=== PATIENT | female | born 1950 | race African-American/Black ===

== ENCOUNTER 2017-02-25 08:08 | Inpatient (IN) | payer BC, OTHER ==
[~2017-02-25] VITALS: Ht 167.6 cm; Wt 89.4 kg
[~2017-02-25 08:08] MED LIST: ALEN70TA5 PO; ALPR0.5T PO; CHOL500016 PO; COD1CAPS2 PO; CYAN10005 PO; CYCL10TA2 PO; EZET10TA18 PO; FLUO40CA9 PO; GLYB5TAB3 PO; LATA2.5D3 EACHEYE; LIDO20SO PO; LOSA50TA6 PO; METF-620 PO; METO-269 PO; NAPR220C4 PO; PANT40TA3 PO; SUMA100T3 PO; TRAM50TA PO; TRAZ50TA15 PO; VENL150C PO; VIT1CAPS7 PO
[2017-02-25] MEDS ORDERED: IV NORMAL SALINE 1000ML BAG 1,000 ML IV SCH (08:20)
[2017-02-25] MEDS ORDERED: 0.9 % SODIUM CHLORIDE 10 ML DISP.SYRIN. IV PRN (08:30)
--- NOTE | 2017-02-25 08:37 | PHYS DOC ---
Past Medical History Past Medical History: Asthma, COPD, Hypertension Smoking: Cigarettes, Quit Greater Than 1 Year Alcohol Use: None Drug Use: None Adult General Chief Complaint Chief Complaint: COUGH HPI HPI History is a pleasant 66-year-old female with history of hypertension and questionable history of asthma or COPD who is going through any pulmonary evaluation presents with bright red hot hemoptysis that began last night. Had a productive cough with bright red blood initially started as dark red blood and clots is gotten progressively worse. About a tablespoon of blood every few minutes. For the last 8-12 hours. She denies fevers, chills but she does have shortness of breath on exertion especially going up stairs and chest pain described as a pressure in the center of her chest that is intermittent with tingling and numbness to her left hand. Was a smoker quit about 20 years ago. He denies any night sweats or weight loss. She further denies any weight gain, peripheral swelling in her lower legs, recent travel outside the country, recent estrogen use, or other PE risk factors. Patient also does not exhibit any signs of congestive heart failure on her history of nocturnal dyspnea. Patient is actually under the care of a research animal attendant at this time and Dr. Nolen her primary care physician. She does complain of pain in the center of her chest described as a pressure lasting a few minutes without radiation to her neck back or shoulders. She denies any prior history of the same. She has noted increased tingling tingling not pain in her left upper extremity which has his symptoms. It is not worsened by position or exertion. sHe denies any direct trauma. Differential diagnosis for hemoptysis includes but not limited to infectious etiologies like bacterial pneumonia, bleeding dyscrasias, tuberculosis, congestive heart failure, epistaxis, or posterior oropharynx bleed, significant GI bleed, lung cancer, and pulmonary embolism. At this point I'll treat her discomfort with IV pain medications and fluids I will complete a chest x-ray, EKG, troponin, CBC, CMP, PT PTT and INR, we'll attempt to collect sputum cultures well if possible. And pulse her primary care doctor for admission. Review of Systems Review of Systems Constitutional: Denies fever or chills [] Eyes: Denies change in visual acuity, redness, or eye pain [] HENT: Denies nasal congestion or sore throat [] Respiratory: Does complain of a productive cough and shortness of breath on exertion. Cardiovascular: No additional information not addressed in HPI [] GI: Denies abdominal pain, nausea, vomiting, bloody stools or diarrhea [] : Denies dysuria or hematuria [] Musculoskeletal: Denies back pain or joint pain [] Integument: Denies rash or skin lesions [] Neurologic: Denies headache, focal weakness or sensory changes [] Endocrine: Denies polyuria or polydipsia [] Current Medications Current Medications Current Medications Medications (Trade) Dose Ordered Sig/Cristopher Start Time Stop Time Status Last Admin Dose Admin Sodium Chloride (Normal Saline Flush) 10 ml QSHIFT PRN 02/25/17 08:30 02/25/17 08:53 10 ML Allergies Allergies Allergies Coded Allergies Type Severity Reaction Last Updated Verified erythromycin base Allergy Intermediate 03/25/16 Yes Physical Exam Physical Exam Patient's vital signs reviewed by me on arrival. Borderline hypoxia sats at 93% on room air Constitutional: Well developed, well nourished, no acute distress, non-toxic appearance. [] HENT: Normocephalic, atraumatic, bilateral external ears normal, oropharynx moist, no oral exudates, nose normal. Clear epistaxis Eyes: PERRLA, EOMI, conjunctiva normal, no discharge. [] Neck: Normal range of motion, no tenderness, supple, no stridor. [] Cardiovascular:Heart rate regular rhythm, no murmur [] Lungs & Thorax: Bilateral breath sounds clear to auscultation no wheezes rhonchi rales or crackles Abdomen: Bowel sounds normal, soft, no tenderness, no masses, no pulsatile masses. [] Skin: Warm, dry, no erythema, no rash. [] Extremities: No tenderness, no cyanosis, no clubbing, ROM intact, no edema. [] Neurologic: Alert and oriented X 3, normal motor function, normal sensory function, no focal deficits noted. [] Psychologic: Affect normal, judgement normal, mood normal. [] Current Patient Data Vital Signs Vital Signs Date Time Temp Pulse Resp B/P (MAP) Pulse Ox O2 Delivery O2 Flow Rate FiO2 02/25/17 08:51 82 27 145/84 (104) 95 Room Air 02/25/17 08:15 98.3 98.3 Lab Values Laboratory Tests Test 02/25/17 08:45 7/21/17 09:20 White Blood Count 6.6 x10^3/uL (4.0-11.0) Red Blood Count 4.47 x10^6/uL (3.50-5.40) Hemoglobin 12.5 g/dL (12.0-15.5) Hematocrit 36.1 % (36.0-47.0) Mean Corpuscular Volume 81 fL (79-100) Mean Corpuscular Hemoglobin 28 pg (25-35) Mean Corpuscular Hemoglobin Concent 35 g/dL (31-37) Red Cell Distribution Width 13.3 % (11.5-14.5) Platelet Count 354 x10^3/uL (140-400) Neutrophils (%) (Auto) 75 % (31-73) H Lymphocytes (%) (Auto) 14 % (24-48) L Monocytes (%) (Auto) 6 % (0-9) Eosinophils (%) (Auto) 4 % (0-3) H Basophils (%) (Auto) 1 % (0-3) Neutrophils # (Auto) 5.0 x10^3uL (1.8-7.7) Lymphocytes # (Auto) 0.9 x10^3/uL (1.0-4.8) L Monocytes # (Auto) 0.4 x10^3/uL (0.0-1.1) Eosinophils # (Auto) 0.3 x10^3/uL (0.0-0.7) Basophils # (Auto) 0.1 x10^3/uL (0.0-0.2) Prothrombin Time 12.7 SEC (11.7-14.0) Prothrombin Time INR 1.0 (0.8-1.1) Sodium Level 143 mmol/L (136-145) Potassium Level 3.2 mmol/L (3.5-5.1) L Chloride Level 105 mmol/L (98-107) Carbon Dioxide Level 29 mmol/L (21-32) Anion Gap 9 (6-14) Blood Urea Nitrogen 10 mg/dL (7-20) Creatinine 0.8 mg/dL (0.6-1.0) Estimated GFR (Cockcroft-Gault) 87.4 Glucose Level 110 mg/dL (70-99) H Calcium Level 9.4 mg/dL (8.5-10.1) Magnesium Level 1.6 mg/dL (1.8-2.4) L Total Bilirubin 0.5 mg/dL (0.2-1.0) Direct Bilirubin 0.1 mg/dL (0.0-0.2) Aspartate Amino Transferase (AST) 17 U/L (15-37) Alanine Aminotransferase (ALT) 13 U/L (14-59) L Alkaline Phosphatase 97 U/L (46-116) Creatine Kinase 104 U/L (26-192) Creatine Kinase MB (Mass) 0.9 ng/mL (0.0-3.6) Creatine Kinase MB Relative Index 0.9 % (0-4) Troponin I Quantitative < 0.017 ng/mL (0.000-0.055) IJ-Eir-P-Type Natriuretic Peptide 78 pg/mL (0-124) Total Protein 7.6 g/dL (6.4-8.2) Albumin 3.2 g/dL (3.4-5.0) L Urine Collection Type Unknown Urine Color Yellow Urine Clarity Clear Urine pH 7.5 Urine Specific [place] <=1.005 Urine Protein Negative mg/dL (NEG-TRACE) Urine Glucose (UA) Negative mg/dL (NEG) Urine Ketones (Stick) Negative mg/dL (NEG) Urine Blood Negative (NEG) Urine Nitrite Negative (NEG) Urine Bilirubin Negative (NEG) Urine Urobilinogen Dipstick 0.2 mg/dL (0.2 mg/dL) Urine Leukocyte Esterase Negative (NEG) Urine RBC 0 /HPF (0-2) Urine WBC 0 /HPF (0-4) Urine Squamous Epithelial Cells Mod /LPF Urine Bacteria Few /HPF (0-FEW) Laboratory Tests 02/25/17 08:45 Laboratory Tests 02/25/17 08:45 EKG EKG [] EKG timed 8:46 AM 02/25/2017 chemistries normal sinus rhythm heart rate of 79 [place] interval of 156 QT 513 which is mildly elevated patient's QRS is 1:30 demonstrated a right bundle was proximal in V1 and V2 with no ST is T-wave elevations or changes there is also nonseptic T-wave inversion in lead 3. Radiology/Procedures Radiology/Procedures [] [facility] [address] [place] [address] IMAGING REPORT Signed PATIENT: MILAN YOO ACCOUNT: [id number] : 1950 LOCATION: ER AGE: 66 SEX: F EXAM STATUS: REG ER ORD. PHYSICIAN: HARRISON KUNZ MD REASON: coughing up blood PROCEDURE: CHEST PA & LATERAL INDICATION: coughing up blood COMPARISON: 02/17/2017 FINDINGS: 2 views of chest obtained. Repeat demonstration of coarsened lung markings throughout the bilateral lungs. There is hazy opacity seen at the left upper lung. Cardiac silhouette is not enlarged. Degenerative changes spine IMPRESSION: Coarsened lung markings throughout the bilateral lungs. Could be secondary to chronic lung disease such as emphysema. Hazy opacity left upper lung. Although its possible that this is related to the patient's chronic lung disease with an area of fibrosis, region of infiltrate or lesion within the areas also within the differential. Follow-up could be obtained to ensure that this resolves. DICTATED and SIGNED BY: DEEP JARA MD DATE: 02/25/17922 CC: HARRISON KUNZ MD; JANNA NOLEN MD ~ Course & Med Decision Making Course & Med Decision Making Pertinent Labs and Imaging studies reviewed. (See chart for details) and presented with hemoptysis and history of question of COPD versus asthma. With her smoking history and hemoptysis I with her my differential diagnosis with the family and cancer is very concerning. She had a CT chest completed last Tuesday and was hemoptysis is brand-new. It could be Goodpasture's syndrome, infection, congestive heart failure, she also complains of chest pain. She has a negative troponin at this time negative EKG by my concern is still with cancer. [] Lead Blender note: Her PCP family practice doctor Dr. CARMEN VALENTIN a Lead Blender called at of the service patient initially at 8:45 AM, paged again at 9:15 AM time is now [phone] paging PCP again Consult called back at 10:10 AM Discussed the case I presented and they agreed with admission. Time of acceptance 10:10 AM She initially presented with bright red hemoptysis which is concerning given her history of smoking and question history of asthma versus COPD that she may be an intermediate risk candidate for cancer. Chest x-ray timed 9:00 02/25/2017 shows interstitial infiltrates that are really unchanged. Prior chest x-rays there is no focal consolidation there is considerable tortuous aorta and mild cardiomegaly is no pleural effusion although there is some blunting of the costophrenic angle on the right. She did have a CT of the chest done on Tuesday of last week we will attempt to get those results and cording with her primary care doctor to set her up for bronchoscopy. Time is now 9:16 AM CBC does not demonstrate any significant anemia no elevated white count, no elevated platelet count no neutrophil predominance. Patient's CMP is otherwise normal with exception of mild hypokalemia and mild hyperglycemia. Although this is not specific for an infectious cause of her hemoptysis is now lower on the differential diagnosis. Other considerations still in play are good pastures syndrome, a pulmonary cancer, bleeding dyscrasias ITP TTP are also less likely at this time. Time is now 10:22 AM patient's been admitted to the hospital will see pulmonology service for bronchoscopy to look for cause of hemoptysis. Impression: hemoptysis unclear etiology, chest pain of unclear etiology hypertension. Disposition: Admission to the hospital for pulmonary duration bronchoscopy. Dragon Disclaimer Dragon Disclaimer This electronic medical record was generated, in whole or in part, using a voice recognition dictation system. Departure Departure Impression: Primary Impression: Hemoptysis Disposition: ADMITTED INPATIENT Admitting Physician: Janna Nolen Condition: GUARDED Referrals: JANNA NOLEN MD (PCP) HARRISON KUNZ MD Feb 25, 2017 08:37
[2017-02-25 08:54] LABS: BASO # 0.1 x10^3/uL (0.0-0.2); BASO % 1 % (0-3); EOS % 4 % (0-3); HEMATOCRIT 36.1 % (36.0-47.0); HEMOGLOBIN 12.5 g/dL (12.0-15.5); LYMPH # 0.9 x10^3/uL (1.0-4.8); LYMPH % 14 % (24-48); MEAN CORPUSCULAR HEMOGLOBIN 28 pg (25-35); MEAN CORPUSCULAR HGB CONC 35 g/dL (31-37); MEAN CORPUSCULAR VOLUME 81 fL (79-100); MONO % 6 % (0-9); NEUT % 75 % (31-73); PLATELET COUNT 354 x10^3/uL (140-400); RED BLOOD COUNT 4.47 x10^6/uL (3.50-5.40); RED CELL DISTRIBUTION WIDTH 13.3 % (11.5-14.5); WHITE BLOOD COUNT 6.6 x10^3/uL (4.0-11.0)
[2017-02-25 09:06] LABS: PROTHROMBIN TIME PATIENT 12.7 SEC (11.7-14.0)
[2017-02-25 09:07] LABS: CALCIUM 9.4 mg/dL (8.5-10.1); CREATININE 0.8 mg/dL (0.6-1.0); GFR 87.4; POTASSIUM 3.2 mmol/L (3.5-5.1)
[2017-02-25 09:13] LABS: ALBUMIN 3.2 g/dL (3.4-5.0); DIRECT BILIRUBIN 0.1 mg/dL (0.0-0.2); MAGNESIUM 1.6 mg/dL (1.8-2.4); TOTAL BILIRUBIN 0.5 mg/dL (0.2-1.0); TOTAL PROTEIN 7.6 g/dL (6.4-8.2)
[2017-02-25 09:21] LABS: CKMB MASS 0.9 ng/mL (0.0-3.6)
--- NOTE | 2017-02-25 09:29 | RAD ---
INDICATION: coughing up blood COMPARISON: 02/17/2017 FINDINGS: 2 views of chest obtained. Repeat demonstration of coarsened lung markings throughout the bilateral lungs. There is hazy opacity seen at the left upper lung. Cardiac silhouette is not enlarged. Degenerative changes spine IMPRESSION: Coarsened lung markings throughout the bilateral lungs. Could be secondary to chronic lung disease such as emphysema. Hazy opacity left upper lung. Although its possible that this is related to the patient's chronic lung disease with an area of fibrosis, region of infiltrate or lesion within the areas also within the differential. Follow-up could be obtained to ensure that this resolves.
[2017-02-25 09:38] LABS: BILIRUBIN,URINE NEGATIVE (NEG); GLUCOSE,URINE NEGATIVE (NEG); NITRITE,URINE NEGATIVE (NEG); PH,URINE 7.5; PROTEIN,URINE NEGATIVE (NEG-TRACE); UROBILINOGEN,URINE 0.2 mg/dL (0.2 mg/dL)
[2017-02-25 09:53] LABS: BACTERIA,URINE FEW /HPF (0-FEW); RBC,URINE 0 /HPF (0-2); SQUAMOUS EPITHELIAL CELL,UR MOD /LPF; WBC,URINE 0 /HPF (0-4)
--- NOTE | 2017-02-25 10:19 | EKG ---
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
[2017-02-25] MEDS ORDERED: fentaNYL PF VIAL 100 MCG/2 ML VIAL IV PRN (10:30)
[2017-02-25] MEDS ORDERED: ONDANSETRON PF 4 MG/2 ML VIAL. IV PRN (10:30)
--- NOTE | 2017-02-25 12:00 | ACF ---
Admit Criteria Forms Admit Criteria Forms Admit Criteria Forms GENERAL ADMISSION CRITERIA (Place 'X' for any and all applicable criteria): Admission is indicated for ANY ONE of the following: [ ]I. Hemodynamic instability as indicated by ANY ONE of the following(1)(2) (3)(4)(5): [ ]a) Vital sign abnormality not readily corrected by appropriate treatment within 12 to 24 hours indicated by ANY ONE of the following: [ ]i) Hypotension [ ]ii) Symptomatic Tachycardia unresponsive to treatment (eg , analgesia, fluids, sedation as indicated) [ ]iii) Orthostatic vital sign changes unresponsive to treatment (eg, fluids) [ ]b) Vital sign abnormality that is severe indicated by ANY ONE of the following: [ ]i) Inadequate perfusion indicated by ANY ONE of the following: [ ]1) Lactic acidosis (greater than 2 mmol/L) [ ]2) New abnormal capillary refill (greater than 3 seconds) [ ]3) Other metabolic acidosis (arterial pH less than 7.35) not otherwise explained [ ]4) Reduced urine output [ ]5) Altered mental status [ ]6) Myocardial Ischemia [ ]v) Mean arterial pressure[A] less than 60 mm Hg [ ]vi) Mean arterial pressure[A] less than 70 mm Hg after 30 minutes of appropriate treatment (eg, fluid resuscitation) [ ]vii) IV inotropic or vasopressor medication required to maintain adequate blood pressure or perfusion [ ]viii) Sustained heart rate greater than 120 beats per minute in adult or child 6 years or older[B]] [ ]II. Hypertension requiring inpatient treatment as indicated by ANY ONE of the following(6)(7)(8): [ ]a) SBP greater than 220 mm Hg or DBP greater than 120 mm Hg despite treatment [ ]b) SBP greater than 140 mm Hg or DBP greater than 100 mm Hg with evidence of acute end organ damage as indicated by ANY ONE of the following: [ ]i) Encephalopathy [ ]ii) Acute renal failure as indicated by new onset of ANY ONE of the following(9)(10)(11)(12)(13): [ ]1) A 3-fold rise in serum creatinine from baseline [ ]2) Serum creatinine greater than 4 mg/dL ( 354 micromoles/L) with acute rise greater than 0.5 mg/dL (44.2 micromoles/L) [ ]3) Reduction of more than 75% in estimated glomerular filtration rate from baseline [ ]4) Estimated glomerular filtration rate less than 35 mL/min/1.73m2 (0.59 mL/sec/1.73m2) in child up to 18 years of age [ ]5) Cessation of urine output indicated by ALL of the following: [ ]A. Adequate volume status [ ]B. Inadequate urine output as indicated by ANY ONE of the following: [ ]a. Urine output less than 0.3 mL/kg/hr for 24 hours [ ]b. Anuria (urine output less than 0.1 mL/kg/hr) for 12 hours [ ]iii) Aortic dissection [ ]iv) Myocardial ischemia [ ]v) Left ventricular heart failure [ ]vi) Retinal hemorrhage [ ]vii) Other significant finding [ ]c) Hypertension in child requiring inpatient treatment as indicated by ALL of the following(14)(15)(16): [ ]i) Outpatient treatment not effective, not available, or not appropriate [ ]ii) SBP or DBP greater than 95th percentile for age [ ]iii) Evidence of acute end organ damage as indicated by ANY ONE of the following: [ ]1) Altered mental status [ ]2) Acute renal failure as indicated by new onset of ANY ONE of the following(9)(10)(11)(12)(13): [ ]A. A 3-fold rise in serum creatinine from baseline [ ]B. Serum creatinine greater than 4 mg/dL (354 micromoles/L) with acute rise greater than 0.5 mg/dL (44.2 micromoles/L) [ ]C. Reduction of more than 75% in estimated glomerular filtration rate from baseline [ ]D. Estimated glomerular filtration rate less than 35 mL/min/1.73m2 (0.59 mL/sec/1.73m2)in child up to 18 years of age [ ]E. Cessation of urine output indicated by ALL of the following: [ ]a. Adequate volume status [ ]b. Inadequate urine output as indicated by ANY ONE of the following: [ ]1) Urine output less than 0.3 mL/kg/hr for 24 hours [ ]2) Anuria (urine output less than 0.1 mL/kg/hr) for 12 hours [ ]3) Severe headache [ ]4) Visual disturbance [ ]5) Retinal hemorrhage [ ]6) Other significant finding [ ]III. Acute cardiac or peripheral ischemia as indicated by ANY ONE of the following: [ ]a) Acute coronary syndrome(17)(18) [ ]b) Acute peripheral ischemia (eg, pulseless, cool, mottled, or cyanotic extremity)(19) [ ]IV. Cardiac arrhythmias or findings of immediate concern indicated by ANY ONE of the following(20)(21): [ ]a) Heart rhythms that are inherently dangerous or unstable indicated by ANY ONE of the following(22)(23)(24): [ ]i) Resuscitated ventricular fibrillation or cardiac arrest [ ]ii) Ventricular escape rhythm [ ]iii) Sustained ventricular tachycardia (30 seconds or more of ventricular rhythm at greater than 100 beats per minute) [ ]iv) Nonsustained ventricular tachycardia and ANY ONE of the following: [ ]1) Suspected cardiac ischemia as cause or consequence of ventricular tachycardia [ ]2) In setting of acute myocarditis [ ]b) Unstable cardiac conduction defects indicated by ANY ONE of the following(24)(25)(26): [ ]i) Type II second-degree atrioventricular block [ ]ii) Third-degree atrioventricular block [ ]iii) New-onset left bundle branch block with suspected myocardial ischemia [ ]c) Any heart rhythm and ANY ONE of the following(22)(23)(27)(28)( 29): [ ] i) Continuous long-term ECG monitoring needed (eg, initiation of drug requiring monitoring for more than 24 hours) [ ] ii) Patient has automatic implanted cardioverter defibrillator that is repeatedly firing, malfunctioning, or in need of immediate adjustment of settings beyond the scope of ambulatory or observation care. [ ]d) Heart rhythms of concern due to ANY ONE of the following: [ ]i) Hypotension [ ]ii) Respiratory distress [ ]iii) Association with other significant symptoms (eg, bradycardia with syncope or ongoing dizziness, supraventricular tachycardia with chest pain) (27)(28) (30) [ ] V. Severe heart failure as indicated by ANY ONE of the following ( 31)(32): [ ]a) Respiratory distress [ ]b) Hypotension [ ]c) Anasarca (refractory to outpatient therapy) [ ]d) Cardiac arrhythmias of immediate concern [ ]e) Myocardial ischemia [ ]. Respiratory abnormalities, including ANY ONE of the following(33)(34) (35)(36): [ ]a) Respiratory rate greater than 30 breaths per minute unresponsive to treatment [A] [ ]b) New saturation of arterial oxygen less than 90% [ ]c) New partial pressure of carbon dioxide greater than 44 mm Hg ( 5.9 kPa) [ ]d) Supplemental oxygen or respiratory treatments needed that are new or not performable at other levels of care [ ]e) New-onset cyanosis [ ]f) Inability to protect airway [ ]g) Chronic lung disease with severe deterioration (not responsive to emergency and observation care treatment as appropriate) as indicated by ANY ONE of the following(34)(36 ): [ ]i) SaO2 5% below baseline in patient with chronic hypoxemia [ ]ii) New requirement for supplemental oxygen to keep SaO2 at baseline or acceptable level [ ]iii) Required supplemental oxygen performable only in acute inpatient setting [ ]iv) Severe airflow or ventilation abnormalities [ ]v) Previously mobile patient unable to walk between rooms [ ]vi Inability to eat or sleep due to dyspnea [ ]vii) Rapid rate of exacerbation onset [ ]viii) Altered mental status ]VII. Severe airflow or ventilation abnormalities (not responsive to emergency and observation care treatment as appropriate) as indicated by ANY ONE of the following(33)(34)(35)(37): [ ]a) PCO2 greater than 42 mm Hg (5.6 kPa) and pH less than 7.35 (new ) [ ]b) Documented PCO2 increased more than 5 mm Hg (0.7 kPa) from disease baseline [ ]c) Airflow measurements [B] less than 60% of previous best or predicted (eg, peak expiratory flow rate less than 300 L/minute) despite intensive emergent treatment [C] [ ]d) Required respiratory treatments that are performable only in acute inpatient setting [ ]VIII. Impending or actual respiratory arrest ( Also use Respiratory Failure GRG for severe respiratory disease and long-term mechanical ventilation patients) [ ]IX. Neurologic abnormalities, including ANY ONE of the following: [ ]a) New findings that suggest ANY ONE of the following: [ ]i) UTILIZATION REVIEW NURSE infection(38) [ ]ii) Cerebral bleeding, ischemia, or vasospasm(39)(40) [ ]iii) Increased intracranial pressure, hydrocephalus, or cerebral edema(41)(42)(43) [ ]iv) Spinal cord injury(44) [ ]b) Uncontrolled seizures(45) [ ]c) New-onset coma (eg, [place] coma scale score less than 9) or unexplained abnormal mental status (eg, [place] coma scale score less than 14) [D](41)(46)(47) [ ]X. New-onset severe neurologic findings requiring inpatient care; examples include(42)(48)(49): [ ]a) Papilledema [ ]b) Cerebral edema [ ]c) Mass effect on CT scan [ ]XI. Suspected acute intra-abdominal process with peritoneal signs, abdominal mass, or similar findings (50)(51)(52) [ ]XII. Severe physiologic disorder remaining after emergency or observation level care (as appropriate) as indicated by ANY ONE of the following (53): [ ]a) Significant dehydration [ ]b) Diabetic ketoacidosis [ ]c) Hyperglycemic hyperosmolar state (eg, osmolality greater than 320 mOsm/kg (mmol/kg) [ ]d) Hypoglycemia [ ]e) Other (new) acid-base disorder with pH less than 7.35 or greater than 7.5(54) [ ]f) Thyroid storm (55) [ ]g) Myxedema coma (55) [ ]XIII. Abdominal abnormalities with ANY ONE of the following(56)(57): [ ]a) Absent bowel sounds with complete ileus [ ]b) Signs of intestinal obstruction or peritonitis [E] [ ]c) Nausea and vomiting that cannot be controlled with outpatient or observation care [ ]XIV. Acute renal failure as indicated by new onset of ANY ONE of the following(9)(10)(11)(12)(13): [ ]a) A 3-fold rise in serum creatinine from baseline [ ]b) Serum creatinine greater than 4 mg/dL (354 micromoles/L) with acute rise greater than 0.5 mg/dL (44.2 micromoles/L) [ ]c) Reduction of more than 75% in estimated glomerular filtration rate from baseline [ ]d) Estimated glomerular filtration rate less than 35 mL/min/ 1.73m2 (0.59 mL/sec/1.73m2) in child up to 18 years of age [ ]e) Cessation of urine output indicated by ALL of the following: [ ]i) Adequate volume status [ ]ii) Inadequate urine output as indicated by ANY ONE of the following: [ ]1) Urine output less than 0.3 mL/kg/hr for 24 hours [ ]2) Anuria (urine output less than 0.1 mL/kg/hr) for 12 hours [ ]XV. Significant uremic complications as indicated by ANY ONE of the following(58)(59)(60): [ ]a) Outpatient therapy is ineffective or not feasible for ANY ONE of the following: [ ]i) Severe heart failure [ ]ii) Severehypertension [ ]iii) Pleural effusion [ ]iv) Pericarditis or pericardial effusion [ ]b) Cardiac arrhythmias of immediate concern [ ]c) Intractable nausea or vomiting [ ]d) Recurrent seizures [ ]e) Encephalopathy [ ]f) Bleeding abnormalities (eg, platelet dysfunction) with active (eg, gastrointestinal) bleeding [ ]g) Dialysis indicated before long-term access or ambulatory arrangements can be made [ ]h) Significant metabolic or electrolyte abnormalities (eg, severe acidosis or hyperkalemia) [ ]XVI. High fever or other high-risk infection situation as indicated by ANY ONE of the following(61)(62)(63)(64): [ ]a) Outpatient and observation care antimicrobial treatment unavailable, not effective, or not appropriate [ ]b) Documented bacteremia [ ]c) Temperature greater than 40.5 degrees C (104.9 degrees F) ( oral) [ ]d) Temperature greater than 39.5 degrees C (103.1 degrees F) ( oral) or less than 36 degrees C (96.8 degrees F) (rectal) that does not respond to e treatment and observation care [ ] XVII. Temperature less than 95 degrees F (35 degrees C)(rectal)(65) [ ] XVIII. Severe nutritional abnormalities as indicated by ALL of the following (66)(67): [ ]a) Inability to tolerate or establish sufficient oral or other enteral nutrition in outpatient setting [ ]b) Parenteral nutrition regimen need that must be implemented on inpatient basis [ ] XIX. Severe electrolyte abnormalities indicated by ALL of the following(68) (69)(70): [ ]a) Electrolytes and associated findings are not as expected for patient baseline or acceptable treatment effects. [ ]b) Severe abnormalities indicated by ANY ONE of the following: [ ]i) Sodium less than 130 mEq/L (mmol/L) (new) [ ]ii)Sodium less than 135 mEq/L (mmol/L) with ANY ONE of the following: [ ]1) Uncorrectable (to near normal or chronic baseline) after trial of outpatient and emergency treatment [ ]2) Altered mental status [ ]3) Seizures [ ]4) Severe medical etiology requiring inpatient management (eg, heart failure, hypovolemia) [ ]iii) Sodium greater than 155 mEq/L (mmol/L) [ ]iv) Sodium greater than 150 mEq/L (mmol/L) with ANY ONE of the following: [ ]1) Uncorrectable (to near normal or chronic baseline) with outpatient and emergency treatment [ ]2) Altered mental status [ ]3) Seizures [ ]4) Severe medical etiology (eg, hypovolemia, diabetes insipidus) [ ]v) Potassium less than 2.5 mEq/L (mmol/L) despite outpatient and emergency treatment [ ]vi) Potassium less than 3 mEq/L (mmol/L) with ANY ONE of the following: [ ]1) Weakness [ ]2) Cardiac abnormality (eg, arrhythmia, conduction disturbance) [ ]3) Cardiac ischemia [ ]4) Ileus [ ]5) Ongoing medical cause requiring inpatient management (eg, acute renal wasting or SIADH) [ ]6) Other severe symptoms [ ]vii) Potassium greater than 6.5 mEq/L (mmol/L) [ ]viii) Potassium greater than 5 mEq/L (mmol/L) with ANY ONE of the following: [ ]1) Uncorrectable (to near normal or chronic baseline) with outpatient and emergency treatment [ ]2) Severe ECG findings [F] [ ]3) Acute worsening of renal failure (creatinine greater than 2.5 mg/dL (221 micromoles/L) or significant elevation for age and size) [ ]4) Severe weakness [ ]5) Severe medical etiology (eg, hemolysis, infection, drug overdose) [ ]ix) Calcium less than 7 mg/dL (1.75 mmol/L) despite outpatient and emergency treatment (72) [ ]x) Calcium less than 8 mg/dL (2 mmol/L) with significant symptoms or findings; examples include(72): [ ]1) Altered mental status [ ]2) Muscle spasms [ ]3) Seizures [ ]4) Breathing difficulty [ ]5) Cardiac abnormality (eg, arrhythmia or conduction disturbance) [ ]xi) Calcium greater than 14 mg/dL (3.5 mmol/L)(72) [ ]xii) Calcium greater than 12 mg/dL (3 mmol/L) with ANY ONE of the following(72): [ ]1) Uncorrectable (to near normal or chronic baseline) with outpatient and emergency treatment [ ]2) Significant dehydration or hypovolemia as indicated by ALL of the following(70)(73)(74): [ ]A. Not resolved with initial treatments [ ]B. Clinically significant dehydration as indicated by ANY ONE of the following: [ ]a. Vomiting refractory to outpatient treatment (ie, precluding oral rehydration) [ ]b. Inability to drink [ ]c. Hypernatremia or other electrolyte abnormality unable to be corrected with outpatient and emergency treatment [ ]d. Failure to remain hydrated with outpatient therapy [ ]e. Reduced urine output [ ]f. Hypotension [ ]g. Serious cause for dehydration requiring acute hospitalization (eg, bowel obstruction, increased intracranial pressure, infectious cause) [ ]h. Child with ANY ONE of the following(75): [ ]1) Severe abdominal tenderness [ ]2) Adequate care not available at home [ ]3) Severe dehydration ( greater than 9% loss of body weight) [ ]4) Significant symptoms or findings; examples include: [ ]A. Altered mental status [ ]B. Cardiac abnormality (eg, arrhythmia, conduction disturbance) [ ]C. Malignant etiology requiring inpatient treatment [ ]xiii) Phosphorus less than 1 mg/dL (0.32 mmol/L) [ ]xiv) Phosphorus less than 1.5 mg/dL (0.48 mmol/L) with ANY ONE of the following: [ ]1) Patient unresponsive to outpatient and emergency treatment [ ]2) Significant symptoms or findings; examples include: [ ]A. Weakness [ ]B. Altered mental status [ ]C. Breathing difficulty [ ]D. Seizures [ ]E. Rhabdomyolysis [ ]xv) Phosphorus greater than 10 mg/dL (3.2 mmol/L) [ ]xvi) Phosphorus greater than 4.5 mg/dL (1.45 mmol/L) (new) with ANY ONE of the following: [ ]1) Severe medical etiology (eg, crush injury, acute renal failure) [ ]2) Associated hypocalcemia with significant findings; examples include: [ ]A. Neurologic symptoms [ ]B. Altered mental status [ ]C. Muscle spasms [ ]D. Seizures [ ]E. Breathing difficulty [ ]F. Cardiac abnormality (eg, arrhythmia, conduction disturbance) [ ]xvii) Magnesium less than 1 mg/dL (0.41 mmol/L) [ ]xviii) Magnesium less than 1.5 mg/dL (0.62 mmol/L) with ANY ONE of the following: [ ]1) Patient unresponsive to outpatient and emergency treatment [ ]2) Associated hypocalcemia with significant findings; examples include: [ ]A. Altered mental status [ ]B. Muscle spasms [ ]C. Seizures [ ]D. Breathing difficulty [ ]E. Cardiac abnormality (eg, arrhythmia , conduction disturbance) [ ]3) Associated hypokalemia (potassium less than 3 mEq/L (mmol/L)) with risk of arrhythmia [ ]xix) Magnesium greater than 4 mEq/L (2 mmol/L) [ ]xx) Magnesium greater than 2.5 mEq/L (1.25 mmol/L) with significant symptoms or findings; examples include: [ ]1) Weakness [ ]2) Altered mental status [ ]3) Cardiac abnormality (eg, arrhythmia, conduction disturbance) [ ]4) Breathing difficulty [ ]5) Severe medical etiology (eg, renal failure, hypovolemia) [ ]xxi) Uric acid greater than 20 mg/dL (1190 micromoles/L)(76) [ ]xxii) Uric acid greater than 8 mg/dL (476 micromoles/L) with significant symptoms or findings of tumor lysis syndrome; examples include(76): [ ]1) Creatinine greater than 1.5 times upper limit of normal [ ]2) Cardiac abnormality (eg, arrhythmia, conduction disturbance) [ ]3) Seizure [ ]XX. Acute blood loss causing significant abnormality as indicated by ANY ONE of the following(77)(78): [ ]a) Hemoglobin less than 10 g/dL (100 g/L) (not baseline) [ ]b) Hematocrit less than 30% (0.30) (not baseline) [ ]c) Repeat hematocrit decreased more than 2% (0.02) [ ]d) Uncontrolled bleeding [ ]XXI. Severe anemia indicated by ANY ONE of the following(78)(79): [ ]a) Altered mental status [ ]b) Chest pain [ ]c) Exertional dyspnea [ ]d) Syncope [ ]e) Other findings suggesting inadequate perfusion [ ]f) Treatment with transfusion or volume replacement is ineffective at resolving ANY ONE of the following [G]: [ ]i) Tachycardia for age [ ]ii) Orthostatic vital sign changes as indicated by ANY ONE of the following(80): [ ]1) Fall in SBP of 20 mm Hg or more 1 to 3 minutes after patient sits or stands from recumbent position [ ]2) Fall in DBP of 10 mm Hg or more 1 to 3 minutes after patient sits or stands from recumbent position [ ]XXII. High-risk low platelet count as indicated by ANY ONE of the following( 81)(82): [ ]a) Severe or life-threatening bleeding (eg, intracranial, major gastrointestinal, or extensive mucosal bleeding), with any reduced platelet count [ ]b) Platelet count less than 20,000/mm3 (20 x109/L) with any active bleeding [ ]c) Platelet count less than 10,000/mm3 (10 x109/L) with minor purpura or petechiae [ ]d) Platelet count less than 5000/mm3 (5 x109/L) [ ]e) Low platelet count with hemolytic anemia [ ]XXIII. Disseminated intravascular coagulation(77)(83) [ ]XXIV. Severe adverse drug or systemic toxin reaction requiring inpatient treatment; examples include(84)(85): [ ]a) Serotonin syndrome(86) [ ]b) Neuroleptic malignant syndrome(86) [ ]c) Cholinergic syndrome with severe symptoms (eg, bronchorrhea, weakness, mental status changes, seizures) [ ]d) Sympathetic syndrome with severe symptoms (eg, seizures, mental status changes, cardiac dysrhythmias) [ ]e) Anticholinergic syndrome [ ]XXV. Severe pain requiring acute inpatient management as indicated by ALL of the following (87)(88)(89): [ ]a) Continuous or frequent (eg, every 2 to 4 hours) parenteral analgesics required [H] [ ]b) Rapid improvement expected from treatment or acute intervention (eg, surgery, anesthesia procedure) [ ]XXVI.Severe behavioral health issues judged unmanageable at a lower level of care (eg, residential) in a patient who is ANY ONE of the following(91) [ ]a) Acutely suicidal [ ]b) A danger to self (eg, self-mutilating or suicidal behavior) [ ]c) A danger to others (eg, assaultive or homicidal behavior) [ ]d) Incapacitated because of grave disability (eg, inability to provide for self at lower level of care) (92) [ X]XXVII. Inpatient monitoring needed; examples include(1)(3)(87)(93)(94)(95)( 96): [ ]a) Vital signs, neurologic signs, or vascular checks more frequently than every 4 hours [ X]b) Cardiac or respiratory monitoring beyond the scope (eg, over 24 hours) of observation care [ ]c) Pulmonary artery catheter monitoring [ ]d) Suspected compartment syndrome(97) (98) [ ]e) Cerebral bleeding, hydrocephalus, or vasospasm monitoring [ ]f) Increased intracranial pressure or cerebral edema monitoring [ ]g) monitoring [ ]XXVIII. Treatment requiring inpatient care; examples include: [ ]a) IV fluid to replace significant ongoing losses (greater than 3 L/m2 per day)(53) [ ]b) High concentration oxygen (greater than 40%)(33)(99)(100) [ ]c) Frequent respiratory therapy (more frequently than every 4 hours) to maintain airflow rates greater than 60% of baseline(33)(99)(100) [ ]d) Epidural analgesia(87) [ ]e) IV anticoagulation, vasoactive, or antiarrhythmic medication(19 )(23) [ ]f) Acute thrombolytics (generally require 24 hours of observation )(101)(102) [ ]XXIX. Emergency procedures needed; examples include: [ ]a) Emergency inpatient surgery [ ]b) Temporary pacemaker placement(103) [ ]c) Chest tube placement with active evacuation (eg, suction, drainage)(104) [ ]d) Emergent cardioversion(105) [ ]e) Emergent cardiac or vascular procedures (eg, cardiac catheterization, angioplasty) (17)(18) [ ]f) Emergent dialysis access placement and institution(10)(106) [ ]g) Emergent pericardiocentesis(107) [ ]h) Emergent plasmapheresis or leukapheresis(83) [ ]i) Emergent tracheostomy The original [employer] content created by [employer] has been revised. The portions of the content which have been revised are identified through the use of italic text or in bold, and [employer] has neither reviewed nor approved the modified material. All other unmodified content is copyright [employer]. Please see references footnoted in the original [employer] edition 2016 CARLITOS NICOLE Feb 25, 2017 12:00
[2017-02-25] MEDS: IV NORMAL SALINE 1000ML BAG 1,000 ML IV SCH ×2 (12:28→22:43)
[2017-02-25] MEDS ORDERED: DORZ10DR7 EACHEYE (12:47)
[2017-02-25] MEDS ORDERED: LOSA1TAB12 PO (12:47)
[2017-02-25] MEDS ORDERED: ASPI81TA50 PO (12:47)
[2017-02-25] MEDS ORDERED: IOHEXOL 300 MG/ML 75 ML VIAL IV ONE (14:15)
--- NOTE | 2017-02-25 14:17 | PDOC ---
Provider Note Provider Note [id number] hemoptysis resolved copd w ae abnl cxr acute bronchitis abx, ct, steroid VILMA MCLEOD MD Feb 25, 2017 14:17
[2017-02-25] MEDS ORDERED: CONTRAST GIVEN MC PRN (14:30)
[2017-02-25 15:00] VITALS: BP 162/88
--- NOTE | 2017-02-25 15:25 | RAD ---
Indication shortness of breath. Hemoptysis. Axial images through the chest were obtained. Images were reformatted in the coronal and sagittal planes. Approximately 75 cc of Omnipaque 300 was administered intravenously. MIP images were generated and reviewed. Imaging through the upper abdomen shows no acute finding. There is a probable benign calcification in the right lobe of the liver. In the left lobe of the liver there are low-density masses most compatible with cysts the largest measuring 4 cm. The thoracic aorta appears unremarkable. The study is negative for pulmonary embolus. There are underlying fibrotic changes in the lungs. There are parenchymal opacities in the left upper lobe compatible with those seen on plain film. The largest is pleural-based and positioned posteriorly measuring approximately 3 cm in greatest dimension. There are additionally parenchymal opacities in the right upper lobe. It is uncertain whether these are solid pulmonary nodules or secondary to inflammation. An additional nodule is seen superiorly in the right lower lobe measuring approximately 5 mm, image 87 series 3. There is marked left hilar adenopathy which engulfs and significantly narrows the distal left main bronchus. . Neoplastic adenopathy is felt most likely. Bronchoscopy is advised. The thoracic aorta appears unremarkable. IMPRESSION: Marked mediastinal adenopathy which engulfs the distal left main bronchus and narrows same. There are scattered parenchymal opacities in the left upper lobe. It is uncertain whether these are secondary to inflammation, neoplastic disease or are postobstructive in nature. Background changes of fibrosis are noted. Scattered pulmonary nodules and opacities additionally noted in the right lung Hepatic masses probably reflecting incidental cysts PQRS Compliance Statement: One or more of the following individualized dose reduction techniques were utilized for this examination: 1. Automated exposure control 2. Adjustment of the mA and/or kV according to patient size 3. Use of iterative reconstruction technique
--- NOTE | 2017-02-25 15:30 | CONS ---
DATE OF CONSULTATION: 02/25/2017 I was asked to see this 66-year-old lady for hemoptysis. HISTORY OF PRESENT ILLNESS: She has history of [id number] smoking, stopped smoking 20 years ago. She was recently diagnosed with COPD. She has been on albuterol and Flovent. She woke up this morning at 7:00 a.m., had some hemoptysis. The beginning it was dark colored, but became fresh red blood and it was stopped when she presented to the Emergency Room. She has had more cough, shortness of breath and wheezing. She has chest tightness. She denies runny nose or gastroesophageal reflux symptoms. PAST MEDICAL HISTORY: Hypertension and COPD. ALLERGIES: ERYTHROMYCIN. MEDICATIONS: Currently she is on IV fluid. SOCIAL HISTORY: History of [id number] smoking, stopped smoking 20 years ago. FAMILY HISTORY: There is no history of lung disease. REVIEW OF SYSTEMS: As mentioned as above, other systems otherwise negative. PHYSICAL EXAMINATION: GENERAL: A well-developed lady. VITAL SIGNS: O2 saturation is 99%, respiratory rate 23, heart rate 80, blood pressure 148/80, and temperature 98.3. HEENT: Normocephalic, atraumatic. Pupils are equal, round and reactive to light. Throat is clear. Nose is clear. NECK: There is no JVD, lymphadenopathy or thyromegaly. CARDIOVASCULAR: Regular rate and rhythm. PMI is nondisplaced. CHEST: Inspection is normal. LUNGS: There is bilateral end expiratory wheezing. Percussion is within normal limits. ABDOMEN: Soft. Bowel sounds are good. There is no mass. EXTREMITIES: There is no edema. LYMPHATICS: There is no lymphadenopathy. NEUROLOGIC: Alert and oriented. SKIN: Warm. LABORATORY DATA: I reviewed the following lab data: Chest x-ray shows COPD changes and left upper lobe haziness/infiltrate. WBC 6.6, hemoglobin 12.5, platelets 354. Sodium 143, potassium 3.2, chloride 105, CO2 of 29, glucose 110, BUN 10, creatinine 0.8. Total bilirubin 0.5, AST 17, ALT 13, alkaline phosphatase 97. Troponin less than 0.017. INR 1. IMPRESSION: 1. Hemoptysis, resolved? etiology could be secondary to acute bronchitis versus others. 2. Abnormal chest x-ray. 3. Chronic obstructive pulmonary disease with acute exacerbation. 4. Acute bronchitis. 5. Ex-smoker. 6. Hypertension. PLAN AND RECOMMENDATIONS: 1. We will monitor her very closely. At this point, she does not have hemoptysis, so she would not need bronchoscopy. 2. I do a CT of the chest PE protocol. 3. Start bronchodilator. 4. Start Solu-Medrol 40 mg IV every 12 hours. 5. Start Rocephin. 6. Monitor respiratory status very closely. 7. The findings and recommendations were discussed with the patient. She understood and agreed to proceed with the plan. Thank you very much for allowing me to participate in care of this very nice lady. I have discussed with RN. VILMA MCLEOD M.D. DR: May JOB#: [id number] / [id number] TAMAR
[2017-02-25] MEDS: IPRATRPIUM/ALBUTEROL 0.5/2.5MG 3 ML NEBU. NEB SCH ×2 (15:47→19:32)
--- NOTE | 2017-02-25 17:39 | PDOC1 ---
History and Physical Date of Admission Date of Admission 02/25/17 Identification/Chief Complaint Chief Complaint cough/hemoptysis Problems: Source Source: Chart review, Patient History of Present Illness History of Present Illness History is a pleasant 66-year-old female with history of hypertension and recent dx of COPD who is going through any pulmonary evaluation presents due to persistent cough and bilateral pulmonary course marketing suggestive of pulmonary fibrosis or infiltrate she initially presented in December was treated with antibiotic and steroids and was given LABA/LAMA inhaler was improvement in the cough for a short period of time her repeat chest x-ray later on in February did not show any improvement she continues to have some cough a CT scan of the chest was ordered to be done as outpatient as well as pulmonary consultation however she presented today to the emergency room with bright red hot hemoptysis that began last night. Had a productive cough with bright red blood initially started as dark red blood and clots is gotten progressively worse. About a tablespoon of blood every few minutes. For the last 8-12 hours. She denies fevers, chills but she does have shortness of breath on exertion especially going up stairs and chest pain described as a pressure in the center of her chest that is intermittent with tingling and numbness to her left hand. Was a smoker quit about 20 years ago. He denies any night sweats she lost about 7 pounds over the last 4-6 months. Denies peripheral swelling in her lower legs, recent travel outside the country, recent estrogen use, or other PE risk factors. Patient also does not exhibit any signs of congestive heart failure on her history of nocturnal dyspnea. . She does complain of pain in the center of her chest described as a pressure lasting a few minutes without radiation to her neck back or shoulders. She denies any prior history of the same. She has noted increased tingling tingling not pain in her left upper extremity which has his symptoms. It is not worsened by position or exertion. she denies any direct trauma. Past Medical History Cardiovascular: HTN, Hyperlipidemia Pulmonary: COPD GI: GERD Family History Family History: Hypertension Social History Smoke: Quit ALCOHOL: rare Drugs: None Current Problem List Problem List Problems Medical Problems: (1) Hemoptysis Status: Acute Current Medications Current Medications Current Medications Medications (Trade) Dose Ordered Sig/Cristopher Start Time Stop Time Status Last Admin Dose Admin Albuterol/ Ipratropium (Duoneb) 3 ml RTQID 02/25/17 16:00 02/25/17 15:47 3 ML Ceftriaxone Sodium 50 ml @ 100 mls/hr 1X ONCE 02/25/17 15:00 02/25/17 15:29 DC 02/25/17 15:17 100 MLS/HR Cyanocobalamin (Vitamin B-12) 1,000 mcg DAILY 02/26/17 09:00 Dorzolamide/ Timolol (Cosopt) 1 drop BID 02/25/17 21:00 Fentanyl Citrate (Fentanyl 2ml Vial) 50 mcg PRN Q1HR PRN 02/25/17 10:30 02/26/17 10:29 Hydrochlorothiazide (Hydrodiuril) 25 mg DAILY 02/26/17 09:00 Info (Do NOT chart on this entry -- for MONITORING) 1 each PRN DAILY PRN 02/25/17 14:30 02/27/17 14:29 Iohexol (Omnipaque 300 Mg/ml) 75 ml 1X ONCE 02/25/17 14:15 02/25/17 14:18 DC 02/25/17 14:52 75 ML Latanoprost (Xalatan) 1 drop QHS 02/25/17 21:00 Losartan Potassium (Cozaar) 100 mg DAILY 02/26/17 09:00 Methylprednisolone Sodium Succinate (SOLU-Medrol 40MG VIAL) 40 mg Q12HR 02/25/17 21:00 Metoprolol Succinate (Toprol Xl) 50 mg BID 02/25/17 21:00 Ondansetron HCl (Zofran) 4 mg PRN Q8HRS PRN 02/25/17 10:30 02/26/17 10:29 Sodium Chloride 1,000 ml @ 120 mls/hr Q8H20M 02/25/17 10:18 02/26/17 10:17 02/25/17 12:28 120 MLS/HR Sodium Chloride (Normal Saline Flush) 10 ml QSHIFT PRN 02/25/17 08:30 02/25/17 08:53 10 ML Vitamin D (Vitamin D3) 5,000 unit DAILY 02/26/17 09:00 Allergies Allergies Allergies Coded Allergies Type Severity Reaction Last Updated Verified erythromycin base Allergy Intermediate 03/25/16 Yes ROS Review of System CONSTITUTIONAL: No fever or chills EYES: No recent changes SKIN: No rash or itching CARDIOVASCULAR: see HPI RESPIRATORY: see HPI GASTROINTESTINAL: No nausea, vomiting or abdominal pain NEUROLOGICAL: No headaches or weakness ENDOCRINE: No cold or heat intolerance GENITOURINARY: No urgency or frequency of urination MUSCULOSKELETAL: No back pain or joint pain LYMPHATICS: No enlarged lymph nodes PSYCHIATRIC: No anxiety or depression Physical Exam Physical Exam GEN.: No apparent distress. Alert and oriented. HEENT: Head is normocephalic, atraumatic NECK: Supple. LUNGS: Clear to auscultation. HEART: RRR, S1, S2 present. Peripheral pulses intact ABDOMEN: Soft, nontender. Positive bowel sounds. EXTREMITIES: Without any cyanosis. NEUROLOGIC: Normal speech, normal tone PSYCHIATRIC: Normal affect, normal mood. SKIN: No ulcerations Vitals Vitals Vital Signs Date Time Temp Pulse Resp B/P (MAP) Pulse Ox O2 Delivery O2 Flow Rate FiO2 02/25/17 15:53 92 Room Air 02/25/17 15:00 97.9 81 18 162/88 (112) 97.9 Labs Labs Laboratory Tests Test 02/25/17 08:45 02/25/17 09:20 White Blood Count 6.6 x10^3/uL (4.0-11.0) Red Blood Count 4.47 x10^6/uL (3.50-5.40) Hemoglobin 12.5 g/dL (12.0-15.5) Hematocrit 36.1 % (36.0-47.0) Mean Corpuscular Volume 81 fL (79-100) Mean Corpuscular Hemoglobin 28 pg (25-35) Mean Corpuscular Hemoglobin Concent 35 g/dL (31-37) Red Cell Distribution Width 13.3 % (11.5-14.5) Platelet Count 354 x10^3/uL (140-400) Neutrophils (%) (Auto) 75 % (31-73) Lymphocytes (%) (Auto) 14 % (24-48) Monocytes (%) (Auto) 6 % (0-9) Eosinophils (%) (Auto) 4 % (0-3) Basophils (%) (Auto) 1 % (0-3) Neutrophils # (Auto) 5.0 x10^3uL (1.8-7.7) Lymphocytes # (Auto) 0.9 x10^3/uL (1.0-4.8) Monocytes # (Auto) 0.4 x10^3/uL (0.0-1.1) Eosinophils # (Auto) 0.3 x10^3/uL (0.0-0.7) Basophils # (Auto) 0.1 x10^3/uL (0.0-0.2) Prothrombin Time 12.7 SEC (11.7-14.0) Prothromb Time International Ratio 1.0 (0.8-1.1) Sodium Level 143 mmol/L (136-145) Potassium Level 3.2 mmol/L (3.5-5.1) Chloride Level 105 mmol/L (98-107) Carbon Dioxide Level 29 mmol/L (21-32) Anion Gap 9 (6-14) Blood Urea Nitrogen 10 mg/dL (7-20) Creatinine 0.8 mg/dL (0.6-1.0) Estimated GFR (Cockcroft-Gault) 87.4 Glucose Level 110 mg/dL (70-99) Calcium Level 9.4 mg/dL (8.5-10.1) Magnesium Level 1.6 mg/dL (1.8-2.4) Total Bilirubin 0.5 mg/dL (0.2-1.0) Direct Bilirubin 0.1 mg/dL (0.0-0.2) Aspartate Amino Transf (AST/SGOT) 17 U/L (15-37) Alanine Aminotransferase (ALT/SGPT) 13 U/L (14-59) Alkaline Phosphatase 97 U/L (46-116) Creatine Kinase 104 U/L (26-192) Creatine Kinase MB (Mass) 0.9 ng/mL (0.0-3.6) Creatine Kinase MB Relative Index 0.9 % (0-4) Troponin I Quantitative < 0.017 ng/mL (0.000-0.055) AO-Xux-G-Type Natriuretic Peptide 78 pg/mL (0-124) Total Protein 7.6 g/dL (6.4-8.2) Albumin 3.2 g/dL (3.4-5.0) Urine Collection Type Unknown Urine Color Yellow Urine Clarity Clear Urine pH 7.5 Urine Specific [place] <=1.005 Urine Protein Negative mg/dL (NEG-TRACE) Urine Glucose (UA) Negative mg/dL (NEG) Urine Ketones (Stick) Negative mg/dL (NEG) Urine Blood Negative (NEG) Urine Nitrite Negative (NEG) Urine Bilirubin Negative (NEG) Urine Urobilinogen Dipstick 0.2 mg/dL (0.2 mg/dL) Urine Leukocyte Esterase Negative (NEG) Urine RBC 0 /HPF (0-2) Urine WBC 0 /HPF (0-4) Urine Squamous Epithelial Cells Mod /LPF Urine Bacteria Few /HPF (0-FEW) Laboratory Tests Test 02/25/17 08:45 02/25/17 09:20 White Blood Count 6.6 x10^3/uL (4.0-11.0) Red Blood Count 4.47 x10^6/uL (3.50-5.40) Hemoglobin 12.5 g/dL (12.0-15.5) Hematocrit 36.1 % (36.0-47.0) Mean Corpuscular Volume 81 fL (79-100) Mean Corpuscular Hemoglobin 28 pg (25-35) Mean Corpuscular Hemoglobin Concent 35 g/dL (31-37) Red Cell Distribution Width 13.3 % (11.5-14.5) Platelet Count 354 x10^3/uL (140-400) Neutrophils (%) (Auto) 75 % (31-73) Lymphocytes (%) (Auto) 14 % (24-48) Monocytes (%) (Auto) 6 % (0-9) Eosinophils (%) (Auto) 4 % (0-3) Basophils (%) (Auto) 1 % (0-3) Neutrophils # (Auto) 5.0 x10^3uL (1.8-7.7) Lymphocytes # (Auto) 0.9 x10^3/uL (1.0-4.8) Monocytes # (Auto) 0.4 x10^3/uL (0.0-1.1) Eosinophils # (Auto) 0.3 x10^3/uL (0.0-0.7) Basophils # (Auto) 0.1 x10^3/uL (0.0-0.2) Prothrombin Time 12.7 SEC (11.7-14.0) Prothromb Time International Ratio 1.0 (0.8-1.1) Sodium Level 143 mmol/L (136-145) Potassium Level 3.2 mmol/L (3.5-5.1) Chloride Level 105 mmol/L (98-107) Carbon Dioxide Level 29 mmol/L (21-32) Anion Gap 9 (6-14) Blood Urea Nitrogen 10 mg/dL (7-20) Creatinine 0.8 mg/dL (0.6-1.0) Estimated GFR (Cockcroft-Gault) 87.4 Glucose Level 110 mg/dL (70-99) Calcium Level 9.4 mg/dL (8.5-10.1) Magnesium Level 1.6 mg/dL (1.8-2.4) Total Bilirubin 0.5 mg/dL (0.2-1.0) Direct Bilirubin 0.1 mg/dL (0.0-0.2) Aspartate Amino Transf (AST/SGOT) 17 U/L (15-37) Alanine Aminotransferase (ALT/SGPT) 13 U/L (14-59) Alkaline Phosphatase 97 U/L (46-116) Creatine Kinase 104 U/L (26-192) Creatine Kinase MB (Mass) 0.9 ng/mL (0.0-3.6) Creatine Kinase MB Relative Index 0.9 % (0-4) Troponin I Quantitative < 0.017 ng/mL (0.000-0.055) UB-Tbu-Y-Type Natriuretic Peptide 78 pg/mL (0-124) Total Protein 7.6 g/dL (6.4-8.2) Albumin 3.2 g/dL (3.4-5.0) Urine Collection Type Unknown Urine Color Yellow Urine Clarity Clear Urine pH 7.5 Urine Specific [place] <=1.005 Urine Protein Negative mg/dL (NEG-TRACE) Urine Glucose (UA) Negative mg/dL (NEG) Urine Ketones (Stick) Negative mg/dL (NEG) Urine Blood Negative (NEG) Urine Nitrite Negative (NEG) Urine Bilirubin Negative (NEG) Urine Urobilinogen Dipstick 0.2 mg/dL (0.2 mg/dL) Urine Leukocyte Esterase Negative (NEG) Urine RBC 0 /HPF (0-2) Urine WBC 0 /HPF (0-4) Urine Squamous Epithelial Cells Mod /LPF Urine Bacteria Few /HPF (0-FEW) VTE Prophylaxis Ordered VTE Prophylaxis Devices: Yes VTE Pharmacological Prophylaxi: Contraindicated Assessment/Plan Assessment/Plan 1- persistent cough and no hemoptysis, with abnormal CT of the chest she will need a bronchoscopy pulmonary has been consulted and she was started on antibiotics 2-COPD 3-HTN 4-HLD 5-weight loss of 7 pounds over the last 6 months JANNA NOLEN MD Feb 25, 2017 17:39
[2017-02-25 19:00] VITALS: BP 149/88
[2017-02-25] MEDS: methylPREDNISolone SOD SUCC PF 40 MG/ML VIAL. IV SCH (22:16)
[2017-02-25] MEDS: DORZOLAMIDE/TIMOLOL 2%/0.5% OPHTH SOLUTION 10ML BOTTLE. OU SCH (22:17)
[2017-02-25] MEDS: METOPROLOL SUCC 24HR ER 50 MG TAB.ER.24H. PO SCH (22:17)
[2017-02-25] MEDS: LATANOPROST 0.005% OPHTH SOLUTION 2.5ML BOTTLE. OU SCH (22:17)
[2017-02-25 23:00] VITALS: BP 175/100
[2017-02-26] VITALS (7 sets, daily range): BP systolic 138–203; BP diastolic 87–105
[2017-02-26] MEDS: IV NORMAL SALINE 1000ML BAG 1,000 ML IV SCH (06:04)
[2017-02-26] MEDS: IPRATRPIUM/ALBUTEROL 0.5/2.5MG 3 ML NEBU. NEB SCH ×4 (07:34→20:18)
[2017-02-26] MEDS: hydroCHLOROthiazide 25 MG TABLET PO SCH (09:04)
[2017-02-26] MEDS: CHOLECALCIFEROL (VITAMIN D3) 5,000 UNIT CAPSULE PO SCH (09:04)
[2017-02-26] MEDS: LOSARTAN POTASSIUM 50 MG TABLET. PO SCH (09:04)
[2017-02-26] MEDS: methylPREDNISolone SOD SUCC PF 40 MG/ML VIAL. IV SCH ×2 (09:05→21:35)
[2017-02-26] MEDS: CYANOCOBALAMIN (VITAMIN B-12) 1,000 MCG TABLET. PO SCH (09:05)
[2017-02-26] MEDS: METOPROLOL SUCC 24HR ER 50 MG TAB.ER.24H. PO SCH ×2 (09:05→21:36)
[2017-02-26] MEDS: DORZOLAMIDE/TIMOLOL 2%/0.5% OPHTH SOLUTION 10ML BOTTLE. OU SCH ×2 (09:05→21:36)
--- NOTE | 2017-02-26 10:43 | PDOC ---
Provider Note Provider Note afeb, vss, labs ok- no more blood- ct shows no pe but invasive L mediastinal nodes compressing Lmainstem bronchus, likely CA- will cont rocephin, steroids- likely needs bronch for dx eval, as i discussed w/ her and her SO- cont same meds for now SUSY JARA MD Feb 26, 2017 10:43
--- NOTE | 2017-02-26 11:36 | PDOC ---
PULMONARY PROGRESS NOTES Subjective still has cough, no hemoptysis, sob is better, no pain Vitals Vital Signs Date Time Temp Pulse Resp B/P (MAP) Pulse Ox O2 Delivery O2 Flow Rate FiO2 02/26/17 10:58 174/97 (122) 02/26/17 10:57 98.2 80 20 95 Room Air 98.2 ROS: No Nausea General: Alert HEENT: Other (nc at perrl, nose throat clear) Lungs: Clear Cardiovascular: S1, S2 Abdomen: Soft, Non-tender Neuro Exam: Alert Extremities: No Edema Skin: Warm Labs Laboratory Tests Test 02/25/17 08:45 02/25/17 09:20 White Blood Count 6.6 x10^3/uL (4.0-11.0) Red Blood Count 4.47 x10^6/uL (3.50-5.40) Hemoglobin 12.5 g/dL (12.0-15.5) Hematocrit 36.1 % (36.0-47.0) Mean Corpuscular Volume 81 fL (79-100) Mean Corpuscular Hemoglobin 28 pg (25-35) Mean Corpuscular Hemoglobin Concent 35 g/dL (31-37) Red Cell Distribution Width 13.3 % (11.5-14.5) Platelet Count 354 x10^3/uL (140-400) Neutrophils (%) (Auto) 75 % (31-73) Lymphocytes (%) (Auto) 14 % (24-48) Monocytes (%) (Auto) 6 % (0-9) Eosinophils (%) (Auto) 4 % (0-3) Basophils (%) (Auto) 1 % (0-3) Neutrophils # (Auto) 5.0 x10^3uL (1.8-7.7) Lymphocytes # (Auto) 0.9 x10^3/uL (1.0-4.8) Monocytes # (Auto) 0.4 x10^3/uL (0.0-1.1) Eosinophils # (Auto) 0.3 x10^3/uL (0.0-0.7) Basophils # (Auto) 0.1 x10^3/uL (0.0-0.2) Prothrombin Time 12.7 SEC (11.7-14.0) Prothromb Time International Ratio 1.0 (0.8-1.1) Sodium Level 143 mmol/L (136-145) Potassium Level 3.2 mmol/L (3.5-5.1) Chloride Level 105 mmol/L (98-107) Carbon Dioxide Level 29 mmol/L (21-32) Anion Gap 9 (6-14) Blood Urea Nitrogen 10 mg/dL (7-20) Creatinine 0.8 mg/dL (0.6-1.0) Estimated GFR (Cockcroft-Gault) 87.4 Glucose Level 110 mg/dL (70-99) Calcium Level 9.4 mg/dL (8.5-10.1) Magnesium Level 1.6 mg/dL (1.8-2.4) Total Bilirubin 0.5 mg/dL (0.2-1.0) Direct Bilirubin 0.1 mg/dL (0.0-0.2) Aspartate Amino Transf (AST/SGOT) 17 U/L (15-37) Alanine Aminotransferase (ALT/SGPT) 13 U/L (14-59) Alkaline Phosphatase 97 U/L (46-116) Creatine Kinase 104 U/L (26-192) Creatine Kinase MB (Mass) 0.9 ng/mL (0.0-3.6) Creatine Kinase MB Relative Index 0.9 % (0-4) Troponin I Quantitative < 0.017 ng/mL (0.000-0.055) KF-Dwl-K-Type Natriuretic Peptide 78 pg/mL (0-124) Total Protein 7.6 g/dL (6.4-8.2) Albumin 3.2 g/dL (3.4-5.0) Urine Collection Type Unknown Urine Color Yellow Urine Clarity Clear Urine pH 7.5 Urine Specific [place] <=1.005 Urine Protein Negative mg/dL (NEG-TRACE) Urine Glucose (UA) Negative mg/dL (NEG) Urine Ketones (Stick) Negative mg/dL (NEG) Urine Blood Negative (NEG) Urine Nitrite Negative (NEG) Urine Bilirubin Negative (NEG) Urine Urobilinogen Dipstick 0.2 mg/dL (0.2 mg/dL) Urine Leukocyte Esterase Negative (NEG) Urine RBC 0 /HPF (0-2) Urine WBC 0 /HPF (0-4) Urine Squamous Epithelial Cells Mod /LPF Urine Bacteria Few /HPF (0-FEW) Medications Active Scripts Medications Dose Route/Sig Max Daily Dose Days Date Category Dorzolamide-Timolol Eye Drops (Dorzolamide Hcl/Timolol Maleat) 10 Ml Drops 1 Drop EACHEYE BID 02/25/17 Reported Hyzaar 100-25 Tablet (Losartan/Hydrochlorothiazide) 1 Each Tablet 1 Tab PO DAILY 02/25/17 Reported Latanoprost 2.5 Ml Drops 1 Drop EACHEYE QHS 04/08/16 Reported Toprol Xl (Metoprolol Succinate) 50 Mg Tab.er.24h 50 Mg PO BID 03/25/16 Reported Vitamin B-12 (Cyanocobalamin (Vitamin B-12)) 1,000 Mcg Tablet 1 Tab PO DAILY 03/25/16 Reported Vitamin D3 (Cholecalciferol (Vitamin D3)) 5,000 Unit Tablet 1 Tab PO DAILY 03/25/[address] reviewed, Marked mediastinal adenopathy which engulfs the distal left main bronchus and narrows same. There are scattered parenchymal opacities in the left upper lobe. It is uncertain whether these are secondary to inflammation, neoplastic disease or are postobstructive in nature. Background changes of fibrosis are noted. Scattered pulmonary nodules and opacities additionally noted in the right lung Hepatic masses probably reflecting incidental cysts Impression . IMPRESSION: 1. Hemoptysis, resolved? etiology could be secondary to acute bronchitis versus others. 2. Abnormal chest x-ray and ct of chest, sig med lap, infilt/consolidation/mass , pulm nodule. 3. Chronic obstructive pulmonary disease with acute exacerbation. 4. Acute bronchitis. 5. Ex-smoker. 6. Hypertension. Plan . PLAN AND RECOMMENDATIONS: 1. bronch on Tuesday, the procedure, risk and benefits, lack of guarantee discussed, the pt understood agreed w plan, 2. add ics 3. bronchodilator. 4. cont Solu-Medrol 40 mg IV every 12 hours. 5. Rocephin. 6. Monitor respiratory status very closely. 7. The findings and recommendations were discussed with the patient. She understood and agreed to proceed with the plan. VILMA MCLEOD MD Feb 26, 2017 11:36
[2017-02-26] MEDS ORDERED: BENZONATATE 100 MG CAPSULE. PO PRN (12:00)
[2017-02-26] MEDS ORDERED: BENZOCAINE/MENTHOL LOZENGE. PO PRN (12:00)
[2017-02-26] MEDS: LATANOPROST 0.005% OPHTH SOLUTION 2.5ML BOTTLE. OU SCH (21:36)
[2017-02-27] VITALS (7 sets, daily range): BP systolic 154–183; BP diastolic 85–100
[2017-02-27] MEDS: METOPROLOL SUCC 24HR ER 50 MG TAB.ER.24H. PO SCH ×2 (08:32→20:42)
[2017-02-27] MEDS: hydroCHLOROthiazide 25 MG TABLET PO SCH (08:32)
[2017-02-27] MEDS: CHOLECALCIFEROL (VITAMIN D3) 5,000 UNIT CAPSULE PO SCH (08:32)
[2017-02-27] MEDS: LOSARTAN POTASSIUM 50 MG TABLET. PO SCH (08:32)
[2017-02-27] MEDS: CYANOCOBALAMIN (VITAMIN B-12) 1,000 MCG TABLET. PO SCH (08:32)
[2017-02-27] MEDS: methylPREDNISolone SOD SUCC PF 40 MG/ML VIAL. IV SCH ×2 (08:33→20:39)
[2017-02-27] MEDS: DORZOLAMIDE/TIMOLOL 2%/0.5% OPHTH SOLUTION 10ML BOTTLE. OU SCH ×2 (08:33→20:39)
[2017-02-27] MEDS: IPRATRPIUM/ALBUTEROL 0.5/2.5MG 3 ML NEBU. NEB SCH ×4 (09:00→20:10)
--- NOTE | 2017-02-27 12:20 | PDOC ---
PULMONARY PROGRESS NOTES Subjective still has cough, better, no hemoptysis, sob is better, no pain Vitals Vital Signs Date Time Temp Pulse Resp B/P (MAP) Pulse Ox O2 Delivery O2 Flow Rate FiO2 02/27/17 11:00 97.8 71 18 178/96 (123) 93 Room Air 97.8 ROS: No Nausea General: Alert, Oriented X4 HEENT: Other (nc at perrl, nose throat clear) Lungs: Clear, Other (deminished bs on l) Cardiovascular: S1, S2 Abdomen: Soft, Non-tender Neuro Exam: Alert Extremities: No Edema Skin: Warm Medications Active Scripts Medications Dose Route/Sig Max Daily Dose Days Date Category Dorzolamide-Timolol Eye Drops (Dorzolamide Hcl/Timolol Maleat) 10 Ml Drops 1 Drop EACHEYE BID 02/25/17 Reported Hyzaar 100-25 Tablet (Losartan/Hydrochlorothiazide) 1 Each Tablet 1 Tab PO DAILY 02/25/17 Reported Latanoprost 2.5 Ml Drops 1 Drop EACHEYE QHS 04/08/16 Reported Toprol Xl (Metoprolol Succinate) 50 Mg Tab.er.24h 50 Mg PO BID 03/25/16 Reported Vitamin B-12 (Cyanocobalamin (Vitamin B-12)) 1,000 Mcg Tablet 1 Tab PO DAILY 03/25/16 Reported Vitamin D3 (Cholecalciferol (Vitamin D3)) 5,000 Unit Tablet 1 Tab PO DAILY 03/25/[address] reviewed, Marked mediastinal adenopathy which engulfs the distal left main bronchus and narrows same. There are scattered parenchymal opacities in the left upper lobe. It is uncertain whether these are secondary to inflammation, neoplastic disease or are postobstructive in nature. Background changes of fibrosis are noted. Scattered pulmonary nodules and opacities additionally noted in the right lung Hepatic masses probably reflecting incidental cysts Impression . IMPRESSION: 1. Hemoptysis, resolved,? etiology could be secondary to acute bronchitis versus others. 2. Abnormal chest x-ray and ct of chest, sig med lap, infilt/consolidation/mass , pulm nodule. 3. Chronic obstructive pulmonary disease with acute exacerbation. 4. Acute bronchitis. 5. Ex-smoker. 6. Hypertension. Plan . PLAN AND RECOMMENDATIONS: 1. bronch on Tuesday, the procedure, risk and benefits, lack of guarantee discussed, the pt understood agreed w plan, will discuss w dr samayoa 2. ics 3. bronchodilator. 4. cont Solu-Medrol 40 mg IV every 12 hours. 5. Rocephin. 6. Monitor respiratory status very closely. 7. The findings and recommendations were discussed with the patient. She understood and agreed to proceed with the plan. VILMA MCLEOD MD Feb 27, 2017 12:20
--- NOTE | 2017-02-27 14:16 | PDOC ---
Provider Note Provider Note vss, no new sxs- ct /bronh discussed- cont same meds SUSY JARA MD Feb 27, 2017 14:16
[2017-02-27] MEDS: LATANOPROST 0.005% OPHTH SOLUTION 2.5ML BOTTLE. OU SCH (20:39)
[2017-02-28] VITALS (13 sets, daily range): BP systolic 136–194; BP diastolic 63–116
[2017-02-28] MEDS: IPRATRPIUM/ALBUTEROL 0.5/2.5MG 3 ML NEBU. NEB SCH ×4 (07:30→19:41)
[2017-02-28] MEDS ORDERED: IV RINGERS,LACTATED 1000ML 1,000 ML IV SCH (07:41)
[2017-02-28] MEDS ORDERED: fentaNYL PF VIAL 100 MCG/2 ML VIAL IV PRN ×2 (07:45)
[2017-02-28] MEDS ORDERED: MORPHINE SULFATE 2 MG/ML DISP.SYRIN. IV PRN (07:45)
[2017-02-28] MEDS ORDERED: PROCHLORPERAZINE 10 MG/2 ML VIAL. IV PRN (07:45)
[2017-02-28] MEDS ORDERED: HYDROmorphone 2 MG/ML VIAL IV PRN (07:45)
[2017-02-28] MEDS ORDERED: ONDANSETRON PF 4 MG/2 ML VIAL. IV PRN (07:45)
[2017-02-28] MEDS ORDERED: LIDOCAINE 1% 1 ML SYRINGE. ID PRN (07:45)
--- NOTE | 2017-02-28 08:15 | PDOC ---
Provider Note Provider Note vss, no new sxs , labs same- discussed ct report re possibilities, broch today- ok for po meds- ? home after depending on findings SUSY JARA MD Feb 28, 2017 08:15
[2017-02-28] MEDS: CYANOCOBALAMIN (VITAMIN B-12) 1,000 MCG TABLET. PO SCH (09:00)
[2017-02-28] MEDS: CHOLECALCIFEROL (VITAMIN D3) 5,000 UNIT CAPSULE PO SCH (09:00)
[2017-02-28] MEDS: DORZOLAMIDE/TIMOLOL 2%/0.5% OPHTH SOLUTION 10ML BOTTLE. OU SCH ×2 (09:31→21:10)
[2017-02-28] MEDS: METOPROLOL SUCC 24HR ER 50 MG TAB.ER.24H. PO SCH ×2 (09:42→21:12)
[2017-02-28] MEDS: LOSARTAN POTASSIUM 50 MG TABLET. PO SCH (09:43)
[2017-02-28] MEDS ORDERED: MEPERIDINE PF 25 MG/ML VIAL. ONE (14:45)
[2017-02-28] MEDS ORDERED: PROPOFOL 40 ML IV ONE (14:46)
[2017-02-28] MEDS ORDERED: LIDOCAINE 2% PF Vial for OR 5 ML VIAL. ONE (14:46)
--- NOTE | 2017-02-28 16:37 | PDOC ---
PULMONARY PROGRESS NOTES Subjective no hemoptysis, less soa Vitals Vital Signs Date Time Temp Pulse Resp B/P (MAP) Pulse Ox O2 Delivery O2 Flow Rate FiO2 02/28/17 15:47 86 20 153/84 94 Nasal Cannula 2 02/28/17 13:53 98.4 98.4 ROS: No Nausea, No Chest Pain, No Abdominal Pain, No Increase Cough General: Alert HEENT: Other (nc at perrl, nose throat clear) Lungs: Clear Cardiovascular: S1, S2 Abdomen: Soft, Non-tender Neuro Exam: Alert Extremities: No Edema Skin: Warm Medications Active Scripts Medications Dose Route/Sig Max Daily Dose Days Date Category Dorzolamide-Timolol Eye Drops (Dorzolamide Hcl/Timolol Maleat) 10 Ml Drops 1 Drop EACHEYE BID 02/25/17 Reported Hyzaar 100-25 Tablet (Losartan/Hydrochlorothiazide) 1 Each Tablet 1 Tab PO DAILY 02/25/17 Reported Latanoprost 2.5 Ml Drops 1 Drop EACHEYE QHS 04/08/16 Reported Toprol Xl (Metoprolol Succinate) 50 Mg Tab.er.24h 50 Mg PO BID 03/25/16 Reported Vitamin B-12 (Cyanocobalamin (Vitamin B-12)) 1,000 Mcg Tablet 1 Tab PO DAILY 03/25/16 Reported Vitamin D3 (Cholecalciferol (Vitamin D3)) 5,000 Unit Tablet 1 Tab PO DAILY 03/25/[address] reviewed, Marked mediastinal adenopathy which engulfs the distal left main bronchus and narrows same. There are scattered parenchymal opacities in the left upper lobe. It is uncertain whether these are secondary to inflammation, neoplastic disease or are postobstructive in nature. Background changes of fibrosis are noted. Scattered pulmonary nodules and opacities additionally noted in the right lung Hepatic masses probably reflecting incidental cysts Impression . 1. Hemoptysis, suspect sec to malignancy 2. Abnormal chest x-ray and ct of chest, sig med lap, infilt/consolidation/mass , pulm nodule. 3. Chronic obstructive pulmonary disease with acute exacerbation. 4. Acute bronchitis. 5. Ex-smoker. 6. Hypertension. Plan . 1. Reviewed the CT chest will proceed with a Bronch Reviewed the R/B/A pt accepted 2. ICS 3. bronchodilator. 4. cont Solu-Medrol 40 mg IV every 12 hours. 5. Rocephin. 6. Monitor respiratory status very closely. SHYANNE SETH MD Feb 28, 2017 16:37
--- NOTE | 2017-02-28 16:43 | PDOC4 ---
PROCEDURE Procedure BRONCH NO BIOPSY PERFORMED ENDOBRACHIAL LESION LEFT MAINSTEM NO BIOPSY PERFORMED IT APPEAR TOO VASCULAR D/W IR WILL PROCEED WITH FNA [id number] SHYANNE SETH MD Feb 28, 2017 16:43
[2017-02-28] MEDS: hydroCHLOROthiazide 25 MG TABLET PO SCH (17:45)
[2017-02-28] MEDS: amLODIPine BESYLATE 5 MG TABLET PO SCH (17:46)
--- NOTE | 2017-02-28 19:39 | OP ---
DATE OF SURGERY: 02/28/2017 PROCEDURE: Bronchoscopy, lavage of left side. INDICATIONS: The patient presented with hemoptysis, abnormal CT of the chest revealing possible endobronchial lesion within the left main stem bronchus. Risks, benefits, and alternatives reviewed with patient and she consented. DESCRIPTION OF PROCEDURE: A timeout was performed prior to sedation. Vital signs and O2 saturation were maintained within normal limits throughout the procedure. The bronchoscope was passed through the right naris. The vocal cords were identified moving bilaterally without any dysfunction. The vocal cords were anesthetized with a total of 5 mL of 4% lidocaine. Bronchoscope was passed through the vocal cords into the proximal trachea, which was normal. The distal trachea was likewise normal. The right segments and subsegments were visualized. There was no endobronchial lesion. Upon inspecting the left side, there was an endobronchial lesion within the left main stem bronchus. It did appear to be pedunculated and moved with inspiration and exhalation. Initially my thoughts were that this was a mucus plug mixed in with blood. I tried to aspirate it back. It did not move much. Lavage of that area was performed. The endobronchial lesion. appeared to have multiple blood vessels superficially; as a consequence, I elected not to perform a biopsy thinking that this may bleed and then subsequent surgical intervention would be eminent. FINDINGS: 1. Normal vocal cords. 2. Endobronchial lesion within the left upper lobe main stem bronchus as described above. 3. Normal right segments and subsegments. PLAN: We will await lavage results, case discussed with Interventional Radiology. We will proceed with fine needle aspiration. SHYANNE SETH MD DR: SID/raul JOB#: [id number] / [id number]
[2017-02-28] MEDS: LATANOPROST 0.005% OPHTH SOLUTION 2.5ML BOTTLE. OU SCH (21:10)
[2017-03-01 03:07] VITALS: BP 139/87
[2017-03-01 07:40] VITALS: BP 130/78
[2017-03-01] MEDS: IPRATRPIUM/ALBUTEROL 0.5/2.5MG 3 ML NEBU. NEB SCH ×4 (08:48→18:12)
--- NOTE | 2017-03-01 09:23 | PDOC ---
SUBJECTIVE Subjective Patient was seen before her arm scheduled procedure at IR OBJECTIVE Objective Stable Vital Signs Vital Signs Date Time Temp Pulse Resp B/P (MAP) Pulse Ox O2 Delivery O2 Flow Rate FiO2 03/01/17 08:56 94 Nasal Cannula 2.0 03/01/17 07:40 98.1 78 20 130/78 (95) 93 Nasal Cannula 2.0 98.1 03/01/17 03:07 98.2 73 20 139/87 (104) 96 Nasal Cannula 98.2 02/28/17 23:00 98.1 84 20 159/90 (113) 91 Nasal Cannula 98.1 02/28/17 21:12 82 158/86 02/28/17 20:00 Room Air 02/28/17 19:42 92 Room Air 02/28/17 19:00 98.5 85 20 151/90 (110) 90 Room Air 98.5 02/28/17 18:15 98.1 79 19 186/107 (133) 87 Room Air 98.1 02/28/17 17:46 80 187/101 02/28/17 17:45 98.1 80 19 178/116 (136) 91 Room Air 98.1 02/28/17 17:15 98.1 79 19 187/106 (133) 89 Room Air 98.1 02/28/17 17:00 98.1 76 19 184/105 (131) 89 Room Air 98.1 02/28/17 16:45 98.1 74 19 187/101 (129) 90 Room Air 98.1 02/28/17 16:30 98.1 77 20 182/98 (126) 91 Room Air 98.1 02/28/17 15:47 86 20 153/84 94 Nasal Cannula 2 02/28/17 15:30 86 18 94 Simple Mask 4 02/28/17 15:13 95 18 161/109 93 Simple Mask 10 02/28/17 14:20 94 Room Air 02/28/17 13:58 Room Air 02/28/17 13:53 98.4 75 18 94 98.4 02/28/17 11:49 Room Air 02/28/17 11:00 96.8 76 20 168/98 (121) 94 Room Air 96.8 02/28/17 09:43 69 180/95 02/28/17 09:42 69 180/95 02/28/17 09:39 180/95 (123) 02/28/17 09:33 194/103 (133) I & O Intake and Output 03/01/17 07:00 Intake Total 1030 ml Balance 1030 ml Intake Oral 780 ml IV Total 250 ml # Voids 4 PHYSICAL EXAM Physical Exam Not much change in physical exam ASSESSMENT/PLAN Assessment/Plan 1. Hemoptysis, suspect sec to malignancy 2. Abnormal chest x-ray and ct of chest, post obstructive pneumonia 3. Chronic obstructive pulmonary disease with acute exacerbation. 4. Acute bronchitis. 5. Ex-smoker. 6. Hypertension. Discussed with Dr. Mariscal , IR not able to obtain biopsy we'll await lavage and treated for post obstructive pneumonia, plan for discharge tomorrow, may need transesophageal biopsy, can be arranged as outpatient Problems: JANNA NOLEN MD Mar 01, 2017 09:23
[2017-03-01] MEDS: METOPROLOL SUCC 24HR ER 50 MG TAB.ER.24H. PO SCH ×2 (09:35→21:21)
[2017-03-01] MEDS: amLODIPine BESYLATE 5 MG TABLET PO SCH (09:35)
[2017-03-01] MEDS: LOSARTAN POTASSIUM 50 MG TABLET. PO SCH (09:36)
[2017-03-01 10:30] VITALS: BP 136/89
[2017-03-01] MEDS: CYANOCOBALAMIN (VITAMIN B-12) 1,000 MCG TABLET. PO SCH (10:49)
[2017-03-01] MEDS: predniSONE 20 MG TABLET PO SCH (10:49)
[2017-03-01] MEDS: CHOLECALCIFEROL (VITAMIN D3) 5,000 UNIT CAPSULE PO SCH (10:49)
[2017-03-01] MEDS: hydroCHLOROthiazide 25 MG TABLET PO SCH (10:49)
[2017-03-01] MEDS: DORZOLAMIDE/TIMOLOL 2%/0.5% OPHTH SOLUTION 10ML BOTTLE. OU SCH ×2 (10:50→21:20)
[2017-03-01 14:38] VITALS: BP 121/79
--- NOTE | 2017-03-01 15:47 | RAD ---
Limited CT of the chest during attempted lung biopsy 03/01/2017 Indication: The patient is a 66-year-old female with a left hilar mass tube presents to the interventional radiology department for possible percutaneous biopsy. She also has a known left hilar mass. The patient was placed in the prone position to CT of the chest performed for biopsy planning. Unfortunately the entire right lung has become atelectatic likely resulting from post obstructive atelectasis. It appears to be trace right pleural effusion. Previously seen target lesion in the left lung is no longer visualized. Mild patchy opacities in the right upper lobe are noted similar to prior study. Transthoracic right lung biopsy is contraindicated secondary to total collapse on the contralateral side. Impression: Complete atelectasis of the left lung, likely postobstructive in nature. Findings discussed with the ordering internet marketing director, shortly following exam
--- NOTE | 2017-03-01 17:12 | PDOC ---
PULMONARY PROGRESS NOTES Subjective no hemoptysis, Vitals Vital Signs Date Time Temp Pulse Resp B/P (MAP) Pulse Ox O2 Delivery O2 Flow Rate FiO2 03/01/17 15:38 98 Nasal Cannula 2.0 03/01/17 14:38 97.0 73 20 121/79 (93) 97.0 ROS: No Nausea, No Chest Pain, No Abdominal Pain, No Increase Cough General: Alert HEENT: Other (nc at perrl, nose throat clear) Lungs: Clear Cardiovascular: S1, S2 Abdomen: Soft, Non-tender Neuro Exam: Alert Extremities: No Edema Skin: Warm Medications Active Scripts Medications Dose Route/Sig Max Daily Dose Days Date Category Dorzolamide-Timolol Eye Drops (Dorzolamide Hcl/Timolol Maleat) 10 Ml Drops 1 Drop EACHEYE BID 02/25/17 Reported Hyzaar 100-25 Tablet (Losartan/Hydrochlorothiazide) 1 Each Tablet 1 Tab PO DAILY 02/25/17 Reported Latanoprost 2.5 Ml Drops 1 Drop EACHEYE QHS 04/08/16 Reported Toprol Xl (Metoprolol Succinate) 50 Mg Tab.er.24h 50 Mg PO BID 03/25/16 Reported Vitamin B-12 (Cyanocobalamin (Vitamin B-12)) 1,000 Mcg Tablet 1 Tab PO DAILY 03/25/16 Reported Vitamin D3 (Cholecalciferol (Vitamin D3)) 5,000 Unit Tablet 1 Tab PO DAILY 03/25/[address] reviewed, Marked mediastinal adenopathy which engulfs the distal left main bronchus and narrows same. There are scattered parenchymal opacities in the left upper lobe. It is uncertain whether these are secondary to inflammation, neoplastic disease or are postobstructive in nature. Background changes of fibrosis are noted. Scattered pulmonary nodules and opacities additionally noted in the right lung Hepatic masses probably reflecting incidental cysts Impression . 1. Hemoptysis, suspect sec to malignancy 2. Abnormal chest x-ray and ct of chest, post obstructive pneumonia 3. Chronic obstructive pulmonary disease with acute exacerbation. 4. Acute bronchitis. 5. Ex-smoker. 6. Hypertension. Plan . d/w IR unable to biopsy anything, I recommend treat for post ob pneumonia d/c home outpt EUS 1. follow up on BAL 2. ICS 3. bronchodilator. 4. po steroids.in am 5. Augmentin 6. Monitor respiratory status very closely. SHYANNE SETH MD 25, 2017 17:12
[2017-03-01] MEDS: AMOXICILLIN/K CLAV 875/125MG TABLET. PO SCH (17:37)
[2017-03-01 19:00] VITALS: BP 124/82
[2017-03-01] MEDS: LATANOPROST 0.005% OPHTH SOLUTION 2.5ML BOTTLE. OU SCH (21:20)
[2017-03-01 23:00] VITALS: BP 121/82
[2017-03-02 03:03] VITALS: BP 143/90
[2017-03-02 07:00] VITALS: BP 132/87
[2017-03-02] MEDS: IPRATRPIUM/ALBUTEROL 0.5/2.5MG 3 ML NEBU. NEB SCH ×4 (07:32→16:35)
[2017-03-02] MEDS: METOPROLOL SUCC 24HR ER 50 MG TAB.ER.24H. PO SCH (09:25)
[2017-03-02] MEDS: LOSARTAN POTASSIUM 50 MG TABLET. PO SCH (09:25)
[2017-03-02] MEDS: hydroCHLOROthiazide 25 MG TABLET PO SCH (09:25)
[2017-03-02] MEDS: predniSONE 20 MG TABLET PO SCH (09:25)
[2017-03-02] MEDS: CHOLECALCIFEROL (VITAMIN D3) 5,000 UNIT CAPSULE PO SCH (09:25)
[2017-03-02] MEDS: CYANOCOBALAMIN (VITAMIN B-12) 1,000 MCG TABLET. PO SCH (09:26)
[2017-03-02] MEDS: amLODIPine BESYLATE 5 MG TABLET PO SCH (09:26)
[2017-03-02] MEDS: AMOXICILLIN/K CLAV 875/125MG TABLET. PO SCH (09:26)
[2017-03-02] MEDS: DORZOLAMIDE/TIMOLOL 2%/0.5% OPHTH SOLUTION 10ML BOTTLE. OU SCH (09:27)
--- NOTE | 2017-03-02 09:31 | PDOC ---
SUBJECTIVE Subjective she feels ok, less cough OBJECTIVE Vital Signs Vital Signs Date Time Temp Pulse Resp B/P (MAP) Pulse Ox O2 Delivery O2 Flow Rate FiO2 03/02/17 09:26 73 132/87 03/02/17 09:25 73 132/87 03/02/17 09:25 73 132/87 03/02/17 08:48 93 Room Air 03/02/17 07:00 97.5 73 20 132/87 (102) 94 Nasal Cannula 97.5 03/02/17 03:03 97.9 70 20 143/90 (107) 97 Nasal Cannula 97.9 03/01/17 23:00 98.7 76 20 121/82 (95) 91 Nasal Cannula 98.7 03/01/17 21:21 86 124/82 03/01/17 20:00 Nasal Cannula 2.0 03/01/17 19:00 97.1 86 20 124/82 (96) 94 Room Air 97.1 03/01/17 18:13 Nasal Cannula 2.0 03/01/17 15:38 98 Nasal Cannula 2.0 03/01/17 14:38 97.0 73 20 121/79 (93) 92 Nasal Cannula 2.0 97.0 03/01/17 11:53 91 Nasal Cannula 2.0 03/01/17 10:30 98.2 70 20 136/89 (105) 93 Nasal Cannula 2.0 98.2 03/01/17 09:36 78 130/78 03/01/17 09:35 78 130/78 03/01/17 09:35 78 130/78 I & O Intake and Output 03/02/17 07:00 Intake Total 570 ml Output Total 0 ml Balance 570 ml Intake Oral 570 ml Output Urine Total 0 ml # Voids 3 PHYSICAL EXAM Physical Exam lungs decrease BS on Left heart RRR abd soft ext no edema ASSESSMENT/PLAN Assessment/Plan 1. Hemoptysis, suspect sec to malignancy 2. Abnormal chest x-ray and ct of chest, post obstructive pneumonia 3- atelectasis left lung recheck CXR today 3. Chronic obstructive pulmonary disease with acute exacerbation. 4. Acute bronchitis. 5. Ex-smoker. 6. Hypertension. 7- lump mid line lower thoracic spine area likely lipoma will check US not able to do trans thoracic biopsy due to atelectasis, started steroid oral and inhaled, stop B Lyndsay may need trans esophageal US guided Bx , Dr samayoa will arrange endoscopic US, may discharge home today Problems: JANNA NOLEN MD Mar 02, 2017 09:31
--- NOTE | 2017-03-02 09:32 | PDOC3 ---
Discharge Summary* Date of Admission: Feb 25, 2017 Date of Discharge: Mar 02, 2017 Admitting Diagnosis Problems Medical Problems: (1) Hemoptysis Status: Acute Problems: Final Diagnosis 1. Hemoptysis, suspect sec to malignancy 2. Abnormal chest x-ray and ct of chest, post obstructive pneumonia 3- atelectasis left lung 3. Chronic obstructive pulmonary disease with acute exacerbation. 4. Acute bronchitis. 5. Ex-smoker. 6. Hypertension. 7- lump mid line lower thoracic spine area likely lipoma will check US Problems Medical Problems: (1) Hemoptysis Status: Acute CONSULTS pulmonary, IR Procedures CXR, CT chest, broncoscopy, CT chest neck and soft tissue Brief Hospital Course Ms. Segura is a 66 old [sex] who presented with [ ] Disposition/Orders: D/C to Home CONDITION AT DISCHARGE: Stable Diet: Cardiac Scheduled Budesonide (Budesonide), 1 VIAL NEB BID Cholecalciferol (Vitamin D3) (Vitamin D3), 1 TAB PO DAILY, (Reported) Cyanocobalamin (Vitamin B-12) (Vitamin B-12), 1 TAB PO DAILY, (Reported) Dorzolamide Hcl/Timolol Maleat (Dorzolamide-Timolol Eye Drops), 1 DROP EACHEYE BID, (Reported) Ipratropium/Albuterol Sulfate (Duoneb 0.5-3(2.5) Mg/3 Ml), 3 ML NEB RTQID Latanoprost (Latanoprost), 1 DROP EACHEYE QHS, (Reported) Losartan/Hydrochlorothiazide (Hyzaar 100-25 Tablet), 1 TAB PO DAILY, (Reported) Metoprolol Succinate (Toprol Xl), 50 MG PO BID, (Reported) Prednisone (Prednisone), 40 MG PO DAILY Scheduled PRN Benzonatate (Benzonatate), 100 MG PO PRN TID PRN for cough Discontinued Medications Alendronate Sodium (Alendronate Sodium), 1 TAB PO WEEKLY, (Reported) Aspirin (Aspir-Low), 1 TAB PO QODAY, (Reported) Cod Liver Oil (Cod Liver Oil), 1 EACH PO, (Reported) Ezetimibe (Zetia), 1 TAB PO DAILY, (Reported) Losartan Potassium (Losartan Potassium), 50 MG PO DAILY, (Reported) Naproxen Sodium (Aleve), 220 MG PO BID, (Reported) Vit C/Thomson & Celery Ex/Grp E (Tart Thomson Capsule), 1 EACH PO, (Reported) FOLLOW UP APPOINTMENT: [address] samayoa [address] Nolen Time Spent Total time spent with patient [] minutes for coordination of care, counseling, and education. JANNA NOLEN MD Mar 02, 2017 09:32
[2017-03-02] MEDS ORDERED: IPRA3AMP NEB (09:37)
[2017-03-02] MEDS ORDERED: BENZ100C15 PO (09:37)
[2017-03-02] MEDS ORDERED: PRED20TA PO (09:37)
[2017-03-02] MEDS ORDERED: AMOX1TAB11 PO (09:37)
[2017-03-02] MEDS ORDERED: AMLO5TAB2 PO (09:37)
[2017-03-02] MEDS ORDERED: BUDE0.25 NEB (09:42)
[2017-03-02] MEDS ORDERED: BUDESONIDE 0.5 MG/2 ML NEBU. NEB SCH (10:30)
[2017-03-02 11:00] VITALS: BP 123/81
--- NOTE | 2017-03-02 11:00 | RAD ---
Chest, 2 views, 03/02/2017: History: Left lung atelectasis Comparison is made to a study from 02/25/2017. There is nearly complete opacification of left hemithorax with [id number] shift of the heart and mediastinum. The findings are compatible with left lung atelectasis. There are only a few remaining air bronchograms in the left infrahilar region. Similar findings were present on yesterday's CT images. Mild patchy opacities in the right chest are unchanged since 02/25/2017. There is no evidence of right-sided pleural fluid or pneumothorax. Moderate degenerative change is evident in the spine. IMPRESSION: 1. Ongoing left lung atelectasis on a postobstructive basis in this patient with a known left hilar mass. 2. Unchanged mild patchy right chest opacities compatible with infiltrate and/or scarring.
--- NOTE | 2017-03-02 12:10 | PDOC ---
PULMONARY PROGRESS NOTES Subjective no hemoptysis, Vitals Vital Signs Date Time Temp Pulse Resp B/P (MAP) Pulse Ox O2 Delivery O2 Flow Rate FiO2 03/02/17 09:26 73 132/87 03/02/17 08:48 93 Room Air 03/02/17 08:00 2.0 03/02/17 07:00 97.5 20 97.5 ROS: No Nausea, No Chest Pain, No Abdominal Pain, No Increase Cough General: Alert HEENT: Other (nc at perrl, nose throat clear) Lungs: Clear Cardiovascular: S1, S2 Abdomen: Soft, Non-tender Neuro Exam: Alert Extremities: No Edema Skin: Warm Medications Active Scripts Medications Dose Route/Sig Max Daily Dose Days Date Category Dorzolamide-Timolol Eye Drops (Dorzolamide Hcl/Timolol Maleat) 10 Ml Drops 1 Drop EACHEYE BID 02/25/17 Reported Hyzaar 100-25 Tablet (Losartan/Hydrochlorothiazide) 1 Each Tablet 1 Tab PO DAILY 02/25/17 Reported Latanoprost 2.5 Ml Drops 1 Drop EACHEYE QHS 04/08/16 Reported Toprol Xl (Metoprolol Succinate) 50 Mg Tab.er.24h 50 Mg PO BID 03/25/16 Reported Vitamin B-12 (Cyanocobalamin (Vitamin B-12)) 1,000 Mcg Tablet 1 Tab PO DAILY 03/25/16 Reported Vitamin D3 (Cholecalciferol (Vitamin D3)) 5,000 Unit Tablet 1 Tab PO DAILY 03/25/[address] reviewed, Marked mediastinal adenopathy which engulfs the distal left main bronchus and narrows same. There are scattered parenchymal opacities in the left upper lobe. It is uncertain whether these are secondary to inflammation, neoplastic disease or are postobstructive in nature. Background changes of fibrosis are noted. Scattered pulmonary nodules and opacities additionally noted in the right lung Hepatic masses probably reflecting incidental cysts Impression . 1. Hemoptysis, suspect sec to malignancy 2. Abnormal chest x-ray and ct of chest, post obstructive pneumonia 3. Chronic obstructive pulmonary disease with acute exacerbation. 4. Acute bronchitis. 5. Ex-smoker. 6. Hypertension. Plan . WILL SET UP OUT EUS BIOPSY D/C HOME ON ANTIBX AND STEROID d/w IR unable to biopsy anything, I recommend treat for post ob pneumonia SHYANNE SETH MD Mar 02, 2017 12:10
--- NOTE | 2017-03-02 14:19 | PATHOLOGY ---
CYTOPATHOLOGY REPORT CLINICAL HISTORY: Hemoptysis. SPECIMEN(S) RECEIVED: A.Bronchoalveolar lavage, LLL FINAL DIAGNOSIS: Left lower lobe bronchoalveolar lavage, ThinPrep: - No malignant cells identified. - Focally reactive bronchial epithelial cells, squamous epithelial cells, and pulmonary macrophages identified within a focally mucoid background and scattered inflammatory cells. (JPM:mgr; 03/02/2017) PATHOLOGIST: Jose Mckee M.D. REPORT ELECTRONICALLY SIGNED BY: Jose Mckee M.D. DATE/TIME: 03/02/2017 14:18 GROSS PATHOLOGY: A. Bronchoalveolar lavage, LLL: The specimen is submitted unfixed, labeled "Milan Segura". Received by the Cytology Department is five mL of pink cloudy fluid. One ThinPrep slide was prepared. (clt 03.01.2017) TIRE CURER(S): CINDA Roberson(ASCP) INITIAL CPT CODE(S): A; 48834 Professional services performed by [facility] [place] [address] Technical services performed by [facility] at [address] [place] [address], [address], [place] [address]. PATIENT: MILAN SEGURA /AGE: 1 1950 (Age: 66) SEX: F PATIENT #: [id number] ALT CASE #: SPECIMEN COLLECTION DATE: 02/25/2017 SPECIMEN RECEIVED DATE: 03/01/[address] [facility] [address] [place] [address], [address] [place] [address] PHONE: [phone] DIRECTOR: Shun Rondon M.D. * * * END OF REPORT * * *
[2017-03-02 15:00] VITALS: BP 143/84
--- NOTE | 2017-03-02 15:01 | RAD ---
Lower back ultrasound, 03/02/2017: History: Lump The area of clinical concern in the mid to lower back at the midline was carefully scanned. There is a 1.5 x 1.5 x 1.1 cm hypoechoic nodule in the soft tissues at this level. It lies in the deep subcutaneous region adjacent to the paraspinous musculature. It is most likely a solid nodule. A complex fluid is less likely. In view of the patient's known left hilar mass, the possibility of a subcutaneous metastasis should be considered. If PET/CT scanning is anticipated in staging of this patient with a probable chest malignancy, that should help elucidate this lower back finding.
== END 2017-03-02 17:21 | disposition home or self-care (01) | DRG 166 ==
LOC: ER 08:08 → 5 NORTH 10:22
PROVIDERS: ADMIT Internal Medicine; ATTEND Internal Medicine
PROC: 0B9J8ZX Drainage of Left Lower Lung Lobe, Via Natural or Artificial Opening Endoscopic, Diagnostic (ICD-10-PCS; principal; 2017-02-25)
PROC: 0B978ZX Drainage of Left Main Bronchus, Via Natural or Artificial Opening Endoscopic, Diagnostic (ICD-10-PCS; 2017-02-28)
PROC: 0BBK3ZX Excision of Right Lung, Percutaneous Approach, Diagnostic (ICD-10-PCS; 2017-03-01)
DX: D17.4 Benign lipomatous neoplasm of intrathoracic organs (principal); J18.9 Pneumonia, unspecified organism; R04.2 Hemoptysis; J44.0 Chronic obstructive pulmonary disease with (acute) lower respiratory infection; J44.1 Chronic obstructive pulmonary disease with (acute) exacerbation; J98.11 Atelectasis; E78.5 Hyperlipidemia, unspecified; I10 Essential (primary) hypertension; J20.9 Acute bronchitis, unspecified; K21.9 Gastro-esophageal reflux disease without esophagitis; Z82.49 Family history of ischemic heart disease and other diseases of the circulatory system; Z87.891 Personal history of nicotine dependence; Z88.1 Allergy status to other antibiotic agents; Z71.89 Other specified counseling
CPT/HCPCS: 31622; 36415; 71020; 71250; 71275; 76881; 80048; 80076; 81001; 82553; 83735; 83880; 84484; 85027; 85610; 87070; 87102; 87116; 87205; 93005; 94250; 94640; 94760; 96360; J0690; J0696; J2001; J2175; J2704; J2920; J7030; J7120; J7512; J7620; Q9967; 99285-25

== ENCOUNTER 2017-03-26 10:15 | Inpatient (IN) | payer BC ==
[~2017-03-26] VITALS: Ht 168.9 cm; Wt 89.4 kg
[~2017-03-26 10:15] MED LIST changes: +AMLO5TAB2 PO; +AMOX1TAB11 PO; +ASPI81TA50 PO; +BENZ100C15 PO; +BUDE0.25 NEB; +DORZ10DR7 EACHEYE; +IPRA3AMP NEB; +LOSA1TAB12 PO; +PRED20TA PO
--- NOTE | 2017-03-26 10:24 | PHYS DOC ---
Past Medical History Past Medical History: Asthma, COPD, Hypertension Past Surgical History: No Surgical History Alcohol Use: None Drug Use: None Adult General Chief Complaint Chief Complaint: left hip pain HPI HPI Patient is a 66 year old -Malaysian Malaysian female who presents with left hip pain. According the patient she's been having this for the last several days and was seen by her doctor on Tuesday and had bilateral injections in her lumbar spine. She states yesterday she had an EUS performed at [facility] and it took her about 30 minutes to get down the steps from her house. She states walking makes it hurt worse or even any movement makes the left hip hurt. She denies any nausea vomiting fevers or chills. She denies any trauma to the area. She points to her left inguinal area and states that's what the pain is. It radiates down the front of her left leg. She denies any calf pain or swelling. She's been taking [place] without any relief. Review of Systems Review of Systems Constitutional: Denies fever or chills [] Eyes: Denies change in visual acuity, redness, or eye pain [] HENT: Denies nasal congestion or sore throat [] Respiratory: Denies cough or shortness of breath [] Cardiovascular: No additional information not addressed in HPI [] GI: Denies abdominal pain, nausea, vomiting, bloody stools or diarrhea [] : Denies dysuria or hematuria [] Musculoskeletal: Denies back pain, positive for left hip pain Integument: Denies rash or skin lesions [] Neurologic: Denies headache, focal weakness or sensory changes [] Endocrine: Denies polyuria or polydipsia [] Current Medications Current Medications Current Medications Medications (Trade) Dose Ordered Sig/[facility] Start Time Stop Time Status Last Admin Dose Admin Morphine Sulfate 2 mg PRN Q2HR PRN 03/26/17 13:15 03/27/17 13:14 Ondansetron HCl (Zofran) 4 mg PRN Q8HRS PRN 03/26/17 13:15 03/27/17 13:14 Allergies Allergies Allergies Coded Allergies Type Severity Reaction Last Updated Verified erythromycin base Allergy Intermediate 02/28/17 Yes Physical Exam Physical Exam Constitutional: Well developed, well nourished, no acute distress, non-toxic appearance. [] HENT: Normocephalic, atraumatic, bilateral external ears normal, oropharynx moist, no oral exudates, nose normal. [] Eyes: PERRLA, EOMI, conjunctiva normal, no discharge. [] Neck: Normal range of motion, no tenderness, supple, no stridor. [] Cardiovascular:Heart rate regular rhythm, no murmur [] Lungs & Thorax: Bilateral breath sounds clear to auscultation [] Abdomen: Bowel sounds normal, soft, no tenderness, no masses, no pulsatile masses. [] Skin: Warm, dry, no erythema, no rash. [] Back: No tenderness, no CVA tenderness. [] Extremities: Tender palpation of the left hip with any movement, dorsal pedis pulse 2+ in the left lower extremities no cyanosis, no clubbing, ROM intact, no edema. [] Neurologic: Alert and oriented X 3, normal motor function, normal sensory function, no focal deficits noted. [] Psychologic: Affect normal, judgement normal, mood normal. [] Current Patient Data Vital Signs Vital Signs Date Time Temp Pulse Resp B/P (MAP) Pulse Ox O2 Delivery O2 Flow Rate FiO2 03/26/17 12:30 97 16 151/78 (102) 90 03/26/17 11:54 Room Air 03/26/17 10:15 98.5 98.5 Lab Values Laboratory Tests Test 03/26/17 11:40 White Blood Count 9.3 x10^3/uL (4.0-11.0) Red Blood Count 4.35 x10^6/uL (3.50-5.40) Hemoglobin 11.7 g/dL (12.0-15.5) L Hematocrit 35.6 % (36.0-47.0) L Mean Corpuscular Volume 82 fL (79-100) Mean Corpuscular Hemoglobin 27 pg (25-35) Mean Corpuscular Hemoglobin Concent 33 g/dL (31-37) Red Cell Distribution Width 14.2 % (11.5-14.5) Platelet Count 271 x10^3/uL (140-400) Neutrophils (%) (Auto) 84 % (31-73) H Lymphocytes (%) (Auto) 8 % (24-48) L Monocytes (%) (Auto) 6 % (0-9) Eosinophils (%) (Auto) 2 % (0-3) Basophils (%) (Auto) 1 % (0-3) Neutrophils # (Auto) 7.8 x10^3uL (1.8-7.7) H Lymphocytes # (Auto) 0.7 x10^3/uL (1.0-4.8) L Monocytes # (Auto) 0.6 x10^3/uL (0.0-1.1) Eosinophils # (Auto) 0.1 x10^3/uL (0.0-0.7) Basophils # (Auto) 0.1 x10^3/uL (0.0-0.2) Erythrocyte Sedimentation Rate 37 (0-25) H Sodium Level 142 mmol/L (136-145) Potassium Level 3.3 mmol/L (3.5-5.1) L Chloride Level 104 mmol/L (98-107) Carbon Dioxide Level 27 mmol/L (21-32) Anion Gap 11 (6-14) Blood Urea Nitrogen 14 mg/dL (7-20) Creatinine 0.7 mg/dL (0.6-1.0) Estimated GFR (Cockcroft-Gault) 101.9 BUN/Creatinine Ratio 20 (6-20) Glucose Level 89 mg/dL (70-99) Calcium Level 9.0 mg/dL (8.5-10.1) Total Bilirubin 0.5 mg/dL (0.2-1.0) Aspartate Amino Transferase (AST) 16 U/L (15-37) Alanine Aminotransferase (ALT) 18 U/L (14-59) Alkaline Phosphatase 79 U/L (46-116) C-Reactive Protein, Quantitative 8.0 mg/L (0-3.3) H Total Protein 6.7 g/dL (6.4-8.2) Albumin 3.0 g/dL (3.4-5.0) L Albumin/Globulin Ratio 0.8 (1.0-1.7) L Laboratory Tests 03/26/17 11:40 Laboratory Tests 03/26/17 11:40 EKG EKG [] Radiology/Procedures Radiology/Procedures [facility] [address] [place], [place] [id number] IMAGING REPORT Signed PATIENT: MILAN YOO ACCOUNT: [id number] : 1950 LOCATION: ER AGE: 66 SEX: F EXAM STATUS: REG ER ORD. PHYSICIAN: SASKIA MELGOZA MD REASON: pain PROCEDURE: HIP LEFT 2V WITH PELVIS Indication: Chronic left hip pain which is worsening, no known injury. Pain radiates down entire left side. Decreased range of motion. Technique: 2 views of the left hip and an AP view of the pelvis are submitted for review. No comparison is available. Findings: There is no fracture or dislocation. There is no joint space narrowing. There may be minimal acetabular spurring. Bony pelvis appears intact. Calcified phlebolith are noted. Degenerative changes in the spine are noted. Impression: Negative for hip fracture. Minimal acetabular spurring on the left. DICTATED and SIGNED BY: TOBIAS HAN MD DATE: 03/26/171211 CC: SASKIA MELGOZA MD; JANNA NOLEN MD ~ Impressions: Left hip pain Course & Med Decision Making Course & Med Decision Making Pertinent Labs and Imaging studies reviewed. (See chart for details) Patient is having significant pain in her left hip without any other abnormalities noted. X-rays of the hip didn't show any acute abnormality's. She is requiring IV morphine for pain control. We will admit to Dr. Nolen who once MRI of the lumbar and hip performed. I have written interim orders and placed the MRI orders. Patient's being admitted in stable condition this time. Dragon Disclaimer Dragon Disclaimer This electronic medical record was generated, in whole or in part, using a voice recognition dictation system. Departure Departure Impression: Primary Impression: Hip pain Disposition: ADMITTED INPATIENT Admitting Physician: Janna Nolen Condition: STABLE Referrals: JANNA NOLEN MD (PCP) Problem Qualifiers Primary Impression: Hip pain Laterality: left Qualified Codes: M25.552 - Pain in left hip SASKIA MELGOZA MD Mar 26, 2017 10:24
[2017-03-26] MEDS ORDERED: ONDANSETRON PF 4 MG/2 ML VIAL. IV ONE (11:15)
[2017-03-26] MEDS ORDERED: MORPHINE SULFATE 2 MG/ML DISP.SYRIN. IV ONE (11:15)
[2017-03-26 11:49] LABS: BASO # 0.1 x10^3/uL (0.0-0.2); BASO % 1 % (0-3); EOS % 2 % (0-3); HEMATOCRIT 35.6 % (36.0-47.0); HEMOGLOBIN 11.7 g/dL (12.0-15.5); LYMPH # 0.7 x10^3/uL (1.0-4.8); LYMPH % 8 % (24-48); MEAN CORPUSCULAR HEMOGLOBIN 27 pg (25-35); MEAN CORPUSCULAR HGB CONC 33 g/dL (31-37); MEAN CORPUSCULAR VOLUME 82 fL (79-100); MONO % 6 % (0-9); NEUT % 84 % (31-73); PLATELET COUNT 271 x10^3/uL (140-400); RED BLOOD COUNT 4.35 x10^6/uL (3.50-5.40); RED CELL DISTRIBUTION WIDTH 14.2 % (11.5-14.5); WHITE BLOOD COUNT 9.3 x10^3/uL (4.0-11.0)
[2017-03-26 12:03] LABS: CREATININE 0.7 mg/dL (0.6-1.0); GFR 101.9; POTASSIUM 3.3 mmol/L (3.5-5.1)
[2017-03-26 12:08] LABS: ALBUMIN/GLOBULIN RATIO 0.8 (1.0-1.7); TOTAL BILIRUBIN 0.5 mg/dL (0.2-1.0); TOTAL PROTEIN 6.7 g/dL (6.4-8.2)
--- NOTE | 2017-03-26 12:17 | RAD ---
Indication: Chronic left hip pain which is worsening, no known injury. Pain radiates down entire left side. Decreased range of motion. Technique: 2 views of the left hip and an AP view of the pelvis are submitted for review. No comparison is available. Findings: There is no fracture or dislocation. There is no joint space narrowing. There may be minimal acetabular spurring. Bony pelvis appears intact. Calcified phlebolith are noted. Degenerative changes in the spine are noted. Impression: Negative for hip fracture. Minimal acetabular spurring on the left.
[2017-03-26] MEDS ORDERED: ONDANSETRON PF 4 MG/2 ML VIAL. IV PRN (13:15)
[2017-03-26] MEDS: MORPHINE SULFATE 4 MG/ML DISP.SYRIN. IV PRN ×3 (13:18→21:23)
[2017-03-26 13:51] LABS: BILIRUBIN,URINE NEGATIVE (NEG); GLUCOSE,URINE NEGATIVE (NEG); NITRITE,URINE NEGATIVE (NEG); PROTEIN,URINE NEGATIVE (NEG-TRACE); UROBILINOGEN,URINE 0.2 mg/dL (0.2 mg/dL)
[2017-03-26 14:29] LABS: BACTERIA,URINE FEW /HPF (0-FEW); RBC,URINE OCC /HPF (0-2); SQUAMOUS EPITHELIAL CELL,UR MOD /LPF; WBC,URINE 0 /HPF (0-4)
[2017-03-26] MEDS ORDERED: BENZONATATE 100 MG CAPSULE. PO PRN (15:15)
[2017-03-26] MEDS ORDERED: POTASSIUM CHLORIDE 20 MEQ TABLET.ER. PO ONE (15:30)
[2017-03-26] MEDS: IPRATRPIUM/ALBUTEROL 0.5/2.5MG 3 ML NEBU. NEB SCH ×2 (16:00→19:26)
--- NOTE | 2017-03-26 17:52 | RAD ---
MRI study of the lumbar spine without contrast MRI study of the left hip without contrast HISTORY: Left hip pain for one week. Possible radiculopathy. LUMBAR SPINE MRI STUDY TECHNIQUE: Noncontrast MRI images of the lumbar spine were performed in the sagittal and axial planes. FINDINGS: No acute compression fracture or bone marrow edema or marrow infiltrative process or discitis is seen. No anterolisthesis is evident. Hemangiomas of L2 and L3 and L4 and L5 are seen. The conus medullaris ends at the L1 level and appears normal morphologically and is not compressed. No focal disc protrusion or spinal canal stenosis or neural foraminal narrowing is seen from T12-L1 through L5-S1. IMPRESSION: Unremarkable lumbar spine MRI study. LEFT HIP MRI STUDY. TECHNIQUE: Noncontrast MRI sequences of the left hip were performed in all 3 planes. FINDINGS: No fracture or marrow infiltrative process or avascular necrosis of the proximal left femur is seen. There is a marrow infiltrative lesion of the medial aspect of the left acetabulum. No fracture line is seen here. There is edema or increased signal of the adjacent muscle. No discrete fracture line is seen. Therefore, this could represent an osseous metastatic lesion given the cortical thinning. There is no edema of the left pubic bone or left inferior pubic ramus or the upper aspect of the sacrum on either side. There is a hemangioma of the posterior left iliac bone adjacent to the left SI joint as seen on the lumbar spine MRI study. Similar finding is seen more superiorly and posteriorly within the right iliac bone. There is mild degenerative spurring of the left femoral head. Small left hip joint effusion is seen. The conjoined hamstring tendon is intact and no ischial tuberosity bursitis is seen. The iliopsoas tendon is intact and no iliopsoas bursitis is seen. Gluteus nicki tendinosis is seen. No fluid distention of the greater trochanteric bursa is seen. IMPRESSION: Infiltrative lesion of the medial aspect of the left acetabulum extending into the lateral aspect of the left superior pubic ramus without definite fracture line. This is consistent with an osseous metastatic lesion. Electronically signed by: Ander Washington MD (03/26/2017 5:49 PM) [facility]
[2017-03-26 19:00] VITALS: BP 148/92
[2017-03-26] MEDS: BUDESONIDE 0.5 MG/2 ML NEBU. NEB SCH (19:27)
[2017-03-26] MEDS: LATANOPROST 0.005% OPHTH SOLUTION 2.5ML BOTTLE. OU SCH (21:22)
[2017-03-26] MEDS: DORZOLAMIDE/TIMOLOL 2%/0.5% OPHTH SOLUTION 10ML BOTTLE. OU SCH (21:22)
[2017-03-26 23:00] VITALS: BP 139/83
[2017-03-27] MEDS: MORPHINE SULFATE 4 MG/ML DISP.SYRIN. IV PRN ×4 (02:43→19:50)
[2017-03-27 03:00] VITALS: BP 138/86
[2017-03-27 07:15] VITALS: BP 148/80
[2017-03-27] MEDS: IPRATRPIUM/ALBUTEROL 0.5/2.5MG 3 ML NEBU. NEB SCH ×4 (08:00→19:11)
[2017-03-27] MEDS: BUDESONIDE 0.5 MG/2 ML NEBU. NEB SCH ×2 (08:00→19:11)
[2017-03-27] MEDS: DORZOLAMIDE/TIMOLOL 2%/0.5% OPHTH SOLUTION 10ML BOTTLE. OU SCH ×2 (09:00→19:48)
[2017-03-27] MEDS: CHOLECALCIFEROL (VITAMIN D3) 5,000 UNIT CAPSULE PO SCH (09:22)
[2017-03-27] MEDS: CYANOCOBALAMIN (VITAMIN B-12) 1,000 MCG TABLET. PO SCH (09:22)
[2017-03-27] MEDS: amLODIPine BESYLATE 5 MG TABLET PO SCH (09:23)
[2017-03-27] MEDS: hydroCHLOROthiazide 25 MG TABLET PO SCH (09:23)
[2017-03-27] MEDS: LOSARTAN POTASSIUM 50 MG TABLET. PO SCH (09:23)
[2017-03-27 10:40] VITALS: BP 137/86
--- NOTE | 2017-03-27 13:13 | PDOC1 ---
History and Physical Date of Admission Date of Admission 03/26/17 Identification/Chief Complaint Chief Complaint hip pain Problems: Source Source: Chart review, Patient History of Present Illness History of Present Illness Patient is a 66 year old -[place] female who presents with left hip pain. she's been having this for the last several days her x ray out pt showed DJD she was given toradol injection in office helped only one day. She states yesterday she had an EUS performed at [facility] for Bx of lung lesion not accesable by bronchoscopy or CT , it took her about 30 minutes to get down the steps from her house. She states walking makes it hurt worse or even any movement makes the left hip hurt even coughing. She denies any nausea vomiting fevers or chills. She denies any trauma to the area. She points to her left inguinal area and states that's what the pain is. It radiates down the front of her left leg. She denies any calf pain or swelling. She's been taking [place] without any relief. Past Medical History Cardiovascular: HTN, Hyperlipidemia Pulmonary: COPD, Other (lung mass not able to Bx by bronch or CT guided just had endoscopic US guided bx at [facility] results pending) GI: GERD Family History Family History: Hypertension Social History Smoke: Quit ALCOHOL: rare Drugs: None Current Medications Current Medications Current Medications Medications (Trade) Dose Ordered Sig/[place] Start Time Stop Time Status Last Admin Dose Admin Albuterol/ Ipratropium (Duoneb) 3 ml RTQID 03/26/17 16:00 03/27/17 12:25 3 ML Amlodipine Besylate (Norvasc) 5 mg DAILY 03/27/17 09:00 03/27/17 09:23 5 MG Benzonatate (Tessalon Perle) 100 mg PRN TID PRN 03/26/17 15:15 Budesonide (Pulmicort) 0.25 mg RTBID 03/26/17 20:00 03/27/17 08:00 0.25 MG Cyanocobalamin (Vitamin B-12) 1,000 mcg DAILY 03/27/17 09:00 03/27/17 09:22 1,000 MCG Dorzolamide/ Timolol (Cosopt) 1 drop BID 03/26/17 21:00 03/27/17 09:00 1 DROP Hydrochlorothiazide (Hydrodiuril) 25 mg DAILY 03/27/17 09:00 03/27/17 09:23 25 MG Latanoprost (Xalatan) 1 drop QHS 03/26/17 21:00 03/26/17 21:22 1 DROP Losartan Potassium (Cozaar) 100 mg DAILY 03/27/17 09:00 03/27/17 09:23 100 MG Morphine Sulfate 2 mg PRN Q2HR PRN 03/26/17 13:15 03/27/17 13:14 03/27/17 11:34 2 MG Ondansetron HCl (Zofran) 4 mg PRN Q8HRS PRN 03/26/17 13:15 03/27/17 13:14 Potassium Chloride (Klor-Con) 40 meq 1X ONCE 03/26/17 15:30 03/26/17 15:31 DC 03/26/17 15:59 40 MEQ Vitamin D (Vitamin D3) 5,000 unit DAILY 03/27/17 09:00 03/27/17 09:22 5,000 UNIT Allergies Allergies Allergies Coded Allergies Type Severity Reaction Last Updated Verified erythromycin base Allergy Intermediate 02/28/17 Yes ROS Review of System CONSTITUTIONAL: No fever or chills EYES: No recent changes SKIN: No rash or itching CARDIOVASCULAR: No chest pain, syncope, palpitations, or edema RESPIRATORY: still has cough but no hemoptysis now GASTROINTESTINAL: No nausea, vomiting or abdominal pain NEUROLOGICAL: No headaches or weakness ENDOCRINE: No cold or heat intolerance GENITOURINARY: No urgency or frequency of urination MUSCULOSKELETAL: see HPI LYMPHATICS: No enlarged lymph nodes PSYCHIATRIC: No anxiety or depression Physical Exam Physical Exam GEN.: No apparent distress. Alert and oriented. HEENT: Head is normocephalic, atraumatic NECK: Supple. LUNGS: decrease BS right lung HEART: RRR, . Peripheral pulses intact ABDOMEN: Soft, nontender. Positive bowel sounds. EXTREMITIES: Without any cyanosis. NEUROLOGIC: Normal speech, normal tone PSYCHIATRIC: Normal affect, normal mood. SKIN: No ulceration Left groin area and hip pain increase with palpation and marilynn bearing Vitals Vitals Vital Signs Date Time Temp Pulse Resp B/P (MAP) Pulse Ox O2 Delivery O2 Flow Rate FiO2 03/27/17 12:25 Nasal Cannula 2.0 03/27/17 11:34 96 03/27/17 10:40 97.9 77 20 137/86 (103) 97.9 Labs Labs Laboratory Tests Test 03/26/17 11:40 03/26/17 13:38 White Blood Count 9.3 x10^3/uL (4.0-11.0) Red Blood Count 4.35 x10^6/uL (3.50-5.40) Hemoglobin 11.7 g/dL (12.0-15.5) Hematocrit 35.6 % (36.0-47.0) Mean Corpuscular Volume 82 fL (79-100) Mean Corpuscular Hemoglobin 27 pg (25-35) Mean Corpuscular Hemoglobin Concent 33 g/dL (31-37) Red Cell Distribution Width 14.2 % (11.5-14.5) Platelet Count 271 x10^3/uL (140-400) Neutrophils (%) (Auto) 84 % (31-73) Lymphocytes (%) (Auto) 8 % (24-48) Monocytes (%) (Auto) 6 % (0-9) Eosinophils (%) (Auto) 2 % (0-3) Basophils (%) (Auto) 1 % (0-3) Neutrophils # (Auto) 7.8 x10^3uL (1.8-7.7) Lymphocytes # (Auto) 0.7 x10^3/uL (1.0-4.8) Monocytes # (Auto) 0.6 x10^3/uL (0.0-1.1) Eosinophils # (Auto) 0.1 x10^3/uL (0.0-0.7) Basophils # (Auto) 0.1 x10^3/uL (0.0-0.2) Erythrocyte Sedimentation Rate 37 (0-25) Sodium Level 142 mmol/L (136-145) Potassium Level 3.3 mmol/L (3.5-5.1) Chloride Level 104 mmol/L (98-107) Carbon Dioxide Level 27 mmol/L (21-32) Anion Gap 11 (6-14) Blood Urea Nitrogen 14 mg/dL (7-20) Creatinine 0.7 mg/dL (0.6-1.0) Estimated GFR (Cockcroft-Gault) 101.9 BUN/Creatinine Ratio 20 (6-20) Glucose Level 89 mg/dL (70-99) Calcium Level 9.0 mg/dL (8.5-10.1) Total Bilirubin 0.5 mg/dL (0.2-1.0) Aspartate Amino Transf (AST/SGOT) 16 U/L (15-37) Alanine Aminotransferase (ALT/SGPT) 18 U/L (14-59) Alkaline Phosphatase 79 U/L (46-116) C-Reactive Protein, Quantitative 8.0 mg/L (0-3.3) Total Protein 6.7 g/dL (6.4-8.2) Albumin 3.0 g/dL (3.4-5.0) Albumin/Globulin Ratio 0.8 (1.0-1.7) Urine Collection Type Unknown Urine Color Yellow Urine Clarity Clear Urine pH 6.0 Urine Specific [place] 1.010 Urine Protein Negative mg/dL (NEG-TRACE) Urine Glucose (UA) Negative mg/dL (NEG) Urine Ketones (Stick) Trace mg/dL (NEG) Urine Blood Negative (NEG) Urine Nitrite Negative (NEG) Urine Bilirubin Negative (NEG) Urine Urobilinogen Dipstick 0.2 mg/dL (0.2 mg/dL) Urine Leukocyte Esterase Negative (NEG) Urine RBC Occ /HPF (0-2) Urine WBC 0 /HPF (0-4) Urine Squamous Epithelial Cells Mod /LPF Urine Bacteria Few /HPF (0-FEW) Urine Mucus Slight /LPF Laboratory Tests Test 03/26/17 13:38 Urine Collection Type Unknown Urine Color Yellow Urine Clarity Clear Urine pH 6.0 Urine Specific [place] 1.010 Urine Protein Negative mg/dL (NEG-TRACE) Urine Glucose (UA) Negative mg/dL (NEG) Urine Ketones (Stick) Trace mg/dL (NEG) Urine Blood Negative (NEG) Urine Nitrite Negative (NEG) Urine Bilirubin Negative (NEG) Urine Urobilinogen Dipstick 0.2 mg/dL (0.2 mg/dL) Urine Leukocyte Esterase Negative (NEG) Urine RBC Occ /HPF (0-2) Urine WBC 0 /HPF (0-4) Urine Squamous Epithelial Cells Mod /LPF Urine Bacteria Few /HPF (0-FEW) Urine Mucus Slight /LPF VTE Prophylaxis Ordered VTE Prophylaxis Devices: Yes (recent hemoptysis) VTE Pharmacological Prophylaxi: Contraindicated Assessment/Plan Assessment/Plan 1- abnormal MRI of hip with possible metastatic lesion 2-Lung mass recent EUS guided bx , results pending 3-cough and recent hemoptysis 4.HTN 5.COPD 6. JANNA PLUNKETT MD Mar 27, 2017 13:13
[2017-03-27 14:52] VITALS: BP 155/85
[2017-03-27] MEDS ORDERED: oxyCODONE ER 10 MG TAB.ER.12H PO ONE (15:30)
[2017-03-27 19:00] VITALS: BP 146/86
[2017-03-27] MEDS: LATANOPROST 0.005% OPHTH SOLUTION 2.5ML BOTTLE. OU SCH (19:48)
[2017-03-27] MEDS: oxyCODONE ER 10 MG TAB.ER.12H PO SCH (19:50)
[2017-03-27] MEDS ORDERED: BRIN8DRO OU (19:56)
[2017-03-27 23:00] VITALS: BP 129/79
[2017-03-28] MEDS: MORPHINE SULFATE 4 MG/ML DISP.SYRIN. IV PRN ×4 (02:24→18:34)
[2017-03-28 03:00] VITALS: BP 134/82
[2017-03-28 04:42] LABS: HEMATOCRIT 35.6 % (36.0-47.0); HEMOGLOBIN 11.7 g/dL (12.0-15.5); RED BLOOD COUNT 4.29 x10^6/uL (3.50-5.40); WHITE BLOOD COUNT 8.7 x10^3/uL (4.0-11.0)
[2017-03-28 05:49] LABS: CALCIUM 9.1 mg/dL (8.5-10.1); CREATININE 0.7 mg/dL (0.6-1.0); GFR 101.9; POTASSIUM 3.8 mmol/L (3.5-5.1)
[2017-03-28 07:00] VITALS: BP 156/87
[2017-03-28] MEDS: IPRATRPIUM/ALBUTEROL 0.5/2.5MG 3 ML NEBU. NEB SCH ×4 (07:20→19:29)
[2017-03-28] MEDS: BUDESONIDE 0.5 MG/2 ML NEBU. NEB SCH ×2 (07:21→19:29)
[2017-03-28] MEDS: DORZOLAMIDE/TIMOLOL 2%/0.5% OPHTH SOLUTION 10ML BOTTLE. OU SCH ×2 (08:40→21:00)
[2017-03-28] MEDS: CYANOCOBALAMIN (VITAMIN B-12) 1,000 MCG TABLET. PO SCH (08:44)
[2017-03-28] MEDS: oxyCODONE ER 10 MG TAB.ER.12H PO SCH ×2 (08:44→21:17)
[2017-03-28] MEDS: hydroCHLOROthiazide 25 MG TABLET PO SCH (08:45)
[2017-03-28] MEDS: LOSARTAN POTASSIUM 50 MG TABLET. PO SCH (08:45)
[2017-03-28] MEDS: CHOLECALCIFEROL (VITAMIN D3) 5,000 UNIT CAPSULE PO SCH (08:45)
[2017-03-28] MEDS: amLODIPine BESYLATE 5 MG TABLET PO SCH (08:45)
--- NOTE | 2017-03-28 10:13 | PDOC2 ---
CONSULT Date of Consult Date of Consult DATE: 03/28/17 TIME: 10:02 Reason for Consult Reason for Consult: back mass Referring Physician Referring Physician: Dr Grewal Identification/Chief Complaint Chief Complaint hip pain Problems: Source Source: Chart review, Patient History of Present Illness Reason for Visit: Admitted for worsening hip pain, difficult to bear weight on leg. It was been worse for about a week, however it has been ongoing for a long time. She underwent a EUS Tuesday (she recently was admitted with pneumonia and bronch was unsuccessful at obtaining a biopsy) and it showed a Hilar mass, biopsy pending. She has had a mass to mid back for a month or more, not painful, does not have any drainage MRI of hip was done on admission, showing a possible metastatic lesion US of back reviewed from February, concerns for firm lesion that could be metastatic Past Medical History Cardiovascular: HTN, Hyperlipidemia Pulmonary: COPD, Other (lung mass not able to Bx by bronch or CT guided just had [facility]) GI: GERD Past Surgical History Past Surgical History: No pertinent history Family History Family History: Hypertension Social History Quit ALCOHOL: rare Drugs: None Current Medications Current Medications Current Medications Morphine Sulfate 2 mg 1X ONCE IV Last administered on 03/26/17 11:54; Start 03/26/17 at 11:15; Stop 03/26/17 at 11:16; Status DC Ondansetron HCl (Zofran) 4 mg 1X ONCE IV Last administered on 03/26/17 11:51 ; Start 03/26/17 at 11:15; Stop 03/26/17 at 11:16; Status DC Ondansetron HCl (Zofran) 4 mg PRN Q8HRS PRN IV NAUSEA/VOMITING; Start 03/26/17 at 13:15; Stop 03/27/17 at 13:14; Status DC Morphine Sulfate 2 mg PRN Q2HR PRN IV PAIN Last administered on 03/27/17 11:34 ; Start 03/26/17 at 13:15; Stop 03/27/17 at 13:14; Status DC Amlodipine Besylate (Norvasc) 5 mg DAILY PO Last administered on 03/28/17 08: 45; Start 03/27/17 at 09:00 Benzonatate (Tessalon Perle) 100 mg PRN TID PRN PO cough; Start 03/26/17 at 15: 15 Cyanocobalamin (Vitamin B-12) 1,000 mcg DAILY PO Last administered on 08:44; Start 03/27/17 at 09:00 Dorzolamide/ Timolol (Cosopt) 1 drop BID OU Last administered on 03/27/17 19: 48; Start 03/26/17 at 21:00 Albuterol/ Ipratropium (Duoneb) 3 ml RTQID NEB Last administered on 03/28/17 07:20; Start 03/26/17 at 16:00 Latanoprost (Xalatan) 1 drop QHS OU Last administered on 03/27/17 19:48; Start 03/26/17 at 21:00 Budesonide (Pulmicort) 0.25 mg RTBID NEB Last administered on 03/28/17 07:21; Start 03/26/17 at 20:00 Vitamin D (Vitamin D3) 5,000 unit DAILY PO Last administered on 03/28/17 08:45 ; Start 03/27/17 at 09:00 Losartan Potassium (Cozaar) 100 mg DAILY PO Last administered on 03/28/17 08: 45; Start 03/27/17 at 09:00 Potassium Chloride (Klor-Con) 40 meq 1X ONCE PO Last administered on 15:59; Start 03/26/17 at 15:30; Stop 03/26/17 at 15:31; Status DC Hydrochlorothiazide (Hydrodiuril) 25 mg DAILY PO Last administered on 08:45; Start 03/27/17 at 09:00 Morphine Sulfate 2 mg PRN Q2HR PRN IV PAIN Last administered on 03/28/17 08:44 ; Start 03/27/17 at 13:45 Oxycodone HCl (OxyCONTIN) 10 mg Q12HR PO Last administered on 03/28/17 08:44; Start 03/27/17 at 21:00 Oxycodone HCl (OxyCONTIN) 10 mg 1X ONCE PO Last administered on 03/27/17 15: 27; Start 03/27/17 at 15:30; Stop 03/27/17 at 15:31; Status DC Active Scripts Active Budesonide 0.25 Mg/2 Ml Ampul.neb 1 Vial NEB BID 30 Days Prednisone 20 Mg Tablet 40 Mg PO DAILY 12 Days take 40 mg 2 tab x 3 d then 30 mg 11/2 tab x 3d then 1 tab x 3d then 1/2 tab x 3 d Duoneb 0.5-3(2.5) Mg/3 Ml (Albuterol/Ipratropium) 3 Ml Ampul.neb 3 Ml NEB RTQID 30 Days Benzonatate 100 Mg Capsule 100 Mg PO PRN TID PRN 10 Days Amox Tr-K Clv 875-125 Mg Tab (Amoxicillin/Potassium Clav) 1 Each Tablet 1 Tab PO BID 10 Days Amlodipine Besylate 5 Mg Tablet 5 Mg PO DAILY 30 Days Reported Simbrinza 1%-0.2% Eye Drops (Brinzolamide/Brimonid Tart) 8 Ml Drops.susp 1 Drop OU BID Hyzaar 100-25 Tablet (Losartan/Hydrochlorothiazide) 1 Each Tablet 1 Tab PO DAILY Latanoprost 2.5 Ml Drops 1 Drop EACHEYE QHS Vitamin B-12 (Cyanocobalamin (Vitamin B-12)) 1,000 Mcg Tablet 1 Tab PO DAILY Vitamin D3 (Cholecalciferol (Vitamin D3)) 5,000 Unit Tablet 1 Tab PO DAILY Allergies Allergies: Coded Allergies: erythromycin base (Verified Allergy, Intermediate, 02/28/17) ROS General: YES: Fatigue, No: Chills, Other (fevers) PSYCHOLOGICAL ROS: No: Anxiety, Depression Eyes: No Blurry vision, No Double vision HEENT: No: Heacaches, Sore Throat Hematological and Lymphatic: No: Bleeding Problems, Blood Clots Respiratory: No: Cough, SOB with excertion Cardiovascular: No Chest Pain, No Palpitations Gastrointestinal: No Nausea, No Vomiting Genitourinary: No Dysuria, No Hematuria Musculoskeletal: Yes Joint Pain, Yes Muscle Pain, Yes Muscular Weakness Neurological: Yes Impaired Coord/balance, Yes Numbness/Tingling Skin: No Pruritus, No Rash Physical Exam General: Alert, Oriented X3, Cooperative, No acute distress HEENT: PERRLA, Mucous membr. moist/pink Lungs: Clear to auscultation, Normal air movement Heart: Regular rate, Normal S1, Normal S2, No murmurs Abdomen: Soft, No tenderness Extremities: No clubbing, No cyanosis Skin: No rashes, No breakdown, Other (back mass--firm, not tender, mid back) Neuro: Normal gait, Normal speech Psych/Mental Status: Mental status NL, Mood NL Vitals VITALS Vital Signs Date Time Temp Pulse Resp B/P (MAP) Pulse Ox O2 Delivery O2 Flow Rate FiO2 03/28/17 09:20 96 Nasal Cannula 2.0 03/28/17 08:45 82 156/87 03/28/17 07:00 98.9 18 98.9 Labs Labs Laboratory Tests Test 03/26/17 11:40 03/26/17 13:38 03/27/17 14:15 03/28/17 03:30 White Blood Count 9.3 x10^3/uL (4.0-11.0) 8.7 x10^3/uL (4.0-11.0) Red Blood Count 4.35 x10^6/uL (3.50-5.40) 4.29 x10^6/uL (3.50-5.40) Hemoglobin 11.7 g/dL (12.0-15.5) 11.7 g/dL (12.0-15.5) Hematocrit 35.6 % (36.0-47.0) 35.6 % (36.0-47.0) Mean Corpuscular Volume 82 fL (79-100) 83 fL (79-100) Mean Corpuscular Hemoglobin 27 pg (25-35) 27 pg (25-35) Mean Corpuscular Hemoglobin Concent 33 g/dL (31-37) 33 g/dL (31-37) Red Cell Distribution Width 14.2 % (11.5-14.5) 14.0 % (11.5-14.5) Platelet Count 271 x10^3/uL (140-400) 255 x10^3/uL (140-400) Neutrophils (%) (Auto) 84 % (31-73) Lymphocytes (%) (Auto) 8 % (24-48) Monocytes (%) (Auto) 6 % (0-9) Eosinophils (%) (Auto) 2 % (0-3) Basophils (%) (Auto) 1 % (0-3) Neutrophils # (Auto) 7.8 x10^3uL (1.8-7.7) Lymphocytes # (Auto) 0.7 x10^3/uL (1.0-4.8) Monocytes # (Auto) 0.6 x10^3/uL (0.0-1.1) Eosinophils # (Auto) 0.1 x10^3/uL (0.0-0.7) Basophils # (Auto) 0.1 x10^3/uL (0.0-0.2) Erythrocyte Sedimentation Rate 37 (0-25) Sodium Level 142 mmol/L (136-145) 139 mmol/L (136-145) Potassium Level 3.3 mmol/L (3.5-5.1) 3.8 mmol/L (3.5-5.1) Chloride Level 104 mmol/L (98-107) 101 mmol/L (98-107) Carbon Dioxide Level 27 mmol/L (21-32) 30 mmol/L (21-32) Anion Gap 11 (6-14) 8 (6-14) Blood Urea Nitrogen 14 mg/dL (7-20) 15 mg/dL (7-20) Creatinine 0.7 mg/dL (0.6-1.0) 0.7 mg/dL (0.6-1.0) Estimated GFR (Cockcroft-Gault) 101.9 101.9 BUN/Creatinine Ratio 20 (6-20) Glucose Level 89 mg/dL (70-99) 96 mg/dL (70-99) Calcium Level 9.0 mg/dL (8.5-10.1) 9.1 mg/dL (8.5-10.1) Total Bilirubin 0.5 mg/dL (0.2-1.0) Aspartate Amino Transf (AST/SGOT) 16 U/L (15-37) Alanine Aminotransferase (ALT/SGPT) 18 U/L (14-59) Alkaline Phosphatase 79 U/L (46-116) 72 U/L (46-116) C-Reactive Protein, Quantitative 8.0 mg/L (0-3.3) Total Protein 6.7 g/dL (6.4-8.2) Albumin 3.0 g/dL (3.4-5.0) Albumin/Globulin Ratio 0.8 (1.0-1.7) Urine Collection Type Unknown Urine Color Yellow Urine Clarity Clear Urine pH 6.0 Urine Specific Gary 1.010 Urine Protein Negative mg/dL (NEG-TRACE) Urine Glucose (UA) Negative mg/dL (NEG) Urine Ketones (Stick) Trace mg/dL (NEG) Urine Blood Negative (NEG) Urine Nitrite Negative (NEG) Urine Bilirubin Negative (NEG) Urine Urobilinogen Dipstick 0.2 mg/dL (0.2 mg/dL) Urine Leukocyte Esterase Negative (NEG) Urine RBC Occ /HPF (0-2) Urine WBC 0 /HPF (0-4) Urine Squamous Epithelial Cells Mod /LPF Urine Bacteria Few /HPF (0-FEW) Urine Mucus Slight /LPF Laboratory Tests Test 03/27/17 14:15 03/28/17 03:30 Alkaline Phosphatase 72 U/L (46-116) White Blood Count 8.7 x10^3/uL (4.0-11.0) Red Blood Count 4.29 x10^6/uL (3.50-5.40) Hemoglobin 11.7 g/dL (12.0-15.5) Hematocrit 35.6 % (36.0-47.0) Mean Corpuscular Volume 83 fL (79-100) Mean Corpuscular Hemoglobin 27 pg (25-35) Mean Corpuscular Hemoglobin Concent 33 g/dL (31-37) Red Cell Distribution Width 14.0 % (11.5-14.5) Platelet Count 255 x10^3/uL (140-400) Sodium Level 139 mmol/L (136-145) Potassium Level 3.8 mmol/L (3.5-5.1) Chloride Level 101 mmol/L (98-107) Carbon Dioxide Level 30 mmol/L (21-32) Anion Gap 8 (6-14) Blood Urea Nitrogen 15 mg/dL (7-20) Creatinine 0.7 mg/dL (0.6-1.0) Estimated GFR (Cockcroft-Gault) 101.9 Glucose Level 96 mg/dL (70-99) Calcium Level 9.1 mg/dL (8.5-10.1) Images Images reviewed Assessment/Plan Assessment/Plan hip pain, concern for metastatic lesion on MRI lung mass, underwent EUS, biopsy back mass--concern for metastatic lesion HTN, COPD will review with ALEX Carranza APRN Mar 28, 2017 10:13
[2017-03-28 11:00] VITALS: BP 185/94
--- NOTE | 2017-03-28 11:22 | PDOC ---
Provider Note Provider Note dictated ELSIHA OAKLEY MD Mar 28, 2017 11:22
--- NOTE | 2017-03-28 11:49 | CONS ---
DATE OF CONSULTATION: 03/28/2017 PULMONARY CONSULTATION ATTENDING PHYSICIAN: Dr. Shun Grewal. REASON FOR CONSULTATION: Lung cancer. HISTORY OF PRESENT ILLNESS: The patient is a 66-year-old -[place] female who has been followed by my partner and was seen for an abnormal CT chest on 02/25/2017. At that time, the patient had a mass in the mediastinum with significant narrowing of the left lower lobe bronchus. The patient underwent bronchoscopy, but it was nondiagnostic, but mucus plug was removed. Her chest x-ray on a followup on 03/02/2017 did show expansion of the lung. She underwent EUS performed at [facility] and a pulmonary diagnosis as reported to me by Dr. Mcgrath was nonsmall cell cancer. The patient has not been initiated on any treatment yet. She was brought into the hospital after she presented with left hip pain. Her imaging studies including MRI of the lumbar spine and lower extremity were done and it showed infiltrative lesion of the medial aspect of the left acetabulum and extending into the left superior pubic ramus, consistent with osseous metastasis. She also has a bump in her lower thoracic/upper lumbar spine, but there was no evidence of any lumbar area involvement. I have been asked to see for further evaluation. PAST MEDICAL HISTORY: Significant for: 1. Recently diagnosed lung cancer, preliminary diagnosis consistent with nonsmall cell. 2. Minimal history of tobacco use. 3. Hypertension. 4. Hyperlipidemia. 5. GERD. PAST SURGICAL HISTORY: EUS recently and a bronchoscopy last week of February. FAMILY HISTORY: Hypertension. SOCIAL HISTORY: Quit tobacco. No heavy history of tobacco use. ALLERGIES: ERYTHROMYCIN. MEDICATIONS: All reviewed as listed in the MRAD. REVIEW OF SYSTEMS: Twelve-point systems obtained, pertinent positives discussed in history of present illness, otherwise noncontributory. All systems that were negative were reviewed as well. PHYSICAL EXAMINATION: VITAL SIGNS: Reviewed, afebrile, pulse ox 96% on 2 liters. NECK: Supple. LUNGS: Diminished breath sounds. CARDIOVASCULAR: Regular rate and rhythm. ABDOMEN: Soft, nontender. EXTREMITIES: No pitting edema. On her back at the upper lumbar area, there is a swelling in the midline. LABORATORY DATA: Reviewed. White cell count 8.7, hemoglobin 11.7, platelets 255. BUN 15 and creatinine 0.7. IMPRESSION: 1. Recently diagnosed stage IV nonsmall cell lung cancer by preliminary biopsy from endoscopic ultrasound. She presented with mediastinal adenopathy causing airway compression. 2. Recent complete whiteout of the left lung secondary to mucus plug. Status post bronchoscopy with resolution of the mucous plugs and improved aeration on the left lung. 3. 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 4. Minimal history of tobacco use. RECOMMENDATIONS: 1. Follow final pathology from EUS. Preliminary diagnosis consistent with nonsmall cell cancer. i spoke with Dr Mcgrath at [facility]. 2. Consult Medical and Radiation Oncology. 3. Pain control. 4. Follow genetic mutations on the biopsy specimen. 5. Bronchodilators. 6. We will follow along with you. ELISHA OAKLEY MD DR: NIRMAL/raul JOB#: [id number] / [id number] TAMAR
--- NOTE | 2017-03-28 14:44 | RAD ---
Radionuclide bone scan, 03/28/2017: History: Left hip pain, lung mass Whole-body imaging was performed following IV injection of 25 mCi of technetium 99m MDP. Comparison is made to an exam from 02/17/2009. The following findings are delineated: 1. There is mildly increased activity in the region of the left superior pubic ramus. It cannot be clearly from adjacent bladder activity. This corresponds in location to the lesion seen on the recent MR hip exam. Review of the hip radiographs of 03/26/2017 does demonstrate a vague lucency with cortical thinning at the junction of the left superior pubic ramus and the acetabulum. A bony metastasis is likely. 2. Areas of increased activity at both shoulders, knees and mid foot levels are likely arthritic in nature. Similar findings were present on the previous study. 3. Activity of the radionuclide about the skeleton major joints is otherwise unremarkable. Normal activity is present in the kidneys and bladder. IMPRESSION: Abnormal radionuclide uptake at the level of the patient's known left superior pubic ramus lesion, again most likely a metastatic basis.
[2017-03-28 15:00] VITALS: BP 148/90
--- NOTE | 2017-03-28 17:02 | CONS ---
DATE OF CONSULTATION: 03/28/2017 REQUESTING PHYSICIAN: Dr. Janna Grewal REASON FOR CONSULTATION: Mediastinal mass and left hip metastatic lesion. HISTORY OF PRESENT ILLNESS: The patient is a 66-year-old female who presented to [facility] on 02/25/2017 with hemoptysis of 1 day duration. She underwent a CT scan on 02/25/2017 that revealed marked mediastinal lymphadenopathy, which engulfed the distal left main bronchus and narrows it. There are scattered parenchymal opacities in the left upper lobe. Scattered pulmonary nodules and opacities are also noted in the right lung. Hepatic masses are thought to be cysts. She was evaluated by Dr. Tonie Mariscal. She underwent a bronchoscopy in 02/2017, which was nondiagnostic and a mucous plug was removed. She then underwent endoscopic ultrasound at [facility] by Dr. Mcgrath on 03/25/2017. This revealed a 51 x 71 mm mass in the mediastinum. Fine needle aspiration was performed and the results are still pending. Two enlarged lymph nodes were visualized in the aortopulmonary region. The patient had worsening left hip pain and hence she presented to [facility] on 03/26/2017 and she was admitted for pain management. She underwent MRI of the lumbar spine on 03/26/2017, which revealed infiltrative lesion of the medial aspect of the left acetabulum extending into the lateral aspect of the left superior pubic ramus consistent with osseous metastatic lesion. Bone scan on 03/27/2017 revealed abnormal uptake at the left superior pubic ramus suggestive of a metastatic lesion. PAST MEDICAL HISTORY: Hypertension, hyperlipidemia, chronic obstructive pulmonary disease, gastroesophageal reflux disease. FAMILY HISTORY: Mother had breast cancer. Sister had lung cancer. SOCIAL HISTORY: She quit smoking in 2006. She has smoked 1 pack of cigarettes per day prior to that. She has smoked for about 10 years at least. REVIEW OF SYSTEMS: A 14-point review of systems was performed. Pertinent positives are mentioned in the history of present illness. Rest of the system review is negative. PHYSICAL EXAMINATION: GENERAL APPEARANCE: The patient is a 66-year-old female who is in no acute cardiorespiratory distress. VITAL SIGNS: Blood pressure 185/94, temperature 98.5. HEAD: Atraumatic, normocephalic. EYES: No icterus. NECK: Supple. CHEST: Bilaterally symmetrical. No crepitations or rhonchi heard. HEART: S1, S2 normal. ABDOMEN: Soft, nontender. No hepatosplenomegaly. CENTRAL NERVOUS SYSTEM: No focal neurological deficits. LYMPHATICS: No lymphadenopathy. SKIN: No rashes. PSYCHOLOGIC: Mood and affect are appropriate. MUSCULOSKELETAL: No joint effusions. LABORATORY DATA: WBC 8.7, hemoglobin 11.7, platelet count 255. Creatinine 0.7, calcium 9.1, total bilirubin 0.5, AST 16, ALT 18, alkaline phosphatase 79, total protein 6.7, albumin 3.0. IMPRESSION AND PLAN: 1. Left hilar and mediastinal mass with evidence of metastatic disease to the left superior pubic ramus, clinically suggestive of a primary lung cancer with metastatic disease to the left pubic ramus. She underwent an endoscopic ultrasound-guided biopsy of the mediastinal mass on 03/25/2017. This was done at [facility]. Results of the biopsy are still pending. Since this was a fine-needle aspiration there would not be enough tissue available for biomarker evaluation. I will follow up on the fine-needle aspiration results and plan for further chemotherapy. 2. 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 I will consult Radiation Oncology for palliative radiation. 3. Subcutaneous nodules on back and upper arms concerning for mets. HALINA HERNANDEZ MD DR: SANDY/nts JOB#: [id number] / [id number] JANNA Su MD, JAY MD MTDD
[2017-03-28 19:43] VITALS: BP 133/82
--- NOTE | 2017-03-28 19:51 | PDOC ---
SUBJECTIVE Subjective doing well. pain controlled OBJECTIVE Vital Signs Vital Signs Date Time Temp Pulse Resp B/P (MAP) Pulse Ox O2 Delivery O2 Flow Rate FiO2 03/28/17 19:43 98.2 103 18 133/82 (99) 94 Nasal Cannula 2.0 98.2 03/28/17 19:32 Nasal Cannula 2.0 03/28/17 19:29 87 Room Air 03/28/17 19:10 Room Air 03/28/17 18:34 Nasal Cannula 2.0 03/28/17 16:02 94 Room Air 03/28/17 15:19 2.0 03/28/17 15:00 98.5 93 18 148/90 (109) 88 Room Air 98.5 03/28/17 14:46 93 Nasal Cannula 03/28/17 12:45 93 Nasal Cannula 2.0 03/28/17 11:39 Nasal Cannula 2.0 03/28/17 11:00 98.5 99 18 185/94 (124) 93 Room Air 98.5 03/28/17 09:20 96 03/28/17 08:45 82 156/87 03/28/17 08:45 82 156/87 03/28/17 08:44 96 Nasal Cannula 2.0 03/28/17 08:44 96 Nasal Cannula 2.0 03/28/17 07:40 Nasal Cannula 2.0 03/28/17 07:22 Nasal Cannula 2.0 03/28/17 07:00 98.9 82 18 156/87 (110) 96 Nasal Cannula 2.0 98.9 03/28/17 03:00 98.1 83 18 134/82 (99) 93 Room Air 98.1 03/28/17 02:54 20 03/28/17 02:24 20 98 Nasal Cannula 2.0 03/27/17 23:50 20 03/27/17 23:00 97.9 74 18 129/79 (96) 98 Room Air 97.9 03/27/17 20:00 Nasal Cannula 2.0 03/27/17 19:50 20 96 Nasal Cannula 2.0 03/27/17 19:50 20 96 Nasal Cannula 2.0 I & O Intake and Output 03/28/17 07:00 Intake Total 3210 ml Balance 3210 ml Intake Oral 3210 ml # Voids 7 PHYSICAL EXAM Physical Exam lungs clear heart RRR and soft ext no edema ASSESSMENT/PLAN Assessment/Plan 1- abnormal MRI of hip with possible metastatic lesion 2-Lung mass recent EUS guided bx , results pending 3-cough and recent hemoptysis 4.HTN 5.COPD 6. HLD appreciate consultants help , pt happy with her care , possible radiation hip noted Problems: COMMENT Lab Laboratory Tests Test 03/28/17 03:30 White Blood Count 8.7 x10^3/uL (4.0-11.0) Red Blood Count 4.29 x10^6/uL (3.50-5.40) Hemoglobin 11.7 g/dL (12.0-15.5) Hematocrit 35.6 % (36.0-47.0) Mean Corpuscular Volume 83 fL (79-100) Mean Corpuscular Hemoglobin 27 pg (25-35) Mean Corpuscular Hemoglobin Concent 33 g/dL (31-37) Red Cell Distribution Width 14.0 % (11.5-14.5) Platelet Count 255 x10^3/uL (140-400) Sodium Level 139 mmol/L (136-145) Potassium Level 3.8 mmol/L (3.5-5.1) Chloride Level 101 mmol/L (98-107) Carbon Dioxide Level 30 mmol/L (21-32) Anion Gap 8 (6-14) Blood Urea Nitrogen 15 mg/dL (7-20) Creatinine 0.7 mg/dL (0.6-1.0) Estimated GFR (Cockcroft-Gault) 101.9 Glucose Level 96 mg/dL (70-99) Calcium Level 9.1 mg/dL (8.5-10.1) JANNA NOLEN MD Mar 28, 2017 19:51
[2017-03-28] MEDS ORDERED: ENOXAPARIN 40 MG/0.4 ML SYRINGE. SQ SCH (20:00)
[2017-03-28] MEDS: LATANOPROST 0.005% OPHTH SOLUTION 2.5ML BOTTLE. OU SCH (21:20)
[2017-03-28 23:24] VITALS: BP 140/89
[2017-03-29] MEDS: oxyCODONE/APAP 5/325 1 TAB TABLET PO PRN ×2 (02:59→14:00)
[2017-03-29 03:53] VITALS: BP 150/77
--- NOTE | 2017-03-29 06:54 | CONS ---
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 She has significant symptomatic metastatic disease involving her left medial acetabulum resulting in disabling hip pain. She underwent EUS and biopsy with confirmation of diagnosis at [facility] on 03/25/2017. We were asked to see her regarding the role of palliative radiation therapy in her care. ICD 10 C34.92, C77.1, C79.51 and C79.89 HISTORY OF PRESENT ILLNESS: The patient is a 66-year-old woman who in February 2017, developed increasing shortness of breath, left hip pain and had transient gross hemoptysis occurring over a 2-hour period that then cleared. Her initial chest x-ray on 02/17/2017 revealed bilateral interstitial opacities compatible with chronic interstitial pneumonitis and/or fibrosis. On my review, it also had borderline left hilar adenopathy with no other findings. She underwent CT angiography here on 02/25/2017. This revealed mediastinal adenopathy extending medially into the distal paratracheal and left main stem bronchus region narrowing the distal left main stem bronchus to the point of complete obstruction. There were nodular changes in the base of the right lung of uncertain significance, liver and adrenal glands revealed simple cyst in the medial or central liver with no adrenal nodularity. She underwent an attempted CT-guided biopsy, at which time she had total opacification of the left hemithorax was seen and this biopsy was omitted. She underwent bronchoscopy which was nondiagnostic, but mucus plug was removed and her repeat chest x-ray on 03/08/2010 revealed reinflation of the left lung. Following this, she was seen at [facility] with Dr. Mcgrath who performed endoscopic ultrasonography. This revealed an irregular mass in the left hilum measuring 51 x 71 mm. Fine needle aspirate for cytology was performed. Two enlarged lymph nodes were in the AP region. Endoscopic appearance was highly suspicious for adenocarcinoma. Formal cytology report from [facility] is not yet available. Following this, she had increasing left hip pain to a level of 10 on a 10 scale with pain, worse with weightbearing limiting ambulation. On admission here, MRI scan of the lumbar spine and left lower extremity revealed a medial left acetabular mass extending in the left pubic bone compatible with metastatic disease. Bone scan from today on 03/28/2017 revealed subtle increased uptake in the left pubic ramus adjacent to the bladder as well as arthritic uptake in the knees and feet. No other sites of suspicious metastatic disease was seen. She is now bedfast and comfortable. Pain is now 1 on a 10 scale of pain. She has noted a tender mass in the lower back region, which hurts with pressure contact. During this time, her shortness of breath has improved. Her hemoptysis has not recurred and she has no chest pain. Her weight and appetite have been stable. She has had some decrease in her energy level. She has had occasional left hand numbness without other neurologic symptoms with no headache, nausea, or vomiting. PAST MEDICAL HISTORY: Remarkable for hypertension, hysterectomy for endometriosis, resection of ovarian cyst, 3 pregnancies. ALLERGIES: ERYTHROMYCIN. MEDICATIONS: See hospital list. FAMILY HISTORY: Mother had breast cancer, at 43 from this. Sister had lung cancer, was a smoker and at 69 from this. Aunt had breast cancer in her 80s. Three cousins have had breast cancer in their 30s, 70s, and 80s. SOCIAL HISTORY: , lives with her friend, Ned Conte, . Her 2 daughters are with her now, Vi Segura, and Hortensia Baker, . She smoked one half to 1 pack a day from age 20 to age 46, quit 20 years ago. She drinks alcohol minimally. 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 She enjoys caring for her 8-year-old grandson. PHYSICAL EXAMINATION: GENERAL: Revealed a pleasant, articulate woman appearing younger than her chronologic age. HEENT: Unremarkable. She had good dentition. LYMPH NODES: She had no cervical or supraclavicular adenopathy. LUNGS: Left field had decreased breath sounds, no wheezes or rhonchi. Right field was clear, normal breath sounds. HEART: Regular without murmur and gallop. ABDOMEN: Unremarkable. She had no hepatomegaly, mass or tenderness. BACK: Inferior midline thoracic region revealed a 3 cm midline hard mass, which was mildly tender to palpation. Overlying skin was normal in appearance. EXTREMITIES: Palpation on the inguinal regions revealed no adenopathy and no palpable tenderness in the left acetabular groin region. Lower extremity strength was intact; however, proximal motion of the left hip was diminished due to pain on movement. She had no clubbing, cyanosis or edema of her extremities. NEUROLOGIC: She had no focal deficits. LABORATORY STUDIES: CBC from 03/28/2017, hemoglobin 11.7; white count 8700; platelet count 255,000. Chemistry panel revealed normal electrolytes, normal creatinine of 0.7, normal calcium of 9.1. ASSESSMENT AND PLAN: In summary, my impression is that of stage IV (T3N2M1) bronchogenic carcinoma of the left lung with metastatic disease in the left medial acetabulum causing significant hip pain, and a subcutaneous mass in the inferior thoracic soft tissue region, also causing pain with contact pressure. She has had transient hemoptysis and obstructive lung changes, now improved following bronchoscopy with reinflation of a previously collapse left lung. At this time, I think palliative radiation therapy limited to left hip is rational. We may consider also biopsy of the subcutaneous mass of the thoracic region to confirm that this is metastatic, A soft tissue biopsy would also allow for the determination of her receptor status to allow for the consideration of targeted systemic treatment. After biopsy, palliative radiation to the soft tissue mass will be considered to aid in symptomatic management. As her pulmonary symptoms have improved, I feel she could be treated with systemic chemotherapy alone and monitor her for response adding palliative chest radiation therapy for symptomatic progression. I will review this recommendation with Dr. Powers as well. I had a thorough discussion with the patient, her daughters, and her interactive designer, Ned Conte. I also outlined the need for consideration of advanced directives, DPOA, and overall life planning as our treatments will be palliative in nature and not curative. Thank you for allowing us to participate in her evaluation. NICOLE MOSQUERA MD DR: ROMERO/raul JOB#: [id number] / [id number] Guille Mcgovern Sabato MTDD
[2017-03-29 07:00] VITALS: BP 139/86
[2017-03-29 07:03] LABS: HEMATOCRIT 34.4 % (36.0-47.0); HEMOGLOBIN 11.3 g/dL (12.0-15.5); RED BLOOD COUNT 4.16 x10^6/uL (3.50-5.40); RED CELL DISTRIBUTION WIDTH 13.8 % (11.5-14.5); WHITE BLOOD COUNT 8.6 x10^3/uL (4.0-11.0)
[2017-03-29 07:31] LABS: CALCIUM 9.4 mg/dL (8.5-10.1); CREATININE 0.7 mg/dL (0.6-1.0); GFR 101.9; POTASSIUM 3.4 mmol/L (3.5-5.1)
[2017-03-29] MEDS: IPRATRPIUM/ALBUTEROL 0.5/2.5MG 3 ML NEBU. NEB SCH ×4 (07:38→19:41)
[2017-03-29] MEDS: BUDESONIDE 0.5 MG/2 ML NEBU. NEB SCH ×2 (07:38→19:41)
[2017-03-29] MEDS: DORZOLAMIDE/TIMOLOL 2%/0.5% OPHTH SOLUTION 10ML BOTTLE. OU SCH ×2 (09:00→21:00)
[2017-03-29] MEDS: CHOLECALCIFEROL (VITAMIN D3) 5,000 UNIT CAPSULE PO SCH (09:29)
[2017-03-29] MEDS: CYANOCOBALAMIN (VITAMIN B-12) 1,000 MCG TABLET. PO SCH (09:29)
[2017-03-29] MEDS: amLODIPine BESYLATE 5 MG TABLET PO SCH (09:30)
[2017-03-29] MEDS: hydroCHLOROthiazide 25 MG TABLET PO SCH (09:30)
[2017-03-29] MEDS: LOSARTAN POTASSIUM 50 MG TABLET. PO SCH (09:30)
[2017-03-29] MEDS: oxyCODONE ER 10 MG TAB.ER.12H PO SCH ×2 (09:34→21:17)
--- NOTE | 2017-03-29 10:04 | PDOC ---
SUBJECTIVE Subjective discussed findings and plan so far , answered many questions, pain better control OBJECTIVE Vital Signs Vital Signs Date Time Temp Pulse Resp B/P (MAP) Pulse Ox O2 Delivery O2 Flow Rate FiO2 03/29/17 09:34 95 Nasal Cannula 2.0 03/29/17 09:30 83 139/86 03/29/17 09:30 83 139/86 03/29/17 07:39 95 Nasal Cannula 2.0 03/29/17 07:18 Nasal Cannula 2.0 03/29/17 07:00 97.9 83 18 139/86 (103) 95 Nasal Cannula 2.0 97.9 03/29/17 03:59 20 Nasal Cannula 2.0 03/29/17 03:53 98.1 100 18 150/77 (101) 92 Nasal Cannula 98.1 03/29/17 02:59 20 Nasal Cannula 2.0 03/29/17 01:17 20 Nasal Cannula 2.0 03/28/17 23:24 98.1 97 18 140/89 (106) 93 Nasal Cannula 2.0 98.1 03/28/17 21:17 20 Nasal Cannula 2.0 03/28/17 20:10 Nasal Cannula 2.0 03/28/17 19:43 98.2 103 18 133/82 (99) 94 Nasal Cannula 2.0 98.2 03/28/17 19:32 Nasal Cannula 2.0 03/28/17 19:29 87 Room Air 03/28/17 19:10 Room Air 03/28/17 18:34 Nasal Cannula 2.0 03/28/17 16:02 94 Room Air 03/28/17 15:19 2.0 03/28/17 15:00 98.5 93 18 148/90 (109) 88 Room Air 98.5 03/28/17 14:46 93 Nasal Cannula 03/28/17 12:45 93 Nasal Cannula 2.0 03/28/17 11:39 Nasal Cannula 2.0 03/28/17 11:00 98.5 99 18 185/94 (124) 93 Room Air 98.5 I & O Intake and Output 03/29/17 07:00 Intake Total 240 ml Output Total 400 ml Balance -160 ml Intake Oral 240 ml Output Urine Total 400 ml # Voids 2 # Bowel Movements 1 PHYSICAL EXAM Physical Exam lungs with good air movement, fairly clear heart RRR abd soft ASSESSMENT/PLAN Assessment/Plan 1- abnormal MRI of hip with possible metastatic lesion 2-Lung mass recent EUS guided bx , results pending ( none small cell lung CA) 3-cough and recent hemoptysis 4.HTN 5.COPD 6. HLD appreciate oncology and radiation oncology help Problems: COMMENT Lab Laboratory Tests Test 03/29/17 05:44 White Blood Count 8.6 x10^3/uL (4.0-11.0) Red Blood Count 4.16 x10^6/uL (3.50-5.40) Hemoglobin 11.3 g/dL (12.0-15.5) Hematocrit 34.4 % (36.0-47.0) Mean Corpuscular Volume 83 fL (79-100) Mean Corpuscular Hemoglobin 27 pg (25-35) Mean Corpuscular Hemoglobin Concent 33 g/dL (31-37) Red Cell Distribution Width 13.8 % (11.5-14.5) Platelet Count 255 x10^3/uL (140-400) Sodium Level 140 mmol/L (136-145) Potassium Level 3.4 mmol/L (3.5-5.1) Chloride Level 100 mmol/L (98-107) Carbon Dioxide Level 31 mmol/L (21-32) Anion Gap 9 (6-14) Blood Urea Nitrogen 13 mg/dL (7-20) Creatinine 0.7 mg/dL (0.6-1.0) Estimated GFR (Cockcroft-Gault) 101.9 Glucose Level 90 mg/dL (70-99) Calcium Level 9.4 mg/dL (8.5-10.1) JANNA NOLEN MD Mar 29, 2017 10:04
[2017-03-29 11:00] VITALS: BP 143/81
--- NOTE | 2017-03-29 11:43 | PDOC ---
ALEX RIZO FINISHER OPERATOR 03/29/17 1143: SURGICAL PROGRESS NOTE Subjective plans for radiation to hip today, hip pain D/w Dr Grewal--would like excision of mass done, for larger tissue sample D/w Dr Paige--would like at least core biopsy if possible Not being done by perc needle per nursing Vital Signs Vital Signs Date Time Temp Pulse Resp B/P (MAP) Pulse Ox O2 Delivery O2 Flow Rate FiO2 03/29/17 11:14 97 Nasal Cannula 2.0 03/29/17 11:00 98.9 84 18 143/81 (101) 98.9 I&O Intake and Output 03/29/17 07:00 Intake Total 240 ml Output Total 400 ml Balance -160 ml Intake Oral 240 ml Output Urine Total 400 ml # Voids 2 # Bowel Movements 1 General: Alert, Oriented X3, Cooperative, No acute distress Abdomen: Soft Labs Laboratory Tests Test 03/27/17 14:15 03/28/17 03:30 03/29/17 05:44 Alkaline Phosphatase 72 U/L (46-116) White Blood Count 8.7 x10^3/uL (4.0-11.0) 8.6 x10^3/uL (4.0-11.0) Red Blood Count 4.29 x10^6/uL (3.50-5.40) 4.16 x10^6/uL (3.50-5.40) Hemoglobin 11.7 g/dL (12.0-15.5) 11.3 g/dL (12.0-15.5) Hematocrit 35.6 % (36.0-47.0) 34.4 % (36.0-47.0) Mean Corpuscular Volume 83 fL (79-100) 83 fL (79-100) Mean Corpuscular Hemoglobin 27 pg (25-35) 27 pg (25-35) Mean Corpuscular Hemoglobin Concent 33 g/dL (31-37) 33 g/dL (31-37) Red Cell Distribution Width 14.0 % (11.5-14.5) 13.8 % (11.5-14.5) Platelet Count 255 x10^3/uL (140-400) 255 x10^3/uL (140-400) Sodium Level 139 mmol/L (136-145) 140 mmol/L (136-145) Potassium Level 3.8 mmol/L (3.5-5.1) 3.4 mmol/L (3.5-5.1) Chloride Level 101 mmol/L (98-107) 100 mmol/L (98-107) Carbon Dioxide Level 30 mmol/L (21-32) 31 mmol/L (21-32) Anion Gap 8 (6-14) 9 (6-14) Blood Urea Nitrogen 15 mg/dL (7-20) 13 mg/dL (7-20) Creatinine 0.7 mg/dL (0.6-1.0) 0.7 mg/dL (0.6-1.0) Estimated GFR (Cockcroft-Gault) 101.9 101.9 Glucose Level 96 mg/dL (70-99) 90 mg/dL (70-99) Calcium Level 9.1 mg/dL (8.5-10.1) 9.4 mg/dL (8.5-10.1) Laboratory Tests Test 03/29/17 05:44 White Blood Count 8.6 x10^3/uL (4.0-11.0) Red Blood Count 4.16 x10^6/uL (3.50-5.40) Hemoglobin 11.3 g/dL (12.0-15.5) Hematocrit 34.4 % (36.0-47.0) Mean Corpuscular Volume 83 fL (79-100) Mean Corpuscular Hemoglobin 27 pg (25-35) Mean Corpuscular Hemoglobin Concent 33 g/dL (31-37) Red Cell Distribution Width 13.8 % (11.5-14.5) Platelet Count 255 x10^3/uL (140-400) Sodium Level 140 mmol/L (136-145) Potassium Level 3.4 mmol/L (3.5-5.1) Chloride Level 100 mmol/L (98-107) Carbon Dioxide Level 31 mmol/L (21-32) Anion Gap 9 (6-14) Blood Urea Nitrogen 13 mg/dL (7-20) Creatinine 0.7 mg/dL (0.6-1.0) Estimated GFR (Cockcroft-Gault) 101.9 Glucose Level 90 mg/dL (70-99) Calcium Level 9.4 mg/dL (8.5-10.1) Problem List lung cancer with metastatic disease appears not starting chemo yet, needing more tissue diagnostic information radiation to hip d/w Dr Tobar, she will plan surgery tomorrow Problems: MARIAMA TOBAR MD 03/29/17 1300: SURGICAL PROGRESS NOTE Assessment/Plan addendum i saw and examined her. i d/w dr. paige and dr. lino. i plan to excise her back mass tomorrow at 9 am. risks of bleeding and infection d/w her. she desires to proceed. Problems: ALEX RIZO APRN Mar 29, 2017 11:43 MARIAMA TOBAR MD Mar 29, 2017 13:00
--- NOTE | 2017-03-29 11:48 | PDOC ---
Provider Note Provider Note 66 yo woman with clinical st IV(T3 N2 M1) bronchogenic carcinoma. EUS and bx of mediastinal region at [facility] 03/26 with result still pending. Simulated today for symptomatic met disease in medial left acetabulum and pubic bone. Now scheduled for bx of subcutaneous mass in low back to ascertain receptor status tomorrow. We will begin palliative radiation today over 5 day course of therapy. Discussed with patient. NICOLE MOSQUERA MD Mar 29, 2017 11:48
--- NOTE | 2017-03-29 12:08 | PDOC ---
PULMONARY PROGRESS NOTES Subjective no soa Vitals Vital Signs Date Time Temp Pulse Resp B/P (MAP) Pulse Ox O2 Delivery O2 Flow Rate FiO2 03/29/17 11:14 97 Nasal Cannula 2.0 03/29/17 11:00 98.9 84 18 143/81 (101) 98.9 General: Alert, No acute distress HEENT: Other Lungs: Clear Cardiovascular: S1, S2 Abdomen: Soft, Non-tender Neuro Exam: Alert Extremities: No Edema Skin: Warm Labs Laboratory Tests Test 03/27/17 14:15 03/28/17 03:30 03/29/17 05:44 Alkaline Phosphatase 72 U/L (46-116) White Blood Count 8.7 x10^3/uL (4.0-11.0) 8.6 x10^3/uL (4.0-11.0) Red Blood Count 4.29 x10^6/uL (3.50-5.40) 4.16 x10^6/uL (3.50-5.40) Hemoglobin 11.7 g/dL (12.0-15.5) 11.3 g/dL (12.0-15.5) Hematocrit 35.6 % (36.0-47.0) 34.4 % (36.0-47.0) Mean Corpuscular Volume 83 fL (79-100) 83 fL (79-100) Mean Corpuscular Hemoglobin 27 pg (25-35) 27 pg (25-35) Mean Corpuscular Hemoglobin Concent 33 g/dL (31-37) 33 g/dL (31-37) Red Cell Distribution Width 14.0 % (11.5-14.5) 13.8 % (11.5-14.5) Platelet Count 255 x10^3/uL (140-400) 255 x10^3/uL (140-400) Sodium Level 139 mmol/L (136-145) 140 mmol/L (136-145) Potassium Level 3.8 mmol/L (3.5-5.1) 3.4 mmol/L (3.5-5.1) Chloride Level 101 mmol/L (98-107) 100 mmol/L (98-107) Carbon Dioxide Level 30 mmol/L (21-32) 31 mmol/L (21-32) Anion Gap 8 (6-14) 9 (6-14) Blood Urea Nitrogen 15 mg/dL (7-20) 13 mg/dL (7-20) Creatinine 0.7 mg/dL (0.6-1.0) 0.7 mg/dL (0.6-1.0) Estimated GFR (Cockcroft-Gault) 101.9 101.9 Glucose Level 96 mg/dL (70-99) 90 mg/dL (70-99) Calcium Level 9.1 mg/dL (8.5-10.1) 9.4 mg/dL (8.5-10.1) Laboratory Tests Test 03/29/17 05:44 White Blood Count 8.6 x10^3/uL (4.0-11.0) Red Blood Count 4.16 x10^6/uL (3.50-5.40) Hemoglobin 11.3 g/dL (12.0-15.5) Hematocrit 34.4 % (36.0-47.0) Mean Corpuscular Volume 83 fL (79-100) Mean Corpuscular Hemoglobin 27 pg (25-35) Mean Corpuscular Hemoglobin Concent 33 g/dL (31-37) Red Cell Distribution Width 13.8 % (11.5-14.5) Platelet Count 255 x10^3/uL (140-400) Sodium Level 140 mmol/L (136-145) Potassium Level 3.4 mmol/L (3.5-5.1) Chloride Level 100 mmol/L (98-107) Carbon Dioxide Level 31 mmol/L (21-32) Anion Gap 9 (6-14) Blood Urea Nitrogen 13 mg/dL (7-20) Creatinine 0.7 mg/dL (0.6-1.0) Estimated GFR (Cockcroft-Gault) 101.9 Glucose Level 90 mg/dL (70-99) Calcium Level 9.4 mg/dL (8.5-10.1) Medications Active Scripts Medications Dose Route/Sig Max Daily Dose Days Date Category Dose Instructions Simbrinza 1%-0.2% Eye Drops (Brinzolamide/Brimonid Tart) 8 Ml Drops.susp 1 Drop OU BID 03/27/17 Reported Budesonide 0.25 Mg/2 Ml Ampul.neb 1 Vial NEB BID 30 03/02/17 Rx Prednisone 20 Mg Tablet 40 Mg PO DAILY 12 03/02/17 Rx take 40 mg 2 tab x 3 d then 30 mg 11/2 tab x 3d then 1 tab x 3d then 1/2 tab x 3 d Duoneb 0.5-3(2.5) Mg/3 Ml (Albuterol/Ipratropium) 3 Ml Ampul.neb 3 Ml NEB RTQID 30 03/02/17 Rx Benzonatate 100 Mg Capsule 100 Mg PO PRN TID PRN 10 03/02/17 Rx Amox Tr-K Clv 875-125 Mg Tab (Amoxicillin/Potassium Clav) 1 Each Tablet 1 Tab PO BID 10 03/02/17 Rx Amlodipine Besylate 5 Mg Tablet 5 Mg PO DAILY 30 03/02/17 Rx Hyzaar 100-25 Tablet (Losartan/Hydrochlorothiazide) 1 Each Tablet 1 Tab PO DAILY 02/25/17 Reported Latanoprost 2.5 Ml Drops 1 Drop EACHEYE QHS 04/08/16 Reported Vitamin B-12 (Cyanocobalamin (Vitamin B-12)) 1,000 Mcg Tablet 1 Tab PO DAILY 03/25/16 Reported Vitamin D3 (Cholecalciferol (Vitamin D3)) 5,000 Unit Tablet 1 Tab PO DAILY 03/25/16 Reported Impression . 1. Recently diagnosed stage IV nonsmall cell lung cancer by preliminary biopsy from EUS. She presented with sig. mediastinal adenopathy/ mass causing near complete occlusion of LLL 2. Recent complete whiteout of the left lung secondary to mucus plug. Status post bronchoscopy with resolution of the mucous plugs and improved aeration on the left lung. 3. 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 4. Minimal history of tobacco use. Plan . 1. Follow final pathology from EUS. Preliminary diagnosis consistent with non-small cell cancer. d/w Dr Abbasi 2. Appreciate Medical and Radiation Oncology consults. Chemo this afternoon. Radiation to left hip 3. Pain control. 4. Follow genetic mutations on the biopsy specimen. 5. Bronchodilators. 6. We will follow along with you. ELISHA OAKLEY MD Mar 29, 2017 12:08
[2017-03-29 15:00] VITALS: BP 133/83
--- NOTE | 2017-03-29 15:40 | PDOC ---
PROGRESS NOTES Subjective Subjective c/c - f/u of lung ca Objective Objective Vital Signs Date Time Temp Pulse Resp B/P (MAP) Pulse Ox O2 Delivery O2 Flow Rate FiO2 03/29/17 15:24 96 Nasal Cannula 2.0 03/29/17 11:00 98.9 84 18 143/81 (101) 98.9 Intake and Output 03/29/17 06:59 Intake Total 240 ml Output Total 400 ml Balance -160 ml Intake Oral 240 ml Output Urine Total 400 ml # Voids 2 # Bowel Movements 1 Physical Exam Heart: Normal S1, Normal S2 General: Alert, Oriented X3 Lungs: Clear to auscultation Assessment Assessment IMPRESSION AND PLAN: 1. Left hilar and mediastinal mass with evidence of metastatic disease to the left superior pubic ramus, clinically suggestive of a primary lung cancer with metastatic disease to the left pubic ramus. She underwent an endoscopic ultrasound-guided biopsy of the mediastinal mass on 03/25/2017. This was done at [facility]. Results of the biopsy are still pending. Since this was a fine-needle aspiration there would not be enough tissue available for biomarker evaluation. I will follow up on the fine-needle aspiration results and plan for further chemotherapy. 2. 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 Appreciate consult by Radiation Oncology and agree for palliative radiation. 3. Subcutaneous lesions on b/l upper arms and mid back. Plan excisional bx . Comment Review of Relevant I have reviewed the following items jared (where applicable) has been applied. Labs Laboratory Tests Test 03/28/17 03:30 03/29/17 05:44 White Blood Count 8.7 x10^3/uL (4.0-11.0) 8.6 x10^3/uL (4.0-11.0) Red Blood Count 4.29 x10^6/uL (3.50-5.40) 4.16 x10^6/uL (3.50-5.40) Hemoglobin 11.7 g/dL (12.0-15.5) 11.3 g/dL (12.0-15.5) Hematocrit 35.6 % (36.0-47.0) 34.4 % (36.0-47.0) Mean Corpuscular Volume 83 fL (79-100) 83 fL (79-100) Mean Corpuscular Hemoglobin 27 pg (25-35) 27 pg (25-35) Mean Corpuscular Hemoglobin Concent 33 g/dL (31-37) 33 g/dL (31-37) Red Cell Distribution Width 14.0 % (11.5-14.5) 13.8 % (11.5-14.5) Platelet Count 255 x10^3/uL (140-400) 255 x10^3/uL (140-400) Sodium Level 139 mmol/L (136-145) 140 mmol/L (136-145) Potassium Level 3.8 mmol/L (3.5-5.1) 3.4 mmol/L (3.5-5.1) Chloride Level 101 mmol/L (98-107) 100 mmol/L (98-107) Carbon Dioxide Level 30 mmol/L (21-32) 31 mmol/L (21-32) Anion Gap 8 (6-14) 9 (6-14) Blood Urea Nitrogen 15 mg/dL (7-20) 13 mg/dL (7-20) Creatinine 0.7 mg/dL (0.6-1.0) 0.7 mg/dL (0.6-1.0) Estimated GFR (Cockcroft-Gault) 101.9 101.9 Glucose Level 96 mg/dL (70-99) 90 mg/dL (70-99) Calcium Level 9.1 mg/dL (8.5-10.1) 9.4 mg/dL (8.5-10.1) Laboratory Tests Test 03/29/17 05:44 White Blood Count 8.6 x10^3/uL (4.0-11.0) Red Blood Count 4.16 x10^6/uL (3.50-5.40) Hemoglobin 11.3 g/dL (12.0-15.5) Hematocrit 34.4 % (36.0-47.0) Mean Corpuscular Volume 83 fL (79-100) Mean Corpuscular Hemoglobin 27 pg (25-35) Mean Corpuscular Hemoglobin Concent 33 g/dL (31-37) Red Cell Distribution Width 13.8 % (11.5-14.5) Platelet Count 255 x10^3/uL (140-400) Sodium Level 140 mmol/L (136-145) Potassium Level 3.4 mmol/L (3.5-5.1) Chloride Level 100 mmol/L (98-107) Carbon Dioxide Level 31 mmol/L (21-32) Anion Gap 9 (6-14) Blood Urea Nitrogen 13 mg/dL (7-20) Creatinine 0.7 mg/dL (0.6-1.0) Estimated GFR (Cockcroft-Gault) 101.9 Glucose Level 90 mg/dL (70-99) Calcium Level 9.4 mg/dL (8.5-10.1) Medications Current Medications Morphine Sulfate 2 mg 1X ONCE IV Last administered on 03/26/17 11:54; Start 03/26/17 at 11:15; Stop 03/26/17 at 11:16; Status DC Ondansetron HCl (Zofran) 4 mg 1X ONCE IV Last administered on 03/26/17 11:51 ; Start 03/26/17 at 11:15; Stop 03/26/17 at 11:16; Status DC Ondansetron HCl (Zofran) 4 mg PRN Q8HRS PRN IV NAUSEA/VOMITING; Start 03/26/17 at 13:15; Stop 03/27/17 at 13:14; Status DC Morphine Sulfate 2 mg PRN Q2HR PRN IV PAIN Last administered on 03/27/17 11:34 ; Start 03/26/17 at 13:15; Stop 03/27/17 at 13:14; Status DC Amlodipine Besylate (Norvasc) 5 mg DAILY PO Last administered on 03/29/17 09: 30; Start 03/27/17 at 09:00 Benzonatate (Tessalon Perle) 100 mg PRN TID PRN PO cough; Start 03/26/17 at 15: 15 Cyanocobalamin (Vitamin B-12) 1,000 mcg DAILY PO Last administered on 09:29; Start 03/27/17 at 09:00 Dorzolamide/ Timolol (Cosopt) 1 drop BID OU Last administered on 03/28/17 21: 00; Start 03/26/17 at 21:00 Albuterol/ Ipratropium (Duoneb) 3 ml RTQID NEB Last administered on 03/29/17 15:24; Start 03/26/17 at 16:00 Latanoprost (Xalatan) 1 drop QHS OU Last administered on 03/28/17 21:20; Start 03/26/17 at 21:00 Budesonide (Pulmicort) 0.25 mg RTBID NEB Last administered on 03/29/17 07:38; Start 03/26/17 at 20:00 Vitamin D (Vitamin D3) 5,000 unit DAILY PO Last administered on 03/29/17 09:29 ; Start 03/27/17 at 09:00 Losartan Potassium (Cozaar) 100 mg DAILY PO Last administered on 03/29/17 09: 30; Start 03/27/17 at 09:00 Potassium Chloride (Klor-Con) 40 meq 1X ONCE PO Last administered on 15:59; Start 03/26/17 at 15:30; Stop 03/26/17 at 15:31; Status DC Hydrochlorothiazide (Hydrodiuril) 25 mg DAILY PO Last administered on 09:30; Start 03/27/17 at 09:00 Morphine Sulfate 2 mg PRN Q2HR PRN IV PAIN Last administered on 03/28/17 18:34 ; Start 03/27/17 at 13:45 Oxycodone HCl (OxyCONTIN) 10 mg Q12HR PO Last administered on 03/28/17 08:44; Start 03/27/17 at 21:00; Stop 03/28/17 at 19:45; Status DC Oxycodone HCl (OxyCONTIN) 10 mg 1X ONCE PO Last administered on 03/27/17 15: 27; Start 03/27/17 at 15:30; Stop 03/27/17 at 15:31; Status DC Oxycodone HCl (OxyCONTIN) 20 mg Q12HR PO Last administered on 03/29/17 09:34; Start 03/28/17 at 21:00 Oxycodone/ Acetaminophen (Percocet 5/325) 1 tab PRN Q4HRS PRN PO PAIN Last administered on 03/29/17 14:00; Start 03/28/17 at 19:30 Enoxaparin Sodium (Lovenox 40mg Syringe) 40 mg Q24H SQ Last administered on 21:19; Start 03/28/17 at 20:00; Stop 03/29/17 at 12:24; Status DC Cefazolin Sodium/ Dextrose 50 ml @ 100 mls/hr 1X PREOP PRN IV health and wellness sales consultant; Start 03/30/17 at 06:00; Stop 03/30/17 at 18:00 Ondansetron HCl (Zofran) 4 mg PRN Q6HRS PRN IV NAUSEA/VOMITING; Start 03/30/17 at 07:00; Stop 03/31/17 at 06:59 Fentanyl Citrate (Fentanyl 2ml Vial) 25 mcg PRN Q5MIN PRN IV MILD PAIN; Start 03/30/17 at 07:00; Stop 03/31/17 at 06:59 Fentanyl Citrate (Fentanyl 2ml Vial) 50 mcg PRN Q5MIN PRN IV MODERATE PAIN; Start 03/30/17 at 07:00; Stop 03/31/17 at 06:59 Morphine Sulfate 1 mg PRN Q10MIN PRN IV SEVERE PAIN; Start 03/30/17 at 07:00; Stop 03/31/17 at 06:59 Ringer's Solution 1,000 ml @ 30 mls/hr Q24H IV ; Start 03/30/17 at 07:00; Stop 03/30/17 at 18:59 Lidocaine HCl 2 ml PRN 1X PRN ID PRIOR TO IV START; Start 03/30/17 at 07:00; Stop 03/31/17 at 06:59 Hydromorphone HCl (Dilaudid) 0.5 mg PRN Q10MIN PRN IV SEV PAIN, Second choice; Start 03/30/17 at 07:00; Stop 03/31/17 at 06:59 Prochlorperazine Edisylate (Compazine) 5 mg PACU PRN PRN IV NAUSEA, MRX1; Start 03/30/17 at 07:00; Stop 03/31/17 at 06:59 Active Scripts Active Budesonide 0.25 Mg/2 Ml Ampul.neb 1 Vial NEB BID 30 Days Prednisone 20 Mg Tablet 40 Mg PO DAILY 12 Days take 40 mg 2 tab x 3 d then 30 mg 11/2 tab x 3d then 1 tab x 3d then 1/2 tab x 3 d Duoneb 0.5-3(2.5) Mg/3 Ml (Albuterol/Ipratropium) 3 Ml Ampul.neb 3 Ml NEB RTQID 30 Days Benzonatate 100 Mg Capsule 100 Mg PO PRN TID PRN 10 Days Amox Tr-K Clv 875-125 Mg Tab (Amoxicillin/Potassium Clav) 1 Each Tablet 1 Tab PO BID 10 Days Amlodipine Besylate 5 Mg Tablet 5 Mg PO DAILY 30 Days Reported Simbrinza 1%-0.2% Eye Drops (Brinzolamide/Brimonid Tart) 8 Ml Drops.susp 1 Drop OU BID Hyzaar 100-25 Tablet (Losartan/Hydrochlorothiazide) 1 Each Tablet 1 Tab PO DAILY Latanoprost 2.5 Ml Drops 1 Drop EACHEYE QHS Vitamin B-12 (Cyanocobalamin (Vitamin B-12)) 1,000 Mcg Tablet 1 Tab PO DAILY Vitamin D3 (Cholecalciferol (Vitamin D3)) 5,000 Unit Tablet 1 Tab PO DAILY Vitals/I & O Vital Sign - Last 24 Hours 03/28/17 03/28/17 03/28/17 03/28/17 16:02 18:34 19:10 19:29 Pulse Ox 94 87 O2 Delivery Room Air Nasal Cannula Room Air Room Air O2 Flow Rate 2.0 03/28/17 03/28/17 03/28/17 03/28/17 19:32 19:43 20:10 21:17 Temp 98.2 98.2 Pulse 103 Resp 18 20 B/P (MAP) 133/82 (99) Pulse Ox 94 O2 Delivery Nasal Cannula Nasal Cannula Nasal Cannula Nasal Cannula O2 Flow Rate 2.0 2.0 2.0 2.0 03/28/17 03/29/17 03/29/17 03/29/17 23:24 01:17 02:59 03:53 Temp 98.1 98.1 98.1 98.1 Pulse 97 100 Resp 18 20 20 18 B/P (MAP) 140/89 (106) 150/77 (101) Pulse Ox 93 92 O2 Delivery Nasal Cannula Nasal Cannula Nasal Cannula O2 Flow Rate 2.0 2.0 2.0 03/29/17 03/29/17 03/29/17 03/29/17 03:59 07:00 07:18 07:39 Temp 97.9 97.9 Pulse 83 Resp 20 18 B/P (MAP) 139/86 (103) Pulse Ox 95 95 O2 Delivery Nasal Cannula Nasal Cannula Nasal Cannula O2 Flow Rate 2.0 2.0 2.0 03/29/17 03/29/17 03/29/17 03/29/17 09:30 09:30 09:34 11:00 Temp 98.9 98.9 Pulse 83 83 84 Resp 18 B/P (MAP) 139/86 139/86 143/81 (101) Pulse Ox 95 92 O2 Delivery Nasal Cannula Room Air O2 Flow Rate 2.0 03/29/17 03/29/17 03/29/17 03/29/17 11:14 13:43 14:00 15:12 Pulse Ox 97 97 97 O2 Delivery Nasal Cannula Nasal Cannula Nasal Cannula Nasal Cannula O2 Flow Rate 2.0 2.0 2.0 03/29/17 15:24 Pulse Ox 96 O2 Delivery Nasal Cannula O2 Flow Rate 2.0 Intake and Output 03/28/17 03/28/17 03/29/17 14:59 22:59 06:59 Intake Total 240 ml Output Total 400 ml Balance -160 ml HALINA HERNANEDZ MD Mar 29, 2017 15:40
--- NOTE | 2017-03-29 15:59 | ACF ---
Admit Criteria Forms Admit Criteria Forms Admit Criteria Forms PAIN MANAGEMENT GRG Clinical Indications for Admission to Inpatient Care (Place 'X' for any and all applicable criteria): Hospital admission is needed for appropriate care of the patient because of 1 or more of the following are present (1)(2)(3)(4)(5): [ ]I. Severe pain requiring acute inpatient management as indicated by 1 or more of the following (2)(5)(10): [ ]a) Continuous or frequent (eg, every 2 to 4 hours) parenteral analgesics required [A] [X ]b) Necessity (ie, alternative approaches not effective) for analgesic regimen that can only be performed or initiated in inpatient setting [X ]II. Pain causing debilitation to the point of inability to function or be supported at any other level of care [ ]III. Severe side effects from pain medications as indicated by ANY ONE of the following (12)(13)(14)(15): [ ]a) Uncontrollable seizures [ ]b) Cardiac arrhythmias of immediate concern [ ]c) Dehydration that is severe or persistent [ ]d) Vomiting that is severe or persistent [ ]e) Altered mental status that is severe or persistent [ ]f) Obstipation with inadequate GI function to maintain nutrition The original [employer] content created by [employer] has been revised. The portions of the content which have been revised are identified through the use of italic text or in bold, and [employer] has neither reviewed nor approved the modified material. All other unmodified content is copyright [employer]. Please see references footnoted in the original [employer] edition 2016 CARLITOS NICOLE Mar 29, 2017 15:59
[2017-03-29 19:00] VITALS: BP 144/90
[2017-03-29] MEDS: LATANOPROST 0.005% OPHTH SOLUTION 2.5ML BOTTLE. OU SCH (21:17)
[2017-03-29 23:00] VITALS: BP 152/78
[2017-03-30] VITALS (12 sets, daily range): BP systolic 128–159; BP diastolic 77–92
[2017-03-30] MEDS ORDERED: ONDANSETRON PF 4 MG/2 ML VIAL. IV PRN (07:00)
[2017-03-30] MEDS ORDERED: LIDOCAINE 1% 1 ML SYRINGE. ID PRN (07:00)
[2017-03-30] MEDS ORDERED: fentaNYL PF VIAL 100 MCG/2 ML VIAL IV PRN ×2 (07:00)
[2017-03-30] MEDS ORDERED: PROCHLORPERAZINE 10 MG/2 ML VIAL. IV PRN (07:00)
[2017-03-30] MEDS ORDERED: MORPHINE SULFATE 4 MG/ML DISP.SYRIN. IV PRN (07:00)
[2017-03-30] MEDS ORDERED: HYDROmorphone 2 MG/ML VIAL IV PRN (07:00)
[2017-03-30] MEDS ORDERED: IV RINGERS,LACTATED 1000ML 1,000 ML IV SCH (07:00)
[2017-03-30] MEDS: IPRATRPIUM/ALBUTEROL 0.5/2.5MG 3 ML NEBU. NEB SCH ×4 (07:14→19:45)
[2017-03-30] MEDS: BUDESONIDE 0.5 MG/2 ML NEBU. NEB SCH ×2 (07:14→19:46)
[2017-03-30] MEDS ORDERED: BUPIVAC MPF-EPI 0.5%-1:200000 30 ML VIAL. ONE (07:31)
[2017-03-30] MEDS ORDERED: ONDANSETRON PF 4 MG/2 ML VIAL. ONE (08:43)
[2017-03-30] MEDS ORDERED: LIDOCAINE 2% PF Vial for OR 5 ML VIAL. ONE (08:43)
[2017-03-30] MEDS ORDERED: fentaNYL PF VIAL 100 MCG/2 ML VIAL ONE (08:43)
[2017-03-30] MEDS ORDERED: DEXAMETHASONE SOD PHOS 20 MG/5 ML VIAL. ONE (08:43)
[2017-03-30] MEDS ORDERED: ROCURONIUM 100 MG/10 ML VIAL. ONE (08:43)
[2017-03-30] MEDS ORDERED: PROPOFOL 20 ML IV ONE (08:43)
--- NOTE | 2017-03-30 08:54 | PDOC ---
Provider Note Provider Note i saw her and marked her site. discussed with her and family member that goal of surgery is to alleviate pain from the mass and if this is malignant, it will provide additional tissue for testing needed by oncology. MARIAMA TOBAR MD Mar 30, 2017 08:54
[2017-03-30] MEDS: DORZOLAMIDE/TIMOLOL 2%/0.5% OPHTH SOLUTION 10ML BOTTLE. OU SCH ×2 (09:00→21:00)
[2017-03-30] MEDS ORDERED: PHENYLEPHRINE in 0.9% NACL PF 1 MG/10 ML DISP.SYRIN. IV ONE (09:10)
[2017-03-30] MEDS ORDERED: NEOSTIGMINE 10 MG/10 ML VIAL. ONE (09:23)
[2017-03-30] MEDS ORDERED: GLYCOPYRROLATE 1 MG/5 ML VIAL. ONE (09:24)
--- NOTE | 2017-03-30 09:27 | PDOC ---
SUBJECTIVE Subjective pt out of room to surgery already this AM, completed first radiation to hip yesterday OBJECTIVE Vital Signs Vital Signs Date Time Temp Pulse Resp B/P (MAP) Pulse Ox O2 Delivery O2 Flow Rate FiO2 03/30/17 08:30 97.6 95 15 156/79 97 Nasal Cannula 2.0 97.6 03/30/17 07:15 95 Room Air 03/30/17 07:00 98.4 96 18 128/77 (94) 95 Nasal Cannula 2.0 98.4 03/30/17 03:00 97.9 102 18 142/92 (109) 94 Room Air 97.9 03/30/17 01:17 20 Nasal Cannula 2.0 03/29/17 23:00 98.1 86 18 152/78 (102) 95 Room Air 98.1 03/29/17 21:17 20 Room Air 03/29/17 19:50 Nasal Cannula 2.0 03/29/17 19:41 92 Room Air 03/29/17 19:00 98.1 100 18 144/90 (108) 90 Room Air 98.1 03/29/17 15:24 96 Nasal Cannula 2.0 03/29/17 15:12 97 Nasal Cannula 2.0 03/29/17 15:00 98.7 91 18 133/83 (100) 91 Room Air 98.7 03/29/17 14:00 Nasal Cannula 2.0 03/29/17 13:43 97 03/29/17 11:14 97 Nasal Cannula 2.0 03/29/17 11:00 98.9 84 18 143/81 (101) 92 Room Air 98.9 03/29/17 09:34 95 Nasal Cannula 2.0 03/29/17 09:30 83 139/86 03/29/17 09:30 83 139/86 I & O Intake and Output 03/30/17 07:00 Intake Total 240 ml Output Total 400 ml Balance -160 ml Intake Oral 240 ml Output Urine Total 400 ml # Voids 7 PHYSICAL EXAM Physical Exam no change ASSESSMENT/PLAN Assessment/Plan 1- abnormal MRI of hip with metastatic lesion , radiation started yesterday 2-Lung mass recent EUS guided bx ( none small cell lung CA) 3-cough and recent hemoptysis 4.HTN 5.COPD 6. HLD 7- mid back soft tissue mass for open excision today . continue plans Problems: JANNA NOLEN MD Mar 30, 2017 09:27
--- NOTE | 2017-03-30 10:25 | PDOC ---
BRIEF OPERATIVE NOTE Pre-Op Diagnosis back mass Post-Op Diagnosis back mass, suspect malignant Procedure Performed excision of malignant 3 cm back subq lesion Surgeon omega tobar Anesthesia Type: General Blood Loss 5 IV Fluid 350 Specimens Obtained 3 cm solid back mass Findings 0 Complications 0 MARIAMA TOBAR MD Mar 30, 2017 10:25
[2017-03-30] MEDS: oxyCODONE ER 10 MG TAB.ER.12H PO SCH ×2 (10:33→22:48)
[2017-03-30] MEDS: CYANOCOBALAMIN (VITAMIN B-12) 1,000 MCG TABLET. PO SCH (12:39)
[2017-03-30] MEDS: hydroCHLOROthiazide 25 MG TABLET PO SCH (12:39)
[2017-03-30] MEDS: CHOLECALCIFEROL (VITAMIN D3) 5,000 UNIT CAPSULE PO SCH (12:40)
[2017-03-30] MEDS: amLODIPine BESYLATE 5 MG TABLET PO SCH (12:40)
[2017-03-30] MEDS: LOSARTAN POTASSIUM 50 MG TABLET. PO SCH (12:45)
--- NOTE | 2017-03-30 12:57 | PDOC ---
PULMONARY PROGRESS NOTES Subjective no soa, cough, no pain, had xrt Vitals Vital Signs Date Time Temp Pulse Resp B/P (MAP) Pulse Ox O2 Delivery O2 Flow Rate FiO2 03/30/17 12:45 93 145/80 03/30/17 12:00 98.9 16 95 Nasal Cannula 2.0 98.9 ROS: No Nausea, No Chest Pain General: Alert, No acute distress HEENT: Other (nc at perrl) Lungs: Other (deminished) Cardiovascular: S1, S2 Abdomen: Soft, Non-tender Neuro Exam: Alert Extremities: No Edema Skin: Warm Labs Laboratory Tests Test 03/29/17 05:44 White Blood Count 8.6 x10^3/uL (4.0-11.0) Red Blood Count 4.16 x10^6/uL (3.50-5.40) Hemoglobin 11.3 g/dL (12.0-15.5) Hematocrit 34.4 % (36.0-47.0) Mean Corpuscular Volume 83 fL (79-100) Mean Corpuscular Hemoglobin 27 pg (25-35) Mean Corpuscular Hemoglobin Concent 33 g/dL (31-37) Red Cell Distribution Width 13.8 % (11.5-14.5) Platelet Count 255 x10^3/uL (140-400) Sodium Level 140 mmol/L (136-145) Potassium Level 3.4 mmol/L (3.5-5.1) Chloride Level 100 mmol/L (98-107) Carbon Dioxide Level 31 mmol/L (21-32) Anion Gap 9 (6-14) Blood Urea Nitrogen 13 mg/dL (7-20) Creatinine 0.7 mg/dL (0.6-1.0) Estimated GFR (Cockcroft-Gault) 101.9 Glucose Level 90 mg/dL (70-99) Calcium Level 9.4 mg/dL (8.5-10.1) Medications Active Scripts Medications Dose Route/Sig Max Daily Dose Days Date Category Dose Instructions Simbrinza 1%-0.2% Eye Drops (Brinzolamide/Brimonid Tart) 8 Ml Drops.susp 1 Drop OU BID 03/27/17 Reported Budesonide 0.25 Mg/2 Ml Ampul.neb 1 Vial NEB BID 30 03/02/17 Rx Prednisone 20 Mg Tablet 40 Mg PO DAILY 12 03/02/17 Rx take 40 mg 2 tab x 3 d then 30 mg 11/2 tab x 3d then 1 tab x 3d then 1/2 tab x 3 d Duoneb 0.5-3(2.5) Mg/3 Ml (Albuterol/Ipratropium) 3 Ml Ampul.neb 3 Ml NEB RTQID 30 03/02/17 Rx Benzonatate 100 Mg Capsule 100 Mg PO PRN TID PRN 10 03/02/17 Rx Amox Tr-K Clv 875-125 Mg Tab (Amoxicillin/Potassium Clav) 1 Each Tablet 1 Tab PO BID 10 03/02/17 Rx Amlodipine Besylate 5 Mg Tablet 5 Mg PO DAILY 30 03/02/17 Rx Hyzaar 100-25 Tablet (Losartan/Hydrochlorothiazide) 1 Each Tablet 1 Tab PO DAILY 02/25/17 Reported Latanoprost 2.5 Ml Drops 1 Drop EACHEYE QHS 04/08/16 Reported Vitamin B-12 (Cyanocobalamin (Vitamin B-12)) 1,000 Mcg Tablet 1 Tab PO DAILY 03/25/16 Reported Vitamin D3 (Cholecalciferol (Vitamin D3)) 5,000 Unit Tablet 1 Tab PO DAILY 03/25/16 Reported Impression . 1. Recently diagnosed stage IV nonsmall cell lung cancer by preliminary biopsy from EUS. She presented with sig. mediastinal adenopathy/ mass causing near complete occlusion of LLL 2. Recent complete whiteout of the left lung secondary to mucus plug. Status post bronchoscopy with resolution of the mucous plugs and improved aeration on the left lung. 3. 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 4. Minimal history of tobacco use. Plan . 1. Follow final pathology from EUS. Preliminary diagnosis consistent with non-small cell cancer. 2. Appreciate Medical and Radiation Oncology consults. Radiation to left hip 3. Pain control. 4. Follow genetic mutations on the biopsy specimen. 5. Bronchodilators. 6. We will follow along with you. discussed w pt and her so VILMA MCLEOD MD Mar 30, 2017 12:57
--- NOTE | 2017-03-30 13:17 | PDOC ---
PROGRESS NOTES Subjective Subjective c/c - f/u of Stage 4 Squamous cell carcinoma of lung Objective Objective Vital Signs Date Time Temp Pulse Resp B/P (MAP) Pulse Ox O2 Delivery O2 Flow Rate FiO2 03/30/17 12:45 93 145/80 03/30/17 12:00 98.9 16 95 Nasal Cannula 2.0 98.9 Intake and Output 03/30/17 07:00 Intake Total 240 ml Output Total 400 ml Balance -160 ml Intake Oral 240 ml Output Urine Total 400 ml # Voids 7 Physical Exam Heart: Normal S1, Normal S2 General: Alert, Oriented X3 Lungs: Clear to auscultation Neuro: Normal speech Psych/Mental Status: Mental status NL Assessment Assessment Assessment IMPRESSION AND PLAN: 1. 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 This was done at [facility]. 2. 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 Appreciate consult by Radiation Oncology and agree for palliative radiation. 3. Subcutaneous lesions on b/l upper arms and mid back. s/p excision 03/30/17. Comment Review of Relevant I have reviewed the following items jared (where applicable) has been applied. Labs Laboratory Tests Test 03/29/17 05:44 White Blood Count 8.6 x10^3/uL (4.0-11.0) Red Blood Count 4.16 x10^6/uL (3.50-5.40) Hemoglobin 11.3 g/dL (12.0-15.5) Hematocrit 34.4 % (36.0-47.0) Mean Corpuscular Volume 83 fL (79-100) Mean Corpuscular Hemoglobin 27 pg (25-35) Mean Corpuscular Hemoglobin Concent 33 g/dL (31-37) Red Cell Distribution Width 13.8 % (11.5-14.5) Platelet Count 255 x10^3/uL (140-400) Sodium Level 140 mmol/L (136-145) Potassium Level 3.4 mmol/L (3.5-5.1) Chloride Level 100 mmol/L (98-107) Carbon Dioxide Level 31 mmol/L (21-32) Anion Gap 9 (6-14) Blood Urea Nitrogen 13 mg/dL (7-20) Creatinine 0.7 mg/dL (0.6-1.0) Estimated GFR (Cockcroft-Gault) 101.9 Glucose Level 90 mg/dL (70-99) Calcium Level 9.4 mg/dL (8.5-10.1) Medications Current Medications Morphine Sulfate 2 mg 1X ONCE IV Last administered on 03/26/17 11:54; Start 03/26/17 at 11:15; Stop 03/26/17 at 11:16; Status DC Ondansetron HCl (Zofran) 4 mg 1X ONCE IV Last administered on 03/26/17 11:51 ; Start 03/26/17 at 11:15; Stop 03/26/17 at 11:16; Status DC Ondansetron HCl (Zofran) 4 mg PRN Q8HRS PRN IV NAUSEA/VOMITING; Start 03/26/17 at 13:15; Stop 03/27/17 at 13:14; Status DC Morphine Sulfate 2 mg PRN Q2HR PRN IV PAIN Last administered on 03/27/17 11:34 ; Start 03/26/17 at 13:15; Stop 03/27/17 at 13:14; Status DC Amlodipine Besylate (Norvasc) 5 mg DAILY PO Last administered on 03/30/17 12: 40; Start 03/27/17 at 09:00 Benzonatate (Tessalon Perle) 100 mg PRN TID PRN PO cough; Start 03/26/17 at 15: 15 Cyanocobalamin (Vitamin B-12) 1,000 mcg DAILY PO Last administered on 12:39; Start 03/27/17 at 09:00 Dorzolamide/ Timolol (Cosopt) 1 drop BID OU Last administered on 03/29/17 21: 00; Start 03/26/17 at 21:00 Albuterol/ Ipratropium (Duoneb) 3 ml RTQID NEB Last administered on 03/30/17 10:28; Start 03/26/17 at 16:00 Latanoprost (Xalatan) 1 drop QHS OU Last administered on 03/29/17 21:17; Start 03/26/17 at 21:00 Budesonide (Pulmicort) 0.25 mg RTBID NEB Last administered on 03/30/17 07:14; Start 03/26/17 at 20:00 Vitamin D (Vitamin D3) 5,000 unit DAILY PO Last administered on 03/30/17 12:40 ; Start 03/27/17 at 09:00 Losartan Potassium (Cozaar) 100 mg DAILY PO Last administered on 03/30/17 12: 45; Start 03/27/17 at 09:00 Potassium Chloride (Klor-Con) 40 meq 1X ONCE PO Last administered on 15:59; Start 03/26/17 at 15:30; Stop 03/26/17 at 15:31; Status DC Hydrochlorothiazide (Hydrodiuril) 25 mg DAILY PO Last administered on 12:39; Start 03/27/17 at 09:00 Morphine Sulfate 2 mg PRN Q2HR PRN IV PAIN Last administered on 03/28/17 18:34 ; Start 03/27/17 at 13:45 Oxycodone HCl (OxyCONTIN) 10 mg Q12HR PO Last administered on 03/28/17 08:44; Start 03/27/17 at 21:00; Stop 03/28/17 at 19:45; Status DC Oxycodone HCl (OxyCONTIN) 10 mg 1X ONCE PO Last administered on 03/27/17 15: 27; Start 03/27/17 at 15:30; Stop 03/27/17 at 15:31; Status DC Oxycodone HCl (OxyCONTIN) 20 mg Q12HR PO Last administered on 03/30/17 10:33; Start 03/28/17 at 21:00 Oxycodone/ Acetaminophen (Percocet 5/325) 1 tab PRN Q4HRS PRN PO PAIN Last administered on 03/29/17 14:00; Start 03/28/17 at 19:30 Enoxaparin Sodium (Lovenox 40mg Syringe) 40 mg Q24H SQ Last administered on 21:19; Start 03/28/17 at 20:00; Stop 03/29/17 at 12:24; Status DC Cefazolin Sodium/ Dextrose 50 ml @ 100 mls/hr 1X 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 Last administered on 03/30/17 09:10; Start 03/30/17 at 06:00; Stop 03/30/17 at 18:00 Ondansetron HCl (Zofran) 4 mg PRN Q6HRS PRN IV NAUSEA/VOMITING; Start 03/30/17 at 07:00; Stop 03/31/17 at 06:59 Fentanyl Citrate (Fentanyl 2ml Vial) 25 mcg PRN Q5MIN PRN IV MILD PAIN; Start 03/30/17 at 07:00; Stop 03/31/17 at 06:59 Fentanyl Citrate (Fentanyl 2ml Vial) 50 mcg PRN Q5MIN PRN IV MODERATE PAIN; Start 03/30/17 at 07:00; Stop 03/31/17 at 06:59 Morphine Sulfate 1 mg PRN Q10MIN PRN IV SEVERE PAIN; Start 03/30/17 at 07:00; Stop 03/31/17 at 06:59 Ringer's Solution 1,000 ml @ 30 mls/hr Q24H IV Last administered on 03/30/17 08:00; Start 03/30/17 at 07:00; Stop 03/30/17 at 18:59 Lidocaine HCl 2 ml PRN 1X PRN ID PRIOR TO IV START; Start 03/30/17 at 07:00; Stop 03/31/17 at 06:59 Hydromorphone HCl (Dilaudid) 0.5 mg PRN Q10MIN PRN IV SEV PAIN, Second choice; Start 03/30/17 at 07:00; Stop 03/31/17 at 06:59 Prochlorperazine Edisylate (Compazine) 5 mg PACU PRN PRN IV NAUSEA, MRX1; Start 03/30/17 at 07:00; Stop 03/31/17 at 06:59 Bupivacaine HCl/ Epinephrine Bitart (Sensorcain-Mpf Epi 0.5%-1:940498) 30 ml STK -MED ONCE .ROUTE Last administered on 03/30/17 09:33; Start 03/30/17 at 07:31 ; Stop 03/30/17 at 07:32; Status DC Fentanyl Citrate (Fentanyl 2ml Vial) 100 mcg STK-MED ONCE .ROUTE ; Start at 08:43; Stop 03/30/17 at 08:44; Status DC Rocuronium [place] (Zemuron) 100 mg STK-MED ONCE .ROUTE ; Start 03/30/17 at 08: 43; Stop 03/30/17 at 08:44; Status DC Lidocaine HCl (Lidocaine Pf 2% Vial) 5 ml STK-MED ONCE .ROUTE ; Start 03/30/17 at 08:43; Stop 03/30/17 at 08:44; Status DC Ondansetron HCl (Zofran) 4 mg STK-MED ONCE .ROUTE ; Start 03/30/17 at 08:43; Stop 03/30/17 at 08:44; Status DC Dexamethasone Sodium Phosphate (Decadron) 20 mg STK-MED ONCE .ROUTE ; Start at 08:43; Stop 03/30/17 at 08:44; Status DC Propofol 20 ml @ As Directed STK-MED ONCE IV ; Start 03/30/17 at 08:43; Stop at 08:44; Status DC Phenylephrine HCl 1 mg STK-MED ONCE IV ; Start 03/30/17 at 09:10; Stop 03/30/17 at 09:11; Status DC Neostigmine Methylsulfate (Bloxiverz) 10 mg STK-MED ONCE .ROUTE ; Start at 09:23; Stop 03/30/17 at 09:24; Status DC Glycopyrrolate (Robinul) 1 mg STK-MED ONCE .ROUTE ; Start 03/30/17 at 09:24; Stop 03/30/17 at 09:25; Status DC Enoxaparin Sodium (Lovenox 40mg Syringe) 40 mg Q24H SQ ; Start 03/30/17 at 21:00 Active Scripts Active Budesonide 0.25 Mg/2 Ml Ampul.neb 1 Vial NEB BID 30 Days Prednisone 20 Mg Tablet 40 Mg PO DAILY 12 Days take 40 mg 2 tab x 3 d then 30 mg 11/2 tab x 3d then 1 tab x 3d then 1/2 tab x 3 d Duoneb 0.5-3(2.5) Mg/3 Ml (Albuterol/Ipratropium) 3 Ml Ampul.neb 3 Ml NEB RTQID 30 Days Benzonatate 100 Mg Capsule 100 Mg PO PRN TID PRN 10 Days Amox Tr-K Clv 875-125 Mg Tab (Amoxicillin/Potassium Clav) 1 Each Tablet 1 Tab PO BID 10 Days Amlodipine Besylate 5 Mg Tablet 5 Mg PO DAILY 30 Days Reported Simbrinza 1%-0.2% Eye Drops (Brinzolamide/Brimonid Tart) 8 Ml Drops.susp 1 Drop OU BID Hyzaar 100-25 Tablet (Losartan/Hydrochlorothiazide) 1 Each Tablet 1 Tab PO DAILY Latanoprost 2.5 Ml Drops 1 Drop EACHEYE QHS Vitamin B-12 (Cyanocobalamin (Vitamin B-12)) 1,000 Mcg Tablet 1 Tab PO DAILY Vitamin D3 (Cholecalciferol (Vitamin D3)) 5,000 Unit Tablet 1 Tab PO DAILY Vitals/I & O Vital Sign - Last 24 Hours 03/29/17 03/29/17 03/29/17 03/29/17 13:43 14:00 15:00 15:12 Temp 98.7 98.7 Pulse 91 Resp 18 B/P (MAP) 133/83 (100) Pulse Ox 97 91 97 O2 Delivery Nasal Cannula Room Air Nasal Cannula O2 Flow Rate 2.0 2.0 03/29/17 03/29/17 03/29/17 03/29/17 15:24 19:00 19:41 19:50 Temp 98.1 98.1 Pulse 100 Resp 18 B/P (MAP) 144/90 (108) Pulse Ox 96 90 92 O2 Delivery Nasal Cannula Room Air Room Air Nasal Cannula O2 Flow Rate 2.0 2.0 03/29/17 03/29/17 03/30/17 03/30/17 21:17 23:00 01:17 03:00 Temp 98.1 97.9 98.1 97.9 Pulse 86 102 Resp 20 18 20 18 B/P (MAP) 152/78 (102) 142/92 (109) Pulse Ox 95 94 O2 Delivery Room Air Room Air Nasal Cannula Room Air O2 Flow Rate 2.0 03/30/17 03/30/17 03/30/17 03/30/17 07:00 07:15 08:30 09:48 Temp 98.4 97.6 97.9 98.4 97.6 97.9 Pulse 96 95 91 Resp 18 15 20 B/P (MAP) 128/77 (94) 156/79 165/103 Pulse Ox 95 95 97 97 O2 Delivery Nasal Cannula Room Air Nasal Cannula Simple Mask O2 Flow Rate 2.0 2.0 10 8/2303/30/17 03/30/17 03/30/17 10:00 10:03 10:18 10:28 Pulse 96 89 Resp 20 20 B/P (MAP) 151/98 148/120 Pulse Ox 99 99 98 O2 Delivery Mask Simple Mask Simple Mask Nasal Cannula O2 Flow Rate 10 10 10 12.0 03/30/17 03/30/17 03/30/17 03/30/17 10:33 10:33 10:48 10:54 Temp 97.0 97.0 Pulse 95 86 Resp 20 20 22 B/P (MAP) 150/86 Pulse Ox 98 96 96 O2 Delivery Nasal Cannula Nasal Cannula Nasal Cannula Nasal Cannula O2 Flow Rate 2.0 2 2 2 03/30/17 03/30/17 03/30/17 03/30/17 11:03 12:00 12:40 12:45 Temp 97.0 98.9 97.0 98.9 Pulse 106 83 93 93 Resp 20 16 B/P (MAP) 148/90 149/86 (107) 145/80 145/80 Pulse Ox 91 95 O2 Delivery Nasal Cannula O2 Flow Rate 2 2.0 Intake and Output 03/29/17 03/29/17 03/30/17 15:00 23:00 07:00 Intake Total 240 ml Output Total 400 ml Balance -400 ml 240 ml HALINA HERNANDEZ MD Mar 30, 2017 13:17
--- NOTE | 2017-03-30 14:11 | PDOC ---
Provider Note Provider Note [address] IV bronchogenic carcinoma. Day 2 of 5 treatments to left acetabular pubic bone met. Tolerating palliative Rt with no toxicity. No respiratory symptoms. EBUS at [facility] was by report positive for NSCLC. Cytology report pending. She has just undergone resection of midline low thoracic level subcutaneous mass. It was solid and appeared malignant. Pathology pending. Pain well controlled but electively not bearing weight or standing yet out of fear of having increased pain. Impression: Metastatic bronchogenic carcinoma. Awaqit path from subcutaneous mass excised today. Will continue treatment as planned. Encouraged weight bearing and to begin ambulation if tolerated. NICOLE MOSQUERA MD Mar 30, 2017 14:11
[2017-03-30] MEDS: oxyCODONE/APAP 5/325 1 TAB TABLET PO PRN (15:45)
[2017-03-30] MEDS: ENOXAPARIN 40 MG/0.4 ML SYRINGE. SQ SCH (21:00)
[2017-03-30] MEDS: LATANOPROST 0.005% OPHTH SOLUTION 2.5ML BOTTLE. OU SCH (21:25)
--- NOTE | 2017-03-30 22:00 | OP ---
DATE OF SURGERY: 03/30/2017 PREOPERATIVE DIAGNOSIS: Back mass, suspect malignancy. POSTOPERATIVE DIAGNOSIS: Back mass, suspect malignancy. PROCEDURE: Excision of 3 cm back mass that suspected to be malignant. SURGEON: Mariama Tobar MD ANESTHESIA: General. ESTIMATED BLOOD LOSS: 350 mL. INDICATIONS: The patient is a 66-year-old female who presents with metastatic lesion to her hip, and enlarging back mass that is solid and thought to be malignant. PROCEDURE IN DETAIL: After informed consent was obtained, the patient was taken to the operating room and placed in supine position. After adequate induction of general anesthesia, she was placed on her right side with her left side actually was then prepped and draped in usual sterile fashion. Skin was injected with local anesthetic. Skin incisions were made and then the mass dissected out circumferentially with cautery, it was sent to pathology for examination. Prior to doing so, I did cut it open partially on the backtable, but solid and not cystic. The wound was irrigated. It was closed in layers. The deep layer was closed with 3-0 Vicryl in running fashion. Skin closed with 4-0 Monocryl in subcuticular fashion. Sterile dressings were placed. She tolerated the procedure well. There were no apparent complications. She was then transferred in stable condition to the recovery room. MARIAMA TOBAR MD DR: SAMANTHA/raul JOB#: [id number] / [id number] JANNA Su MD, VINAY MD ROBINOW, JAY MD MTDD
[2017-03-31 03:00] VITALS: BP 147/87
[2017-03-31] MEDS: IPRATRPIUM/ALBUTEROL 0.5/2.5MG 3 ML NEBU. NEB SCH ×4 (07:12→19:34)
[2017-03-31] MEDS: BUDESONIDE 0.5 MG/2 ML NEBU. NEB SCH ×2 (07:12→19:34)
[2017-03-31 07:16] VITALS: BP 142/82
[2017-03-31] MEDS: hydroCHLOROthiazide 25 MG TABLET PO SCH (08:38)
[2017-03-31] MEDS: CYANOCOBALAMIN (VITAMIN B-12) 1,000 MCG TABLET. PO SCH (08:39)
[2017-03-31] MEDS: CHOLECALCIFEROL (VITAMIN D3) 5,000 UNIT CAPSULE PO SCH (08:39)
[2017-03-31] MEDS: LOSARTAN POTASSIUM 50 MG TABLET. PO SCH (08:39)
[2017-03-31] MEDS: amLODIPine BESYLATE 5 MG TABLET PO SCH (08:39)
[2017-03-31] MEDS: oxyCODONE ER 10 MG TAB.ER.12H PO SCH ×2 (08:40→20:43)
[2017-03-31] MEDS: DORZOLAMIDE/TIMOLOL 2%/0.5% OPHTH SOLUTION 10ML BOTTLE. OU SCH ×2 (08:41→20:44)
--- NOTE | 2017-03-31 08:54 | PDOC ---
PROGRESS NOTES Subjective Subjective c/c - f/u of Stage 4 Squamous cell carcinoma of lung ROS - left hip pain better Objective Objective Vital Signs Date Time Temp Pulse Resp B/P (MAP) Pulse Ox O2 Delivery O2 Flow Rate FiO2 03/31/17 08:40 16 Room Air 03/31/17 08:39 142/82 03/31/17 08:39 97 03/31/17 07:16 97.9 92 2.0 97.9 Intake and Output 03/31/17 07:00 Intake Total 770 ml Balance 770 ml Intake Oral 220 ml IV Total 550 ml # Voids 6 Physical Exam Heart: Normal S1, Normal S2 General: Alert, Oriented X3 Lungs: Clear to auscultation Neuro: Normal speech Psych/Mental Status: Mental status NL Assessment Assessment IMPRESSION AND PLAN: 1. 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 This was done at [facility]. f/u with me in 1-2 weeks for chemotherapy, 2. 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 Appreciate consult by Radiation Oncology and agree for palliative radiation started 03/29/17. 3. Subcutaneous lesions on b/l upper arms and mid back. s/p excision 03/30/17. Comment Review of Relevant I have reviewed the following items jared (where applicable) has been applied. Medications Current Medications Morphine Sulfate 2 mg 1X ONCE IV Last administered on 03/26/17 11:54; Start 03/26/17 at 11:15; Stop 03/26/17 at 11:16; Status DC Ondansetron HCl (Zofran) 4 mg 1X ONCE IV Last administered on 03/26/17 11:51 ; Start 03/26/17 at 11:15; Stop 03/26/17 at 11:16; Status DC Ondansetron HCl (Zofran) 4 mg PRN Q8HRS PRN IV NAUSEA/VOMITING; Start 03/26/17 at 13:15; Stop 03/27/17 at 13:14; Status DC Morphine Sulfate 2 mg PRN Q2HR PRN IV PAIN Last administered on 03/27/17 11:34 ; Start 03/26/17 at 13:15; Stop 03/27/17 at 13:14; Status DC Amlodipine Besylate (Norvasc) 5 mg DAILY PO Last administered on 03/31/17 08: 39; Start 03/27/17 at 09:00 Benzonatate (Tessalon Perle) 100 mg PRN TID PRN PO cough; Start 03/26/17 at 15: 15 Cyanocobalamin (Vitamin B-12) 1,000 mcg DAILY PO Last administered on 08:39; Start 03/27/17 at 09:00 Dorzolamide/ Timolol (Cosopt) 1 drop BID OU Last administered on 03/31/17 08: 41; Start 03/26/17 at 21:00 Albuterol/ Ipratropium (Duoneb) 3 ml RTQID NEB Last administered on 03/31/17 07:12; Start 03/26/17 at 16:00 Latanoprost (Xalatan) 1 drop QHS OU Last administered on 03/30/17 21:25; Start 03/26/17 at 21:00 Budesonide (Pulmicort) 0.25 mg RTBID NEB Last administered on 03/31/17 07:12; Start 03/26/17 at 20:00 Vitamin D (Vitamin D3) 5,000 unit DAILY PO Last administered on 03/31/17 08:39 ; Start 03/27/17 at 09:00 Losartan Potassium (Cozaar) 100 mg DAILY PO Last administered on 03/31/17 08: 39; Start 03/27/17 at 09:00 Potassium Chloride (Klor-Con) 40 meq 1X ONCE PO Last administered on 15:59; Start 03/26/17 at 15:30; Stop 03/26/17 at 15:31; Status DC Hydrochlorothiazide (Hydrodiuril) 25 mg DAILY PO Last administered on 08:38; Start 03/27/17 at 09:00 Morphine Sulfate 2 mg PRN Q2HR PRN IV PAIN Last administered on 03/28/17 18:34 ; Start 03/27/17 at 13:45 Oxycodone HCl (OxyCONTIN) 10 mg Q12HR PO Last administered on 03/28/17 08:44; Start 03/27/17 at 21:00; Stop 03/28/17 at 19:45; Status DC Oxycodone HCl (OxyCONTIN) 10 mg 1X ONCE PO Last administered on 03/27/17 15: 27; Start 03/27/17 at 15:30; Stop 03/27/17 at 15:31; Status DC Oxycodone HCl (OxyCONTIN) 20 mg Q12HR PO Last administered on 03/31/17 08:40; Start 03/28/17 at 21:00 Oxycodone/ Acetaminophen (Percocet 5/325) 1 tab PRN Q4HRS PRN PO PAIN Last administered on 03/30/17 15:45; Start 03/28/17 at 19:30 Enoxaparin Sodium (Lovenox 40mg Syringe) 40 mg Q24H SQ Last administered on 21:19; Start 03/28/17 at 20:00; Stop 03/29/17 at 12:24; Status DC Cefazolin Sodium/ Dextrose 50 ml @ 100 mls/hr 1X PREOP PRN IV eap consultant Last administered on 03/30/17 09:10; Start 03/30/17 at 06:00; Stop 03/30/17 at 18:00 ; Status DC Ondansetron HCl (Zofran) 4 mg PRN Q6HRS PRN IV NAUSEA/VOMITING Last administered on 03/30/17 21:25; Start 03/30/17 at 07:00; Stop 03/31/17 at 06:59 ; Status DC Fentanyl Citrate (Fentanyl 2ml Vial) 25 mcg PRN Q5MIN PRN IV MILD PAIN; Start 03/30/17 at 07:00; Stop 03/31/17 at 06:59; Status DC Fentanyl Citrate (Fentanyl 2ml Vial) 50 mcg PRN Q5MIN PRN IV MODERATE PAIN; Start 03/30/17 at 07:00; Stop 03/31/17 at 06:59; Status DC Morphine Sulfate 1 mg PRN Q10MIN PRN IV SEVERE PAIN; Start 03/30/17 at 07:00; Stop 03/31/17 at 06:59; Status DC Ringer's Solution 1,000 ml @ 30 mls/hr Q24H IV Last administered on 03/30/17 08:00; Start 03/30/17 at 07:00; Stop 03/30/17 at 18:59; Status DC Lidocaine HCl 2 ml PRN 1X PRN ID PRIOR TO IV START; Start 03/30/17 at 07:00; Stop 03/31/17 at 06:59; Status DC Hydromorphone HCl (Dilaudid) 0.5 mg PRN Q10MIN PRN IV SEV PAIN, Second choice; Start 03/30/17 at 07:00; Stop 03/31/17 at 06:59; Status DC Prochlorperazine Edisylate (Compazine) 5 mg PACU PRN PRN IV NAUSEA, MRX1; Start 03/30/17 at 07:00; Stop 03/31/17 at 06:59; Status DC Bupivacaine HCl/ Epinephrine Bitart (Sensorcain-Mpf Epi 0.5%-1:[id number]) 30 ml STK -MED ONCE .ROUTE Last administered on 03/30/17t 09:33; Start 03/30/17 at 07:31 ; Stop 03/30/17 at 07:32; Status DC Fentanyl Citrate (Fentanyl 2ml Vial) 100 mcg STK-MED ONCE .ROUTE ; Start at 08:43; Stop 03/30/17 at 08:44; Status DC Rocuronium [place] (Zemuron) 100 mg STK-MED ONCE .ROUTE ; Start 03/30/17 at 08: 43; Stop 03/30/17 at 08:44; Status DC Lidocaine HCl (Lidocaine Pf 2% Vial) 5 ml STK-MED ONCE .ROUTE ; Start 03/30/17 at 08:43; Stop 03/30/17 at 08:44; Status DC Ondansetron HCl (Zofran) 4 mg STK-MED ONCE .ROUTE ; Start 03/30/17 at 08:43; Stop 03/30/17 at 08:44; Status DC Dexamethasone Sodium Phosphate (Decadron) 20 mg STK-MED ONCE .ROUTE ; Start at 08:43; Stop 03/30/17 at 08:44; Status DC Propofol 20 ml @ As Directed STK-MED ONCE IV ; Start 03/30/17 at 08:43; Stop at 08:44; Status DC Phenylephrine HCl 1 mg STK-MED ONCE IV ; Start 03/30/17 at 09:10; Stop 03/30/17 at 09:11; Status DC Neostigmine Methylsulfate (Bloxiverz) 10 mg STK-MED ONCE .ROUTE ; Start at 09:23; Stop 03/30/17 at 09:24; Status DC Glycopyrrolate (Robinul) 1 mg STK-MED ONCE .ROUTE ; Start 03/30/17 at 09:24; Stop 03/30/17 at 09:25; Status DC Enoxaparin Sodium (Lovenox 40mg Syringe) 40 mg Q24H SQ ; Start 03/30/17 at 21:00 Active Scripts Active Budesonide 0.25 Mg/2 Ml Ampul.neb 1 Vial NEB BID 30 Days Prednisone 20 Mg Tablet 40 Mg PO DAILY 12 Days take 40 mg 2 tab x 3 d then 30 mg 11/2 tab x 3d then 1 tab x 3d then 1/2 tab x 3 d Duoneb 0.5-3(2.5) Mg/3 Ml (Albuterol/Ipratropium) 3 Ml Ampul.neb 3 Ml NEB RTQID 30 Days Benzonatate 100 Mg Capsule 100 Mg PO PRN TID PRN 10 Days Amox Tr-K Clv 875-125 Mg Tab (Amoxicillin/Potassium Clav) 1 Each Tablet 1 Tab PO BID 10 Days Amlodipine Besylate 5 Mg Tablet 5 Mg PO DAILY 30 Days Reported Simbrinza 1%-0.2% Eye Drops (Brinzolamide/Brimonid Tart) 8 Ml Drops.susp 1 Drop OU BID Hyzaar 100-25 Tablet (Losartan/Hydrochlorothiazide) 1 Each Tablet 1 Tab PO DAILY Latanoprost 2.5 Ml Drops 1 Drop EACHEYE QHS Vitamin B-12 (Cyanocobalamin (Vitamin B-12)) 1,000 Mcg Tablet 1 Tab PO DAILY Vitamin D3 (Cholecalciferol (Vitamin D3)) 5,000 Unit Tablet 1 Tab PO DAILY Vitals/I & O Vital Sign - Last 24 Hours 03/30/17 03/30/17 03/30/17 03/30/17 09:48 10:00 10:03 10:18 Temp 97.9 97.9 Pulse 91 96 89 Resp 20 20 20 B/P (MAP) 165/103 151/98 148/120 Pulse Ox 97 99 99 O2 Delivery Simple Mask Mask Simple Mask Simple Mask O2 Flow Rate 10 10 10 10 03/30/17 03/30/17 03/30/17 03/30/17 10:28 10:33 10:33 10:48 Temp 97.0 97.0 Pulse 95 86 Resp 20 20 22 B/P (MAP) 150/86 Pulse Ox 98 98 96 96 O2 Delivery Simple Mask Nasal Cannula Nasal Cannula Nasal Cannula O2 Flow Rate 12.0 2.0 2 2 03/30/17 03/30/17 03/30/17 03/30/17 10:54 11:03 12:00 12:00 Temp 97.0 98.9 97.0 98.9 Pulse 106 83 Resp 20 16 B/P (MAP) 148/90 149/86 (107) Pulse Ox 91 95 O2 Delivery Nasal Cannula Nasal Cannula Nasal Cannula O2 Flow Rate 2 2 2.0 2.0 03/30/17 03/30/17 03/30/17 03/30/17 12:09 12:25 12:39 12:40 Pulse 94 88 93 Resp 16 16 B/P (MAP) 153/89 (110) 152/89 (110) 145/80 (101) 145/80 Pulse Ox 95 93 O2 Delivery Nasal Cannula Nasal Cannula O2 Flow Rate 2.0 2.0 03/30/17 03/30/17 03/30/17 03/30/17 12:45 12:55 13:25 13:55 Pulse 93 98 113 98 Resp 16 16 16 B/P (MAP) 145/80 143/88 (106) 159/82 (107) 145/83 (103) Pulse Ox 92 92 O2 Delivery Nasal Cannula Nasal Cannula Nasal Cannula O2 Flow Rate 2.0 2.0 2.0 03/30/17 03/30/17 03/30/17 03/30/17 14:24 15:26 19:00 19:46 Temp 97.5 97.5 Pulse 104 109 Resp 16 16 B/P (MAP) 141/87 (105) 157/87 (110) Pulse Ox 94 96 90 96 O2 Delivery Nasal Cannula Nasal Cannula Nasal Cannula Nasal Cannula O2 Flow Rate 2.0 1.5 2.0 1.5 03/30/17 03/30/17 03/30/17 03/30/17 19:47 20:00 22:48 23:00 Temp 97.9 97.9 Pulse 103 Resp 20 18 B/P (MAP) 136/82 (100) Pulse Ox 96 90 O2 Delivery Nasal Cannula Nasal Cannula Nasal Cannula O2 Flow Rate 1.5 2.0 2.0 03/31/17 03/31/17 03/31/17 03/31/17 02:48 03:00 07:12 07:16 Temp 98.1 97.9 98.1 97.9 Pulse 94 97 Resp 20 18 18 B/P (MAP) 147/87 (107) 142/82 (102) Pulse Ox 93 96 92 O2 Delivery Nasal Cannula Nasal Cannula Nasal Cannula O2 Flow Rate 2.0 1.5 2.0 03/31/17 03/31/17 03/31/17 08:39 08:39 08:40 Pulse 97 Resp 16 B/P (MAP) 148/82 142/82 O2 Delivery Room Air Intake and Output 03/30/17 03/30/17 03/31/17 15:00 23:00 07:00 Intake Total 770 ml Balance 770 ml HALINA HERNANDEZ MD Mar 31, 2017 08:54
--- NOTE | 2017-03-31 09:37 | PDOC ---
OBJECTIVE Vital Signs Vital Signs Date Time Temp Pulse Resp B/P (MAP) Pulse Ox O2 Delivery O2 Flow Rate FiO2 03/31/17 08:40 16 Room Air 03/31/17 08:39 142/82 03/31/17 08:39 97 148/82 03/31/17 07:16 97.9 97 18 142/82 (102) 92 Nasal Cannula 2.0 97.9 03/31/17 07:12 96 Nasal Cannula 1.5 03/31/17 03:00 98.1 94 18 147/87 (107) 93 Nasal Cannula 2.0 98.1 03/31/17 02:48 20 03/30/17 23:00 97.9 103 18 136/82 (100) 90 Nasal Cannula 2.0 97.9 03/30/17 22:48 20 03/30/17 20:00 Nasal Cannula 2.0 03/30/17 19:47 96 Nasal Cannula 1.5 03/30/17 19:46 96 Nasal Cannula 1.5 03/30/17 19:00 97.5 109 16 157/87 (110) 90 Nasal Cannula 2.0 97.5 03/30/17 15:26 96 Nasal Cannula 1.5 03/30/17 14:24 104 16 141/87 (105) 94 Nasal Cannula 2.0 03/30/17 13:55 98 16 145/83 (103) 92 Nasal Cannula 2.0 03/30/17 13:25 113 16 159/82 (107) Nasal Cannula 2.0 03/30/17 12:55 98 16 143/88 (106) 92 Nasal Cannula 2.0 03/30/17 12:45 93 145/80 03/30/17 12:40 93 145/80 03/30/17 12:39 88 16 145/80 (101) 93 Nasal Cannula 2.0 03/30/17 12:25 94 16 152/89 (110) 95 Nasal Cannula 2.0 03/30/17 12:09 153/89 (110) 03/30/17 12:00 Nasal Cannula 2.0 03/30/17 12:00 98.9 83 16 149/86 (107) 95 Nasal Cannula 2.0 98.9 03/30/17 11:03 97.0 106 20 148/90 91 2 97.0 03/30/17 10:54 Nasal Cannula 2 03/30/17 10:48 97.0 86 22 150/86 96 Nasal Cannula 2 97.0 03/30/17 10:33 95 20 96 Nasal Cannula 2 03/30/17 10:33 20 98 Nasal Cannula 2.0 03/30/17 10:28 98 Simple Mask 12.0 03/30/17 10:18 89 20 148/120 99 Simple Mask 10 03/30/17 10:03 96 20 151/98 99 Simple Mask 10 03/30/17 10:00 Mask 10 03/30/17 09:48 97.9 91 20 165/103 97 Simple Mask 10 97.9 I & O Intake and Output 03/31/17 07:00 Intake Total 770 ml Balance 770 ml Intake Oral 220 ml IV Total 550 ml # Voids 6 ASSESSMENT/PLAN Assessment/Plan 1- Stage 4 squamous cell CA of lung 2-mets to left hip and pubic rami 3-cough and recent hemoptysis 4.HTN 5.COPD 6. HLD 7- mid back soft tissue mass excision yesterday able to walk only few steps , continue XRT and PT, pain control Problems: JANNA NOLEN MD Mar 31, 2017 09:37
--- NOTE | 2017-03-31 10:49 | PDOC ---
Provider Note Provider Note doing well inc cdi a/p await path. MARIAMA TOBAR MD Mar 31, 2017 10:49
[2017-03-31 11:11] VITALS: BP 128/78
--- NOTE | 2017-03-31 12:21 | PDOC ---
PULMONARY PROGRESS NOTES Subjective no soa, has cough, left hip pain is better, had xrt Vitals Vital Signs Date Time Temp Pulse Resp B/P (MAP) Pulse Ox O2 Delivery O2 Flow Rate FiO2 03/31/17 11:24 Nasal Cannula 1.5 03/31/17 11:11 97.9 92 18 128/78 (95) 96 97.9 ROS: No Nausea, No Chest Pain General: Alert, No acute distress HEENT: Other (nc at perrl) Lungs: Other (deminished) Cardiovascular: S1, S2 Abdomen: Soft, Non-tender Neuro Exam: Alert Extremities: No Edema Skin: Warm Medications Active Scripts Medications Dose Route/Sig Max Daily Dose Days Date Category Dose Instructions Simbrinza 1%-0.2% Eye Drops (Brinzolamide/Brimonid Tart) 8 Ml Drops.susp 1 Drop OU BID 03/27/17 Reported Budesonide 0.25 Mg/2 Ml Ampul.neb 1 Vial NEB BID 30 03/02/17 Rx Prednisone 20 Mg Tablet 40 Mg PO DAILY 12 03/02/17 Rx take 40 mg 2 tab x 3 d then 30 mg 11/2 tab x 3d then 1 tab x 3d then 1/2 tab x 3 d Duoneb 0.5-3(2.5) Mg/3 Ml (Albuterol/Ipratropium) 3 Ml Ampul.neb 3 Ml NEB RTQID 30 03/02/17 Rx Benzonatate 100 Mg Capsule 100 Mg PO PRN TID PRN 10 03/02/17 Rx Amox Tr-K Clv 875-125 Mg Tab (Amoxicillin/Potassium Clav) 1 Each Tablet 1 Tab PO BID 10 03/02/17 Rx Amlodipine Besylate 5 Mg Tablet 5 Mg PO DAILY 30 03/02/17 Rx Hyzaar 100-25 Tablet (Losartan/Hydrochlorothiazide) 1 Each Tablet 1 Tab PO DAILY 02/25/17 Reported Latanoprost 2.5 Ml Drops 1 Drop EACHEYE QHS 04/08/16 Reported Vitamin B-12 (Cyanocobalamin (Vitamin B-12)) 1,000 Mcg Tablet 1 Tab PO DAILY 03/25/16 Reported Vitamin D3 (Cholecalciferol (Vitamin D3)) 5,000 Unit Tablet 1 Tab PO DAILY 03/25/16 Reported Impression . 1. Recently diagnosed stage IV nonsmall cell lung cancer by preliminary biopsy from EUS. She presented with sig. mediastinal adenopathy/ mass causing near complete occlusion of LLL 2. Recent complete whiteout of the left lung secondary to mucus plug. Status post bronchoscopy with resolution of the mucous plugs and improved aeration on the left lung. 3. 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 4. Minimal history of tobacco use. 5. allergic rhinitis Plan . 1. Follow final pathology from EUS. Preliminary diagnosis consistent with non-small cell cancer. 2. Appreciate Medical and Radiation Oncology consults. Radiation to left hip, xrt to lung soon. 3. Pain control. 4. Follow genetic mutations on the biopsy specimen. 5. Bronchodilators. 6. add george discussed w pt and her so VILMA MCLEOD MD Mar 31, 2017 12:20
[2017-03-31 15:26] VITALS: BP 125/69
[2017-03-31] MEDS ORDERED: POLYETHYLENE GLYCOL 3350 17 GM PACKET. PO ONE (17:15)
[2017-03-31] MEDS ORDERED: BISACODYL 10 MG SUPP.RECT. PR ONE (17:15)
[2017-03-31] MEDS ORDERED: ONDANSETRON PF 4 MG/2 ML VIAL. IV PRN (18:00)
[2017-03-31 19:00] VITALS: BP 127/72
[2017-03-31] MEDS: DOCUSATE SODIUM 100 MG CAPSULE. PO SCH (20:42)
[2017-03-31] MEDS: LATANOPROST 0.005% OPHTH SOLUTION 2.5ML BOTTLE. OU SCH (20:43)
[2017-03-31] MEDS: ENOXAPARIN 40 MG/0.4 ML SYRINGE. SQ SCH (20:45)
[2017-03-31] MEDS ORDERED: MONTELUKAST SODIUM 10 MG TABLET. PO SCH (21:00)
[2017-03-31 23:30] VITALS: BP 124/70
[2017-04-01 03:00] VITALS: BP 132/73
[2017-04-01] MEDS: oxyCODONE/APAP 5/325 1 TAB TABLET PO PRN (05:57)
[2017-04-01 07:00] VITALS: BP 135/77
[2017-04-01] MEDS: IPRATRPIUM/ALBUTEROL 0.5/2.5MG 3 ML NEBU. NEB SCH ×3 (07:36→15:46)
[2017-04-01] MEDS: BUDESONIDE 0.5 MG/2 ML NEBU. NEB SCH (07:36)
[2017-04-01] MEDS: DOCUSATE SODIUM 100 MG CAPSULE. PO SCH (08:23)
[2017-04-01] MEDS: CHOLECALCIFEROL (VITAMIN D3) 5,000 UNIT CAPSULE PO SCH (08:23)
[2017-04-01] MEDS: oxyCODONE ER 10 MG TAB.ER.12H PO SCH (08:23)
[2017-04-01] MEDS: hydroCHLOROthiazide 25 MG TABLET PO SCH (08:24)
[2017-04-01] MEDS: CYANOCOBALAMIN (VITAMIN B-12) 1,000 MCG TABLET. PO SCH (08:24)
[2017-04-01] MEDS: LOSARTAN POTASSIUM 50 MG TABLET. PO SCH (08:24)
[2017-04-01] MEDS: amLODIPine BESYLATE 5 MG TABLET PO SCH (08:26)
[2017-04-01] MEDS: DORZOLAMIDE/TIMOLOL 2%/0.5% OPHTH SOLUTION 10ML BOTTLE. OU SCH (08:27)
--- NOTE | 2017-04-01 08:36 | PDOC ---
PROGRESS NOTES Subjective Subjective c/c - f/u of Stage 4 Squamous cell carcinoma of lung ROS - has left hip pain Objective Objective Vital Signs Date Time Temp Pulse Resp B/P (MAP) Pulse Ox O2 Delivery O2 Flow Rate FiO2 04/01/17 08:26 92 132/73 04/01/17 07:36 96 Nasal Cannula 1.5 04/01/17 07:00 97.5 18 97.5 Intake and Output 04/01/17 07:00 Intake Total 1160 ml Balance 1160 ml Intake Oral 1160 ml # Voids 9 Physical Exam Heart: Normal S1, Normal S2 General: Alert, Oriented X3 Lungs: Clear to auscultation Assessment Assessment IMPRESSION AND PLAN: 1. 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 This was done at [facility]. f/u with me in 1-2 weeks for chemotherapy, 2. 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 Appreciate consult by Radiation Oncology and agree for palliative radiation started 03/29/17. Day # 4 radiation today. 3. Subcutaneous lesions on b/l upper arms and mid back. s/p excision 03/30/17. Await pathology and biomarker eval. Comment Review of Relevant I have reviewed the following items jared (where applicable) has been applied. Medications Current Medications Morphine Sulfate 2 mg 1X ONCE IV Last administered on 03/26/17 11:54; Start 03/26/17 at 11:15; Stop 03/26/17 at 11:16; Status DC Ondansetron HCl (Zofran) 4 mg 1X ONCE IV Last administered on 03/26/17 11:51 ; Start 03/26/17 at 11:15; Stop 03/26/17 at 11:16; Status DC Ondansetron HCl (Zofran) 4 mg PRN Q8HRS PRN IV NAUSEA/VOMITING; Start 03/26/17 at 13:15; Stop 03/27/17 at 13:14; Status DC Morphine Sulfate 2 mg PRN Q2HR PRN IV PAIN Last administered on 03/27/17 11:34 ; Start 03/26/17 at 13:15; Stop 03/27/17 at 13:14; Status DC Amlodipine Besylate (Norvasc) 5 mg DAILY PO Last administered on 04/01/17 08: 26; Start 03/27/17 at 09:00 Benzonatate (Tessalon Perle) 100 mg PRN TID PRN PO cough; Start 03/26/17 at 15: 15 Cyanocobalamin (Vitamin B-12) 1,000 mcg DAILY PO Last administered on 08:24; Start 03/27/17 at 09:00 Dorzolamide/ Timolol (Cosopt) 1 drop BID OU Last administered on 04/01/17 08: 27; Start 03/26/17 at 21:00 Albuterol/ Ipratropium (Duoneb) 3 ml RTQID NEB Last administered on 04/01/17 07:36; Start 03/26/17 at 16:00 Latanoprost (Xalatan) 1 drop QHS OU Last administered on 03/31/17 20:43; Start 03/26/17 at 21:00 Budesonide (Pulmicort) 0.25 mg RTBID NEB Last administered on 04/01/17 07:36; Start 03/26/17 at 20:00 Vitamin D (Vitamin D3) 5,000 unit DAILY PO Last administered on 04/01/17 08:23 ; Start 03/27/17 at 09:00 Losartan Potassium (Cozaar) 100 mg DAILY PO Last administered on 04/01/17 08: 24; Start 03/27/17 at 09:00 Potassium Chloride (Klor-Con) 40 meq 1X ONCE PO Last administered on 15:59; Start 03/26/17 at 15:30; Stop 03/26/17 at 15:31; Status DC Hydrochlorothiazide (Hydrodiuril) 25 mg DAILY PO Last administered on 08:24; Start 03/27/17 at 09:00 Morphine Sulfate 2 mg PRN Q2HR PRN IV PAIN Last administered on 03/28/17 18:34 ; Start 03/27/17 at 13:45 Oxycodone HCl (OxyCONTIN) 10 mg Q12HR PO Last administered on 03/28/17 08:44; Start 03/27/17 at 21:00; Stop 03/28/17 at 19:45; Status DC Oxycodone HCl (OxyCONTIN) 10 mg 1X ONCE PO Last administered on 03/27/17 15: 27; Start 03/27/17 at 15:30; Stop 03/27/17 at 15:31; Status DC Oxycodone HCl (OxyCONTIN) 20 mg Q12HR PO Last administered on 04/01/17 08:23; Start 03/28/17 at 21:00 Oxycodone/ Acetaminophen (Percocet 5/325) 1 tab PRN Q4HRS PRN PO PAIN Last administered on 04/01/17 05:57; Start 03/28/17 at 19:30 Enoxaparin Sodium (Lovenox 40mg Syringe) 40 mg Q24H SQ Last administered on 21:19; Start 03/28/17 at 20:00; Stop 03/29/17 at 12:24; Status DC Cefazolin Sodium/ Dextrose 50 ml @ 100 mls/hr 1X PREOP PRN IV sergeant of corrections Last administered on 03/30/17 09:10; Start 03/30/17 at 06:00; Stop 03/30/17 at 18:00 ; Status DC Ondansetron HCl (Zofran) 4 mg PRN Q6HRS PRN IV NAUSEA/VOMITING Last administered on 03/30/17 21:25; Start 03/30/17 at 07:00; Stop 03/31/17 at 06:59 ; Status DC Fentanyl Citrate (Fentanyl 2ml Vial) 25 mcg PRN Q5MIN PRN IV MILD PAIN; Start 03/30/17 at 07:00; Stop 03/31/17 at 06:59; Status DC Fentanyl Citrate (Fentanyl 2ml Vial) 50 mcg PRN Q5MIN PRN IV MODERATE PAIN; Start 03/30/17 at 07:00; Stop 03/31/17 at 06:59; Status DC Morphine Sulfate 1 mg PRN Q10MIN PRN IV SEVERE PAIN; Start 03/30/17 at 07:00; Stop 03/31/17 at 06:59; Status DC Ringer's Solution 1,000 ml @ 30 mls/hr Q24H IV Last administered on 03/30/17 08:00; Start 03/30/17 at 07:00; Stop 03/30/17 at 18:59; Status DC Lidocaine HCl 2 ml PRN 1X PRN ID PRIOR TO IV START; Start 03/30/17 at 07:00; Stop 03/31/17 at 06:59; Status DC Hydromorphone HCl (Dilaudid) 0.5 mg PRN Q10MIN PRN IV SEV PAIN, Second choice; Start 03/30/17 at 07:00; Stop 03/31/17 at 06:59; Status DC Prochlorperazine Edisylate (Compazine) 5 mg PACU PRN PRN IV NAUSEA, MRX1; Start 03/30/17 at 07:00; Stop 03/31/17 at 06:59; Status DC Bupivacaine HCl/ Epinephrine Bitart (Sensorcain-Mpf Epi 0.5%-1:111979) 30 ml STK -MED ONCE .ROUTE Last administered on 03/30/17t 09:33; Start 03/30/17 at 07:31 ; Stop 03/30/17 at 07:32; Status DC Fentanyl Citrate (Fentanyl 2ml Vial) 100 mcg STK-MED ONCE .ROUTE ; Start at 08:43; Stop 03/30/17 at 08:44; Status DC Rocuronium [place] (Zemuron) 100 mg STK-MED ONCE .ROUTE ; Start 03/30/17 at 08: 43; Stop 03/30/17 at 08:44; Status DC Lidocaine HCl (Lidocaine Pf 2% Vial) 5 ml STK-MED ONCE .ROUTE ; Start 03/30/17 at 08:43; Stop 03/30/17 at 08:44; Status DC Ondansetron HCl (Zofran) 4 mg STK-MED ONCE .ROUTE ; Start 03/30/17 at 08:43; Stop 03/30/17 at 08:44; Status DC Dexamethasone Sodium Phosphate (Decadron) 20 mg STK-MED ONCE .ROUTE ; Start at 08:43; Stop 03/30/17 at 08:44; Status DC Propofol 20 ml @ As Directed STK-MED ONCE IV ; Start 03/30/17 at 08:43; Stop at 08:44; Status DC Phenylephrine HCl 1 mg STK-MED ONCE IV ; Start 03/30/17 at 09:10; Stop 03/30/17 at 09:11; Status DC Neostigmine Methylsulfate (Bloxiverz) 10 mg STK-MED ONCE .ROUTE ; Start at 09:23; Stop 03/30/17 at 09:24; Status DC Glycopyrrolate (Robinul) 1 mg STK-MED ONCE .ROUTE ; Start 03/30/17 at 09:24; Stop 03/30/17 at 09:25; Status DC Enoxaparin Sodium (Lovenox 40mg Syringe) 40 mg Q24H SQ Last administered on 20:45; Start 03/30/17 at 21:00 Montelukast Sodium (Singulair) 10 mg QHS PO Last administered on 03/31/17 20: 42; Start 03/31/17 at 21:00 Docusate Sodium (Colace) 100 mg BID PO Last administered on 04/01/17 08:23; Start 03/31/17 at 21:00 Polyethylene Glycol (miraLAX PACKET) 17 gm 1X ONCE PO Last administered on 17:13; Start 03/31/17 at 17:15; Stop 03/31/17 at 17:16; Status DC Bisacodyl (Dulcolax Supp) 10 mg 1X ONCE NM ; Start 03/31/17 at 17:15; Stop at 17:16; Status DC Ondansetron HCl (Zofran) 4 mg PRN Q6HRS PRN IV NAUSEA/VOMITING Last administered on 03/31/17 18:08; Start 03/31/17 at 18:00 Active Scripts Active Budesonide 0.25 Mg/2 Ml Ampul.neb 1 Vial NEB BID 30 Days Prednisone 20 Mg Tablet 40 Mg PO DAILY 12 Days take 40 mg 2 tab x 3 d then 30 mg 11/2 tab x 3d then 1 tab x 3d then 1/2 tab x 3 d Duoneb 0.5-3(2.5) Mg/3 Ml (Albuterol/Ipratropium) 3 Ml Ampul.neb 3 Ml NEB RTQID 30 Days Benzonatate 100 Mg Capsule 100 Mg PO PRN TID PRN 10 Days Amox Tr-K Clv 875-125 Mg Tab (Amoxicillin/Potassium Clav) 1 Each Tablet 1 Tab PO BID 10 Days Amlodipine Besylate 5 Mg Tablet 5 Mg PO DAILY 30 Days Reported Simbrinza 1%-0.2% Eye Drops (Brinzolamide/Brimonid Tart) 8 Ml Drops.susp 1 Drop OU BID Hyzaar 100-25 Tablet (Losartan/Hydrochlorothiazide) 1 Each Tablet 1 Tab PO DAILY Latanoprost 2.5 Ml Drops 1 Drop EACHEYE QHS Vitamin B-12 (Cyanocobalamin (Vitamin B-12)) 1,000 Mcg Tablet 1 Tab PO DAILY Vitamin D3 (Cholecalciferol (Vitamin D3)) 5,000 Unit Tablet 1 Tab PO DAILY Vitals/I & O Vital Sign - Last 24 Hours 03/31/17 03/31/17 03/31/17 03/31/17 08:39 08:39 08:40 11:11 Temp 97.9 97.9 Pulse 97 92 Resp 16 18 B/P (MAP) 148/82 142/82 128/78 (95) Pulse Ox 96 O2 Delivery Room Air Nasal Cannula O2 Flow Rate 2.0 03/31/17 03/31/17 03/31/17 03/31/17 11:24 15:26 16:17 19:00 Temp 97.9 98.9 97.9 98.9 Pulse 93 109 Resp 18 18 B/P (MAP) 125/69 (87) 127/72 (90) Pulse Ox 90 O2 Delivery Nasal Cannula Nasal Cannula Nasal Cannula Nasal Cannula O2 Flow Rate 1.5 2.0 1.5 2.0 03/31/17 03/31/17 03/31/17 03/31/17 19:35 19:36 20:00 20:43 Resp 20 Pulse Ox 90 O2 Delivery Nasal Cannula Nasal Cannula Nasal Cannula Nasal Cannula O2 Flow Rate 1.5 1.5 2.0 1.5 03/31/17 04/01/17 04/01/17 04/01/17 23:30 00:45 03:00 05:57 Temp 98.6 98.1 98.6 98.1 Pulse 94 92 Resp 18 20 18 20 B/P (MAP) 124/70 (88) 132/73 (92) Pulse Ox 96 96 94 94 O2 Delivery Nasal Cannula Nasal Cannula Nasal Cannula Nasal Cannula O2 Flow Rate 2.0 2.0 3.0 2.0 04/01/17 04/01/17 04/01/17 04/01/17 07:00 07:36 08:24 08:26 Temp 97.5 97.5 Pulse 93 92 92 Resp 18 B/P (MAP) 135/77 (96) 132/73 132/73 Pulse Ox 95 96 O2 Delivery Room Air Nasal Cannula O2 Flow Rate 1.5 Intake and Output 03/31/17 03/31/17 04/01/17 15:00 23:00 07:00 Intake Total 860 ml 300 ml Balance 860 ml 300 ml HALINA HERNANDEZ MD Apr 01, 2017 08:36
--- NOTE | 2017-04-01 09:26 | PDOC ---
PULMONARY PROGRESS NOTES Subjective no soa, has occ cough, has left hip pain, on xrt, not mobile yet Vitals Vital Signs Date Time Temp Pulse Resp B/P (MAP) Pulse Ox O2 Delivery O2 Flow Rate FiO2 04/01/17 08:26 92 132/73 04/01/17 07:36 96 Nasal Cannula 1.5 04/01/17 07:00 97.5 18 97.5 ROS: No Nausea, No Chest Pain General: Alert, No acute distress HEENT: Other (nc at perr) Lungs: Other (deminished) Cardiovascular: S1, S2 Abdomen: Soft, Non-tender Neuro Exam: Alert Extremities: No Edema Skin: Warm Medications Active Scripts Medications Dose Route/Sig Max Daily Dose Days Date Category Dose Instructions Simbrinza 1%-0.2% Eye Drops (Brinzolamide/Brimonid Tart) 8 Ml Drops.susp 1 Drop OU BID 03/27/17 Reported Budesonide 0.25 Mg/2 Ml Ampul.neb 1 Vial NEB BID 30 03/02/17 Rx Prednisone 20 Mg Tablet 40 Mg PO DAILY 12 03/02/17 Rx take 40 mg 2 tab x 3 d then 30 mg 11/2 tab x 3d then 1 tab x 3d then 1/2 tab x 3 d Duoneb 0.5-3(2.5) Mg/3 Ml (Albuterol/Ipratropium) 3 Ml Ampul.neb 3 Ml NEB RTQID 30 03/02/17 Rx Benzonatate 100 Mg Capsule 100 Mg PO PRN TID PRN 10 03/02/17 Rx Amox Tr-K Clv 875-125 Mg Tab (Amoxicillin/Potassium Clav) 1 Each Tablet 1 Tab PO BID 10 03/02/17 Rx Amlodipine Besylate 5 Mg Tablet 5 Mg PO DAILY 30 03/02/17 Rx Hyzaar 100-25 Tablet (Losartan/Hydrochlorothiazide) 1 Each Tablet 1 Tab PO DAILY 02/25/17 Reported Latanoprost 2.5 Ml Drops 1 Drop EACHEYE QHS 04/08/16 Reported Vitamin B-12 (Cyanocobalamin (Vitamin B-12)) 1,000 Mcg Tablet 1 Tab PO DAILY 03/25/16 Reported Vitamin D3 (Cholecalciferol (Vitamin D3)) 5,000 Unit Tablet 1 Tab PO DAILY 03/25/16 Reported Impression . 1. Recently diagnosed stage IV nonsmall cell lung cancer (scc) by biopsy from EUS. She presented with sig. mediastinal adenopathy/ mass causing near complete occlusion of LLL 2. Recent complete whiteout of the left lung secondary to mucus plug. Status post bronchoscopy with resolution of the mucous plugs and improved aeration on the left lung. 3. 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 4. Minimal history of tobacco use. 5. allergic rhinitis Plan . 1. Final path consistent with non-small cell cancer. 2. Appreciate Medical and Radiation Oncology consults. Radiation to left hip, xrt to lung soon. 3. Pain control. 4. Follow genetic mutations on the biopsy specimen. 5. Bronchodilators. 6. jodie escudero w pt and her so VILMA MCLEOD MD Apr 01, 2017 09:26
--- NOTE | 2017-04-01 10:17 | PDOC ---
SUBJECTIVE Subjective pt at radiation, pain reported slightly better every day OBJECTIVE Vital Signs Vital Signs Date Time Temp Pulse Resp B/P (MAP) Pulse Ox O2 Delivery O2 Flow Rate FiO2 04/01/17 08:26 92 132/73 04/01/17 08:24 92 132/73 04/01/17 07:36 96 Nasal Cannula 1.5 04/01/17 07:00 97.5 93 18 135/77 (96) 95 Room Air 97.5 04/01/17 05:57 20 94 Nasal Cannula 2.0 04/01/17 03:00 98.1 92 18 132/73 (92) 94 Nasal Cannula 3.0 98.1 04/01/17 00:45 20 96 Nasal Cannula 2.0 03/31/17 23:30 98.6 94 18 124/70 (88) 96 Nasal Cannula 2.0 98.6 03/31/17 20:43 20 90 Nasal Cannula 1.5 03/31/17 20:00 Nasal Cannula 2.0 03/31/17 19:36 Nasal Cannula 1.5 03/31/17 19:35 Nasal Cannula 1.5 03/31/17 19:00 98.9 109 18 127/72 (90) Nasal Cannula 2.0 98.9 03/31/17 16:17 Nasal Cannula 1.5 03/31/17 15:26 97.9 93 18 125/69 (87) 90 Nasal Cannula 2.0 97.9 03/31/17 11:24 Nasal Cannula 1.5 03/31/17 11:11 97.9 92 18 128/78 (95) 96 Nasal Cannula 2.0 97.9 I & O Intake and Output 04/01/17 07:00 Intake Total 1160 ml Balance 1160 ml Intake Oral 1160 ml # Voids 9 PHYSICAL EXAM Physical Exam no change ASSESSMENT/PLAN Assessment/Plan 1- Stage 4 squamous cell CA of lung 2-mets to left hip and pubic rami 3-cough and recent hemoptysis 4.HTN 5.COPD 6. HLD 7- mid back soft tissue mass excision yesterday discussed with Dr. Powers , plan home if pain better , will ask PT recommendation , continue XRT out pt followed by chemo Problems: JANNA NOLEN MD Apr 01, 2017 10:16
--- NOTE | 2017-04-01 10:17 | PDOC3 ---
Discharge Summary* Date of Admission: Mar 29, 2017 Date of Discharge: Apr 01, 2017 Final Diagnosis 1- Stage 4 squamous cell CA of lung 2-mets to left hip and pubic rami 3-cough and recent hemoptysis 4.HTN 5.COPD 6. HLD CONSULTS radiation oncology, oncology, surgery, pulmonary Procedures MRI hip, Lumbar spine MRI, pelvis x ray , Nuclear medicine bone scan, open excision back lesion Brief Hospital Course Ms. Segura is a 66 old [sex] who presented with [ ] Disposition/Orders: D/C to Home CONDITION AT DISCHARGE: Stable Diet: Cardiac Scheduled Amlodipine Besylate (Amlodipine Besylate), 5 MG PO DAILY Brinzolamide/Brimonid Tart (Simbrinza 1%-0.2% Eye Drops), 1 DROP OU BID, ( Reported) Budesonide (Budesonide), 1 VIAL NEB BID Cholecalciferol (Vitamin D3) (Vitamin D3), 1 TAB PO DAILY, (Reported) Cyanocobalamin (Vitamin B-12) (Vitamin B-12), 1 TAB PO DAILY, (Reported) Docusate Sodium (Colace), 100 MG PO BID Ipratropium/Albuterol Sulfate (Duoneb 0.5-3(2.5) Mg/3 Ml), 3 ML NEB RTQID Latanoprost (Latanoprost), 1 DROP EACHEYE QHS, (Reported) Losartan/Hydrochlorothiazide (Hyzaar 100-25 Tablet), 1 TAB PO DAILY, (Reported) Montelukast Sodium (Montelukast Sodium Tablet), 10 MG PO QHS Oxycodone Hcl (Oxycontin), 20 MG PO Q12HR Scheduled PRN Benzonatate (Benzonatate), 100 MG PO PRN TID PRN for cough Oxycodone Hcl/Acetaminophen (Oxycodone-Acetaminophen 5-325), 1 TAB PO PRN Q4HRS PRN for PAIN Discontinued Medications Amoxicillin/Potassium Clav (Amox Tr-K Clv 875-125 Mg Tab), 1 TAB PO BID Prednisone (Prednisone), 40 MG PO DAILY FOLLOW UP APPOINTMENT: continue radiation, f/u Dr. Nolen 1 week Time Spent Total time spent with patient [] minutes for coordination of care, counseling, and education. JANNA NOLEN MD Apr 01, 2017 10:17
[2017-04-01] MEDS ORDERED: DOCU-109 PO (10:20)
[2017-04-01] MEDS ORDERED: MONT10TA9 PO (10:20)
[2017-04-01] MEDS ORDERED: OXYC10TA45 PO (10:20)
[2017-04-01] MEDS ORDERED: OXYC1TAB7 PO (10:20)
[2017-04-01 11:00] VITALS: BP 138/76
--- NOTE | 2017-04-01 11:38 | PATHOLOGY ---
PATHOLOGY REPORT * * * * * * * * FINAL DIAGNOSIS: Fibroadipose tissue, back mass excision: - METASTATIC SQUAMOUS CELL CARCINOMA, MODERATELY TO POORLY DIFFERENTIATED. COMMENT: Sectiones of the back mass excision show extensive replacement of fibroadipose tissue by a metastatic squamous cell carcinoma. There are areas of tumor which show presence of dyskeratotic cells and evidence of keratinization. Other areas appear less well differentiated and are mitotically active. The morphologic findings are supportive of the diagnosis of a metastatic moderately to poorly differentiated squamous cell carcinoma. The mass largely appears excised. There is a small microscopic focus of tumor present at the inked margin. The case is also examined by Dr. Landon Ayala, who concurs with the diagnosis. (JPM:mgr; 03/31/2017) REPORT ELECTRONICALLY SIGNED BY: Jose Mckee M.D. DATE/TIME: 04/01/2017 11:37 * * * * * * * * GROSS PATHOLOGY: The specimen is received in formalin, designated "Viridiana Segura back mass" and consists of a previously incised round, firm, rubbery segment of roberson david soft tissue measuring 2.7 x 2.7 x 2.5 cm. The specimen is reapproximated and inked with black ink and serially sectioned to reveal a roberson white, gritty to necrotic cut surface. Pig Casting Machine Operator sections are submitted in cassettes A1 and A2. (JPM; 03/30/17) INITIAL CPT CODE(S): 64433 Professional services [place] [address] Technical services performed by [facility] at [address] [place] [address], [facility] [address], [place] [address]. SPECIMEN(S) RECEIVED: A.Back Mass CLINICAL HISTORY: Mass-back PATIENT: VIRIDIANA SEGURA /AGE: 1 1950 (Age: 66) PATIENT #: [id number] ALT CASE #: SPECIMEN COLLECTION DATE: 03/30/2017 SPECIMEN RECEIVED DATE: 03/30/2017 [facility] - [address] [place] [address] - PHONE: [phone] * * * END OF REPORT * * *
--- NOTE | 2017-04-01 12:05 | PDOC ---
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 04/01/17 1205: SURGICAL PROGRESS NOTE Subjective tolerating diet minimal back pain hip pain improved today Vital Signs Vital Signs Date Time Temp Pulse Resp B/P (MAP) Pulse Ox O2 Delivery O2 Flow Rate FiO2 04/01/17 11:18 Nasal Cannula 2.0 04/01/17 11:00 97.2 87 17 138/76 (96) 95 97.2 I&O Intake and Output 04/01/17 07:00 Intake Total 1160 ml Balance 1160 ml Intake Oral 1160 ml # Voids 9 General: Alert, Oriented X3, Cooperative, No acute distress Skin: Other (back incision c/d/i, no erythema) Problem List s/p excision back mass path: METASTATIC SQUAMOUS CELL CARCINOMA, MODERATELY TO POORLY DIFFERENTIATED. possible dc planned today Problems: TARUN WILCOX MD 04/01/17 1539: SURGICAL PROGRESS NOTE Assessment/Plan Agree with Marlyn's assessment and plan. Problems: ALEX RIZO APRN Apr 01, 2017 12:05 TARUN WILCOX MD Apr 01, 2017 15:39
--- NOTE | 2017-04-04 21:38 | PN ---
DATE: REFERRING DOCTOR: Shun Grewal M.D. 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 Lung collapse improved following bronchoscopy and removal of mucus plug. She had significant symptomatic metastatic disease involving her left medial acetabulum and pubic bone resulting in disabling hip pain resulting in hospitalization here for management. She underwent ebus and biopsy confirming diagnosis at [facility] on 03/25/2017. During her hospitalization, we recommended palliative radiation therapy to her symptomatic osseous metastasis. The following is a summary of her treatment here. ICD 10: C34.92, C77.1, C79.51, C79.89. DATES OF TREATMENT: 03/29/2017 through 04/04/2017. REGION TREATED: Left pubic bone and acetabulum, femoral head and neck. TREATMENT TECHNIQUE: AP and PA treatment dickey were used with CT-based treatment planning. DOSE PER DAY: 4 Gy. NUMBER OF FRACTIONS: 5. TOTAL DOSE: 20 Gy. Treatment was very well tolerated. She had no toxicity while on treatment, she received her first four treatments as an inpatient during which time her pain significantly improved. She was discharged on 04/01/2017 and completed her last day of treatment as an outpatient on 04/04/2017. During her hospitalization, she did undergo excisional resection of a subcutaneous mass in her midline inferior thoracic region on 03/30/2017. This also revealed metastatic squamous cell carcinoma excision was performed in an effort to get biomarker receptor studies to allow for targeted therapy. During her hospitalization, she had no respiratory symptoms. She had no significant cough, chest pain, shortness of breath or hemoptysis. IMPRESSION: In summary, my impression is that of stage IV squamous cell carcinoma of the left lung with symptomatic osseous metastatic disease at diagnosis. She has significant improvement in her pain from treatment and was able to ambulate and complete her treatment as an outpatient. She had a subcutaneous mass excised to assist in obtaining biomarker data to allow for targeted systemic treatment. She is now scheduled to see us in followup in 1 month. She will also contact Dr. Powers's office to establish a followup appointment as well. Thank you again for allowing us to participate in her care. NICOLE MOSQUERA MD DR: ROMERO/raul JOB#: [id number] / [id number] ELISHA Gleason MD, KIMBERLY MD RAJA, VINAY MD SISILLO, SABATO MD
== END 2017-04-01 16:25 | disposition home or self-care (01) | DRG 463 ==
LOC: ER 10:15 → 4 NORTH 12:50 → OBSVTOIN 03-29 14:44
PROVIDERS: ADMIT Internal Medicine; ATTEND Internal Medicine
PROC: 0HBJXZZ Excision of Left Upper Leg Skin, External Approach (ICD-10-PCS; principal; 2017-03-30 09:00)
DX: C79.51 Secondary malignant neoplasm of bone (principal); J18.9 Pneumonia, unspecified organism; C34.92 Malignant neoplasm of unspecified part of left bronchus or lung; J44.0 Chronic obstructive pulmonary disease with (acute) lower respiratory infection; J98.19 Other pulmonary collapse; I10 Essential (primary) hypertension; E78.5 Hyperlipidemia, unspecified; J30.9 Allergic rhinitis, unspecified; K21.9 Gastro-esophageal reflux disease without esophagitis; J44.9 Chronic obstructive pulmonary disease, unspecified; M19.90 Unspecified osteoarthritis, unspecified site; Z74.01 Bed confinement status; Z80.1 Family history of malignant neoplasm of trachea, bronchus and lung; Z80.3 Family history of malignant neoplasm of breast; Z82.49 Family history of ischemic heart disease and other diseases of the circulatory system; Z87.891 Personal history of nicotine dependence; Z88.1 Allergy status to other antibiotic agents
CPT/HCPCS: 36415; 72148; 73502; 73721; 77290; 77307; 77334; 77412; 78306; 80048; 80053; 81001; 84075; 85025; 85027; 85651; 86140; 88305; 94250; 94640; 94760; 96374; A9503; G0378; G0379; J0690; J1100; J1650; J2270; J2370; J2405; J2704; J2710; J3010; J3490; J7120; J7620; J7626; J2001

== ENCOUNTER → 2017-04-06 | Outpatient (CLI) | payer BC ==
[2017-04-01 08:26] VITALS: BP 132/73
[~2017-04-06] MED LIST changes: +BRIN8DRO OU; +DOCU-109 PO; +METO25TA9 PO; +MONT10TA9 PO; +OXYC10TA45 PO; +OXYC1TAB7 PO
--- NOTE | 2017-04-06 15:23 | RAD ---
Exam performed: Left lower extremity venous Doppler. Clinical Indication: Left leg swelling and pain Date of Service:04/06/17 Comparison : None available Discussion: Multiple longitudinal and transverse high resolution real-time images of the venous system of left lower extremity were obtained with color and Doppler sampling and spectral analysis. The common femoral, superficial femoral, popliteal and proximal calf veins are all patent and demonstrate normal flow and compressibility. Normal respiratory phasicity and augmentation is present. Impression: Normal color duplex ultrasound of the venous system of left lower extremity.
== END | disposition home or self-care (01) ==
LOC: US 14:42
PROVIDERS: ATTEND Internal Medicine
DX: I82.402 Acute embolism and thrombosis of unspecified deep veins of left lower extremity (principal)
CPT/HCPCS: 93971

== ENCOUNTER 2017-04-10 11:50 | Inpatient (IN) | payer BC ==
[~2017-04-10] VITALS: Ht 170.2 cm; Wt 88.5 kg
[~2017-04-10 11:50] MED LIST changes: -METO25TA9 PO
--- NOTE | 2017-04-10 12:14 | PHYS DOC ---
Past Medical History Past Medical History: Asthma, COPD, Hypertension, Other Additional Past Medical Histor: sciatica Past Surgical History: Hysterectomy Alcohol Use: Rarely Drug Use: None Adult General Chief Complaint Chief Complaint: HEMATEMESIS/VOMITING BLOOD HPI HPI Patient is a 66 year old -[place] female who presents with hemoptysis. She states that earlier today about an hour ago she had some coughing and coughed up bright red blood. She denies any shortness of breath is different than normal. She denies any chest pain. She states she is getting radiation she' s had 5 treatments to her left hip and is scheduled with this week to start chemotherapy for newly diagnosed lung cancer. She denies any blood thinners. She states she feels fairly well other than coughing up blood. Review of Systems Review of Systems Constitutional: Denies fever or chills [] Eyes: Denies change in visual acuity, redness, or eye pain [] HENT: Denies nasal congestion or sore throat [] Respiratory: Denies cough or shortness of breath [] Cardiovascular: No additional information not addressed in HPI [] GI: Denies abdominal pain, nausea, vomiting, bloody stools or diarrhea [] : Denies dysuria or hematuria [] Musculoskeletal: Denies back pain or joint pain [] Integument: Denies rash or skin lesions [] Neurologic: Denies headache, focal weakness or sensory changes [] Endocrine: Denies polyuria or polydipsia [] Allergies Allergies Allergies Coded Allergies Type Severity Reaction Last Updated Verified erythromycin base Allergy Intermediate 04/10/17 Yes Physical Exam Physical Exam Constitutional: Well developed, well nourished, no acute distress, non-toxic appearance. [] HENT: Normocephalic, atraumatic, bilateral external ears normal, oropharynx moist, no oral exudates, nose normal. [] Eyes: PERRLA, EOMI, conjunctiva normal, no discharge. [] Neck: Normal range of motion, no tenderness, supple, no stridor. [] Cardiovascular:Heart rate regular rhythm, no murmur [] Lungs & Thorax: Bilateral breath sounds clear to auscultation [] Abdomen: Bowel sounds normal, soft, no tenderness, no masses, no pulsatile masses. [] Skin: Warm, dry, no erythema, no rash. [] Back: No tenderness, no CVA tenderness. [] Extremities: No tenderness, no cyanosis, no clubbing, ROM intact, no edema. [] Neurologic: Alert and oriented X 3, normal motor function, normal sensory function, no focal deficits noted. [] Psychologic: Affect normal, judgement normal, mood normal. [] Current Patient Data Vital Signs Vital Signs Date Time Temp Pulse Resp B/P (MAP) Pulse Ox O2 Delivery O2 Flow Rate FiO2 04/10/17 12:49 90 19 140/94 (109) 94 Room Air 04/10/17 12:20 97.9 97.9 Lab Values Laboratory Tests Test 04/10/17 12:30 White Blood Count 9.1 x10^3/uL (4.0-11.0) Red Blood Count 4.28 x10^6/uL (3.50-5.40) Hemoglobin 11.5 g/dL (12.0-15.5) L Hematocrit 34.9 % (36.0-47.0) L Mean Corpuscular Volume 82 fL (79-100) Mean Corpuscular Hemoglobin 27 pg (25-35) Mean Corpuscular Hemoglobin Concent 33 g/dL (31-37) Red Cell Distribution Width 13.9 % (11.5-14.5) Platelet Count 421 x10^3/uL (140-400) H Neutrophils (%) (Auto) 82 % (31-73) H Lymphocytes (%) (Auto) 8 % (24-48) L Monocytes (%) (Auto) 7 % (0-9) Eosinophils (%) (Auto) 1 % (0-3) Basophils (%) (Auto) 1 % (0-3) Neutrophils # (Auto) 7.5 x10^3uL (1.8-7.7) Lymphocytes # (Auto) 0.7 x10^3/uL (1.0-4.8) L Monocytes # (Auto) 0.7 x10^3/uL (0.0-1.1) Eosinophils # (Auto) 0.1 x10^3/uL (0.0-0.7) Basophils # (Auto) 0.1 x10^3/uL (0.0-0.2) Prothrombin Time 13.3 SEC (11.7-14.0) Prothrombin Time INR 1.1 (0.8-1.1) Sodium Level 139 mmol/L (136-145) Potassium Level 3.0 mmol/L (3.5-5.1) L Chloride Level 101 mmol/L (98-107) Carbon Dioxide Level 29 mmol/L (21-32) Anion Gap 9 (6-14) Blood Urea Nitrogen 6 mg/dL (7-20) L Creatinine 0.8 mg/dL (0.6-1.0) Estimated GFR (Cockcroft-Gault) 87.4 Glucose Level 102 mg/dL (70-99) H Calcium Level 9.2 mg/dL (8.5-10.1) Magnesium Level 1.5 mg/dL (1.8-2.4) L Total Bilirubin 0.3 mg/dL (0.2-1.0) Direct Bilirubin 0.1 mg/dL (0.0-0.2) Aspartate Amino Transferase (AST) 18 U/L (15-37) Alanine Aminotransferase (ALT) 22 U/L (14-59) Alkaline Phosphatase 84 U/L (46-116) Creatine Kinase 81 U/L (26-192) Creatine Kinase MB (Mass) 0.8 ng/mL (0.0-3.6) Creatine Kinase MB Relative Index 1.0 % (0-4) Troponin I Quantitative 0.032 ng/mL (0.000-0.055) UG-Svw-G-Type Natriuretic Peptide 310 pg/mL (0-124) H Total Protein 7.8 g/dL (6.4-8.2) Albumin 3.1 g/dL (3.4-5.0) L Laboratory Tests 04/10/17 12:30 Laboratory Tests 04/10/17 12:30 EKG EKG EKG shows sinus rhythm rate 93 bpm with right axis deviation and a right bundle branch morphology, no ST elevations appreciated, QTC 473 ms, as interpreted by me. Radiology/Procedures Radiology/Procedures [facility] [address] [place], [place] [id number] IMAGING REPORT Signed PATIENT: MILAN YOO ACCOUNT: [id number] : 1950 LOCATION: ER AGE: 66 SEX: F EXAM STATUS: REG ER ORD. PHYSICIAN: SASKIA MELGOZA MD REASON: hemoptysis PROCEDURE: CHEST AP ONLY Examination: Single frontal view chest History: Cough, lung cancer Comparison: 03/17/2017 Findings/impression: Enlarged appearing left suprahilar region likely due to known medial left lung mass. Opacity identified in the left lower lobe of the lung likely pneumonia or postobstructive atelectasis secondary to the mass medially. DICTATED and SIGNED BY: RAEGAN GARY MD DATE: 04/10/17 133 CC: SASKIA MELGOZA MD; JANNA NOLEN MD ~ [facility] [address] [place] [address] IMAGING REPORT Signed PATIENT: MILAN YOO ACCOUNT: [id number] : 1950 LOCATION: [address] [place] [address] AGE: 66 SEX: F EXAM STATUS: ADM IN ORD. PHYSICIAN: SASKIA MELGOZA MD REASON: hemptysis PROCEDURE: CT CHEST WO CONTRAST Examination: CT chest without contrast History: History of hemoptysis. Comparison: 02/25/2017 Technique: Axial CT images of the chest were performed without contrast. Coronal and sagittal reformats are performed PQRS Compliance Statement: One or more of the following individualized dose reduction techniques were utilized for this examination: 1. Automated exposure control 2. Adjustment of the mA and/or kV according to patient size 3. Use of iterative reconstruction technique Findings: The visualized thyroid gland grossly appears unremarkable. There is a large masslike density identified in the left suprahilar region of the lung or left endobronchial mass with blunting and obstruction of the left main bronchus distally with diffuse narrowing of the left upper lobe, left lower lobe distal bronchial branches. The masslike density abuts the mediastinum. There are patchy airspace opacities identified distally in the left upper lobe, left lower lobe of the lung could be postobstructive atelectasis or pneumonia. There is a small nodule identified in the right lower lobe of the lung which is increased in size now measuring 9.5 mm compared to prior exam where it measured 5.5 mm. There is small irregular focus of airspace opacity identified in the right apical lung measuring 1.1 cm slightly increased compared to prior exam. Minimal right lung base atelectasis. In the left lower lobe of the lung abutting the pleura laterally there is a 2.1 x 1.7 cm density could be focal atelectasis or mass. There is volume loss identified in the left lung. There is mild deviation of the mediastinum to the left. Coronary artery calcifications identified. Mild cardiomegaly. There is a cystic structure identified in the left lobe of the liver measuring 5.4 cm similar to prior exam likely a cyst. A 2.5 cm smaller cystic structure identified in the right dome of the liver similar to prior exam likely cyst. Small calcific density identified in the right lobe of the liver similar to prior exam. Examination is limited without IV contrast. Moderate degenerative changes thoracic spine. The visualized adrenal glands grossly appears unremarkable. Moderate degenerative changes thoracic spine. Small 7 mm fat density identified in the left kidney could be an angiomyolipoma. Mild distended gallbladder. Impression: 1. Large ill-defined masslike density identified in the left suprahilar lung abutting the mediastinum causing blunting and obstruction of the left main bronchus distally with diffuse narrowing of the left upper lobe, left lower lobe distal bronchial branches. Alternatively there could be an endobronchial mass in the left main bronchus distally causing postobstructive atelectasis. Volume loss identified in the left lung. There are multiple right airspace opacities identified in the left upper lobe, left lower lobe lung could be postobstructive atelectasis or pneumonia. The masslike density and patchy airspace opacities in the left lung have increased compared to prior exam. 2. Mild increase in size of the right upper lobe and right lower lobe nodules question metastasis. PET CT scan may be useful for further evaluation. DICTATED and SIGNED BY: RAEGAN GARY MD DATE: 04/10/17 0271 CC: SASKIA MELGOZA MD; JANNA NOLEN MD ~ Impressions: Hemoptysis Lung cancer Hypokalemia Hypomagnesemia Course & Med Decision Making Course & Med Decision Making Pertinent Labs and Imaging studies reviewed. (See chart for details) Patient presented with hemoptysis. She's not had any more why she was in the ER. She does have a history of lung cancer and has received radiation to her hip but not terrible lung as of yet. Chest x-ray is concerning for postobstructive process and a CT of her chest confirms this. Patient is being admitted to Dr. Nolen who wanted radiation oncology consult would and addition to pulmonary and 40 mg every 8 hours of Solu-Medrol. This has been ordered. Interim orders have been written and she is in stable condition be admitted to the floor. I did replace her potassium and magnesium. Dragon Disclaimer Dragon Disclaimer This electronic medical record was generated, in whole or in part, using a voice recognition dictation system. Departure Departure Impression: Primary Impression: Hemoptysis Disposition: ADMITTED INPATIENT Admitting Physician: Janna Nolen Condition: STABLE Referrals: JANNA NOLEN MD (PCP) SASKIA MELGOZA MD Apr 10, 2017 12:14
[2017-04-10 12:46] LABS: BASO # 0.1 x10^3/uL (0.0-0.2); BASO % 1 % (0-3); EOS % 1 % (0-3); HEMATOCRIT 34.9 % (36.0-47.0); HEMOGLOBIN 11.5 g/dL (12.0-15.5); LYMPH # 0.7 x10^3/uL (1.0-4.8); LYMPH % 8 % (24-48); MEAN CORPUSCULAR HEMOGLOBIN 27 pg (25-35); MEAN CORPUSCULAR HGB CONC 33 g/dL (31-37); MEAN CORPUSCULAR VOLUME 82 fL (79-100); MONO % 7 % (0-9); NEUT % 82 % (31-73); PLATELET COUNT 421 x10^3/uL (140-400); RED BLOOD COUNT 4.28 x10^6/uL (3.50-5.40); RED CELL DISTRIBUTION WIDTH 13.9 % (11.5-14.5); WHITE BLOOD COUNT 9.1 x10^3/uL (4.0-11.0)
[2017-04-10 12:58] LABS: INR 1.1 (0.8-1.1); PROTHROMBIN TIME PATIENT 13.3 SEC (11.7-14.0)
[2017-04-10 13:00] LABS: ALBUMIN 3.1 g/dL (3.4-5.0); CALCIUM 9.2 mg/dL (8.5-10.1); CREATININE 0.8 mg/dL (0.6-1.0); DIRECT BILIRUBIN 0.1 mg/dL (0.0-0.2); GFR 87.4; MAGNESIUM 1.5 mg/dL (1.8-2.4); TOTAL BILIRUBIN 0.3 mg/dL (0.2-1.0); TOTAL PROTEIN 7.8 g/dL (6.4-8.2)
[2017-04-10 13:07] LABS: CKMB MASS 0.8 ng/mL (0.0-3.6)
--- NOTE | 2017-04-10 13:41 | RAD ---
Examination: Single frontal view chest History: Cough, lung cancer Comparison: 03/17/2017 Findings/impression: Enlarged appearing left suprahilar region likely due to known medial left lung mass. Opacity identified in the left lower lobe of the lung likely pneumonia or postobstructive atelectasis secondary to the mass medially.
[2017-04-10] MEDS: methylPREDNISolone SOD SUCC PF 40 MG/ML VIAL. IV SCH ×2 (13:57→22:01)
--- NOTE | 2017-04-10 14:55 | RAD ---
Examination: CT chest without contrast History: History of hemoptysis. Comparison: 02/25/2017 Technique: Axial CT images of the chest were performed without contrast. Coronal and sagittal reformats are performed PQRS Compliance Statement: One or more of the following individualized dose reduction techniques were utilized for this examination: 1. Automated exposure control 2. Adjustment of the mA and/or kV according to patient size 3. Use of iterative reconstruction technique Findings: The visualized thyroid gland grossly appears unremarkable. There is a large masslike density identified in the left suprahilar region of the lung or left endobronchial mass with blunting and obstruction of the left main bronchus distally with diffuse narrowing of the left upper lobe, left lower lobe distal bronchial branches. The masslike density abuts the mediastinum. There are patchy airspace opacities identified distally in the left upper lobe, left lower lobe of the lung could be postobstructive atelectasis or pneumonia. There is a small nodule identified in the right lower lobe of the lung which is increased in size now measuring 9.5 mm compared to prior exam where it measured 5.5 mm. There is small irregular focus of airspace opacity identified in the right apical lung measuring 1.1 cm slightly increased compared to prior exam. Minimal right lung base atelectasis. In the left lower lobe of the lung abutting the pleura laterally there is a 2.1 x 1.7 cm density could be focal atelectasis or mass. There is volume loss identified in the left lung. There is mild deviation of the mediastinum to the left. Coronary artery calcifications identified. Mild cardiomegaly. There is a cystic structure identified in the left lobe of the liver measuring 5.4 cm similar to prior exam likely a cyst. A 2.5 cm smaller cystic structure identified in the right dome of the liver similar to prior exam likely cyst. Small calcific density identified in the right lobe of the liver similar to prior exam. Examination is limited without IV contrast. Moderate degenerative changes thoracic spine. The visualized adrenal glands grossly appears unremarkable. Moderate degenerative changes thoracic spine. Small 7 mm fat density identified in the left kidney could be an angiomyolipoma. Mild distended gallbladder. Impression: 1. Large ill-defined masslike density identified in the left suprahilar lung abutting the mediastinum causing blunting and obstruction of the left main bronchus distally with diffuse narrowing of the left upper lobe, left lower lobe distal bronchial branches. Alternatively there could be an endobronchial mass in the left main bronchus distally causing postobstructive atelectasis. Volume loss identified in the left lung. There are multiple right airspace opacities identified in the left upper lobe, left lower lobe lung could be postobstructive atelectasis or pneumonia. The masslike density and patchy airspace opacities in the left lung have increased compared to prior exam. 2. Mild increase in size of the right upper lobe and right lower lobe nodules question metastasis. PET CT scan may be useful for further evaluation.
--- NOTE | 2017-04-10 15:05 | EKG ---
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
[2017-04-10] MEDS ORDERED: POTASSIUM CHLORIDE 20 MEQ TABLET.ER. PO ONE (15:15)
[2017-04-10] MEDS ORDERED: MAGNESIUM SULFATE 2GM 50 ML IV ONE (15:15)
[2017-04-10] MEDS ORDERED: ONDANSETRON PF 4 MG/2 ML VIAL. IV PRN (15:15)
[2017-04-10 16:00] VITALS: BP 117/91
--- NOTE | 2017-04-10 16:22 | PDOC ---
PULMONARY PROGRESS NOTES Vitals Vital Signs Date Time Temp Pulse Resp B/P (MAP) Pulse Ox O2 Delivery O2 Flow Rate FiO2 04/10/17 14:45 88 20 150/85 (106) 95 Room Air 04/10/17 12:20 97.9 97.9 General: Alert, No acute distress HEENT: Other Lungs: Other Cardiovascular: S1, S2 Abdomen: Soft, Non-tender Extremities: No Edema Labs Laboratory Tests Test 04/10/17 12:30 04/10/17 15:25 White Blood Count 9.1 x10^3/uL (4.0-11.0) Red Blood Count 4.28 x10^6/uL (3.50-5.40) Hemoglobin 11.5 g/dL (12.0-15.5) Hematocrit 34.9 % (36.0-47.0) Mean Corpuscular Volume 82 fL (79-100) Mean Corpuscular Hemoglobin 27 pg (25-35) Mean Corpuscular Hemoglobin Concent 33 g/dL (31-37) Red Cell Distribution Width 13.9 % (11.5-14.5) Platelet Count 421 x10^3/uL (140-400) Neutrophils (%) (Auto) 82 % (31-73) Lymphocytes (%) (Auto) 8 % (24-48) Monocytes (%) (Auto) 7 % (0-9) Eosinophils (%) (Auto) 1 % (0-3) Basophils (%) (Auto) 1 % (0-3) Neutrophils # (Auto) 7.5 x10^3uL (1.8-7.7) Lymphocytes # (Auto) 0.7 x10^3/uL (1.0-4.8) Monocytes # (Auto) 0.7 x10^3/uL (0.0-1.1) Eosinophils # (Auto) 0.1 x10^3/uL (0.0-0.7) Basophils # (Auto) 0.1 x10^3/uL (0.0-0.2) Prothrombin Time 13.3 SEC (11.7-14.0) Prothromb Time International Ratio 1.1 (0.8-1.1) Sodium Level 139 mmol/L (136-145) Potassium Level 3.0 mmol/L (3.5-5.1) Chloride Level 101 mmol/L (98-107) Carbon Dioxide Level 29 mmol/L (21-32) Anion Gap 9 (6-14) Blood Urea Nitrogen 6 mg/dL (7-20) Creatinine 0.8 mg/dL (0.6-1.0) Estimated GFR (Cockcroft-Gault) 87.4 Glucose Level 102 mg/dL (70-99) Calcium Level 9.2 mg/dL (8.5-10.1) Magnesium Level 1.5 mg/dL (1.8-2.4) Total Bilirubin 0.3 mg/dL (0.2-1.0) Direct Bilirubin 0.1 mg/dL (0.0-0.2) Aspartate Amino Transf (AST/SGOT) 18 U/L (15-37) Alanine Aminotransferase (ALT/SGPT) 22 U/L (14-59) Alkaline Phosphatase 84 U/L (46-116) Creatine Kinase 81 U/L (26-192) Creatine Kinase MB (Mass) 0.8 ng/mL (0.0-3.6) Creatine Kinase MB Relative Index 1.0 % (0-4) Troponin I Quantitative 0.032 ng/mL (0.000-0.055) 0.038 ng/mL (0.000-0.055) FV-Dbp-K-Type Natriuretic Peptide 310 pg/mL (0-124) Total Protein 7.8 g/dL (6.4-8.2) Albumin 3.1 g/dL (3.4-5.0) Laboratory Tests Test 04/10/17 12:30 04/10/17 15:25 White Blood Count 9.1 x10^3/uL (4.0-11.0) Red Blood Count 4.28 x10^6/uL (3.50-5.40) Hemoglobin 11.5 g/dL (12.0-15.5) Hematocrit 34.9 % (36.0-47.0) Mean Corpuscular Volume 82 fL (79-100) Mean Corpuscular Hemoglobin 27 pg (25-35) Mean Corpuscular Hemoglobin Concent 33 g/dL (31-37) Red Cell Distribution Width 13.9 % (11.5-14.5) Platelet Count 421 x10^3/uL (140-400) Neutrophils (%) (Auto) 82 % (31-73) Lymphocytes (%) (Auto) 8 % (24-48) Monocytes (%) (Auto) 7 % (0-9) Eosinophils (%) (Auto) 1 % (0-3) Basophils (%) (Auto) 1 % (0-3) Neutrophils # (Auto) 7.5 x10^3uL (1.8-7.7) Lymphocytes # (Auto) 0.7 x10^3/uL (1.0-4.8) Monocytes # (Auto) 0.7 x10^3/uL (0.0-1.1) Eosinophils # (Auto) 0.1 x10^3/uL (0.0-0.7) Basophils # (Auto) 0.1 x10^3/uL (0.0-0.2) Prothrombin Time 13.3 SEC (11.7-14.0) Prothromb Time International Ratio 1.1 (0.8-1.1) Sodium Level 139 mmol/L (136-145) Potassium Level 3.0 mmol/L (3.5-5.1) Chloride Level 101 mmol/L (98-107) Carbon Dioxide Level 29 mmol/L (21-32) Anion Gap 9 (6-14) Blood Urea Nitrogen 6 mg/dL (7-20) Creatinine 0.8 mg/dL (0.6-1.0) Estimated GFR (Cockcroft-Gault) 87.4 Glucose Level 102 mg/dL (70-99) Calcium Level 9.2 mg/dL (8.5-10.1) Magnesium Level 1.5 mg/dL (1.8-2.4) Total Bilirubin 0.3 mg/dL (0.2-1.0) Direct Bilirubin 0.1 mg/dL (0.0-0.2) Aspartate Amino Transf (AST/SGOT) 18 U/L (15-37) Alanine Aminotransferase (ALT/SGPT) 22 U/L (14-59) Alkaline Phosphatase 84 U/L (46-116) Creatine Kinase 81 U/L (26-192) Creatine Kinase MB (Mass) 0.8 ng/mL (0.0-3.6) Creatine Kinase MB Relative Index 1.0 % (0-4) Troponin I Quantitative 0.032 ng/mL (0.000-0.055) 0.038 ng/mL (0.000-0.055) GD-Kup-L-Type Natriuretic Peptide 310 pg/mL (0-124) Total Protein 7.8 g/dL (6.4-8.2) Albumin 3.1 g/dL (3.4-5.0) Medications Active Scripts Medications Dose Route/Sig Max Daily Dose Days Date Category Oxycontin (Oxycodone HCl) 10 Mg Tab.er.12h 20 Mg PO Q12HR 30 04/01/17 Rx Oxycodone-Acetaminophen 5-325 (Oxycodone Hcl/Acetaminophen) 1 Each Tablet 1 Tab PO PRN Q4HRS PRN 30 04/01/17 Rx Montelukast Sodium Tablet (Montelukast Sodium) 10 Mg Tablet 10 Mg PO QHS 30 04/01/17 Rx Colace (Docusate Sodium) 100 Mg Capsule 100 Mg PO BID 30 04/01/17 Rx Simbrinza 1%-0.2% Eye Drops (Brinzolamide/Brimonid Tart) 8 Ml Drops.susp 1 Drop OU BID 03/27/17 Reported Budesonide 0.25 Mg/2 Ml Ampul.neb 1 Vial NEB BID 30 03/02/17 Rx Duoneb 0.5-3(2.5) Mg/3 Ml (Albuterol/Ipratropium) 3 Ml Ampul.neb 3 Ml NEB RTQID 30 03/02/17 Rx Benzonatate 100 Mg Capsule 100 Mg PO PRN TID PRN 10 03/02/17 Rx Amlodipine Besylate 5 Mg Tablet 5 Mg PO DAILY 30 03/02/17 Rx Hyzaar 100-25 Tablet (Losartan/Hydrochlorothiazide) 1 Each Tablet 1 Tab PO DAILY 02/25/17 Reported Latanoprost 2.5 Ml Drops 1 Drop EACHEYE QHS 04/08/16 Reported Vitamin B-12 (Cyanocobalamin (Vitamin B-12)) 1,000 Mcg Tablet 1 Tab PO DAILY 03/25/16 Reported Vitamin D3 (Cholecalciferol (Vitamin D3)) 5,000 Unit Tablet 1 Tab PO DAILY 03/25/16 Reported Impression . FULL CONSULT DICTATED HEMOPTYSIS SEC TO STAGE 4 LUNG CA PROGRESSION OR DISEASE WILL CONSULT XRT ? WOULD XRT TO LEFT MAINSTEM BE HELPFUL IN CONTROLLING HEMOPTYSIS SHYANNE SETH MD Apr 10, 2017 16:22
[2017-04-10] MEDS: PROMETH/CODEINE 6.25/10MG 5 ML SYRUP. PO SCH ×2 (17:38→22:00)
[2017-04-10] MEDS ORDERED: BENZONATATE 100 MG CAPSULE. PO PRN (19:30)
[2017-04-10] MEDS ORDERED: oxyCODONE/APAP 5/325 1 TAB TABLET PO PRN (19:30)
[2017-04-10] MEDS: oxyCODONE ER 10 MG TAB.ER.12H PO SCH (19:52)
[2017-04-10 19:59] VITALS: BP 150/85
[2017-04-10] MEDS: BUDESONIDE 0.5 MG/2 ML NEBU. NEB SCH (20:26)
[2017-04-10] MEDS: IPRATRPIUM/ALBUTEROL 0.5/2.5MG 3 ML NEBU. NEB SCH (20:26)
[2017-04-10] MEDS: MONTELUKAST SODIUM 10 MG TABLET. PO SCH ×2 (22:00→22:04)
[2017-04-10] MEDS: DOCUSATE SODIUM 100 MG CAPSULE. PO SCH (22:00)
[2017-04-10] MEDS: LATANOPROST 0.005% OPHTH SOLUTION 2.5ML BOTTLE. OU SCH (22:00)
[2017-04-10] MEDS: amLODIPine BESYLATE 5 MG TABLET PO SCH (22:02)
[2017-04-10] MEDS: NON FORMULARY ITEM (Brinzolamide/Brimonid Tart (Simbrinza 1%-0.2% Eye Drops) 1 DROP) OU SCH (22:02)
[2017-04-10 23:38] VITALS: BP 148/92
--- NOTE | 2017-04-11 02:09 | CONS ---
DATE OF CONSULTATION: 04/10/2017 ATTENDING PHYSICIAN: Shun Grewal M.D. REASON FOR CONSULTATION: The patient seen in pulmonary consultation at the request of Dr. Grewal for hemoptysis. HISTORY OF PRESENT ILLNESS: The patient is a 66-year-old that was recently diagnosed with lung cancer status post esophageal ultrasound guided biopsy. The patient actually underwent a bronchoscopy back on 02/28/2017 revealing an endobronchial lesion within the left upper lobe, left upper lobe main stem bronchus. Cytology at that time was negative. She presented with hemoptysis, abnormal CT revealing hemoptysis, abnormal CT of the chest. The patient presents today with increasing hemoptysis. She apparently was at [employer] started to cough and did bring up approximately half a cup of blood within a short period of time. She underwent a CT of the chest in the Emergency Room. I reviewed that the CT appears to have worsened since her last CT on 02/25/2017. The patient denies fever, chills or night sweats. PAST MEDICAL HISTORY: Otherwise remarkable for hypertension, COPD as indicated above, recent diagnosis of lung cancer. She actually has been undergoing radiation treatment to the left hip and was scheduled to see Dr. Powers this week and start chemotherapy. PAST SURGICAL HISTORY: As above. ALLERGIES: ERYTHROMYCIN. MEDICATIONS: List was reviewed. SOCIAL HISTORY: She smoked for 20 years, stopped 20 years ago. FAMILY HISTORY: No family history of lung cancer. REVIEW OF SYSTEMS: As indicated above, otherwise, a 10-point system was reviewed and negative. PHYSICAL EXAMINATION: VITAL SIGNS: The patient was on room air saturation 94%. HEENT: Eyes, the sclerae were nonicteric. NECK: Jugular venous distention was not elevated. No lymphadenopathy. CHEST: Full expansion. LUNGS: Adequate airway flow with diminished breath sounds on the left. CARDIOVASCULAR: Regular rate and rhythm with S1, S2, no S3. ABDOMEN: Soft, nontender, nondistended. EXTREMITIES: No clubbing, cyanosis or edema. NEUROLOGIC: The patient was awake, alert, following commands. A detailed neuro exam was not performed. LABORATORY DATA: White count was normal. Hemoglobin and hematocrit were noted. Electrolytes were noted. Potassium is low. Albumin was low. INR was 1.1. CT as indicated above. IMPRESSION: 1. Mild to moderate hemoptysis secondary to her known bronchogenic carcinoma. 2. Stage IV bronchogenic carcinoma, recent stroke with a recent CT revealing evidence of progression of her disease. 3. Tobacco dependence in remission. 4. Chronic obstructive pulmonary disease. 5. Hypertension. PLAN: 1. We will monitor for further hemoptysis, initiate Robitussin with codeine. 2. If the patient continues to have periods of moderate to massive hemoptysis she will require interventional radiologist to perform a pulmonary angiogram with embolization. 3. We will consult Radiation oncologist, question with radiation treatment to the left upper lobe bronchus help. 4. Otherwise continue current support. I do appreciate the privilege in sharing in the patient's care. SHYANNE SETH MD DR: SID/raul JOB#: [id number] / [id number]
[2017-04-11 03:42] VITALS: BP 153/86
[2017-04-11] MEDS: methylPREDNISolone SOD SUCC PF 40 MG/ML VIAL. IV SCH ×3 (06:13→21:42)
[2017-04-11 06:31] LABS: BASO % 0 % (0-3); EOS % 0 % (0-3); HEMATOCRIT 31.8 % (36.0-47.0); HEMOGLOBIN 11.1 g/dL (12.0-15.5); LYMPH # 0.5 x10^3/uL (1.0-4.8); LYMPH % 6 % (24-48); MEAN CORPUSCULAR HEMOGLOBIN 28 pg (25-35); MEAN CORPUSCULAR HGB CONC 35 g/dL (31-37); MEAN CORPUSCULAR VOLUME 80 fL (79-100); MONO % 3 % (0-9); NEUT % 91 % (31-73); PLATELET COUNT 410 x10^3/uL (140-400); RED BLOOD COUNT 3.97 x10^6/uL (3.50-5.40); RED CELL DISTRIBUTION WIDTH 14.5 % (11.5-14.5); WHITE BLOOD COUNT 7.3 x10^3/uL (4.0-11.0)
[2017-04-11 07:00] VITALS: BP 158/83
[2017-04-11 07:13] LABS: CALCIUM 9.1 mg/dL (8.5-10.1); CREATININE 0.6 mg/dL (0.6-1.0); GFR 121.8
[2017-04-11 07:53] LABS: PLT ESTIMATE ADEQUATE (ADEQUATE)
[2017-04-11] MEDS: BUDESONIDE 0.5 MG/2 ML NEBU. NEB SCH ×2 (08:16→19:36)
[2017-04-11] MEDS: IPRATRPIUM/ALBUTEROL 0.5/2.5MG 3 ML NEBU. NEB SCH ×4 (08:17→19:36)
[2017-04-11] MEDS: NON FORMULARY ITEM (Brinzolamide/Brimonid Tart (Simbrinza 1%-0.2% Eye Drops) 1 DROP) OU SCH (09:00)
[2017-04-11] MEDS: hydroCHLOROthiazide 25 MG TABLET PO SCH (09:28)
[2017-04-11] MEDS: CYANOCOBALAMIN (VITAMIN B-12) 1,000 MCG TABLET. PO SCH (09:29)
[2017-04-11] MEDS: DOCUSATE SODIUM 100 MG CAPSULE. PO SCH ×2 (09:29→21:41)
[2017-04-11] MEDS: LOSARTAN POTASSIUM 50 MG TABLET. PO SCH (09:29)
[2017-04-11] MEDS: CHOLECALCIFEROL (VITAMIN D3) 5,000 UNIT CAPSULE PO SCH (09:29)
[2017-04-11] MEDS: amLODIPine BESYLATE 5 MG TABLET PO SCH (09:29)
[2017-04-11] MEDS: oxyCODONE ER 10 MG TAB.ER.12H PO SCH ×2 (09:30→21:41)
[2017-04-11] MEDS: PROMETH/CODEINE 6.25/10MG 5 ML SYRUP. PO SCH ×4 (09:31→21:42)
--- NOTE | 2017-04-11 10:03 | PDOC ---
Provider Note Provider Note [id number] SUSY JARA MD Apr 11, 2017 10:03
--- NOTE | 2017-04-11 10:36 | HP ---
ADMIT DATE: 04/11/2017 CHIEF COMPLAINT: Hemoptysis. 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 Grewal as well as Dr. العلي, the radiation oncologist. She had some mild hemoptysis at home and came in, was seen by Dr. Mariscal and CT scan showed some progression of her disease in her lung. He started IV Solu-Medrol and we are observing to see if she continues to clinically improve. There has been no further hemoptysis so far. PAST MEDICAL HISTORY: Well documented in the old records. MEDICATIONS: Multiple medications listed per the chart. ALLERGIES: ERYTHROMYCIN. SOCIAL HISTORY: Single, not employed. Nonsmoker, nondrinker. FAMILY HISTORY: Unremarkable. REVIEW OF SYSTEMS: No other complaints. OBJECTIVE: ENT: All within normal limits. NECK: No bruits, nodes or masses. LUNGS: Decreased breath sounds on the whole left chest. No tachypnea or wheezing. CARDIOVASCULAR: Regular rate. Heart beat about 90-100. No murmurs heard. ABDOMEN: Soft, benign, and nontender. EXTREMITIES: Good pedal and radial pulses. No joint or skin lesions. NEUROLOGIC: Physiologic, alert, appropriate, responsive. ASSESSMENT: Hemoptysis in the face of progressive stage IV lung cancer with metastatic bone disease. Appears to be stable and not recurring so far. PLAN: Continue IV Solu-Medrol and supportive care for now. Dr. Grewal will see tomorrow as well as her consultants. SUSY JARA MD DR: DARIUS/raul JOB#: [id number] / [id number]
[2017-04-11] MEDS: FAMOTIDINE 20 MG TABLET. PO SCH ×2 (10:47→21:41)
[2017-04-11 11:00] VITALS: BP 158/82
[2017-04-11 15:00] VITALS: BP 143/84
--- NOTE | 2017-04-11 17:58 | PDOC ---
PULMONARY PROGRESS NOTES Subjective PT WITH NO INCREASE CHARISSA OR HEMOPTYSIS Vitals Vital Signs Date Time Temp Pulse Resp B/P (MAP) Pulse Ox O2 Delivery O2 Flow Rate FiO2 04/11/17 15:00 98.0 112 20 143/84 (103) 95 Nasal Cannula 2.0 98.0 General: Alert HEENT: Other Lungs: Clear Cardiovascular: S1, S2 Abdomen: Soft, Non-tender Neuro Exam: Alert Extremities: No Edema Skin: Warm Labs Laboratory Tests Test 04/10/17 12:30 04/10/17 15:25 04/10/17 18:15 04/11/17 05:46 White Blood Count 9.1 x10^3/uL (4.0-11.0) 7.3 x10^3/uL (4.0-11.0) Red Blood Count 4.28 x10^6/uL (3.50-5.40) 3.97 x10^6/uL (3.50-5.40) Hemoglobin 11.5 g/dL (12.0-15.5) 11.1 g/dL (12.0-15.5) Hematocrit 34.9 % (36.0-47.0) 31.8 % (36.0-47.0) Mean Corpuscular Volume 82 fL (79-100) 80 fL (79-100) Mean Corpuscular Hemoglobin 27 pg (25-35) 28 pg (25-35) Mean Corpuscular Hemoglobin Concent 33 g/dL (31-37) 35 g/dL (31-37) Red Cell Distribution Width 13.9 % (11.5-14.5) 14.5 % (11.5-14.5) Platelet Count 421 x10^3/uL (140-400) 410 x10^3/uL (140-400) Neutrophils (%) (Auto) 82 % (31-73) 91 % (31-73) Lymphocytes (%) (Auto) 8 % (24-48) 6 % (24-48) Monocytes (%) (Auto) 7 % (0-9) 3 % (0-9) Eosinophils (%) (Auto) 1 % (0-3) 0 % (0-3) Basophils (%) (Auto) 1 % (0-3) 0 % (0-3) Neutrophils # (Auto) 7.5 x10^3uL (1.8-7.7) 6.6 x10^3uL (1.8-7.7) Lymphocytes # (Auto) 0.7 x10^3/uL (1.0-4.8) 0.5 x10^3/uL (1.0-4.8) Monocytes # (Auto) 0.7 x10^3/uL (0.0-1.1) 0.2 x10^3/uL (0.0-1.1) Eosinophils # (Auto) 0.1 x10^3/uL (0.0-0.7) 0.0 x10^3/uL (0.0-0.7) Basophils # (Auto) 0.1 x10^3/uL (0.0-0.2) 0.0 x10^3/uL (0.0-0.2) Prothrombin Time 13.3 SEC (11.7-14.0) Prothromb Time International Ratio 1.1 (0.8-1.1) Sodium Level 139 mmol/L (136-145) 141 mmol/L (136-145) Potassium Level 3.0 mmol/L (3.5-5.1) 4.0 mmol/L (3.5-5.1) Chloride Level 101 mmol/L (98-107) 104 mmol/L (98-107) Carbon Dioxide Level 29 mmol/L (21-32) 28 mmol/L (21-32) Anion Gap 9 (6-14) 9 (6-14) Blood Urea Nitrogen 6 mg/dL (7-20) 6 mg/dL (7-20) Creatinine 0.8 mg/dL (0.6-1.0) 0.6 mg/dL (0.6-1.0) Estimated GFR (Cockcroft-Gault) 87.4 121.8 Glucose Level 102 mg/dL (70-99) 130 mg/dL (70-99) Calcium Level 9.2 mg/dL (8.5-10.1) 9.1 mg/dL (8.5-10.1) Magnesium Level 1.5 mg/dL (1.8-2.4) Total Bilirubin 0.3 mg/dL (0.2-1.0) Direct Bilirubin 0.1 mg/dL (0.0-0.2) Aspartate Amino Transf (AST/SGOT) 18 U/L (15-37) Alanine Aminotransferase (ALT/SGPT) 22 U/L (14-59) Alkaline Phosphatase 84 U/L (46-116) Creatine Kinase 81 U/L (26-192) Creatine Kinase MB (Mass) 0.8 ng/mL (0.0-3.6) Creatine Kinase MB Relative Index 1.0 % (0-4) Troponin I Quantitative 0.032 ng/mL (0.000-0.055) 0.038 ng/mL (0.000-0.055) 0.029 ng/mL (0.000-0.055) SK-Yth-I-Type Natriuretic Peptide 310 pg/mL (0-124) Total Protein 7.8 g/dL (6.4-8.2) Albumin 3.1 g/dL (3.4-5.0) Segmented Neutrophils % 90 % (35-66) Lymphocytes % 8 % (24-48) Monocytes % 2 % (0-10) Platelet Estimate Adequate (ADEQUATE) Laboratory Tests Test 04/10/17 18:15 04/11/17 05:46 Troponin I Quantitative 0.029 ng/mL (0.000-0.055) White Blood Count 7.3 x10^3/uL (4.0-11.0) Red Blood Count 3.97 x10^6/uL (3.50-5.40) Hemoglobin 11.1 g/dL (12.0-15.5) Hematocrit 31.8 % (36.0-47.0) Mean Corpuscular Volume 80 fL (79-100) Mean Corpuscular Hemoglobin 28 pg (25-35) Mean Corpuscular Hemoglobin Concent 35 g/dL (31-37) Red Cell Distribution Width 14.5 % (11.5-14.5) Platelet Count 410 x10^3/uL (140-400) Neutrophils (%) (Auto) 91 % (31-73) Lymphocytes (%) (Auto) 6 % (24-48) Monocytes (%) (Auto) 3 % (0-9) Eosinophils (%) (Auto) 0 % (0-3) Basophils (%) (Auto) 0 % (0-3) Neutrophils # (Auto) 6.6 x10^3uL (1.8-7.7) Lymphocytes # (Auto) 0.5 x10^3/uL (1.0-4.8) Monocytes # (Auto) 0.2 x10^3/uL (0.0-1.1) Eosinophils # (Auto) 0.0 x10^3/uL (0.0-0.7) Basophils # (Auto) 0.0 x10^3/uL (0.0-0.2) Segmented Neutrophils % 90 % (35-66) Lymphocytes % 8 % (24-48) Monocytes % 2 % (0-10) Platelet Estimate Adequate (ADEQUATE) Sodium Level 141 mmol/L (136-145) Potassium Level 4.0 mmol/L (3.5-5.1) Chloride Level 104 mmol/L (98-107) Carbon Dioxide Level 28 mmol/L (21-32) Anion Gap 9 (6-14) Blood Urea Nitrogen 6 mg/dL (7-20) Creatinine 0.6 mg/dL (0.6-1.0) Estimated GFR (Cockcroft-Gault) 121.8 Glucose Level 130 mg/dL (70-99) Calcium Level 9.1 mg/dL (8.5-10.1) Medications Active Scripts Medications Dose Route/Sig Max Daily Dose Days Date Category Oxycontin (Oxycodone HCl) 10 Mg Tab.er.12h 20 Mg PO Q12HR 30 04/01/17 Rx Oxycodone-Acetaminophen 5-325 (Oxycodone Hcl/Acetaminophen) 1 Each Tablet 1 Tab PO PRN Q4HRS PRN 30 04/01/17 Rx Montelukast Sodium Tablet (Montelukast Sodium) 10 Mg Tablet 10 Mg PO QHS 30 04/01/17 Rx Colace (Docusate Sodium) 100 Mg Capsule 100 Mg PO BID 30 04/01/17 Rx Simbrinza 1%-0.2% Eye Drops (Brinzolamide/Brimonid Tart) 8 Ml Drops.susp 1 Drop OU BID 03/27/17 Reported Budesonide 0.25 Mg/2 Ml Ampul.neb 1 Vial NEB BID 30 03/02/17 Rx Duoneb 0.5-3(2.5) Mg/3 Ml (Albuterol/Ipratropium) 3 Ml Ampul.neb 3 Ml NEB RTQID 30 03/02/17 Rx Benzonatate 100 Mg Capsule 100 Mg PO PRN TID PRN 10 03/02/17 Rx Amlodipine Besylate 5 Mg Tablet 5 Mg PO DAILY 30 03/02/17 Rx Hyzaar 100-25 Tablet (Losartan/Hydrochlorothiazide) 1 Each Tablet 1 Tab PO DAILY 02/25/17 Reported Latanoprost 2.5 Ml Drops 1 Drop EACHEYE QHS 04/08/16 Reported Vitamin B-12 (Cyanocobalamin (Vitamin B-12)) 1,000 Mcg Tablet 1 Tab PO DAILY 03/25/16 Reported Vitamin D3 (Cholecalciferol (Vitamin D3)) 5,000 Unit Tablet 1 Tab PO DAILY 03/25/16 Reported Impression . 1. Mild to moderate hemoptysis secondary to her known bronchogenic carcinoma. 2. Stage IV bronchogenic carcinoma, recent stroke with a recent CT revealing evidence of progression of her disease. 3. Tobacco dependence in remission. 4. Chronic obstructive pulmonary disease. 5. Hypertension. Plan . NO FURTHER HEMOPTYSIS WILL CONSIDER D/C IN AM AWAITING XRT INPUT 1. We will monitor for further hemoptysis, initiate Robitussin with codeine. 2. If the patient continues to have periods of moderate to massive hemoptysis she will require interventional radiologist to perform a pulmonary angiogram with embolization. 3. We will consult Radiation oncologist, question with radiation treatment to the left upper lobe bronchus help. 4. Otherwise continue current support. SHYANNE SETH MD Apr 11, 2017 17:58
[2017-04-11 19:50] VITALS: BP 138/67
[2017-04-11] MEDS: MONTELUKAST SODIUM 10 MG TABLET. PO SCH (21:00)
[2017-04-11] MEDS: LATANOPROST 0.005% OPHTH SOLUTION 2.5ML BOTTLE. OU SCH (21:39)
[2017-04-11] MEDS: DORZOLAMIDE 2% OPHTH SOLUTION 10ML BOTTLE. OU SCH (21:39)
[2017-04-11] MEDS: BRIMONIDINE 0.2% OPHTH SOLUTION 5ML BOTTLE. OU SCH (21:40)
[2017-04-11 23:05] VITALS: BP 150/85
--- NOTE | 2017-04-12 01:53 | ACF ---
Admission Forms Criteria PULMONARY DISEASE GRG Clinical Indications for Admission to Inpatient Care ([place]/check or initial the applicable condition/criteria) Hospital admission is needed for appropriate care of the patient because of 1 or more of the following(1)(2): [ ]I. Impending or actual respiratory arrest. See Respiratory Failure GRG guideline for severe respiratory disease and long-term mechanical ventilation patients. (3)(4) (5) [ ]II. Severe airflow or ventilation abnormalities (not responsive to emergency and observation care treatment as appropriate) as indicated by 1 or more of the following (6)(7)(8)(9) : [ ]a) PCO2 greater than 42 mm Hg (5.6 kPa) and pH less than 7.35 (new) [ ]b) Documented PCO2 increased more than 5 mm Hg (0.7 kPa) from disease baseline [ ]c) Airflow measurements[A] less than 60% of previous best or predicted (eg, peak expiratory flow rate less than 300 L/min) despite intensive emergent treatment(B) [ ]d) Required respiratory treatments that are performable only in acute inpatient setting [ ]III. Severe respiratory findings (not responsive to emergency and observation care treatment as appropriate) including 1 or more of the following(6)(9)(10): [ ]a) Respiratory distress as indicated by ALL of the following(6)(11): [ ]i) Patient with 1 or more of the following: [ ]1) Dyspnea (difficulty breathing) [ ]2) Tachypnea [ ]3) Abnormal breathing pattern (eg, chest retractions) [ ]4) Other evidence of difficulty breathing [ ]ii) Evidence of respiratory compromise indicated by 1 or more of the following: [ ]1) Hypoxemia [ ]2) Altered mental status [ ]3) Other evidence of respiratory compromise (eg, pulmonary edema on chest x-ray) [ ]b) Stridor [X]c) Gross hemoptysis(12) [ ]d) Acute cyanosis [ ]IV. Chronic lung disease with severe deterioration (not responsive to emergency and observation care treatment as appropriate) as indicated by 1 or more of the following(7) (13): [ ]a) SaO2 5% below baseline in patient with chronic hypoxemia [ ]b) New requirement for supplemental oxygen to keep SaO2 at baseline or acceptable level [ ]c) Required supplemental oxygen performable only in acute inpatient setting [ ]d) Severe airflow or ventilation abnormalities [ ]e) Previouslymobile patient unable to walk between rooms [ ]f) Inability to eat or sleep due to dyspnea [ ]g) Altered mental status that is severe or persistent [ ]V. Empyema or lung abscess(14)(15) [ ]Vl. Severe atelectasis or lung collapse(16)(17) [ ]Alejandrina. Tuberculosis requiring inpatient treatment as indicated by 1 or more of the following(18)(19)(20)(21): [ ]a) Diagnosis suspected (eg, symptomatic patient from endemic area or in high-risk population, with abnormal chest imaging) and cannot be ruled out within observation care timeframe (ie, sputum analysis, nucleic acid amplification techniques not rapidly available or not diagnostic) [ ]b) Severely symptomatic patient (eg, Hypoxemia, Hemodynamic instability, Tachypnea) [ ]c) Gkhct-hhmt-bhbqzmzgd infection suspected in newly diagnosed patient (eg, treatment regimen may require near-term adjustment) [ ]d) Newly diagnosed patient at high-risk of short-term deterioration (eg, HIV positive, frail, immunocompromised, chronic lung disease) [ ]e) High infectivity suspected (eg, laryngeal disease, cavitary pulmonary lesions, ongoing positivity of sputum) and 1 or more of the following: [ ]i) Unexposed household contacts at high risk (eg, immunocompromised, elderly, infants, chronic lung disease) [ ]ii) Patient unable or unwilling to avoid exposing others (eg, significant psychiatric disease, substance abuse, developmental disability) [ ]f) Complication of tuberculosis requiring inpatient treatment (eg , constrictive pericarditis, tubercular meningitis) [ ]g) Hospitalization mandated by public health authority (eg, patient continually noncompliant with directly observed therapy) [ ]VIII. High-risk pulmonary infection as indicated by 1 or more of the following(22)(23)(24)(25): [ ]a) Temperature less than 95 degrees F (35 degrees C) or greater than 103.1 degrees F (39.5 degrees C) [ ]b) Hemodynamic instability [ ]c) Immunocompromised patient (eg, AIDS, post transplant, neutropenic)(26)(27) [ ]d) History of severe COPD(28) [ ]e) History of severely symptomatic congestive heart failure(29) [ ]f) Other high-risk comorbidity (eg, poorly controlled diabetes, cirrhosis, chronic renal insufficiency) [ ]g) Hypoxemia [ ]h) severe stridor (30) [ ]i) Outpatient, observation, or recovery facility therapy has failed, is not appropriate, or is not feasible. [ ]IX. Complications of tracheostomy that remains after emergency or observation level care(31)(32)(33)(34) [ ]X. Respiratory complications of organ transplant (eg, rejection, respiratory failure, respiratory infection)(27) [ ]XI. Severe pulmonary arterial hypertension or pulmonary vascular disease requiring inpatient care indicated by 1 or more of the following(35)(36)(37)(38): [ ]a) Initiation or change of vasodilators (IV, subcutaneous, or inhaled) or other vasoactive medications needed [ ]b) IV anticoagulation needed (eg, immediate anticoagulation necessary, alternatives not appropriate) [ ]c) Arterial or pulmonary artery catheter monitoring needed due to infusion or other treatment [ ]XII. Cystic fibrosis requiring inpatient care as indicated by 1 or more of the following(39)(40): [ ]a) Severe exacerbation that does not respond to intensified home therapy(41) [ ]b) Severe exacerbation with patient unable to perform prescribed treatments at home [ ]c) Pneumonia [ ]d) Pneumothorax(42) [ ]e) Atelectasis [ ]f) Hemoptysis(43) [ ]XIII. Bronchiectasis requiring inpatient care as indicated by 1 or more of the following(44)(45): [ ]a) Respiratory distress [ ]b) Severe exacerbation and outpatient or observation care therapy has failed, is not appropriate, or is not feasible. [ ]XIV. Sarcoidosis requiring inpatient care as indicated by 1 or more of the following(46)(47)(48): [ ]a) Respiratory distress [ ]b) Cardiac involvement with arrhythmia(49) [ ]c) Outpatient or observation care therapy has failed, is not appropriate, or is not feasible. [ ]XV. Intestitial lung disease requiring inpatient care as indicated by 1 or more of the following(50)(51): [ ]a) Respiratory distress [ ]b) Severe exacerbation and outpatient or observation care therapy has failed, is not appropriate, or is not feasible [ ]XVI. Allergic pneumonitis requiring inpatient care as indicated by 1 or more of the following(52): [ ]a) Respiratory distress [ ]b) Acute eosinophilic pneumonia [ ]c) [place] with cardiac involvement [ ]d) Outpatient or observation care therapy has failed, is not appropriate, or is not feasible [ ]XVIl. Severe right heart failure requiring inpatient care as indicated by 1 or more of the following(35)(53)(54): [ ]a) Respiratory distress [ ]b) Debilitating anasarca that remains after emergency or observation level care (eg, tissue [ ]c) breakdown with severe infection, inability to void due to edema) [C](41)(42)(43)(44) [ ]d) Hemodynamic instability [ ]e) Syncope [ ]f) Angina that requires inpatient care (eg, not treatable in emergency or observation level of care) [ ]g) Increasing organ failure (eg, liver congestion with significant and worsening or new elevation of transaminases) [ ]XVIll. Injury requiring inpatient care (medical) as indicated by 1 or more of the following(59)(60)(61) [ ]a) Significant inhalation injury (eg, smoke inhalation, other toxic inhalation)(62)(63)(64) [ ]b) Airway obstruction that remains or is unstable after emergency or observation level care(65)(66) [ ]c) Severe pain requiring acute inpatient management [ ]d) Lung contusion(67) [ ]e) Flail chest(68) [ ]f) Bronchial tree injury [ ]g) Air or fat emboli [ ]h) Other injury not treatable in emergency or observation level care (eg, hemothorax)(55) [ ]XlX. Pulmonary hemorrhage or significant hemoptysis(12)(43)(69) [ ]XXl. Complications of transplanted lung indicated by 1 or more of the following(70)(71) [ ]a) Acute graft rejection requiring inpatient management (eg, intravenous immunosuppression)(72)(73)(74) [ ]b) Failure of transplant lung as indicated by 1 or more of the following(75)(76): [ ]i) Anastomotic leak [ ]ii) Airway ischemia or necrosis [ ]iii) Airway fistula [ ]iv) Obstructing granulation tissue requiring intervention [ ]v) Bronchial stenosis or stricture requiring intervention [ ]vi) Tracheobronchomalacia requiring intervention [ ]vii) Severe airflow or ventilation abnormalities [ ]viii) Severe respiratory findings [ ]c) Infection requiring inpatient management (eg, Hemodynamic instability, need for intravenous antimicrobial treatment)(77)(78)(79)(80)(81)(82 [ ]d) Other complication of transplanted lung (eg, obliterative bronchiolitis, plastic bronchitis, thrombotic microangiopathy, constrictive pericarditis) requiring inpatient management(83)(84)(85)(86)(87) [ ]XXll. Inpatient palliative care needed.[D](88)(89)(90)(91) [ ]XXlll. Pulmonary Disease condition, symptom, or finding for which emergency and observation care have failed or are not considered appropriate. The original [facility] [employer] content created by [employer] has been revised. The portions of the content which have been revised are identified through the use of italic text, and [facility] has neither reviewed nor approved the modified material. All other unmodified content is copyright [facility] [employer]. Please see references footnoted in the original [facility] [employer] edition 2014 Admission Criteria Met?: Yes HEIDI JACKSON Apr 12, 2017 01:53
[2017-04-12] MEDS: methylPREDNISolone SOD SUCC PF 40 MG/ML VIAL. IV SCH ×3 (06:25→22:07)
[2017-04-12 07:15] VITALS: BP 151/85
[2017-04-12] MEDS: IPRATRPIUM/ALBUTEROL 0.5/2.5MG 3 ML NEBU. NEB SCH ×4 (07:57→20:20)
[2017-04-12] MEDS: BUDESONIDE 0.5 MG/2 ML NEBU. NEB SCH ×2 (07:57→20:21)
[2017-04-12] MEDS: PROMETH/CODEINE 6.25/10MG 5 ML SYRUP. PO SCH ×4 (09:19→20:40)
[2017-04-12] MEDS: hydroCHLOROthiazide 25 MG TABLET PO SCH (09:20)
[2017-04-12] MEDS: FAMOTIDINE 20 MG TABLET. PO SCH ×2 (09:22→20:40)
[2017-04-12] MEDS: BRIMONIDINE 0.2% OPHTH SOLUTION 5ML BOTTLE. OU SCH ×2 (09:22→20:41)
[2017-04-12] MEDS: CYANOCOBALAMIN (VITAMIN B-12) 1,000 MCG TABLET. PO SCH (09:22)
[2017-04-12] MEDS: CHOLECALCIFEROL (VITAMIN D3) 5,000 UNIT CAPSULE PO SCH (09:22)
[2017-04-12] MEDS: DORZOLAMIDE 2% OPHTH SOLUTION 10ML BOTTLE. OU SCH ×2 (09:22→20:42)
[2017-04-12] MEDS: amLODIPine BESYLATE 5 MG TABLET PO SCH (09:22)
--- NOTE | 2017-04-12 09:22 | PDOC ---
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 She received 20 Gy to left pubic bone acetabular met competed 04/04/2017. Also had mid back subcutaneous mass reoved to provide additional testing for biomarkers at that time. Now readmitted over one episode of hemoptysis occurring at [facility]. Coughed up 1/3 cup. Now has persistent cough with no recurrent heme. Breathing a bit more labored. No chest pain, headaches nausea or vomiting. No pain elsewhere. Left hip pain 99% absent with improved range of motion noted. PE Alert pleasant in NAD. One episode of cough which was nonproductive. Nearly absent left breath sounds with no wheezing or rhonchi. Good breath sounds on right. CT chest central progression with occlusion of airways beyond left main stem bronchus, distal atelectasis and general loss of left lung volume. Stable mass or nodule right lung c/w met disease. 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 Now with symptomatic central disease progression. I do recommend palliative chest radiation at this time. In the past her symptoms of left lung collapse did improve with therapeutic bronchoscopy. The concept then was to treat with systemic treatment alone and monitor response Now with significant hemoptysis and likely central disease progression, I think that she has more compelling need for palliative chest radiation at this time. I discussed this with the patient. Anticipate simulation today with treatment to follow. NICOLE MOSQUERA MD Apr 12, 2017 09:22
[2017-04-12] MEDS: oxyCODONE ER 10 MG TAB.ER.12H PO SCH ×2 (09:24→20:41)
[2017-04-12] MEDS: LOSARTAN POTASSIUM 50 MG TABLET. PO SCH (09:24)
[2017-04-12] MEDS: DOCUSATE SODIUM 100 MG CAPSULE. PO SCH ×2 (09:29→20:41)
[2017-04-12 11:19] VITALS: BP 147/80
--- NOTE | 2017-04-12 11:38 | PDOC ---
PULMONARY PROGRESS NOTES Subjective PT WITH NO INCREASE CHARISSA / MILD HEMOPTYSIS Vitals Vital Signs Date Time Temp Pulse Resp B/P (MAP) Pulse Ox O2 Delivery O2 Flow Rate FiO2 04/12/17 11:19 98.0 106 18 147/80 (102) 96 Nasal Cannula 2.0 98.0 General: Alert, No acute distress HEENT: Other Lungs: Other (DECREASE BS ON LEFT) Cardiovascular: S1, S2 Abdomen: Soft, Non-tender Neuro Exam: Alert Extremities: No Edema Skin: Warm Labs Laboratory Tests Test 04/10/17 12:30 04/10/17 15:25 04/10/17 18:15 04/11/17 05:46 White Blood Count 9.1 x10^3/uL (4.0-11.0) 7.3 x10^3/uL (4.0-11.0) Red Blood Count 4.28 x10^6/uL (3.50-5.40) 3.97 x10^6/uL (3.50-5.40) Hemoglobin 11.5 g/dL (12.0-15.5) 11.1 g/dL (12.0-15.5) Hematocrit 34.9 % (36.0-47.0) 31.8 % (36.0-47.0) Mean Corpuscular Volume 82 fL (79-100) 80 fL (79-100) Mean Corpuscular Hemoglobin 27 pg (25-35) 28 pg (25-35) Mean Corpuscular Hemoglobin Concent 33 g/dL (31-37) 35 g/dL (31-37) Red Cell Distribution Width 13.9 % (11.5-14.5) 14.5 % (11.5-14.5) Platelet Count 421 x10^3/uL (140-400) 410 x10^3/uL (140-400) Neutrophils (%) (Auto) 82 % (31-73) 91 % (31-73) Lymphocytes (%) (Auto) 8 % (24-48) 6 % (24-48) Monocytes (%) (Auto) 7 % (0-9) 3 % (0-9) Eosinophils (%) (Auto) 1 % (0-3) 0 % (0-3) Basophils (%) (Auto) 1 % (0-3) 0 % (0-3) Neutrophils # (Auto) 7.5 x10^3uL (1.8-7.7) 6.6 x10^3uL (1.8-7.7) Lymphocytes # (Auto) 0.7 x10^3/uL (1.0-4.8) 0.5 x10^3/uL (1.0-4.8) Monocytes # (Auto) 0.7 x10^3/uL (0.0-1.1) 0.2 x10^3/uL (0.0-1.1) Eosinophils # (Auto) 0.1 x10^3/uL (0.0-0.7) 0.0 x10^3/uL (0.0-0.7) Basophils # (Auto) 0.1 x10^3/uL (0.0-0.2) 0.0 x10^3/uL (0.0-0.2) Prothrombin Time 13.3 SEC (11.7-14.0) Prothromb Time International Ratio 1.1 (0.8-1.1) Sodium Level 139 mmol/L (136-145) 141 mmol/L (136-145) Potassium Level 3.0 mmol/L (3.5-5.1) 4.0 mmol/L (3.5-5.1) Chloride Level 101 mmol/L (98-107) 104 mmol/L (98-107) Carbon Dioxide Level 29 mmol/L (21-32) 28 mmol/L (21-32) Anion Gap 9 (6-14) 9 (6-14) Blood Urea Nitrogen 6 mg/dL (7-20) 6 mg/dL (7-20) Creatinine 0.8 mg/dL (0.6-1.0) 0.6 mg/dL (0.6-1.0) Estimated GFR (Cockcroft-Gault) 87.4 121.8 Glucose Level 102 mg/dL (70-99) 130 mg/dL (70-99) Calcium Level 9.2 mg/dL (8.5-10.1) 9.1 mg/dL (8.5-10.1) Magnesium Level 1.5 mg/dL (1.8-2.4) Total Bilirubin 0.3 mg/dL (0.2-1.0) Direct Bilirubin 0.1 mg/dL (0.0-0.2) Aspartate Amino Transf (AST/SGOT) 18 U/L (15-37) Alanine Aminotransferase (ALT/SGPT) 22 U/L (14-59) Alkaline Phosphatase 84 U/L (46-116) Creatine Kinase 81 U/L (26-192) Creatine Kinase MB (Mass) 0.8 ng/mL (0.0-3.6) Creatine Kinase MB Relative Index 1.0 % (0-4) Troponin I Quantitative 0.032 ng/mL (0.000-0.055) 0.038 ng/mL (0.000-0.055) 0.029 ng/mL (0.000-0.055) ML-Vty-E-Type Natriuretic Peptide 310 pg/mL (0-124) Total Protein 7.8 g/dL (6.4-8.2) Albumin 3.1 g/dL (3.4-5.0) Segmented Neutrophils % 90 % (35-66) Lymphocytes % 8 % (24-48) Monocytes % 2 % (0-10) Platelet Estimate Adequate (ADEQUATE) Medications Active Scripts Medications Dose Route/Sig Max Daily Dose Days Date Category Oxycontin (Oxycodone HCl) 10 Mg Tab.er.12h 20 Mg PO Q12HR 30 04/01/17 Rx Oxycodone-Acetaminophen 5-325 (Oxycodone Hcl/Acetaminophen) 1 Each Tablet 1 Tab PO PRN Q4HRS PRN 30 04/01/17 Rx Montelukast Sodium Tablet (Montelukast Sodium) 10 Mg Tablet 10 Mg PO QHS 30 04/01/17 Rx Colace (Docusate Sodium) 100 Mg Capsule 100 Mg PO BID 30 04/01/17 Rx Simbrinza 1%-0.2% Eye Drops (Brinzolamide/Brimonid Tart) 8 Ml Drops.susp 1 Drop OU BID 03/27/17 Reported Budesonide 0.25 Mg/2 Ml Ampul.neb 1 Vial NEB BID 30 03/02/17 Rx Duoneb 0.5-3(2.5) Mg/3 Ml (Albuterol/Ipratropium) 3 Ml Ampul.neb 3 Ml NEB RTQID 30 03/02/17 Rx Benzonatate 100 Mg Capsule 100 Mg PO PRN TID PRN 10 03/02/17 Rx Amlodipine Besylate 5 Mg Tablet 5 Mg PO DAILY 30 03/02/17 Rx Hyzaar 100-25 Tablet (Losartan/Hydrochlorothiazide) 1 Each Tablet 1 Tab PO DAILY 02/25/17 Reported Latanoprost 2.5 Ml Drops 1 Drop EACHEYE QHS 04/08/16 Reported Vitamin B-12 (Cyanocobalamin (Vitamin B-12)) 1,000 Mcg Tablet 1 Tab PO DAILY 03/25/16 Reported Vitamin D3 (Cholecalciferol (Vitamin D3)) 5,000 Unit Tablet 1 Tab PO DAILY 03/25/16 Reported Impression . 1. Mild to moderate hemoptysis secondary to her known bronchogenic carcinoma. 2. Stage IV bronchogenic carcinoma, recent stroke with a recent CT revealing evidence of progression of her disease. 3. Tobacco dependence in remission. 4. Chronic obstructive pulmonary disease. 5. Hypertension. Plan . 1. We will monitor for further hemoptysis, initiate Robitussin with codeine. 2. If the patients hemoptysis worsens ,she will require interventional radiologist to perform a pulmonary angiogram with embolization. 3. Radiation oncologist to initiate radiation treatment to the left upper lobe bronchus 4. Otherwise continue current support. ELISHA OAKLEY MD Apr 12, 2017 11:38
--- NOTE | 2017-04-12 14:20 | PDOC ---
SUBJECTIVE Subjective Patient off the floor OBJECTIVE Vital Signs Vital Signs Date Time Temp Pulse Resp B/P (MAP) Pulse Ox O2 Delivery O2 Flow Rate FiO2 04/12/17 11:39 Nasal Cannula 3.0 04/12/17 11:19 98.0 106 18 147/80 (102) 96 Nasal Cannula 2.0 98.0 04/12/17 09:24 80 151/85 04/12/17 09:24 Nasal Cannula 2.0 04/12/17 09:22 80 151/85 04/12/17 07:59 100 Nasal Cannula 3.0 04/12/17 07:58 100 Nasal Cannula 3.0 04/12/17 07:15 98.5 80 18 151/85 (107) 97 Nasal Cannula 2.0 98.5 04/12/17 01:41 20 04/11/17 23:05 97.6 107 18 150/85 (106) 97 Nasal Cannula 2.0 97.6 04/11/17 21:41 20 04/11/17 20:00 Nasal Cannula 2.0 04/11/17 19:50 98.0 110 20 138/67 (90) 96 Nasal Cannula 2.0 98.0 04/11/17 19:37 97 Nasal Cannula 3.0 04/11/17 17:56 98 Nasal Cannula 3.0 04/11/17 15:00 98.0 112 20 143/84 (103) 95 Nasal Cannula 2.0 98.0 I & O Intake and Output 04/13/17 07:00 Intake Total 530 ml Output Total 350 ml Balance 180 ml Intake Oral 530 ml Output Urine Total 350 ml # Bowel Movements 1 PHYSICAL EXAM Physical Exam No change in physical exam ASSESSMENT/PLAN Assessment/Plan 1. Mild to moderate hemoptysis secondary to known bronchogenic carcinoma. 2. Stage IV bronchogenic carcinoma, squamous 3. Chronic obstructive pulmonary disease. 4. Hypertension. Plans to start radiation therapy if no further hemoptysis hopefully home tomorrow after radiation Problems: JANNA NOLEN MD Apr 12, 2017 14:20
[2017-04-12 15:04] VITALS: BP 136/84
[2017-04-12 19:48] VITALS: BP 149/83
[2017-04-12] MEDS: LATANOPROST 0.005% OPHTH SOLUTION 2.5ML BOTTLE. OU SCH (20:40)
[2017-04-12] MEDS: MONTELUKAST SODIUM 10 MG TABLET. PO SCH (20:41)
[2017-04-12 23:00] VITALS: BP 140/91
[2017-04-13 03:00] VITALS: BP 166/97
[2017-04-13 05:02] LABS: HEMATOCRIT 32.8 % (36.0-47.0); HEMOGLOBIN 11.2 g/dL (12.0-15.5); RED BLOOD COUNT 4.06 x10^6/uL (3.50-5.40); RED CELL DISTRIBUTION WIDTH 14.7 % (11.5-14.5); WHITE BLOOD COUNT 13.5 x10^3/uL (4.0-11.0)
[2017-04-13] MEDS: methylPREDNISolone SOD SUCC PF 40 MG/ML VIAL. IV SCH ×2 (05:17→14:04)
[2017-04-13 05:48] LABS: CALCIUM 9.5 mg/dL (8.5-10.1); CREATININE 0.9 mg/dL (0.6-1.0); GFR 76.3; POTASSIUM 3.9 mmol/L (3.5-5.1)
[2017-04-13] MEDS: IPRATRPIUM/ALBUTEROL 0.5/2.5MG 3 ML NEBU. NEB SCH ×2 (07:19→10:56)
[2017-04-13] MEDS: BUDESONIDE 0.5 MG/2 ML NEBU. NEB SCH (07:19)
[2017-04-13 07:30] VITALS: BP 179/104
[2017-04-13] MEDS: DORZOLAMIDE 2% OPHTH SOLUTION 10ML BOTTLE. OU SCH (08:16)
[2017-04-13] MEDS: DOCUSATE SODIUM 100 MG CAPSULE. PO SCH (08:17)
[2017-04-13] MEDS: BRIMONIDINE 0.2% OPHTH SOLUTION 5ML BOTTLE. OU SCH (08:17)
[2017-04-13] MEDS: LOSARTAN POTASSIUM 50 MG TABLET. PO SCH (08:18)
[2017-04-13] MEDS: CHOLECALCIFEROL (VITAMIN D3) 5,000 UNIT CAPSULE PO SCH (08:18)
[2017-04-13] MEDS: PROMETH/CODEINE 6.25/10MG 5 ML SYRUP. PO SCH ×2 (08:18→14:04)
[2017-04-13] MEDS: CYANOCOBALAMIN (VITAMIN B-12) 1,000 MCG TABLET. PO SCH (08:18)
[2017-04-13] MEDS: hydroCHLOROthiazide 25 MG TABLET PO SCH (08:18)
[2017-04-13] MEDS: amLODIPine BESYLATE 5 MG TABLET PO SCH (08:18)
[2017-04-13] MEDS: FAMOTIDINE 20 MG TABLET. PO SCH (08:18)
[2017-04-13] MEDS: oxyCODONE ER 10 MG TAB.ER.12H PO SCH (08:19)
[2017-04-13] MEDS ORDERED: METO25TA9 PO (09:31)
--- NOTE | 2017-04-13 09:33 | PDOC ---
SUBJECTIVE Subjective feels better no further hemoptysis OBJECTIVE Vital Signs Vital Signs Date Time Temp Pulse Resp B/P (MAP) Pulse Ox O2 Delivery O2 Flow Rate FiO2 04/13/17 08:19 Room Air 04/13/17 08:18 83 179/104 04/13/17 08:18 83 179/104 04/13/17 07:34 Room Air 04/13/17 07:30 98.0 83 16 179/104 (129) 92 Room Air 98.0 04/13/17 07:30 93 Room Air 04/13/17 03:00 97.5 97 18 166/97 (120) 96 Nasal Cannula 2.0 97.5 04/12/17 23:00 97.5 101 18 140/91 (107) 93 Room Air 97.5 04/12/17 21:15 Nasal Cannula 2.0 04/12/17 20:41 20 04/12/17 20:22 Nasal Cannula 2.0 04/12/17 20:21 93 Room Air 04/12/17 20:00 Nasal Cannula 2.0 04/12/17 19:48 98.2 98 18 149/83 (105) 99 Room Air 98.2 04/12/17 16:15 Nasal Cannula 3.0 04/12/17 15:04 98.8 100 20 136/84 (101) 97 Nasal Cannula 2.0 98.8 04/12/17 13:30 Room Air 04/12/17 11:39 Nasal Cannula 3.0 04/12/17 11:19 98.0 106 18 147/80 (102) 96 Nasal Cannula 2.0 98.0 PHYSICAL EXAM Physical Exam no change ASSESSMENT/PLAN Assessment/Plan Bp elevated add B prakash again, continue XRT out pt, plan home later today Problems: COMMENT Lab Laboratory Tests Test 04/13/17 03:00 White Blood Count 13.5 x10^3/uL (4.0-11.0) Red Blood Count 4.06 x10^6/uL (3.50-5.40) Hemoglobin 11.2 g/dL (12.0-15.5) Hematocrit 32.8 % (36.0-47.0) Mean Corpuscular Volume 81 fL (79-100) Mean Corpuscular Hemoglobin 28 pg (25-35) Mean Corpuscular Hemoglobin Concent 34 g/dL (31-37) Red Cell Distribution Width 14.7 % (11.5-14.5) Platelet Count 428 x10^3/uL (140-400) Sodium Level 140 mmol/L (136-145) Potassium Level 3.9 mmol/L (3.5-5.1) Chloride Level 102 mmol/L (98-107) Carbon Dioxide Level 28 mmol/L (21-32) Anion Gap 10 (6-14) Blood Urea Nitrogen 16 mg/dL (7-20) Creatinine 0.9 mg/dL (0.6-1.0) Estimated GFR (Cockcroft-Gault) 76.3 Glucose Level 124 mg/dL (70-99) Calcium Level 9.5 mg/dL (8.5-10.1) JANNA NOLEN MD Apr 13, 2017 09:33
--- NOTE | 2017-04-13 09:33 | PDOC3 ---
Discharge Summary* Date of Admission: Apr 10, 2017 Date of Discharge: Apr 13, 2017 Admitting Diagnosis Problems Medical Problems: (1) Hemoptysis Status: Acute Problems: Final Diagnosis 1. Mild to moderate hemoptysis secondary to her known bronchogenic carcinoma. 2. 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 Chronic obstructive pulmonary disease. 4. Hypertension. Problems Medical Problems: (1) Hemoptysis Status: Acute CONSULTS oncology, radiation oncology, pulmonary Procedures CT chest , CXR, radiation of chest mass, steroids Brief Hospital Course Ms. Segura is a 66 old [sex] who presented with [ ] Disposition/Orders: D/C to Home CONDITION AT DISCHARGE: Stable Diet: Cardiac Scheduled Amlodipine Besylate (Amlodipine Besylate), 5 MG PO DAILY Brinzolamide/Brimonid Tart (Simbrinza 1%-0.2% Eye Drops), 1 DROP OU BID, ( Reported) Budesonide (Budesonide), 1 VIAL NEB BID Cholecalciferol (Vitamin D3) (Vitamin D3), 1 TAB PO DAILY, (Reported) Cyanocobalamin (Vitamin B-12) (Vitamin B-12), 1 TAB PO DAILY, (Reported) Docusate Sodium (Colace), 100 MG PO BID Ipratropium/Albuterol Sulfate (Duoneb 0.5-3(2.5) Mg/3 Ml), 3 ML NEB RTQID Latanoprost (Latanoprost), 1 DROP EACHEYE QHS, (Reported) Losartan/Hydrochlorothiazide (Hyzaar 100-25 Tablet), 1 TAB PO DAILY, (Reported) Metoprolol Succinate (Metoprolol Succinate ( Xl )), 2 TAB PO DAILY Montelukast Sodium (Montelukast Sodium Tablet), 10 MG PO QHS Oxycodone Hcl (Oxycontin), 20 MG PO Q12HR Scheduled PRN Benzonatate (Benzonatate), 100 MG PO PRN TID PRN for cough Oxycodone Hcl/Acetaminophen (Oxycodone-Acetaminophen 5-325), 1 TAB PO PRN Q4HRS PRN for PAIN FOLLOW UP APPOINTMENT: Dr. Nolen 1 week recheck Bp started back on Metoprolol in addition to other Bp meds Time Spent Total time spent with patient [] minutes for coordination of care, counseling, and education. JANNA NOLEN MD Apr 13, 2017 09:33
[2017-04-13 11:06] VITALS: BP 141/94
--- NOTE | 2017-04-13 12:46 | CONS ---
DATE OF CONSULTATION: REFERRING PHYSICIAN: Shun Grewal MD. 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 She experienced a collapse of the left lung in the past which did improve with prior bronchoscopy during a previous admission. She has known osseous metastatic disease and subcutaneous metastatic disease. She has undergone palliative radiation therapy to her left pubic bone metastasis completing 20 Gy here on 04/04/2017 and resection of a midline back subcutaneous mass which confirmed squamous cell carcinoma. She is now readmitted for recurrent hemoptysis. We were asked to see her regarding palliative radiation therapy. ICD10 C34.92, C77.1, C79.51, C79.89. HISTORY OF PRESENT ILLNESS: The patient is a 66-year-old woman who noted gross hemoptysis on Tuesday while at [employer]. On 04/10/2017, she noted gross bleeding of approximately 1/3rd cup in volume. Following this single episode, it resolved. She has had persistent cough since then and some level of increased labored breathing. She has had no chest pain, nausea, vomiting or headaches. Reimaging of the chest including a CT from 04/10/2017 did reveal increased volume loss of the left lung, a nodular lesion in the apex of the right lung, unchanged in size measuring approximately 1 cm in size and a right lower lobe nodule increased in size from 5 to 9 mm. Central disease in the left chest showed occlusion of the bronchi beyond the left mainstem bronchus. There was distal round atelectasis beyond the primary mass which could not be distinguished from metastatic disease. She had cystic change in the liver likely benign. Since admission, she has had persistent cough with no hemoptysis. Her shortness of breath is stable. She initially presented in 02/2017 with increased shortness of breath, left hip pain and transient hemoptysis, which cleared at that time. Chest x-ray in 02/2017 revealed bilateral interstitial opacities consistent with chronic interstitial pneumonitis and/or fibrosis with borderline left hilar adenopathy. Initial CT scan in 02/2017 revealed mediastinal adenopathy extending into the distal paratracheal and left mainstem bronchus region narrowing the distal left mainstem bronchus to the point of complete obstruction. There were nodular changes in the base of the right lung of uncertain significance. Liver revealed simple cyst, likely benign. CT-guided biopsy was attempted at which time she had a complete collapse of the left lung and biopsy was not pursued. She then underwent bronchoscopy with mucus plug removal and reexpansion of the left lung was confirmed on followup chest x-ray. She underwent endoscopic ultrasonography and biopsy at [facility]. This revealed irregular mass in the left hilum. A fine needle aspirate for cytology was performed, highly suspicious for adenocarcinoma. Formal cytology report was not available during that admission. She had increasing left hip pain to the level of 10 on a 10 scale of pain limiting her ambulation and weightbearing. MRI scan revealed medial left acetabular mass extending from the left pubic bone into the medial acetabulum compatible with metastatic disease. Bone scan revealed subtle uptake in the left pubic bone compatible with metastatic disease. She then received 20 Gy of palliative radiation to the left pubic bone acetabular region completed on 04/04/2017. Following that, she had significant improvement in her pain and was able to resume ambulation. Her pain now is 99% absent, occasionally occurs up to 2-3 on a 10 scale of pain. She continues to use the same analgesic therapy. She did undergo resection of the subcutaneous midline mass present in the low thoracic region by Dr. Marilee Daigle during her prior hospitalization which did confirm squamous cell carcinoma. Biomarker assessment was requested at that time, the results of which were still pending. PAST MEDICAL HISTORY: Remarkable for hysterectomy for endometriosis, resection of ovarian cysts, 3 pregnancies and hypertension. ALLERGIES: ERYTHROMYCIN. MEDICATIONS: See hospital list. FAMILY HISTORY: Mother had breast cancer, at age 43 from this. Sister had lung cancer, was a smoker and at age 69 from this. Aunt had breast cancer in her 80s. Three cousins have had breast cancers in their 30s, 70s and 80s. SOCIAL HISTORY: Lives with her friend, Ned Conte. She has 2 daughters. She has smoked 1/2-1 pack a day from age 20 to age 46, quit 20 years ago, minimal use of alcohol. 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 She enjoys caring for 8-year-old grandson. PHYSICAL EXAMINATION: GENERAL: Revealed a pleasant, articulate woman in no acute distress, minimal cough, nonproductive during this evaluation. HEENT: Unremarkable. LYMPH NODES: She had no palpable cervical or supraclavicular adenopathy. LUNGS: Left field had decreased breath sounds. No wheezes or rhonchi, right field was clear with good breath sounds. ABDOMEN: Unremarkable. EXTREMITIES: Revealed no clubbing, cyanosis or edema. NEUROLOGIC: Revealed no deficits. LABORATORY STUDIES: Hemoglobin 11.1, white count 7300, platelet count 410,000. Creatinine 0.6. Electrolytes normal. ASSESSMENT AND PLAN: In summary, my impression is that of stage IV (T3N2M1) squamous cell carcinoma of the left central lung, subcutaneous tissues and bone. She has had a good palliative response to her treatment to her left pubic bone and acetabulum with marked improvement of her pain. She now has recurrent hemoptysis and recurrent compromise of her proximal left airways resulting in volume loss of the left lung. At this time, I do recommend palliative radiation therapy in an effort to open up her airways and prevent recurrent hemoptysis. I reviewed this with the patient as well as with Dr. Powers. Following our treatment, she will return to Dr. Powers to address systemic treatment either in the form of conventional chemotherapy or targeted therapy dependent on her biomarker assessment obtained from her resected subcutaneous metastasis. Thank you for allowing us to participate in her evaluation. NICOLE MOSQUERA MD DR: ROMERO/raul JOB#: [id number] / [id number] ELISHA Gleason MD, KIMBERLY MD RAJA, VINAY MD MTDD
--- NOTE | 2017-04-13 14:37 | PDOC ---
PULMONARY PROGRESS NOTES Subjective PT WITH NO INCREASE CHARISSA OR HEMOPTYSIS Vitals Vital Signs Date Time Temp Pulse Resp B/P (MAP) Pulse Ox O2 Delivery O2 Flow Rate FiO2 04/13/17 12:42 Room Air 04/13/17 11:06 98.3 99 16 141/94 (110) 100 2.0 98.3 General: Alert, No acute distress HEENT: Other Lungs: Other (DECREASE BS ON LEFT) Cardiovascular: S1, S2 Abdomen: Soft, Non-tender Neuro Exam: Alert Extremities: No Edema Skin: Warm Labs Laboratory Tests Test 04/13/17 03:00 White Blood Count 13.5 x10^3/uL (4.0-11.0) Red Blood Count 4.06 x10^6/uL (3.50-5.40) Hemoglobin 11.2 g/dL (12.0-15.5) Hematocrit 32.8 % (36.0-47.0) Mean Corpuscular Volume 81 fL (79-100) Mean Corpuscular Hemoglobin 28 pg (25-35) Mean Corpuscular Hemoglobin Concent 34 g/dL (31-37) Red Cell Distribution Width 14.7 % (11.5-14.5) Platelet Count 428 x10^3/uL (140-400) Sodium Level 140 mmol/L (136-145) Potassium Level 3.9 mmol/L (3.5-5.1) Chloride Level 102 mmol/L (98-107) Carbon Dioxide Level 28 mmol/L (21-32) Anion Gap 10 (6-14) Blood Urea Nitrogen 16 mg/dL (7-20) Creatinine 0.9 mg/dL (0.6-1.0) Estimated GFR (Cockcroft-Gault) 76.3 Glucose Level 124 mg/dL (70-99) Calcium Level 9.5 mg/dL (8.5-10.1) Laboratory Tests Test 04/13/17 03:00 White Blood Count 13.5 x10^3/uL (4.0-11.0) Red Blood Count 4.06 x10^6/uL (3.50-5.40) Hemoglobin 11.2 g/dL (12.0-15.5) Hematocrit 32.8 % (36.0-47.0) Mean Corpuscular Volume 81 fL (79-100) Mean Corpuscular Hemoglobin 28 pg (25-35) Mean Corpuscular Hemoglobin Concent 34 g/dL (31-37) Red Cell Distribution Width 14.7 % (11.5-14.5) Platelet Count 428 x10^3/uL (140-400) Sodium Level 140 mmol/L (136-145) Potassium Level 3.9 mmol/L (3.5-5.1) Chloride Level 102 mmol/L (98-107) Carbon Dioxide Level 28 mmol/L (21-32) Anion Gap 10 (6-14) Blood Urea Nitrogen 16 mg/dL (7-20) Creatinine 0.9 mg/dL (0.6-1.0) Estimated GFR (Cockcroft-Gault) 76.3 Glucose Level 124 mg/dL (70-99) Calcium Level 9.5 mg/dL (8.5-10.1) Medications Active Scripts Medications Dose Route/Sig Max Daily Dose Days Date Category Oxycontin (Oxycodone HCl) 10 Mg Tab.er.12h 20 Mg PO Q12HR 30 04/01/17 Rx Oxycodone-Acetaminophen 5-325 (Oxycodone Hcl/Acetaminophen) 1 Each Tablet 1 Tab PO PRN Q4HRS PRN 30 04/01/17 Rx Montelukast Sodium Tablet (Montelukast Sodium) 10 Mg Tablet 10 Mg PO QHS 30 04/01/17 Rx Colace (Docusate Sodium) 100 Mg Capsule 100 Mg PO BID 30 04/01/17 Rx Simbrinza 1%-0.2% Eye Drops (Brinzolamide/Brimonid Tart) 8 Ml Drops.susp 1 Drop OU BID 03/27/17 Reported Budesonide 0.25 Mg/2 Ml Ampul.neb 1 Vial NEB BID 30 03/02/17 Rx Duoneb 0.5-3(2.5) Mg/3 Ml (Albuterol/Ipratropium) 3 Ml Ampul.neb 3 Ml NEB RTQID 30 03/02/17 Rx Benzonatate 100 Mg Capsule 100 Mg PO PRN TID PRN 10 03/02/17 Rx Amlodipine Besylate 5 Mg Tablet 5 Mg PO DAILY 30 03/02/17 Rx Hyzaar 100-25 Tablet (Losartan/Hydrochlorothiazide) 1 Each Tablet 1 Tab PO DAILY 02/25/17 Reported Latanoprost 2.5 Ml Drops 1 Drop EACHEYE QHS 04/08/16 Reported Vitamin B-12 (Cyanocobalamin (Vitamin B-12)) 1,000 Mcg Tablet 1 Tab PO DAILY 03/25/16 Reported Vitamin D3 (Cholecalciferol (Vitamin D3)) 5,000 Unit Tablet 1 Tab PO DAILY 03/25/16 Reported Impression . 1. Mild to moderate hemoptysis secondary to her known bronchogenic carcinoma. 2. Stage IV bronchogenic carcinoma, with a recent CT revealing evidence of progression of her disease. 3. Tobacco dependence in remission. 4. Chronic obstructive pulmonary disease. 5. Hypertension. Plan . 1. NO further hemoptysis, 2. S/P radiation 3. continue current support. f/u as needed in office ELISHA OAKLEY MD Apr 13, 2017 14:37
== END 2017-04-13 15:33 | disposition home or self-care (01) | DRG 181 ==
LOC: ER 11:50 → 2 NORTH 13:05 → 5 NORTH 04-12 21:08
PROVIDERS: ADMIT Internal Medicine; ATTEND Internal Medicine
DX: C34.90 Malignant neoplasm of unspecified part of unspecified bronchus or lung (principal); R04.2 Hemoptysis; K92.0 Hematemesis; C79.51 Secondary malignant neoplasm of bone; J44.0 Chronic obstructive pulmonary disease with (acute) lower respiratory infection; K76.89 Other specified diseases of liver; F17.201 Nicotine dependence, unspecified, in remission; I10 Essential (primary) hypertension; M54.30 Sciatica, unspecified side; R59.0 Localized enlarged lymph nodes; M25.552 Pain in left hip; N80.1 Endometriosis of ovary; Z80.1 Family history of malignant neoplasm of trachea, bronchus and lung; R91.1 Solitary pulmonary nodule; Z80.3 Family history of malignant neoplasm of breast; Z85.118 Personal history of other malignant neoplasm of bronchus and lung; Z86.73 Personal history of transient ischemic attack (TIA), and cerebral infarction without residual deficits; Z90.710 Acquired absence of both cervix and uterus
CPT/HCPCS: 36415; 71010; 71250; 77290; 77295; 77300; 77334; 77412; 80048; 80076; 82553; 83735; 83880; 84484; 85007; 85025; 85027; 85610; 86850; 86900; 86901; 93005; 94250; 94640; 94760; J2920; J7060; J7620; J7626; 99285-25

== ENCOUNTER → 2017-04-28 | Outpatient (CLI) | payer BC ==
[2017-04-13 11:06] VITALS: BP 141/94
[~2017-04-28] MED LIST changes: +GADOBUTROL 7.5 MMOL/7.5 ML VIAL IV ONE; +METO-239 PO
--- NOTE | 2017-04-28 17:01 | RAD ---
MRI of the Brain without and with Contrast 04/28/2017 Clinical History: Lung cancer. Staging study. Technique: Unenhanced T1-weighted sagittal and axial and FLAIR, T2-weighted, gradient echo and diffusion-weighted axial images of the brain were obtained. After the intravenous administration of 7.5 cc of Gadavist, enhanced T1-weighted axial, sagittal and coronal images of the brain were obtained. Findings: No previous studies are available for comparison. There is generalized parenchymal atrophy. Patchy and small scattered areas of abnormally increased signal intensity are seen within the periventricular and subcortical white matter of both cerebral hemispheres on the FLAIR and T2-weighted images consistent with areas of minimal small vessel ischemic disease. No acute parenchymal abnormality is seen. No abnormal area of contrast enhancement is noted. No extra-axial fluid collection is seen. There is no MRI evidence of acute ischemia/infarction. Mild mucosal thickening in seen scattered throughout the paranasal sinuses. Normal flow voids are seen within the major vascular structures surrounding the brain parenchyma. Impression: No acute parenchymal abnormality is seen. There is no MRI evidence of metastatic disease involving the brain parenchyma. Electronically signed by: Aj Lau MD (04/28/2017 4:58 PM) [id number]
== END | disposition home or self-care (01) ==
LOC: MRI 14:52
PROVIDERS: ATTEND Internal Medicine Hematology & Oncology
DX: C34.02 Malignant neoplasm of left main bronchus (principal); C79.51 Secondary malignant neoplasm of bone; Z71.9 Counseling, unspecified
CPT/HCPCS: 70553; A9585

== ENCOUNTER 2017-05-01 20:49 | Emergency (ER) | payer BC ==
[~2017-05-01] VITALS: Ht 170.2 cm; Wt 83.5 kg
[~2017-05-01 20:49] MED LIST changes: -GADOBUTROL 7.5 MMOL/7.5 ML VIAL IV ONE
[2017-05-01 21:30] LABS: BASO % 1 % (0-3); EOS % 2 % (0-3); HEMATOCRIT 32.9 % (36.0-47.0); LYMPH # 0.5 x10^3/uL (1.0-4.8); LYMPH % 6 % (24-48); MEAN CORPUSCULAR HEMOGLOBIN 27 pg (25-35); MEAN CORPUSCULAR HGB CONC 33 g/dL (31-37); MEAN CORPUSCULAR VOLUME 81 fL (79-100); MONO % 10 % (0-9); NEUT % 81 % (31-73); PLATELET COUNT 290 x10^3/uL (140-400); RED BLOOD COUNT 4.04 x10^6/uL (3.50-5.40); RED CELL DISTRIBUTION WIDTH 14.8 % (11.5-14.5); WHITE BLOOD COUNT 8.3 x10^3/uL (4.0-11.0)
[2017-05-01 21:37] LABS: INR 1.1 (0.8-1.1); PROTHROMBIN TIME PATIENT 13.8 SEC (11.7-14.0)
[2017-05-01 21:46] LABS: CALCIUM 8.9 mg/dL (8.5-10.1); CREATININE 0.8 mg/dL (0.6-1.0); GFR 87.4; POTASSIUM 3.1 mmol/L (3.5-5.1)
[2017-05-01 21:52] LABS: ALBUMIN/GLOBULIN RATIO 0.6 (1.0-1.7); TOTAL BILIRUBIN 0.4 mg/dL (0.2-1.0); TOTAL PROTEIN 7.7 g/dL (6.4-8.2)
[2017-05-01] MEDS ORDERED: POTASSIUM CHLORIDE 20 MEQ TABLET.ER. PO ONE (22:00)
[2017-05-01 22:14] VITALS: BP 157/96
--- NOTE | 2017-05-01 22:22 | PHYS DOC ---
Past Medical History Past Medical History: Asthma, Cancer, COPD, Hypertension, Other Additional Past Medical Histor: sciatica, lung CA Past Surgical History: Hysterectomy, Other Additional Past Surgical Histo: MASS REMOVED FROM BACK AND HIP Alcohol Use: Rarely Drug Use: None Adult General Chief Complaint Chief Complaint: COUGH HPI HPI Patient is a 66 year old female who presents to the ER today secondary to hemoptysis. Patient reports that she had hemoptysis last night for short while she called the answering service for her oncologist and they reassured her and told to let her know if she starts coughing up more blood. Patient reports this evening she started having more coughing up of blood. She reports that she coughed up approximately 1/2 ounces of bloody sputum in a 2 hour period she spoke to the answering service and they recommended he come to the ER for further evaluation. Patient doesn't have a history significant for lung cancer with metastases to her bone and back. Patient is getting radiation and chemotherapy currently. Patient also has history of hypertension. Patient denies any diabetes liver or kidney pals. Patient has not had any prior strokes MIs PE or DVT. Patient is currently not on any blood thinners. Dr. Powers is her oncologist. Patient denies any other symptomatology. Patient has any fevers shakes chills nausea vomiting diarrhea chest pain shortness of breath cold or rhinorrhea other than hemoptysis that she is currently having. Patient is currently taking Phenergan with codeine, Delsym, and Tessalon Perles. Review of systems Constitutional: Denies fever or chills Eyes: Denies change in visual acuity, redness, or eye pain HENT: Denies nasal congestion or sore throat All other review systems are negative except as documented in the history of present illness portion. Physical exam Constitutional: Well developed, well nourished, no acute distress, non-toxic appearance. HENT: Normocephalic, atraumatic, bilateral external ears normal, oropharynx moist, no oral exudates, nose normal. Eyes: PERRLA, EOMI, conjunctiva normal, no discharge. Neck: Normal range of motion, no tenderness, supple, no stridor. Cardiovascular:Heart rate regular rhythm, Lungs & Thorax: Bilateral breath sounds clear to auscultation Abdomen: Bowel sounds normal, soft, no tenderness, no masses, no pulsatile masses. Skin: Warm, dry, no erythema, no rash. Back: No tenderness, no CVA tenderness. Extremities: No tenderness, no cyanosis, no clubbing, ROM intact, no edema. Neurologic: Alert and oriented X 3, normal motor function, normal sensory function, no focal deficits noted. Psychologic: Affect normal, judgement normal, mood normal. Patient's labs were all within normal limits. Patient's chest x-ray revealed decreased tumor burden to her left lung and around the hilum area. Patient was monitored in the ER for approximately 2 hours without any further episodes of hemoptysis. Case was discussed with Dr. Mendoza who is currently comfortable Dr. Powers. Labs were discussed with him as well as her vital signs. Given the amount of bleeding that she is having Dr. Mendoza feels that the patient will be stable for discharge to home safely with further outpatient evaluation with strict precautions to return the ER she has further increased hemoptysis. Case was discussed with the patient as well as Dr. Mendoza recommendation the patient is in complete agreement. Patient normal CBC, CMP, INR. Current Medications Current Medications Current Medications Medications (Trade) Dose Ordered Sig/Cristopher Start Time Stop Time Status Last Admin Dose Admin Potassium Chloride (Klor-Con) 40 meq 1X ONCE 05/01/17 22:00 05/01/17 22:01 DC Allergies Allergies Allergies Coded Allergies Type Severity Reaction Last Updated Verified erythromycin base Allergy Intermediate 04/10/17 Yes Current Patient Data Vital Signs Vital Signs Date Time Temp Pulse Resp B/P (MAP) Pulse Ox O2 Delivery O2 Flow Rate FiO2 05/01/17 21:03 98.2 107 24 167/89 (115) 86 Room Air 98.2 Lab Values Laboratory Tests Test 05/01/17 21:00 White Blood Count 8.3 x10^3/uL (4.0-11.0) Red Blood Count 4.04 x10^6/uL (3.50-5.40) Hemoglobin 11.0 g/dL (12.0-15.5) L Hematocrit 32.9 % (36.0-47.0) L Mean Corpuscular Volume 81 fL (79-100) Mean Corpuscular Hemoglobin 27 pg (25-35) Mean Corpuscular Hemoglobin Concent 33 g/dL (31-37) Red Cell Distribution Width 14.8 % (11.5-14.5) H Platelet Count 290 x10^3/uL (140-400) Neutrophils (%) (Auto) 81 % (31-73) H Lymphocytes (%) (Auto) 6 % (24-48) L Monocytes (%) (Auto) 10 % (0-9) H Eosinophils (%) (Auto) 2 % (0-3) Basophils (%) (Auto) 1 % (0-3) Neutrophils # (Auto) 6.7 x10^3uL (1.8-7.7) Lymphocytes # (Auto) 0.5 x10^3/uL (1.0-4.8) L Monocytes # (Auto) 0.9 x10^3/uL (0.0-1.1) Eosinophils # (Auto) 0.1 x10^3/uL (0.0-0.7) Basophils # (Auto) 0.0 x10^3/uL (0.0-0.2) Prothrombin Time 13.8 SEC (11.7-14.0) Prothrombin Time INR 1.1 (0.8-1.1) Sodium Level 138 mmol/L (136-145) Potassium Level 3.1 mmol/L (3.5-5.1) L Chloride Level 98 mmol/L (98-107) Carbon Dioxide Level 32 mmol/L (21-32) Anion Gap 8 (6-14) Blood Urea Nitrogen 6 mg/dL (7-20) L Creatinine 0.8 mg/dL (0.6-1.0) Estimated GFR (Cockcroft-Gault) 87.4 BUN/Creatinine Ratio 8 (6-20) Glucose Level 106 mg/dL (70-99) H Calcium Level 8.9 mg/dL (8.5-10.1) Total Bilirubin 0.4 mg/dL (0.2-1.0) Aspartate Amino Transferase (AST) 13 U/L (15-37) L Alanine Aminotransferase (ALT) 20 U/L (14-59) Alkaline Phosphatase 88 U/L (46-116) Total Protein 7.7 g/dL (6.4-8.2) Albumin 3.0 g/dL (3.4-5.0) L Albumin/Globulin Ratio 0.6 (1.0-1.7) L Laboratory Tests 05/01/17 21:00 Laboratory Tests 05/01/17 21:00 EKG EKG [] Radiology/Procedures Radiology/Procedures [] Course & Med Decision Making Course & Med Decision Making Pertinent Labs and Imaging studies reviewed. (See chart for details) [] Dragon Disclaimer Dragon Disclaimer This electronic medical record was generated, in whole or in part, using a voice recognition dictation system. Departure Departure Impression: Primary Impression: Hemoptysis Additional Impression: Lung cancer Disposition: HOME, SELF-CARE Condition: IMPROVED Referrals: JANNA NOLEN MD (PCP) Patient Instructions: Hemoptysis Additional Instructions: You were seen and evaluated today in the ER for the blood that your coughing up. The case was discussed with Dr. Mendoza and he feels that you are safe to be discharged home with close follow-up with them. Please make sure you return the ER. Further episodes of increased hemoptysis.(Coughing up blood) Problem Qualifiers BALAJI PITTMAN MD May 01, 2017 22:22
--- NOTE | 2017-05-02 09:39 | RAD ---
EXAM: Chest 2 views. HISTORY: Shortness of breath, hemoptysis. COMPARISON: 04/10/2017. FINDINGS: Frontal and lateral views of the chest are obtained. The previously noted left-sided infiltrates have improved but not completely resolved. There are mild airspace opacities in the right base. There is no pneumothorax or pleural effusion. The heart is not enlarged. IMPRESSION: 1. Left greater than right infiltrates have improved but not completely resolved. Ongoing follow-up is recommended.
== END 2017-05-01 22:45 | disposition home or self-care (01) ==
LOC: ER 20:49
DX: R04.2 Hemoptysis (principal); C34.90 Malignant neoplasm of unspecified part of unspecified bronchus or lung; J44.9 Chronic obstructive pulmonary disease, unspecified; I10 Essential (primary) hypertension; Z88.1 Allergy status to other antibiotic agents
CPT/HCPCS: 36415; 71020; 80053; 85025; 85610; 99285

== ENCOUNTER → 2017-07-14 | Outpatient (CLI) | payer BC ==
[~2017-07-14] MED LIST changes: +BENZ-8 PO; -BENZ100C15 PO
--- NOTE | 2017-07-14 12:13 | RAD ---
FDG tumor localization scan, PET/CT, 07/14/2017: History: Staging lung cancer Following IV injection of 14.4 mCi of 18 F-FDG, imaging was performed from the skull base to the proximal thighs. The noncontrast CT component was performed for attenuation correction and anatomic localization purposes rather than for primary diagnosis. The patient's blood glucose level at the time of injection was 101 MG/DL. Numerous foci of abnormal FDG uptake are present. Within the chest there is a small hypermetabolic nodule in the medial aspect of left upper lobe. A small hypermetabolic node is present in the upper mediastinum adjacent to the esophagus. Several additional hypermetabolic pulmonary nodules are seen as well as hypermetabolic adenopathy at the left hilum. The maximum SUV at the left hilum is 8-9. There are hypermetabolic lytic lesions with sclerotic margins in the proximal humeri bilaterally and in the right scapula. There are hypermetabolic subcutaneous nodules including the proximal left upper arm, the left lateral chest wall and the lower thoracic back at the midline. This prominent lower back lesion measures 4.5 cm and demonstrates a maximum SUV of 15. There is a 17 mm hypermetabolic nodule in the left breast. Several hypermetabolic lesions are present in the liver. There are multiple additional hypermetabolic lytic bone lesions including both iliac bones medially, the right upper sacrum, the left superior pubic ramus at its junction with the acetabulum, the left humeral head as well as several levels in the lumbar spine, most intense at L3. There are additional hypermetabolic subcutaneous nodules in the left inguinal region and right upper thigh anteriorly. There is a hypermetabolic mass in the thigh musculature laterally on the right. IMPRESSION: Extensive multifocal metastatic disease including the lungs, liver, multiple bones and multiple subcutaneous foci including the left breast, as described above.
== END | disposition home or self-care (01) ==
LOC: PETSC 09:04
PROVIDERS: ATTEND Internal Medicine Hematology & Oncology
DX: C34.02 Malignant neoplasm of left main bronchus (principal); C78.7 Secondary malignant neoplasm of liver and intrahepatic bile duct; N63.20 Unspecified lump in the left breast, unspecified quadrant; R53.83 Other fatigue
CPT/HCPCS: 78815; A9552

== ENCOUNTER → 2017-08-16 | Outpatient (CLI) | payer MEDICARE, BC | END | disposition home or self-care (01) | LOC: PMGWOUND 11:49 | DX: T81.89XD Other complications of procedures, not elsewhere classified, subsequent encounter (principal); L98.422 Non-pressure chronic ulcer of back with fat layer exposed; I10 Essential (primary) hypertension; E78.5 Hyperlipidemia, unspecified; J44.9 Chronic obstructive pulmonary disease, unspecified; K21.9 Gastro-esophageal reflux disease without esophagitis; Z85.118 Personal history of other malignant neoplasm of bronchus and lung; Z90.710 Acquired absence of both cervix and uterus; Z87.891 Personal history of nicotine dependence; Z72.89 Other problems related to lifestyle; Y83.8 Other surgical procedures as the cause of abnormal reaction of the patient, or of later complication, without mention of misadventure at the time of the procedure | CPT/HCPCS: 97597 ==

== ENCOUNTER → 2017-09-02 | Outpatient (CLI) | payer MEDICARE, BC ==
[~2017-09-02] MED LIST changes: -ALEN70TA5 PO; -ALPR0.5T PO; -AMLO5TAB2 PO; -AMOX1TAB11 PO; -ASPI81TA50 PO; -BENZ-8 PO; -BRIN8DRO OU; -BUDE0.25 NEB; -CHOL500016 PO; -COD1CAPS2 PO; +CONTRAST GIVEN MC; -CYAN10005 PO; -CYCL10TA2 PO; -DOCU-109 PO; -DORZ10DR7 EACHEYE; -EZET10TA18 PO; -FLUO40CA9 PO; -GLYB5TAB3 PO; -IPRA3AMP NEB; -LATA2.5D3 EACHEYE; -LIDO20SO PO; -LOSA1TAB12 PO; -LOSA50TA6 PO; -METF-620 PO; -METO-239 PO; -METO-269 PO; -MONT10TA9 PO; -NAPR220C4 PO; -OXYC10TA45 PO; -OXYC1TAB7 PO; -PANT40TA3 PO; -PRED20TA PO; -SUMA100T3 PO; -TRAM50TA PO; -TRAZ50TA15 PO; -VENL150C PO; -VIT1CAPS7 PO
[2017-09-02] MEDS: IOHEXOL 240 MG/ML 50ML VIAL. PO (10:30)
[2017-09-02] MEDS: IOHEXOL 300 MG/ML 100ML VIAL. IV (11:42)
== END | disposition home or self-care (01) ==
LOC: NM 10:26
DX: Z12.2 Encounter for screening for malignant neoplasm of respiratory organs (principal); C34.02 Malignant neoplasm of left main bronchus; C79.51 Secondary malignant neoplasm of bone; N63.20 Unspecified lump in the left breast, unspecified quadrant
CPT/HCPCS: 71260; 74177; 78306; 96374; A9503; Q9966; Q9967

== ENCOUNTER → 2017-09-05 | Outpatient (CLI) | payer MEDICARE, BC | END | disposition home or self-care (01) | LOC: PMGWOUND 08:00 | DX: T81.89XD Other complications of procedures, not elsewhere classified, subsequent encounter (principal); L98.422 Non-pressure chronic ulcer of back with fat layer exposed; I10 Essential (primary) hypertension; E78.5 Hyperlipidemia, unspecified; J44.9 Chronic obstructive pulmonary disease, unspecified; K21.9 Gastro-esophageal reflux disease without esophagitis; Z85.118 Personal history of other malignant neoplasm of bronchus and lung; Z90.710 Acquired absence of both cervix and uterus; Z87.891 Personal history of nicotine dependence; Z72.89 Other problems related to lifestyle; Y83.8 Other surgical procedures as the cause of abnormal reaction of the patient, or of later complication, without mention of misadventure at the time of the procedure | CPT/HCPCS: 97597 ==

== ENCOUNTER 2017-09-07 09:31 | Day surgery (SDC) | payer MEDICARE, BC ==
[~2017-09-07 09:31] MED LIST changes: -CONTRAST GIVEN MC; +DEXAMETHASONE SOD PHOS 20 MG/5 ML VIAL.; +HYDROmorphone 2 MG/ML VIAL IV; +LIDOCAINE 1% PF 2 ML VIAL. ID; +LIDOCAINE 2% PF Vial for OR 5 ML VIAL.; +MIDAZOLAM HCL/PF 2 MG/2 ML VIAL.; +ONDANSETRON PF 4 MG/2 ML VIAL.; +ONDANSETRON PF 4 MG/2 ML VIAL. IV; +PROCHLORPERAZINE 10 MG/2 ML VIAL. IV; +PROPOFOL 20 ML IV; +ceFAZolin 2GM PREMIX 2 GM/50 ML BAG IV; +fentaNYL PF VIAL 100 MCG/2 ML VIAL; +fentaNYL PF VIAL 100 MCG/2 ML VIAL IV
[2017-09-07] MEDS: IV RINGERS,LACTATED 1000ML 1,000 ML IV ×3 (10:26)
[2017-09-07] MEDS ORDERED: LIDOCAINE 1% PF 30 ML VIAL. ×3 (10:31)
[2017-09-07] MEDS ORDERED: PHENYLEPHRINE in 0.9% NACL PF 1 MG/10 ML SYRINGE. IV ×3 (11:07)
[2017-09-07] MEDS: HEPARIN SODIUM 5,000 UNIT in IV NORMAL SALINE 500ML BAG 500 ML IRR ×3 (11:25)
[2017-09-07] MEDS ORDERED: fentaNYL PF VIAL 100 MCG/2 ML VIAL ×3 (12:06)
[2017-09-07] MEDS: fentaNYL PF VIAL 100 MCG/2 ML VIAL IV ×6 (12:09→12:19)
[2017-09-07] MEDS ORDERED: MORPHINE SULFATE 2 MG/ML DISP.SYRIN. ×3 (12:28)
[2017-09-07] MEDS: MORPHINE SULFATE 2 MG/ML DISP.SYRIN. IV ×6 (12:31→12:46)
[2017-09-07] MEDS ORDERED: oxyCODONE/APAP 5/325 1 TAB TABLET ×3 (12:49)
[2017-09-07] MEDS: oxyCODONE/APAP 5/325 1 TAB TABLET PO ×3 (12:51)
== END 2017-09-07 13:30 | disposition home or self-care (01) ==
LOC: SURG 09:31
DX: C34.90 Malignant neoplasm of unspecified part of unspecified bronchus or lung (principal); Z79.82 Long term (current) use of aspirin; E78.00 Pure hypercholesterolemia, unspecified; Z79.899 Other long term (current) drug therapy; I10 Essential (primary) hypertension; E78.5 Hyperlipidemia, unspecified; J44.9 Chronic obstructive pulmonary disease, unspecified; Z90.710 Acquired absence of both cervix and uterus; Z87.39 Personal history of other diseases of the musculoskeletal system and connective tissue; M81.0 Age-related osteoporosis without current pathological fracture; Z88.1 Allergy status to other antibiotic agents; Z98.890 Other specified postprocedural states; Z87.891 Personal history of nicotine dependence; Z82.49 Family history of ischemic heart disease and other diseases of the circulatory system; Z80.49 Family history of malignant neoplasm of other genital organs
CPT/HCPCS: 36556; 36561; 71045; 77001; C1788; J0690; J1100; J1644; J2250; J2270; J2370; J2405; J2704; J3010; J7040; J7120

== ENCOUNTER → 2017-09-26 | Outpatient (CLI) | payer MEDICARE, BC | END | disposition home or self-care (01) | LOC: PMGWOUND 09:00 | DX: T81.89XD Other complications of procedures, not elsewhere classified, subsequent encounter (principal); L98.422 Non-pressure chronic ulcer of back with fat layer exposed; I10 Essential (primary) hypertension; J44.9 Chronic obstructive pulmonary disease, unspecified; E78.00 Pure hypercholesterolemia, unspecified; K21.9 Gastro-esophageal reflux disease without esophagitis; Z85.118 Personal history of other malignant neoplasm of bronchus and lung; Z90.710 Acquired absence of both cervix and uterus; Z87.891 Personal history of nicotine dependence; Z72.89 Other problems related to lifestyle; Y83.8 Other surgical procedures as the cause of abnormal reaction of the patient, or of later complication, without mention of misadventure at the time of the procedure | CPT/HCPCS: 97597 ==

== ENCOUNTER → 2017-10-10 | Outpatient (CLI) | payer MEDICARE, BC | END | disposition home or self-care (01) | LOC: PMGWOUND 09:06 | DX: T81.89XD Other complications of procedures, not elsewhere classified, subsequent encounter (principal); L98.422 Non-pressure chronic ulcer of back with fat layer exposed; I10 Essential (primary) hypertension; J44.9 Chronic obstructive pulmonary disease, unspecified; E78.00 Pure hypercholesterolemia, unspecified; K21.9 Gastro-esophageal reflux disease without esophagitis; Z85.118 Personal history of other malignant neoplasm of bronchus and lung; Z90.710 Acquired absence of both cervix and uterus; Z87.891 Personal history of nicotine dependence; Z72.89 Other problems related to lifestyle; Y83.8 Other surgical procedures as the cause of abnormal reaction of the patient, or of later complication, without mention of misadventure at the time of the procedure | CPT/HCPCS: 97597 ==

== ENCOUNTER → 2017-10-14 | Outpatient (CLI) | payer MEDICARE, BC ==
[2017-10-14] MEDS: GADOBUTROL 7.5 MMOL/7.5 ML VIAL IV (11:02)
== END | disposition home or self-care (01) ==
LOC: MRI 10:01
DX: C34.02 Malignant neoplasm of left main bronchus (principal)
CPT/HCPCS: 70553; A9585

== ENCOUNTER → 2017-10-24 | Outpatient (CLI) | payer MEDICARE, BC | END | disposition home or self-care (01) | LOC: PMGWOUND 08:59 | DX: T81.89XD Other complications of procedures, not elsewhere classified, subsequent encounter (principal); L98.422 Non-pressure chronic ulcer of back with fat layer exposed; L97.121 Non-pressure chronic ulcer of left thigh limited to breakdown of skin; I10 Essential (primary) hypertension; J44.9 Chronic obstructive pulmonary disease, unspecified; C79.2 Secondary malignant neoplasm of skin; E78.00 Pure hypercholesterolemia, unspecified; K21.9 Gastro-esophageal reflux disease without esophagitis; Z85.118 Personal history of other malignant neoplasm of bronchus and lung; Z90.710 Acquired absence of both cervix and uterus; Z87.891 Personal history of nicotine dependence; Y83.8 Other surgical procedures as the cause of abnormal reaction of the patient, or of later complication, without mention of misadventure at the time of the procedure | CPT/HCPCS: 97597 ==

== ENCOUNTER → 2017-10-28 | Outpatient (CLI) | payer MEDICARE, BC ==
[~2017-10-28] MED LIST changes: +CONTRAST GIVEN MC; -DEXAMETHASONE SOD PHOS 20 MG/5 ML VIAL.; -HYDROmorphone 2 MG/ML VIAL IV; +IOHEXOL 240 MG/ML 50ML VIAL. PO; +IOHEXOL 300 MG/ML 100ML VIAL. IV; -LIDOCAINE 1% PF 2 ML VIAL. ID; -LIDOCAINE 2% PF Vial for OR 5 ML VIAL.; -MIDAZOLAM HCL/PF 2 MG/2 ML VIAL.; -ONDANSETRON PF 4 MG/2 ML VIAL.; -ONDANSETRON PF 4 MG/2 ML VIAL. IV; -PROCHLORPERAZINE 10 MG/2 ML VIAL. IV; -PROPOFOL 20 ML IV; -ceFAZolin 2GM PREMIX 2 GM/50 ML BAG IV; -fentaNYL PF VIAL 100 MCG/2 ML VIAL; -fentaNYL PF VIAL 100 MCG/2 ML VIAL IV
[2017-10-28] MEDS: IOHEXOL 300 MG/ML 100ML VIAL. IV (10:15)
== END | disposition home or self-care (01) ==
LOC: CT 10:00
DX: C34.02 Malignant neoplasm of left main bronchus (principal); S32.592A Other specified fracture of left pubis, initial encounter for closed fracture; C79.89 Secondary malignant neoplasm of other specified sites; J44.9 Chronic obstructive pulmonary disease, unspecified; I10 Essential (primary) hypertension; Z87.891 Personal history of nicotine dependence; X58.XXXA Exposure to other specified factors, initial encounter; Y93.89 Activity, other specified; Y92.89 Other specified places as the place of occurrence of the external cause; Y99.8 Other external cause status
CPT/HCPCS: 71260; 74177; Q9966; Q9967

== ENCOUNTER → 2017-11-07 | Outpatient (CLI) | payer MEDICARE, BC | END | disposition home or self-care (01) | LOC: PMGWOUND 09:02 | DX: T81.89XD Other complications of procedures, not elsewhere classified, subsequent encounter (principal); L98.422 Non-pressure chronic ulcer of back with fat layer exposed; L97.121 Non-pressure chronic ulcer of left thigh limited to breakdown of skin; I10 Essential (primary) hypertension; J44.9 Chronic obstructive pulmonary disease, unspecified; C79.2 Secondary malignant neoplasm of skin; E78.00 Pure hypercholesterolemia, unspecified; K21.9 Gastro-esophageal reflux disease without esophagitis; Z85.118 Personal history of other malignant neoplasm of bronchus and lung; Z90.710 Acquired absence of both cervix and uterus; Z87.891 Personal history of nicotine dependence; Y83.8 Other surgical procedures as the cause of abnormal reaction of the patient, or of later complication, without mention of misadventure at the time of the procedure | CPT/HCPCS: 97597 ==

== ENCOUNTER → 2017-11-21 | Outpatient (CLI) | payer MEDICARE, BC | END | disposition home or self-care (01) | LOC: PMGWOUND 08:58 | DX: L98.422 Non-pressure chronic ulcer of back with fat layer exposed (principal); S71.102D Unspecified open wound, left thigh, subsequent encounter; J44.9 Chronic obstructive pulmonary disease, unspecified; I10 Essential (primary) hypertension; K21.9 Gastro-esophageal reflux disease without esophagitis; E78.00 Pure hypercholesterolemia, unspecified; Z85.118 Personal history of other malignant neoplasm of bronchus and lung; Z87.891 Personal history of nicotine dependence; Z90.710 Acquired absence of both cervix and uterus; X58.XXXD Exposure to other specified factors, subsequent encounter | CPT/HCPCS: 97597 ==

== ENCOUNTER → 2017-12-05 | Outpatient (CLI) | payer MEDICARE, BC | END | disposition home or self-care (01) | LOC: PMGWOUND 09:10 | DX: L98.422 Non-pressure chronic ulcer of back with fat layer exposed (principal); S71.102D Unspecified open wound, left thigh, subsequent encounter; J44.9 Chronic obstructive pulmonary disease, unspecified; I10 Essential (primary) hypertension; K21.9 Gastro-esophageal reflux disease without esophagitis; E78.00 Pure hypercholesterolemia, unspecified; Z85.118 Personal history of other malignant neoplasm of bronchus and lung; Z87.891 Personal history of nicotine dependence; Z90.710 Acquired absence of both cervix and uterus; X58.XXXD Exposure to other specified factors, subsequent encounter | CPT/HCPCS: 97597 ==

== ENCOUNTER → 2017-12-19 | Outpatient (CLI) | payer MEDICARE, BC | END | disposition home or self-care (01) | LOC: PMGWOUND 09:03 | DX: L98.422 Non-pressure chronic ulcer of back with fat layer exposed (principal); S71.102D Unspecified open wound, left thigh, subsequent encounter; J44.9 Chronic obstructive pulmonary disease, unspecified; I10 Essential (primary) hypertension; K21.9 Gastro-esophageal reflux disease without esophagitis; E78.00 Pure hypercholesterolemia, unspecified; G89.29 Other chronic pain; Z85.118 Personal history of other malignant neoplasm of bronchus and lung; Z87.891 Personal history of nicotine dependence; Z90.710 Acquired absence of both cervix and uterus; X58.XXXD Exposure to other specified factors, subsequent encounter | CPT/HCPCS: 97597 ==

== ENCOUNTER → 2018-01-03 | Outpatient (CLI) | payer MEDICARE, BC | END | disposition home or self-care (01) | LOC: PMGWOUND 12:59 | DX: L98.422 Non-pressure chronic ulcer of back with fat layer exposed (principal); L97.122 Non-pressure chronic ulcer of left thigh with fat layer exposed; J44.9 Chronic obstructive pulmonary disease, unspecified; I10 Essential (primary) hypertension; K21.9 Gastro-esophageal reflux disease without esophagitis; E78.00 Pure hypercholesterolemia, unspecified; E78.5 Hyperlipidemia, unspecified; G89.29 Other chronic pain; Z85.118 Personal history of other malignant neoplasm of bronchus and lung; Z87.891 Personal history of nicotine dependence; Z90.710 Acquired absence of both cervix and uterus | CPT/HCPCS: 97597 ==

== ENCOUNTER 2018-01-10 07:02 | Emergency (ER) | payer MEDICARE, BC ==
[~2018-01-10] VITALS: Ht 162.6 cm; Wt 69.9 kg
[~2018-01-10 07:02] MED LIST changes: +ALEN70TA5 PO; +ALPR0.5T PO; +AMLO5TAB2 PO; +AMOX1TAB11 PO; +ASPI81TA50 PO; +BENZ-8 PO; +BRIN8DRO OU; +BUDE0.25 NEB; +BUDE10.2 IH; +CHOL500016 PO; +COD1CAPS2 PO; -CONTRAST GIVEN MC; +CYAN10005 PO; +CYCL10TA2 PO; +DOCU-109 PO; +DORZ10DR7 EACHEYE; +EZET10TA18 PO; +FLUO40CA9 PO; +GLYB5TAB3 PO; -IOHEXOL 240 MG/ML 50ML VIAL. PO; -IOHEXOL 300 MG/ML 100ML VIAL. IV; +IPRA3AMP29 NEB; +LATA2.5D3 EACHEYE; +LIDO20SO PO; +LOSA1TAB12 PO; +LOSA50TA6 PO; +METF10003 PO; +METO-239 PO; +METO-269 PO; +MONT10TA9 PO; +NAPR220C4 PO; +OXYC10TA45 PO; +OXYC1TAB7 PO; +OXYC20TA34 PO; +OXYC40TA21 PO; +OXYC5TAB88 PO; +PANT40TA3 PO; +PRED20TA PO; +SUMA100T3 PO; +TRAM50TA PO; +TRAZ-85 PO; +VENL150C PO; +VIT1CAPS7 PO
--- NOTE | 2018-01-10 08:28 | PHYS DOC ---
Past Medical History Past Medical History: Asthma, Cancer, COPD, Hypertension, Other Additional Past Medical Histor: sciatica, lung CA Past Surgical History: Hysterectomy, Other Additional Past Surgical Histo: MASS REMOVED FROM BACK AND HIP, port insertion Alcohol Use: Rarely Drug Use: None Adult General Chief Complaint Chief Complaint: LOWER EXTREMITY SWELLING HPI HPI Patient is a 67-year-old -[place] female with a history of lung cancer, who presents to the emergency department for evaluation. She also reports some mild worsening of her baseline shortness of breath. She has not had any significant cough or fever. She has not had any significant chest pain. She denies dizziness, lightheadedness, nausea, vomiting. There are no alleviating, or exacerbating factors to her symptoms. She denies any definite orthopnea, denies any pleuritic chest pain. She did have a CT angiogram of her chest about a month ago, which was negative for pulmonary embolism but did show worsening metastatic disease. She states her last chemotherapy was about 2 weeks ago, her next dose is scheduled for this coming Tuesday and she has an appointment with her oncologist this coming . Review of Systems Review of Systems Constitutional: Denies fever or chills [] Eyes: Denies change in visual acuity, redness, or eye pain [] HENT: Denies nasal congestion or sore throat [] Respiratory: No additional information not addressed in HPI [] Cardiovascular: The patient denies any chest pain, palpitations, or orthopnea. Does report pedal edema. [] GI: Denies abdominal pain, nausea, vomiting, bloody stools or diarrhea [] : Denies dysuria or hematuria. Does report sensation of not being able to fully empty her bladder [] Musculoskeletal: Denies back pain or joint pain [] Integument: Denies rash or skin lesions [] Neurologic: Denies headache, focal weakness or sensory changes [] Endocrine: Denies polyuria or polydipsia [] All other systems were reviewed and found to be within normal limits, except as documented in this note. Allergies Allergies Allergies Coded Allergies Type Severity Reaction Last Updated Verified erythromycin base Allergy Intermediate 09/07/17 Yes Physical Exam Physical Exam PHYSICAL EXAM: CONSTITUTIONAL: Well developed, well nourished HEAD: normocephalic, atraumatic EENT: PERRL, EOMI. Conjunctivae normal color, sclerae non-icteric; moist mucous membranes. NECK: Supple, non-tender; no meningismus. There is no JVD. LUNGS: There are diminished breath sounds in the left lung field, right lung is clear. There are no wheezes or rales, or rhonchi heard. HEART: Regular rate and rhythm, no murmur CHEST: No deformity; non-tender ABDOMEN: The abdomen is soft, and non-tender, no masses or bruits. EXTREM: Normal ROM; no deformity, no calf tenderness. Normal pulses palpable in all extremities. There is 3+ bilateral pitting pedal edema. SKIN: No rash; no diaphoresis NEURO: Alert; normal speech and cognition; CN's grossly intact; strength grossly intact without focal deficit. BACK: No CVA TTP. Current Patient Data Vital Signs Vital Signs Date Time Temp Pulse Resp B/P (MAP) Pulse Ox O2 Delivery O2 Flow Rate FiO2 01/10/18 09:00 98 19 140/79 (99) 92 Room Air 01/10/18 07:35 98.4 98.4 Lab Values Laboratory Tests Test 01/10/18 08:44 01/10/18 09:00 Urine Collection Type Void Urine Color Yellow Urine Clarity Cloudy Urine pH 7.5 Urine Specific [place] <=1.005 Urine Protein Negative mg/dL (NEG-TRACE) Urine Glucose (UA) Negative mg/dL (NEG) Urine Ketones (Stick) Negative mg/dL (NEG) Urine Blood Negative (NEG) Urine Nitrite Negative (NEG) Urine Bilirubin Negative (NEG) Urine Urobilinogen Dipstick 1.0 mg/dL (0.2 mg/dL) Urine Leukocyte Esterase Negative (NEG) Urine RBC 0 /HPF (0-2) Urine WBC 0 /HPF (0-4) Urine Squamous Epithelial Cells Mod /LPF Urine Bacteria Few /HPF (0-FEW) White Blood Count 14.6 x10^3/uL (4.0-11.0) H Red Blood Count 3.44 x10^6/uL (3.50-5.40) L Hemoglobin 8.0 g/dL (12.0-15.5) L Hematocrit 24.7 % (36.0-47.0) L Mean Corpuscular Volume 72 fL (79-100) L Mean Corpuscular Hemoglobin 23 pg (25-35) L Mean Corpuscular Hemoglobin Concent 32 g/dL (31-37) Red Cell Distribution Width 24.6 % (11.5-14.5) H Platelet Count 520 x10^3/uL (140-400) H Neutrophils (%) (Auto) 92 % (31-73) H Lymphocytes (%) (Auto) 1 % (24-48) L Monocytes (%) (Auto) 6 % (0-9) Eosinophils (%) (Auto) 0 % (0-3) Basophils (%) (Auto) 0 % (0-3) Neutrophils # (Auto) 13.5 x10^3uL (1.8-7.7) H Lymphocytes # (Auto) 0.1 x10^3/uL (1.0-4.8) L Monocytes # (Auto) 0.9 x10^3/uL (0.0-1.1) Eosinophils # (Auto) 0.0 x10^3/uL (0.0-0.7) Basophils # (Auto) 0.0 x10^3/uL (0.0-0.2) Platelet Estimate Pending Prothrombin Time 14.8 SEC (11.7-14.0) H Prothrombin Time INR 1.2 (0.8-1.1) H Sodium Level 134 mmol/L (136-145) L Potassium Level 4.0 mmol/L (3.5-5.1) Chloride Level 96 mmol/L (98-107) L Carbon Dioxide Level 30 mmol/L (21-32) Anion Gap 8 (6-14) Blood Urea Nitrogen 10 mg/dL (7-20) Creatinine 0.5 mg/dL (0.6-1.0) L Estimated GFR (Cockcroft-Gault) 149.8 BUN/Creatinine Ratio 20 (6-20) Glucose Level 91 mg/dL (70-99) Calcium Level 8.4 mg/dL (8.5-10.1) L Total Bilirubin 0.5 mg/dL (0.2-1.0) Aspartate Amino Transferase (AST) 16 U/L (15-37) Alanine Aminotransferase (ALT) 329 U/L (14-59) H Alkaline Phosphatase 139 U/L (46-116) H Creatine Kinase 24 U/L (26-192) L Creatine Kinase MB (Mass) < 0.5 ng/mL (0.0-3.6) Creatine Kinase MB Relative Index % (0-4) Troponin I Quantitative < 0.017 ng/mL (0.000-0.055) YM-Veu-V-Type Natriuretic Peptide 1169 pg/mL (0-124) H Total Protein 6.2 g/dL (6.4-8.2) L Albumin 1.9 g/dL (3.4-5.0) L Albumin/Globulin Ratio 0.4 (1.0-1.7) L Lipase 30 U/L (73-393) L Laboratory Tests 01/10/18 09:00 Laboratory Tests 01/10/18 09:00 EKG EKG [Normal sinus rhythm at a rate of 99 bpm, normal axis, right bundle-branch block , with otherwise normal intervals. There are no acute ischemic ST/T changes. EKG is unchanged compared to patient's EKG from one month ago.] Radiology/Procedures Radiology/Procedures [PROCEDURE: VENOUS LOWER EXT BILATERAL Examination: Bilateral Lower Extremity Venous Doppler Ultrasound History: Bilateral lower extremity edema Comparison: None Procedure: Flower scale, color flow 2D and spectal waveform analysis images are obtained with and without compression in the area of the common femoral vein, superficial femoral vein - femoral vein junction, main femoral vein (superficial femoral vein) and popliteal vein. Veins of the proximal calf are also imaged. Findings: There is normal duplex flow, color flow and compressibility of all visualized vein segments. No evidence of deep venous thrombus is present. Soft tissue edema identified in the bilateral lower legs. Impression: No evidence of DVT in the visualized bilateral lower extremity venous system.. PROCEDURE: PORTABLE CHEST 1V Chest radiograph 01/10/2018 7:57 AM INDICATION: Shortness of breath, history of lung cancer COMPARISON: Chest radiograph September 07, 2017 TECHNIQUE: Portable upright frontal view of the chest is provided. FINDINGS: The cardiomediastinal silhouette is within normal limits. Right chest wall infusion port catheter is identified with the distal tip projecting over the expected region of the superior vena cava, in similar position compared to prior examination. There are no pleural effusions. There is no pulmonary vascular congestion. There is no pneumothorax. Similar architectural distortion in the left suprahilar region with pleural and parenchymal opacity. Mild interstitial prominence appears similar. No new focal airspace consolidation is visualized. No significant osseous abnormality is identified. IMPRESSION: Stable left suprahilar pleural and parenchymal disease in keeping with underlying malignancy. Bilateral interstitial changes appears stable. ] Course & Med Decision Making Course & Med Decision Making Pertinent Labs and Imaging studies reviewed. (See chart for details) [I spoke with Dr. Hernandez, on-call for the patient's oncologist, who confirmed that the patient's white blood cell count was similarly elevated in the office last week. Recommended Lasix 20 mg daily, compression stockings and leg elevation, and the patient has a follow-up appointment for . I discussed test results with the patient and her family, and return precautions.] Dragon Disclaimer Dragon Disclaimer This electronic medical record was generated, in whole or in part, using a voice recognition dictation system. Departure Departure Impression: Primary Impression: Pedal edema Additional Impression: Stage IV squamous cell carcinoma of lung Disposition: HOME, SELF-CARE Condition: STABLE Referrals: NO PCP (PCP) Patient Instructions: Edema Scripts Furosemide (LASIX) 20 Mg Tablet 20 MG PO DAILY, #30 TAB Prov: SUSY MANUEL MD 01/10/18 Problem Qualifiers SUSY MANUEL MD Jan 10, 2018 08:28
--- NOTE | 2018-01-10 08:56 | RAD ---
Examination: Bilateral Lower Extremity Venous Doppler Ultrasound History: Bilateral lower extremity edema Comparison: None Procedure: Flower scale, color flow 2D and spectal waveform analysis images are obtained with and without compression in the area of the common femoral vein, superficial femoral vein - femoral vein junction, main femoral vein (superficial femoral vein) and popliteal vein. Veins of the proximal calf are also imaged. Findings: There is normal duplex flow, color flow and compressibility of all visualized vein segments. No evidence of deep venous thrombus is present. Soft tissue edema identified in the bilateral lower legs. Impression: No evidence of DVT in the visualized bilateral lower extremity venous system.. Electronically signed by: Dylan Gaston MD (01/10/2018 8:53 AM) [id number]
[2018-01-10 09:00] VITALS: BP 140/79
--- NOTE | 2018-01-10 09:28 | EKG ---
[facility] [address] [place] [address] Test Date: 2018-01-10 Test Time: 08:49:35 Pat Name: MILAN YOO Department: Room: Gender: F [employer] S[employer]er: : [id number] Requested By: SUSY MANUEL Order Number: [id number] Reading MD: Cristian Floyd Measurements Intervals [place] Rate: 99 P: 33 [place]: 130 QRS: 54 QRSD: 68 T: 18 QT: 378 QTc: 485 Interpretive Statements SINUS RHYTHM LEFT ATRIAL ABNORMALITY RIGHT BUNDLE BRANCH BLOCK PROLONGED QT ABNORMAL ECG RI6.01 Electronically Signed On 01-23-2018 11:37:13 CDT by Cristian Floyd
[2018-01-10 09:29] LABS: CALCIUM 8.4 mg/dL (8.5-10.1); CREATININE 0.5 mg/dL (0.6-1.0); GFR 149.8
[2018-01-10 09:31] LABS: BASO % 0 % (0-3); EOS % 0 % (0-3); HEMATOCRIT 24.7 % (36.0-47.0); LYMPH # 0.1 x10^3/uL (1.0-4.8); LYMPH % 1 % (24-48); MEAN CORPUSCULAR HEMOGLOBIN 23 pg (25-35); MEAN CORPUSCULAR HGB CONC 32 g/dL (31-37); MEAN CORPUSCULAR VOLUME 72 fL (79-100); MONO # 0.9 x10^3/uL (0.0-1.1); MONO % 6 % (0-9); NEUT # 13.5 x10^3uL (1.8-7.7); NEUT % 92 % (31-73); PLATELET COUNT 520 x10^3/uL (140-400); RED BLOOD COUNT 3.44 x10^6/uL (3.50-5.40); RED CELL DISTRIBUTION WIDTH 24.6 % (11.5-14.5); WHITE BLOOD COUNT 14.6 x10^3/uL (4.0-11.0)
[2018-01-10 09:34] LABS: BILIRUBIN,URINE NEGATIVE (NEG); CLARITY,URINE CLOUDY; COLOR,URINE YELLOW; NITRITE,URINE NEGATIVE (NEG); PH,URINE 7.5; PROTEIN,URINE NEGATIVE (NEG-TRACE)
[2018-01-10 09:35] LABS: ALBUMIN 1.9 g/dL (3.4-5.0); ALBUMIN/GLOBULIN RATIO 0.4 (1.0-1.7); TOTAL BILIRUBIN 0.5 mg/dL (0.2-1.0); TOTAL PROTEIN 6.2 g/dL (6.4-8.2)
[2018-01-10 09:43] LABS: PROTHROMBIN TIME PATIENT 14.8 SEC (11.7-14.0)
[2018-01-10 09:45] LABS: CREATINE KINASE 24 U/L (26-192)
[2018-01-10 09:53] LABS: BACTERIA,URINE FEW /HPF (0-FEW); RBC,URINE 0 /HPF (0-2); SQUAMOUS EPITHELIAL CELL,UR MOD /LPF; WBC,URINE 0 /HPF (0-4)
[2018-01-10] MEDS ORDERED: FURO-69 PO (10:47)
[2018-01-10 11:26] LABS: % LYMPHS 2 % (24-48); % MONOS 4 % (0-10); % SEGS 94 % (35-66); PLT ESTIMATE INCREASED (ADEQUATE)
[2018-01-10 11:27] LABS: ANISOCYTOSIS MOD; HYPOCHROMIA SLIGHT; MICROCYTOSIS MOD; TARGET CELLS PRESENT
[2018-01-25] MEDS ORDERED: Pantoprazole PO (11:04)
[2018-01-25] MEDS ORDERED: Fluconazole PO (11:04)
== END 2018-01-10 11:30 | disposition home or self-care (01) ==
LOC: ER 07:02
DX: C34.90 Malignant neoplasm of unspecified part of unspecified bronchus or lung (principal); R60.0 Localized edema; J44.9 Chronic obstructive pulmonary disease, unspecified; I10 Essential (primary) hypertension; Z88.1 Allergy status to other antibiotic agents
CPT/HCPCS: 36415; 71045; 80053; 81001; 82553; 83690; 83880; 84484; 85007; 85025; 85610; 93005; 93970; 99285-25

== ENCOUNTER → 2018-01-16 | Outpatient (CLI) | payer MEDICARE, BC | END | disposition home or self-care (01) | LOC: PMGWOUND 09:00 | DX: L98.422 Non-pressure chronic ulcer of back with fat layer exposed (principal); L97.122 Non-pressure chronic ulcer of left thigh with fat layer exposed; J44.9 Chronic obstructive pulmonary disease, unspecified; I10 Essential (primary) hypertension; K21.9 Gastro-esophageal reflux disease without esophagitis; E78.5 Hyperlipidemia, unspecified; G89.29 Other chronic pain; E78.00 Pure hypercholesterolemia, unspecified; Z87.891 Personal history of nicotine dependence; Z85.118 Personal history of other malignant neoplasm of bronchus and lung; Z90.710 Acquired absence of both cervix and uterus | CPT/HCPCS: 97597 ==

== ENCOUNTER → 2018-01-20 | Outpatient (CLI) | payer MEDICARE, BC ==
[~2018-01-20] MED LIST changes: -ALEN70TA5 PO; -ALPR0.5T PO; -AMLO5TAB2 PO; -AMOX1TAB11 PO; -ASPI81TA50 PO; -BENZ-8 PO; -BRIN8DRO OU; -BUDE0.25 NEB; -BUDE10.2 IH; -CHOL500016 PO; -COD1CAPS2 PO; +CONTRAST GIVEN. MC; -CYAN10005 PO; -CYCL10TA2 PO; -DOCU-109 PO; -DORZ10DR7 EACHEYE; -EZET10TA18 PO; -FLUO40CA9 PO; -GLYB5TAB3 PO; -IPRA3AMP29 NEB; -LATA2.5D3 EACHEYE; -LIDO20SO PO; -LOSA1TAB12 PO; -LOSA50TA6 PO; -METF10003 PO; -METO-239 PO; -METO-269 PO; -MONT10TA9 PO; -NAPR220C4 PO; -OXYC10TA45 PO; -OXYC1TAB7 PO; -OXYC20TA34 PO; -OXYC40TA21 PO; -OXYC5TAB88 PO; -PANT40TA3 PO; -PRED20TA PO; -SUMA100T3 PO; -TRAM50TA PO; -TRAZ-85 PO; -VENL150C PO; -VIT1CAPS7 PO
[2018-01-20] MEDS: IOHEXOL 240 MG/ML 50ML VIAL. PO (09:00)
[2018-01-20] MEDS: IOHEXOL 300 MG/ML 100ML VIAL. IV (10:04)
== END | disposition home or self-care (01) ==
LOC: NM 08:51
DX: C34.02 Malignant neoplasm of left main bronchus (principal); C78.7 Secondary malignant neoplasm of liver and intrahepatic bile duct; J44.9 Chronic obstructive pulmonary disease, unspecified; K76.89 Other specified diseases of liver; R91.8 Other nonspecific abnormal finding of lung field
CPT/HCPCS: 71260; 74177; 78306; 96374; A9503; Q9966; Q9967

== ENCOUNTER → 2018-01-30 | Outpatient (CLI) | payer MEDICARE, BC | END | disposition home or self-care (01) | LOC: PMGWOUND 09:03 | DX: L98.422 Non-pressure chronic ulcer of back with fat layer exposed (principal); L97.122 Non-pressure chronic ulcer of left thigh with fat layer exposed; J44.9 Chronic obstructive pulmonary disease, unspecified; I10 Essential (primary) hypertension; K21.9 Gastro-esophageal reflux disease without esophagitis; E78.5 Hyperlipidemia, unspecified; G89.29 Other chronic pain; E78.00 Pure hypercholesterolemia, unspecified; M19.90 Unspecified osteoarthritis, unspecified site; I25.2 Old myocardial infarction; Z87.891 Personal history of nicotine dependence; Z85.118 Personal history of other malignant neoplasm of bronchus and lung; Z90.710 Acquired absence of both cervix and uterus | CPT/HCPCS: 99215 ==

== ENCOUNTER → 2018-02-13 | Outpatient (CLI) | payer MEDICARE, BC | END | disposition home or self-care (01) | LOC: PMGWOUND 08:59 | DX: L98.422 Non-pressure chronic ulcer of back with fat layer exposed (principal); L97.122 Non-pressure chronic ulcer of left thigh with fat layer exposed; J44.9 Chronic obstructive pulmonary disease, unspecified; I10 Essential (primary) hypertension; K21.9 Gastro-esophageal reflux disease without esophagitis; E78.5 Hyperlipidemia, unspecified; G89.29 Other chronic pain; E78.00 Pure hypercholesterolemia, unspecified; M19.90 Unspecified osteoarthritis, unspecified site; I25.2 Old myocardial infarction; Z87.891 Personal history of nicotine dependence; Z85.118 Personal history of other malignant neoplasm of bronchus and lung; Z90.710 Acquired absence of both cervix and uterus | CPT/HCPCS: 99214 ==

== ENCOUNTER → 2018-02-27 | Outpatient (CLI) | payer MEDICARE, BC | END | disposition home or self-care (01) | LOC: PMGWOUND 08:50 | DX: L98.422 Non-pressure chronic ulcer of back with fat layer exposed (principal); L97.122 Non-pressure chronic ulcer of left thigh with fat layer exposed; J44.9 Chronic obstructive pulmonary disease, unspecified; I10 Essential (primary) hypertension; K21.9 Gastro-esophageal reflux disease without esophagitis; E78.5 Hyperlipidemia, unspecified; G89.29 Other chronic pain; E78.00 Pure hypercholesterolemia, unspecified; M19.90 Unspecified osteoarthritis, unspecified site; I25.2 Old myocardial infarction; Z87.891 Personal history of nicotine dependence; Z85.118 Personal history of other malignant neoplasm of bronchus and lung; Z85.41 Personal history of malignant neoplasm of cervix uteri; Z90.710 Acquired absence of both cervix and uterus | CPT/HCPCS: 99215 ==